=== PATIENT | female | born 1955 | race Caucasian/White ===

== ENCOUNTER 2017-02-08 10:34 | Inpatient (IN) | payer OTHER ==
--- NOTE | 2017-02-08 10:46 | PDOC ---
History of Present Illness - General Stated Complaint: PRESSURE ULCER (WC SENT) Time Seen by Provider: 02/08/17 10:44 - History of Present Illness Initial Comments: 02/08/17 10:46 CHIEF COMPLAINT: HISTORY OF PRESENT ILLNESS: This is a 61 year old female SN[facility] resident with a history of MS and DVT on Eliquis sent from wound care by Dr. Samaniego for admission for IV antibiotics and treatment of an infected right buttock ulcer. The patient denies fevers/chills or any other systemic complaints. V/s on arrival are notable for pulse of 94. Patient resides in the [facility]. REVIEW OF SYSTEMS: GENERAL/CONSTITUTIONAL: No fever or chills. No weakness above baseline. No weight change. HEAD, EYES, EARS, NOSE AND THROAT: No change in vision. No ear pain or discharge. No sore throat. CARDIOVASCULAR: No chest pain or palpitations. RESPIRATORY: No cough, wheezing, or shortness of breath. GASTROINTESTINAL: No nausea, vomiting, diarrhea or constipation. GENITOURINARY: No dysuria, frequency, or change in urination. Chronic indwelling borjas catheter. MUSCULOSKELETAL: No joint or muscle swelling or pain. No neck or back pain. SKIN: No rash or easy bruising. NEUROLOGIC: No headache, vertigo, loss of consciousness, or loss of sensation. PSYCHIATRIC: No depression or anxiety. ENDOCRINE: No increased thirst. No abnormal weight change. HEMATOLOGIC/LYMPHATIC: No anemia, easy bleeding, or history of blood clots. ALLERGIC/IMMUNOLOGIC: No hives or skin allergy. No latex allergy. PHYSICAL EXAM: GENERAL: The patient is awake, alert, oriented x 2, in no acute distress. HEAD: Normal with no signs of trauma. ENT: Pupils equal, round and reactive to light, extraocular movements intact, sclera anicteric, conjunctiva clear. Neck supple. LUNGS: Clear to auscultation bilaterally. Normal excursion. No respiratory distress or use of accessory muscles. CV: RRR, S1/S2, no MRG. Cap refill < 2 sec. ABDOMEN: Soft, non-distended, non-tender. EXTREMITIES: Normal range of motion, no edema. NEUROLOGICAL: Normal speech. CN II-XII grossly intact. RUE 3/5 LUE 4/5 RLE 3/5 LLE 3/5. PSYCH: Normal mood, normal affect. SKIN: Warm, dry, normal turgor. Right buttock ulcer 8 cm x 6cm, tunneling, necrotic tissue, purulent drainage. Past History - Past Medical History Allergies/Adverse Reactions: Allergies Allergy/AdvReac Type Severity Reaction Status Date / Time aripiprazole [From Abilify] AdvReac Severe Verified 02/08/17 11:00 Home Medications: Ambulatory Orders Acetaminophen [Tylenol] 650 mg PO Q6H 02/08/17 Apixaban [Eliquis -] 5 mg PO Q12H 02/08/17 Arginine/Glutamine/Calcium Hmb [Gordon Packet] 1 each PO BID 02/08/17 Atorvastatin Ca [Lipitor] 20 mg PO HS 02/08/17 Baclofen 20 mg PO QID 02/08/17 Bismuth Tribromoph/Petrolatum [Xeroform Petrolatum Dress] 1 each TP Q72H Calcium Carbonate/Vitamin D3 [Calcium 600-Vit D3 400 Tablet] 1 each PO DAILY Gabapentin [Neurontin -] 300 mg PO BID 02/08/17 Letrozole 2.5 mg PO DAILY 02/08/17 Levofloxacin [Levaquin -] 250 mg PO 1700 02/08/17 Melatonin 3 mg PO HS 02/08/17 Mirtazapine [Remeron [DO NOT STOCK]] 45 mg PO HS 02/08/17 Polyethylene Glycol 3350 [Miralax (For Bowel Prep) -] 17 gm PO Q12H 02/08/17 Risperidone [Risperdal] 1 mg PO TID 02/08/17 Silv/Bandg/Lidoca/Chlorhex/Alc [Vacustim Silver Kit] 1 each TP Q72H 02/08/17 Silver Sulfadiazine 1% Top Cr [Silvadene -] 1 applic TP ASDIR 02/08/17 Cancer: Yes (Breast) Hypercholesterolemia: Yes - Psycho/Social/Smoking Cessation Hx Smoking History: Never smoked ED Treatment Course - LABORATORY CBC & Chemistry Diagram: 02/08/17 11:50 02/08/17 11:50 Medical Decision Making - Medical Decision Making 02/08/17 12:57 A/P: 61 year old female with infected buttock ulcer. 1. EKG and CXR 2. Labs including CBC, comp, ESR/CRP, blood cultures, wound culture 3. Ceftriaxone/Vancomycin 4. Admit 02/08/17 13:01 UA with 3+ leukesterase and pos nitrites noted. Will change borjas cath. *DC/Admit/Observation/Transfer Diagnosis at time of Disposition: Infected decubitus ulcer Qualifiers: Pressure ulcer stage: unstageable Qualified Code(s): L89.95 - Pressure ulcer of unspecified site, unstageable Urinary tract infection Qualifiers: Indwelling urinary catheter type: indwelling urethral catheter Encounter type: initial encounter - Discharge Dispostion Condition at time of disposition: Guarded Admit: Yes
[2017-02-08 11:00] VITALS: BMI 25.7
[2017-02-08] MEDS ORDERED: CEFTRIAXONE 1 GM in DEXTROSE 5%-WATER - 50 ML IVPB ONE (12:01)
[2017-02-08] MEDS ORDERED: VANCOMYCIN 1,000 MG in DEXTROSE 5%-WATER - 250 ML IVPB ONE (12:01)
[2017-02-08] MEDS ORDERED: VANCOMYCIN 1 GRAM (PRE-DOCKED) 250 ML IVPB ONE (12:09)
[2017-02-08] MEDS ORDERED: CEFTRIAXONE 50 ML ONE (12:09)
[2017-02-08 12:27] LABS: BASOPHIL 0.2 % (0-2.0); EOSINOPHIL 0.6 % (0-4.5); MCH 25.5 pg (25.7-33.7); MCHC 32.1 g/dl (32.0-36.0); MEAN CELL VOLUME 79.6 fl (80-96); MEAN PLT VOLUME 8.2 fl (7.5-11.1); NEUTROPHILS 72.9 % (42.8-82.8); PLATELET COUNT 265 K/MM3 (134-434); RDW 15.9 % (11.6-15.6); WHITE BLOOD COUNT 10.2 K/mm3 (4.0-10.0)
[2017-02-08 12:50] LABS: URINE APPEARANCE CLOUDY; URINE BILIRUBIN NEGATIVE (NEGATIVE); URINE BLOOD NEGATIVE (NEGATIVE); URINE COLOR AMBER; URINE GLUCOSE (UA) NEGATIVE (NEGATIVE); URINE KETONE NEGATIVE (NEGATIVE); URINE NITRITE POSITIVE (NEGATIVE); URINE UROBILINOGEN NEGATIVE E.U./dl (0.2-1.0)
[2017-02-08 12:53] LABS: URINE LEUK ESTERASE 3+ (NEGATIVE); URINE PROTEIN 1+ (NEGATIVE)
[2017-02-08 13:02] LABS: INR 1.38 (0.82-1.09); PROTHROMBIN TIME (PATIENT) 15.3 SEC (9.98-11.88)
[2017-02-08 13:08] LABS: ALBUMIN 1.7 g/dl (3.4-5.0); ALK PHOS 128 U/L (45-117); ANION GAP 9 (8-16); BILIRUBIN,TOTAL 0.2 mg/dL (0.2-1.0); C-REACTIVE PROTEIN 14.9 MG/DL (0.00-0.3); CALCIUM 8.5 mg/dL (8.5-10.1); CO2 34 mmol/L (21-32); CREATININE 0.4 mg/dL (0.55-1.02); GLUCOSE,RANDOM 132 mg/dL (74-106); SGOT/AST 55 U/L (15-37); SGPT/ALT 69 U/L (12-78); TOT PROT 5.9 g/dl (6.4-8.2); URINE MUCUS FEW; URINE RBC 7 /hpf (0-3); URINE WBC 246 /hpf (3-5); YEAST RARE
--- NOTE | 2017-02-08 14:58 | HP ---
CHIEF COMPLAINT: sacral ulcer HISTORY OF PRESENT ILLNESS: This is a 61 yo F [facility] resident with PMH of MS, HLD, Schizophrenia, major depresssive d/o, DVT on eliquis and chronic buttock ulcer who presents at the urging of wound care/plastics Dr Samaniego for IV abx due to infected R buttock ulcer. On admission she is afebrile and hemodynamically stable. Her HR is 94. She states she doesnt feel well but cant specify how. She denies f/c, sob, chest pain, cough, abd pain, n/v, diarrhea, myalgia. Patient can only give limited history due to mental state. ER course was notable for: (1)labs (2)alyssa scherer (3)ID consult Recent Travel: denies PAST MEDICAL HISTORY: PAST SURGICAL HISTORY: Social History: [facility] resident Smoking:denies Alcohol:denies Drugs: denies Family History: unable to obtain Allergies aripiprazole [From [facility]] Adverse Reaction (Severe, Verified 02/08/17 11:00) In ICU after administration of this medication HOME MEDICATIONS: Home Medications Medication Instructions Recorded Acetaminophen [Tylenol] 650 mg PO Q6H 02/08/17 Apixaban [Eliquis -] 5 mg PO Q12H 02/08/17 Arginine/Glutamine/Calcium Hmb 1 each PO BID 02/08/17 [Gordon Packet] Atorvastatin Ca [Lipitor] 20 mg PO HS 02/08/17 Baclofen 20 mg PO QID 02/08/17 Bismuth Tribromoph/Petrolatum 1 each TP Q72H 02/08/17 [Xeroform Petrolatum Dress] Calcium Carbonate/Vitamin D3 1 each PO DAILY 02/08/17 [Calcium 600-Vit D3 400 Tablet] Gabapentin [Neurontin -] 300 mg PO BID 02/08/17 Letrozole 2.5 mg PO DAILY 02/08/17 Levofloxacin [Levaquin -] 250 mg PO 1700 02/08/17 Melatonin 3 mg PO HS 02/08/17 Mirtazapine [Remeron [DO NOT 45 mg PO HS 02/08/17 STOCK]] Polyethylene Glycol 3350 [Miralax 17 gm PO Q12H 02/08/17 (For Bowel Prep) -] Risperidone [Risperdal] 1 mg PO TID 02/08/17 Silv/Bandg/Lidoca/Chlorhex/Alc 1 each TP Q72H 02/08/17 [Vacustim Silver Kit] Silver Sulfadiazine 1% Top Cr 1 applic TP ASDIR 02/08/17 [Silvadene -] REVIEW OF SYSTEMS CONSTITUTIONAL: Absent: fever, chills, diaphoresis HEENT: Absent: rhinorrhea, nasal congestion, throat pain CARDIOVASCULAR: Absent: chest pain, syncope, palpitations RESPIRATORY: Absent: cough, shortness of breath, wheezing, stridor, hemoptysis GASTROINTESTINAL: Absent: abdominal pain, abdominal distension, nausea, vomiting, diarrhea GENITOURINARY: Absent: flank pain MUSCULOSKELETAL: Absent: myalgia SKIN: Absent: rash, itching, pallor HEMATOLOGIC/IMMUNOLOGIC: Absent: lymphadenopathy ENDOCRINE: Absent: heat intolerance, cold intolerance NEUROLOGIC: Absent: headache, dizziness, seizure PSYCHIATRIC: Absent: anxiety Laboratory Tests 02/08/17 02/08/17 02/08/17 11:45 11:50 11:50 WBC 10.2 H RBC 3.78 Hgb 9.6 L Hct 30.1 L MCV 79.6 L MCHC 32.1 RDW 15.9 H Plt Count 265 Neutrophils % 72.9 INR 1.38 H Sodium 143 Potassium 3.7 Chloride 100 Carbon Dioxide 34 H Anion Gap 9 BUN 17 Creatinine 0.4 L Creat Clearance w eGFR > 60 Random Glucose 132 H Lactic Acid Calcium 8.5 Total Bilirubin 0.2 AST 55 H ALT 69 Alkaline Phosphatase 128 H C-Reactive Protein 14.9 H Total Protein 5.9 L Albumin 1.7 L Urine Color Urine Appearance Urine pH Ur Specific Pollock Urine Protein Urine Glucose (UA) Urine Ketones Urine Blood Urine Nitrite Urine Bilirubin Urine Urobilinogen Ur Leukocyte Esterase Urine RBC Urine WBC Urine Mucus Urine Yeast 02/08/17 02/08/17 11:50 11:50 WBC RBC Hgb Hct MCV MCHC RDW Plt Count Neutrophils % INR Sodium Potassium Chloride Carbon Dioxide Anion Gap BUN Creatinine Creat Clearance w eGFR Random Glucose Lactic Acid 1.967 Calcium Total Bilirubin AST ALT Alkaline Phosphatase C-Reactive Protein Total Protein Albumin Urine Color Celeste Urine Appearance Cloudy Urine pH 6.0 Ur Specific Pollock 1.028 Urine Protein 1+ H Urine Glucose (UA) Negative Urine Ketones Negative Urine Blood Negative Urine Nitrite Positive Urine Bilirubin Negative Urine Urobilinogen Negative Ur Leukocyte Esterase 3+ H Urine RBC 7 Urine WBC 246 Urine Mucus Few Urine Yeast Rare PHYSICAL EXAMINATION GENERAL: Awake, alert, and oriented, in no acute distress. HEAD: Normal with no signs of trauma. EYES: Pupils equal, round and reactive to light, extraocular movements intac EARS, NOSE, THROAT: oropharynx clear without exudates. Moist mucous membranes. NECK: supple without JVD LUNGS: Breath sounds equal, clear to auscultation bilaterally HEART: Regular rate and rhythm, normal S1 and S2 ABDOMEN: Soft, nontender, not distended, normoactive bowel sounds MUSCULOSKELETAL: No CVA tenderness. Stage IV sacral decubitus ulcer on R side with dark slough and dark drainage, malodorous, exposed bone. UPPER EXTREMITIES: 2+ pulses, warm, well-perfused. No peripheral edema. LOWER EXTREMITIES: 2+ pulses, warm, well-perfused. trace peripheral edema. NEUROLOGICAL: Cranial nerves II-XII grossly intact. slurred speech. PSYCHIATRIC: Cooperative. Good eye contact. SKIN: Warm, dry ASSESSMENT/PLAN: This is a 61 yo F [facility] resident with PMH of MS, HLD, Schizophrenia, major depresssive d/o, DVT on eliquis and chronic buttock ulcer who presents at the urging of wound care/plastics Dr Samaniego for IV abx due to infected R buttock ulcer. Infection of chronic Right Decubitus ulcer -blood, urine and wound cultures p/d -Rocephin, Vanco in ER -add Zosyn for pseudomonas coverage -NS@50 -Morphine 1 mg q 6h -ID consult -treat for presumed osteo, will need picc line -Dr Samaniego consult for debridement followed by wound vac. MS -neurontin HLD -lipitor History of DVT -eliquis Schizophrenia -Risperedal major depressive d/o -remeron FEN -NS@50 -lytes stable -Regular diet -eliquis, diet Dispo: admit to med [facility] Visit type - Emergency Visit Emergency Visit: Yes ED Registration Date: 02/08/17 Care time: The patient presented to the Emergency Department on the above date and was hospitalized for further evaluation of their emergent condition. - New Patient This patient is new to me today: Yes Date on this admission: 02/08/17 - Critical Care Critical Care patient: No
[2017-02-08] MEDS ORDERED: SILVER SULFADIAZINE 1% TOP CREAM 400 GM JAR TP SCH (15:45)
[2017-02-08] MEDS ORDERED: PIPERACILLIN/TAZOB 3.375 GM 3.375 GM in DEXTROSE 5%-WATER - 50 ML IVPB ONE ×2 (16:07→23:55)
[2017-02-08] MEDS ORDERED: morphine CARPU-JECT 2 MG/1 ML DISP.SYRIN IVPUSH PRN (16:09)
[2017-02-08] MEDS ORDERED: SODIUM CHLORIDE 1,000 ML IV SCH (16:15)
[2017-02-08 17:47] LABS: ERYTHROCYTE SEDIMENTATION RATE 129 mm/hr (0-30)
[2017-02-08] MEDS ORDERED: PIPERACILLIN/TAZOB 3.375 GM 50 ML IVPB ONE (18:00)
[2017-02-08] MEDS ORDERED: PATIENT'S OWN MEDICATION (NON-FORMULARY) (Baclofen [Baclofen] 20 MG) PO SCH (18:00)
--- NOTE | 2017-02-08 18:14 | PN ---
Teaching Attending Note Name of Resident: Sherri Avelar ATTENDING PHYSICIAN STATEMENT I saw and evaluated the patient. I reviewed the resident's note and discussed the case with the resident. I agree with the resident's findings and plan as documented. SUBJECTIVE: This is a 61-year-old woman, resident of [facility], with a history of MS, schizophrenia, hyperlipidemia, depression and DVT who was sent to the ER by Dr. Samaniego for admission for treatment of a sacral pressure ulcer. The patient says she hasn't been feeling well for a few days but has no specific complaints. She does not know why she is here. OBJECTIVE: Vital Signs Period Temp Pulse Resp BP Sys/Claudio Pulse Ox Last 24 Hr 98.6 F 94 18 102/54 98 HEART: S1 S2, RRR LUNGS: Clear ABDOMEN: Soft, non-tender, non-distended, normal BS EXTREMITIES: No edema SKIN: 5 cm x 6 cm stage IV sacral pressure ulcer with tunneling, slough, necrosis of the edges, and purulent drainage ASSESSMENT AND PLAN: This is a 61-year-old woman with a history of MS, schizophrenia, hyperlipidemia , depression and DVT who is being admitted for treatment of an infected stage IV sacral pressure ulcer. 1. Infected stage IV sacral pressure ulcer, with likely osteomyelitis - Local wound care - Zosyn, Vancomycin - ESR, C-RP pending - ID consult - Plastic surgery consult 2. Multiple sclerosis - On Neurontin, Baclofen 3. Schizophrenia - On Risperdal 4. Depression - On Remeron 5. Hyperlipidemia - On Lipitor 6. History of DVT - On Eliquis
[2017-02-08] MEDS: BACLOFEN 10 MG TABLET (FP) PO SCH ×2 (19:28→23:10)
[2017-02-08] MEDS: ACETAMINOPHEN 325 MG TABLET (FP) PO SCH (19:28)
[2017-02-08] MEDS ORDERED: MELATONIN 1 MG TABLET PO SCH (22:00)
[2017-02-08] MEDS ORDERED: GABAPENTIN 300 MG CAPSULE (FP) PO SCH (22:00)
[2017-02-08] MEDS ORDERED: POLYETHYLENE GLYCOL 3350 119 GM BTL PO SCH (22:00)
[2017-02-08] MEDS ORDERED: MIRTAZAPINE 15 MG TABLET (FP) PO SCH (22:00)
[2017-02-08] MEDS ORDERED: APIXABAN 5 MG TABLET PO SCH (22:00)
[2017-02-08] MEDS ORDERED: PATIENT'S OWN MEDICATION (NON-FORMULARY) (Melatonin [Melatonin] 3 MG) PO SCH (22:00)
[2017-02-08] MEDS ORDERED: MIRTAZAPINE PO SCH (22:00)
[2017-02-08] MEDS ORDERED: ATORVASTATIN CA 20 MG TABLET (FP) PO SCH (22:00)
[2017-02-08] MEDS ORDERED: PT OWN MED DRAWER 7, Y5N ONE (22:48)
[2017-02-08] MEDS: risperiDONE 1 MG TABLET (FP) PO SCH (23:12)
[2017-02-09] MEDS: ACETAMINOPHEN 325 MG TABLET (FP) PO SCH ×3 (00:17→18:33)
[2017-02-09] MEDS ORDERED: PIPERACILLIN/TAZOB 3.375 GM/50 ML PRE-DOCKED IVPB SCH ×2 (02:00→18:00)
[2017-02-09] MEDS: risperiDONE 1 MG TABLET (FP) PO SCH ×2 (07:55→22:30)
[2017-02-09] MEDS ORDERED: VANCOMYCIN 1 GRAM (PRE-DOCKED) 250 ML IVPB ONE (08:00)
[2017-02-09] MEDS ORDERED: PIPERACILLIN/TAZOB 3.375 GM 3.375 GM in DEXTROSE 5%-WATER - 50 ML IVPB ONE (08:00)
[2017-02-09 08:01] LABS: MCH 25.6 pg (25.7-33.7); MCHC 32.4 g/dl (32.0-36.0); MEAN CELL VOLUME 78.9 fl (80-96); PLATELET COUNT 266 K/MM3 (134-434); RDW 15.7 % (11.6-15.6); WHITE BLOOD COUNT 8.1 K/mm3 (4.0-10.0)
[2017-02-09 08:46] LABS: CALCIUM 8.5 mg/dL (8.5-10.1); CREATININE 0.4 mg/dL (0.55-1.02); MAGNESIUM 2.2 mg/dL (1.8-2.4); PHOSPHOROUS 4.5 mg/dL (2.5-4.9)
--- NOTE | 2017-02-09 09:22 | PN ---
Progress Note (short form) - Note Progress Note: ID Full note dictated Patient complains of pain in the sacral area Selected Entries 02/09/17 06:00 Temperature 97.9 F Pulse Rate 83 Respiratory 20 Rate Blood Pressure 125/68 Stage 4 sacral decub to bone areas of skin necrosis bloody drainage Microbiology Laboratory Tests 02/08/17 02/08/17 02/09/17 11:50 11:50 06:00 WBC 8.1 Hgb 9.2 L Hct 28.4 L Plt Count 266 ESR 129 H BUN C-Reactive Protein 14.9 H 02/09/17 06:00 WBC Hgb Hct Plt Count ESR BUN 14 C-Reactive Protein Assessment Sacral osteomyelitis ESR 129 necrotic tissue noted Plan Debridement Delfina and Ann for now PICC line Sandy STEELE
[2017-02-09] MEDS ORDERED: LETROZOLE 2.5 MG TABLET (FP) PO SCH (10:00)
[2017-02-09] MEDS ORDERED: CHOLECALCIFEROL (VITAMIN D3) 400 UNIT TABLET (FP) PO SCH (10:00)
[2017-02-09] MEDS ORDERED: CALCIUM CARBONATE 650 MG TABLET PO SCH (10:00)
[2017-02-09] MEDS ORDERED: PATIENT'S OWN MEDICATION (NON-FORMULARY) (Calcium Carbonate/Vitamin D3 [Calcium 600-Vit D3 PO SCH (10:00)
--- NOTE | 2017-02-09 10:28 | CONS ---
INFECTIOUS DISEASE CONSULT DATE OF CONSULTATION: DATE OF DICTATION: 02/09/2017 DICTATED BY: Brandon Hays MD HISTORY OF PRESENT ILLNESS: This is a 61-year-old female with multiple sclerosis from [facility], admitted with chronic sacral decubitus ulcer. She has a history of MS, schizophrenia, major depressive disorder and DVT for which she is on Eliquis. She was apparently admitted by Dr. Samaniego for further wound management and long-term antibiotics for osteomyelitis. She has no fever or chills. She is alert and oriented and in no acute distress. PAST MEDICAL HISTORY: As noted above. MEDICATIONS: Eliquis, atorvastatin, baclofen, gabapentin, letrozole, Remeron, Risperdal. ALLERGIES: ABILIFY. SOCIAL HISTORY: Non-smoker. No history of alcohol use. FAMILY HISTORY: Reviewed and noncontributory. REVIEW OF SYSTEMS: Respiratory. No shortness of breath, cough, hemoptysis. Cardiac: No chest pain, palpitations, syncope, murmur. GI: No abdominal pain, nausea, vomiting, diarrhea. : No dysuria, hematuria, urinary frequency. Chronic indwelling [place] catheter at the shelter, changed here. Skin: The skin revealed a stage IV decubitus ulcer of the sacral area with areas of necrotic tissue and purulent drainage noted in the nodes, currently mostly bloody-appearing drainage. LABS: The white count was 10.2, hemoglobin 9.6, platelets of 265, ESR 129, INR 1.38. BUN 14, creatinine 0.4. Urinalysis: 3+ leukocyte esterase. 7 RBCs, 246 WBCs. Blood, wound and urine cultures pending. ASSESSMENT: 61-year-old female with multiple sclerosis, shelter resident, brought for management of a stage IV necrotic sacral decubitus ulcer with necrotic tissue margins and purulent bloody drainage noted. Elevated ESR of 130, consistent with diagnosis of underlying sacral osteomyelitis. PLAN: Will plan on long-term antibiotics. A wound culture has been sent for whatever value this may be, given this large open wound. She is scheduled to be taken to the operating room today for debridement of the wound and, for the time being, will be placed on vancomycin 1 gm IV q 12 h and Zosyn 4.5 gm IV q 8 h with plan to insert a PICC line pre-discharge. BRANDON HAYS M.D. DAIN/[id number]
[2017-02-09] MEDS ORDERED: PT OWN MED DRAWER 7, Y5N ONE (11:16)
[2017-02-09] MEDS: BACLOFEN 10 MG TABLET (FP) PO SCH ×3 (11:22→22:27)
[2017-02-09] MEDS ORDERED: PICC LINE 8 ML FLUSH PROTOCOL IVPUSH PRN ×2 (12:25→14:41)
--- NOTE | 2017-02-09 12:28 | EKG ---
Test Reason : Blood Pressure : / mmHG Vent. Rate : 095 BPM Atrial Rate : 095 BPM P-R Int : 136 ms QRS Dur : 116 ms QT Int : 370 ms P-R-T Axes : 003 -49 048 degrees QTc Int : 464 ms NORMAL SINUS RHYTHM LEFT ANTERIOR FASCICULAR BLOCK ABNORMAL ECG NO PREVIOUS ECGS AVAILABLE Confirmed by CAMMIE MADRIGAL MD ([id number]) on 02/09/2017 12:28:20 PM Referred By: Confirmed By:CAMMIE MADRIGAL MD
[2017-02-09] MEDS ORDERED: PROPOFOL 20 ML ONE (12:37)
[2017-02-09] MEDS ORDERED: MIDAZOLAM HCL 2 MG/2 ML SINGLE DOSE VIAL ONE (12:37)
[2017-02-09] MEDS ORDERED: PIPERACILLIN/TAZOB 4.5 GM 100 ML IVPB SCH (12:45)
[2017-02-09] MEDS ORDERED: LIDOCAINE 1%/EPI 1:100000 (50 ML MULTI DOSE VIAL) ONE (13:18)
[2017-02-09] MEDS ORDERED: LIDOCAINE 1%/EPI 1:100000 (50 ML MULTI DOSE VIAL) INF ONE (13:21)
[2017-02-09] MEDS ORDERED: ONDANSETRON 4 MG/2 ML VIAL IVPUSH PRN ×2 (14:09→14:41)
[2017-02-09] MEDS ORDERED: LACTATED RINGERS SOLUTION 1,000 ML IV SCH ×2 (14:15→14:41)
[2017-02-09] MEDS ORDERED: SODIUM CHLORIDE 1,000 ML IV SCH (14:41)
[2017-02-09] MEDS ORDERED: morphine CARPU-JECT 2 MG/1 ML DISP.SYRIN IVPUSH PRN (14:41)
[2017-02-09] MEDS ORDERED: SILVER SULFADIAZINE 1% TOP CREAM 400 GM JAR TP SCH (14:41)
--- NOTE | 2017-02-09 15:29 | PN ---
Addendum entered and electronically signed by Sherri Avelar RES 02/09/17 15: 51: A/P: hold rosa an start on Hep drip but DO NOT BOLUS Original Note: Physical Exam: SUBJECTIVE: Patient seen and examined Patient resting in bed NAD. No acute events overnight. afebrile and hemodynamically stable. States she feels well. Brother at bedside, plan explained. denies pain, f/c, chest pain, n/v, abd pain, h/a, diarrhea, constipation. OBJECTIVE: Vital Signs Period Temp Pulse Resp BP Sys/Claudio Pulse Ox Last 24 Hr 97.9 F-99.6 F 52-102 14-20 102-135/44-74 95-100 GENERAL: Awake, alert, and oriented, in no acute distress. HEAD: Normal with no signs of trauma. EYES: Pupils equal, round and reactive to light, extraocular movements intac EARS, NOSE, THROAT: oropharynx clear without exudates. Moist mucous membranes. NECK: supple without JVD LUNGS: Breath sounds equal, clear to auscultation bilaterally HEART: Regular rate and rhythm, normal S1 and S2 ABDOMEN: Soft, nontender, not distended, normoactive bowel sounds MUSCULOSKELETAL: No CVA tenderness. Stage IV sacral decubitus ulcer on R side with dark slough and dark drainage, malodorous, exposed bone. UPPER EXTREMITIES: 2+ pulses, warm, well-perfused. No peripheral edema. LOWER EXTREMITIES: 2+ pulses, warm, well-perfused. trace peripheral edema. NEUROLOGICAL: Cranial nerves II-XII grossly intact. slurred speech. PSYCHIATRIC: Cooperative. Good eye contact. SKIN: Warm, dry Laboratory Results - last 24 hr 02/09/17 02/09/17 06:00 06:00 WBC 8.1 RBC 3.60 Hgb 9.2 L Hct 28.4 L MCV 78.9 L MCHC 32.4 RDW 15.7 H Plt Count 266 MPV 8.0 Sodium 143 Potassium 4.0 Chloride 103 Carbon Dioxide 29 Anion Gap 11 BUN 14 Creatinine 0.4 L Random Glucose 98 D Calcium 8.5 Phosphorus 4.5 Magnesium 2.2 Active Medications Generic Name Dose Route Start Last Admin Trade Name Freq PRN Reason Stop Dose Admin Acetaminophen 650 mg 02/09/17 18:00 Tylenol - PO Q6HPO NAYAN Apixaban 5 mg 02/09/17 22:00 Eliquis - PO BID [facility] Atorvastatin Calcium 20 mg 02/09/17 22:00 Lipitor - PO HS [facility] Baclofen 20 mg 02/09/17 18:00 Lioresal - PO QID [facility] Calcium Carbonate 650 mg 02/10/17 10:00 Calcium Carbonate - PO DAILY [facility] Cholecalciferol 400 unit 02/10/17 10:00 Vitamin D3 - PO DAILY [facility] Fentanyl 50 mcg 02/09/17 14:41 Sublimaze Injection - IVPUSH 02/12/17 14:10 [id number] PRN PAIN Gabapentin 300 mg 02/09/17 22:00 Neurontin - PO BID [facility] IV Flush 8 ml 02/09/17 14:41 Picc Line Flush IVPUSH PRN PRN Protocol Lactated Ringer's 1,000 mls @ 75 mls/hr 02/09/17 14:41 Lactated Ringers Solution IV ASDIR [facility] Sodium Chloride 1,000 mls @ 50 mls/hr 02/09/17 14:41 Normal Saline - IV 02/09/17 16:09 ASDIR [facility] Vancomycin HCl 250 mls @ 166.667 mls/hr 02/09/17 20:00 Vancomycin (Pre-Docked) IVPB BID@0800,2000 [facility] Protocol Piperacillin Sod/Tazobactam Sod 100 mls @ 200 mls/hr 02/09/17 18:00 Zosyn 4.5gm Ivpb (Pre-Docked) IVPB Q8H-IV [facility] Protocol Letrozole 2.5 mg 02/10/17 10:00 Femara - PO DAILY [facility] Melatonin 3 mg 02/09/17 22:00 Melatonin PO HS [facility] Mirtazapine 45 mg 02/09/17 22:00 Remeron - PO HS [facility] Morphine Sulfate 1 mg 02/09/17 14:41 Morphine Injection - IVPUSH Q6H PRN PAIN Ondansetron HCl 4 mg 02/09/17 14:41 Zofran Injection IVPUSH 02/09/17 20:10 Q6H PRN NAUSEA AND/OR VOMITING Piperacillin Sod/Tazobactam Sod 3.375 gm 02/09/17 18:00 Zosyn 3.375gm Ivpb (Pre-Docked) IVPB Q8H-IV [facility] Polyethylene Glycol 17 gm 02/09/17 22:00 Miralax (For Daily Use) - PO BID NAYAN Risperidone 1 mg 02/09/17 22:00 Risperdal - PO TID [facility] Silver Sulfadiazine 1 applic 02/09/17 14:41 Silvadene - TP ASDIR [facility] ASSESSMENT/PLAN: This is a 61 yo F [facility] resident with PMH of MS, HLD, Schizophrenia, major depresssive d/o, DVT on eliquis and chronic buttock ulcer who presents at the urging of wound care/plastics Dr Samaniego for IV abx due to infected R buttock ulcer. Infection of chronic Right Decubitus ulcer -blood, urine and wound cultures p/d -ID consult appreciated -Stan and Ann for pseudomonas coverage -NS@50 -Morphine 1 mg q 6h -treat for presumed osteo, picc line scheduled for tomorrow -Dr Samaniego debridement today with would vac to follow MS -neurontin HLD -lipitor History of DVT -eliquis Schizophrenia -Risperedal major depressive d/o -remeron FEN -NS@50 -lytes stable -Regular diet -eliquis held for OR Dispo: admit to med [facility] Visit type - Emergency Visit Emergency Visit: Yes ED Registration Date: 02/08/17 Care time: The patient presented to the Emergency Department on the above date and was hospitalized for further evaluation of their emergent condition. - New Patient This patient is new to me today: No - Critical Care Critical Care patient: No - Discharge Referral Referred to [facility] Med [facility] No
[2017-02-09] MEDS ORDERED: HEPARIN NA (PORCINE) 5,000 UNITS/ML 1ML VIAL IVPUSH PRN ×2 (15:48)
[2017-02-09] MEDS: PIPERACILLIN/TAZOB 4.5 GM 100 ML IVPB SCH (18:16)
--- NOTE | 2017-02-09 18:23 | PN ---
Teaching Attending Note Name of Resident: Sherri Avelar (2) ATTENDING PHYSICIAN STATEMENT I saw and evaluated the patient. I reviewed the resident's note and discussed the case with the resident. I agree with the resident's findings and plan as documented. Patient is going to OR for debridment of Decubitus. Brother at bedside, No acute distress, no fever or chill. Vital Signs Temperature 98.8 F 02/09/17 15:00 Pulse Rate 88 02/09/17 15:00 Respiratory Rate 15 02/09/17 15:00 Blood Pressure 96/43 02/09/17 15:00 O2 Sat by Pulse Oximetry (%) 99 02/09/17 15:00 CBCD WBC 8.1 K/mm3 (4.0-10.0) 02/09/17 06:00 RBC 3.60 M/mm3 (3.60-5.2) 02/09/17 06:00 Hgb 9.2 GM/dL (10.7-15.3) L 02/09/17 06:00 Hct 28.4 % (32.4-45.2) L 02/09/17 06:00 MCV 78.9 fl (80-96) L 02/09/17 06:00 MCHC 32.4 g/dl (32.0-36.0) 02/09/17 06:00 RDW 15.7 % (11.6-15.6) H 02/09/17 06:00 Plt Count 266 K/MM3 (134-434) 02/09/17 06:00 MPV 8.0 fl (7.5-11.1) 02/09/17 06:00 CMP Sodium 143 mmol/L (136-145) 02/09/17 06:00 Potassium 4.0 mmol/L (3.5-5.1) 02/09/17 06:00 Chloride 103 mmol/L (98-107) 02/09/17 06:00 Carbon Dioxide 29 mmol/L (21-32) 02/09/17 06:00 Anion Gap 11 (8-16) 02/09/17 06:00 BUN 14 mg/dL (7-18) 02/09/17 06:00 Creatinine 0.4 mg/dL (0.55-1.02) L 02/09/17 06:00 Creat Clearance w eGFR > 60 (>60) 02/08/17 11:50 Random Glucose 98 mg/dL (74-106) D 02/09/17 06:00 Calcium 8.5 mg/dL (8.5-10.1) 02/09/17 06:00 Total Bilirubin 0.2 mg/dL (0.2-1.0) 02/08/17 11:50 AST 55 U/L (15-37) H 02/08/17 11:50 ALT 69 U/L (12-78) 02/08/17 11:50 Alkaline Phosphatase 128 U/L (45-117) H 02/08/17 11:50 Total Protein 5.9 g/dl (6.4-8.2) L 02/08/17 11:50 Albumin 1.7 g/dl (3.4-5.0) L 02/08/17 11:50 Current Medications Generic Name Dose Route Start Last Admin Trade Name Freq PRN Reason Stop Dose Admin Acetaminophen 650 mg 02/09/17 18:00 Tylenol - PO Q6HPO [facility] Apixaban 5 mg 02/09/17 22:00 Eliquis - PO BID [facility] Atorvastatin Calcium 20 mg 02/09/17 22:00 Lipitor - PO HS [facility] Baclofen 20 mg 02/09/17 18:00 02/09/17 18:17 Lioresal - PO 20 mg QID [facility] Administration Calcium Carbonate 650 mg 02/10/17 10:00 Calcium Carbonate - PO DAILY [facility] Cholecalciferol 400 unit 02/10/17 10:00 Vitamin D3 - PO DAILY [facility] Fentanyl 50 mcg 02/09/17 14:41 Sublimaze Injection - IVPUSH 02/12/17 14:10 [id number] PRN PAIN Gabapentin 300 mg 02/09/17 22:00 Neurontin - PO BID [facility] Heparin Sodium (Porcine) 1,000 unit 02/09/17 15:48 Heparin - IVPUSH PRN PRN Heparin Heparin Sodium (Porcine) 5,000 unit 02/09/17 15:48 Heparin - IVPUSH PRN PRN Heparin IV Flush 8 ml 02/09/17 14:41 Picc Line Flush IVPUSH PRN PRN Protocol Lactated Ringer's 1,000 mls @ 75 mls/hr 02/09/17 14:41 02/09/17 15:00 Lactated Ringers Solution IV 0 mls ASDIR [facility] Administration Vancomycin HCl 250 mls @ 166.667 mls/hr 02/09/17 20:00 Vancomycin (Pre-Docked) IVPB BID@0800,2000 [facility] Protocol Piperacillin Sod/Tazobactam Sod 100 mls @ 200 mls/hr 02/09/17 18:00 02/09/17 18 :16 Zosyn 4.5gm Ivpb (Pre-Docked) IVPB 200 mls/hr Q8H-IV [facility] Administration Protocol Heparin Sodium (Porcine) 25, 500 mls @ 20 mls/hr 02/09/17 22:00 000 unit/ Sodium Chloride IV TITR [facility] Protocol 1,000 UNIT/HR Letrozole 2.5 mg 02/10/17 10:00 Femara - PO DAILY [facility] Melatonin 3 mg 02/09/17 22:00 Melatonin PO HS [facility] Mirtazapine 45 mg 02/09/17 22:00 Remeron - PO HS [facility] Morphine Sulfate 1 mg 02/09/17 14:41 Morphine Injection - IVPUSH Q6H PRN PAIN Ondansetron HCl 4 mg 02/09/17 14:41 Zofran Injection IVPUSH 02/09/17 20:10 Q6H PRN NAUSEA AND/OR VOMITING Polyethylene Glycol 17 gm 02/09/17 22:00 Miralax (For Daily Use) - PO BID [facility] Risperidone 1 mg 02/09/17 22:00 Risperdal - PO TID [facility] Silver Sulfadiazine 1 applic 02/09/17 14:41 Silvadene - TP ASDIR [facility] Home Medications Medication Instructions Recorded Acetaminophen [Tylenol] 650 mg PO Q6H 02/08/17 Apixaban [Eliquis -] 5 mg PO Q12H 02/08/17 Arginine/Glutamine/Calcium Hmb 1 each PO BID 02/08/17 [Gordon Packet] Atorvastatin Ca [Lipitor] 20 mg PO HS 02/08/17 Baclofen 20 mg PO QID 02/08/17 Bismuth Tribromoph/Petrolatum 1 each TP Q72H 02/08/17 [Xeroform Petrolatum Dress] Calcium Carbonate/Vitamin D3 1 each PO DAILY 02/08/17 [Calcium 600-Vit D3 400 Tablet] Gabapentin [Neurontin -] 300 mg PO BID 02/08/17 Letrozole 2.5 mg PO DAILY 02/08/17 Levofloxacin [Levaquin -] 250 mg PO 1700 02/08/17 Melatonin 3 mg PO HS 02/08/17 Mirtazapine [Remeron [DO NOT 45 mg PO HS 02/08/17 STOCK]] Polyethylene Glycol 3350 [Miralax 17 gm PO Q12H 02/08/17 (For Bowel Prep) -] Risperidone [Risperdal] 1 mg PO TID 02/08/17 Silv/Bandg/Lidoca/Chlorhex/Alc 1 each TP Q72H 02/08/17 [Vacustim Silver Kit] Silver Sulfadiazine 1% Top Cr 1 applic TP ASDIR 02/08/17 [Silvadene -] ASSESSMENT AND PLAN: This is a 61 yo F [facility] resident with PMH of MS, HLD, Schizophrenia, major depresssive d/o, DVT on eliquis and chronic buttock ulcer who presents at the urging of wound care/plastics Dr Samaniego for IV abx due to infected R buttock ulcer. 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
[2017-02-09] MEDS ORDERED: VANCOMYCIN 1 GRAM (PRE-DOCKED) 250 ML IVPB SCH (20:00)
[2017-02-09] MEDS ORDERED: HEPARIN - 25,000 UNIT in SODIUM CHLORIDE 495 ML IV SCH (22:00)
[2017-02-09] MEDS: GABAPENTIN 300 MG CAPSULE (FP) PO SCH (22:27)
[2017-02-09] MEDS: VANCOMYCIN 1 GRAM (PRE-DOCKED) 250 ML IVPB SCH (22:27)
[2017-02-09] MEDS: MELATONIN 1 MG TABLET PO SCH (22:28)
[2017-02-09] MEDS: ATORVASTATIN CA 20 MG TABLET (FP) PO SCH (22:28)
[2017-02-09] MEDS: MIRTAZAPINE 15 MG TABLET (FP) PO SCH (22:29)
[2017-02-09] MEDS: POLYETHYLENE GLYCOL 3350 119 GM BTL PO SCH (22:29)
[2017-02-10] MEDS: ACETAMINOPHEN 325 MG TABLET (FP) PO SCH ×4 (00:45→17:38)
[2017-02-10] MEDS: PIPERACILLIN/TAZOB 4.5 GM 100 ML IVPB SCH ×3 (01:01→17:34)
[2017-02-10] MEDS: risperiDONE 1 MG TABLET (FP) PO SCH ×3 (06:11→23:55)
[2017-02-10 08:04] LABS: MCH 25.4 pg (25.7-33.7); MCHC 32.2 g/dl (32.0-36.0); MEAN CELL VOLUME 78.9 fl (80-96); MEAN PLT VOLUME 7.9 fl (7.5-11.1); PLATELET COUNT 288 K/MM3 (134-434); RDW 15.7 % (11.6-15.6); WHITE BLOOD COUNT 8.7 K/mm3 (4.0-10.0)
--- NOTE | 2017-02-10 08:13 | PN ---
Progress Note, Physician Chief Complaint: Pt. resting comfortably. Pain controlled. no anesthesia complaints. - Current Medication List Current Medications: Active Medications Acetaminophen (Tylenol -) 650 mg PO Q6HPO [facility] Last Admin: 02/10/17 06:15 Dose: 650 mg Apixaban (Eliquis -) 5 mg PO BID [facility] Atorvastatin Calcium (Lipitor -) 20 mg PO HS [facility] Last Admin: 02/09/17 22:28 Dose: 20 mg Baclofen (Lioresal -) 20 mg PO QID [facility] Last Admin: 02/09/17 22:27 Dose: 20 mg Calcium Carbonate (Calcium Carbonate -) 650 mg PO DAILY [facility] Cholecalciferol (Vitamin D3 -) 400 unit PO DAILY [facility] Fentanyl (Sublimaze Injection -) 50 mcg IVPUSH [id number] PRN PRN Reason: PAIN Stop: 02/12/17 14:10 Gabapentin (Neurontin -) 300 mg PO BID [facility] Last Admin: 02/09/17 22:27 Dose: 300 mg Heparin Sodium (Porcine) (Heparin -) 1,000 unit IVPUSH PRN PRN PRN Reason: Heparin Heparin Sodium (Porcine) (Heparin -) 5,000 unit IVPUSH PRN PRN PRN Reason: Heparin IV Flush (Picc Line Flush) 8 ml IVPUSH PRN PRN PRN Reason: Protocol Lactated Ringer's (Lactated Ringers Solution) 1,000 mls @ 75 mls/hr IV ASDIR [facility] Last Admin: 02/09/17 15:00 Dose: 0 mls Vancomycin HCl (Vancomycin (Pre-Docked)) 250 mls @ 166.667 mls/hr IVPB BID@0800 ,2000 [facility] PRN Reason: Protocol Last Admin: 02/09/17 22:27 Dose: 166.667 mls/hr Piperacillin Sod/Tazobactam Sod (Zosyn 4.5gm Ivpb (Pre-Docked)) 100 mls @ 200 mls/hr IVPB Q8H-IV [facility] PRN Reason: Protocol Last Admin: 02/10/17 01:01 Dose: 200 mls/hr Heparin Sodium (Porcine) 25, (000 unit/ Sodium Chloride) 500 mls @ 20 mls/hr IV TITR [facility]; 1,000 UNIT/HR PRN Reason: Protocol Last Admin: 02/10/17 02:00 Dose: 20 mls/hr Letrozole (Femara -) 2.5 mg PO DAILY [facility] Melatonin (Melatonin) 3 mg PO HS [facility] Last Admin: 02/09/17 22:28 Dose: 3 mg Mirtazapine (Remeron -) 45 mg PO HS [facility] Last Admin: 02/09/17 22:29 Dose: 45 mg Morphine Sulfate (Morphine Injection -) 1 mg IVPUSH Q6H PRN PRN Reason: PAIN Polyethylene Glycol (Miralax (For Daily Use) -) 17 gm PO BID [facility] Last Admin: 02/09/17 22:29 Dose: 17 gm Risperidone (Risperdal -) 1 mg PO TID [facility] Last Admin: 02/10/17 06:11 Dose: 1 mg Silver Sulfadiazine (Silvadene -) 1 applic TP ASDIR [facility] - Objective Vital Signs: Vital Signs Temperature 99.9 F H 02/10/17 05:37 Pulse Rate 81 02/10/17 05:37 Respiratory Rate 20 02/10/17 05:37 Blood Pressure 113/62 02/10/17 05:37 O2 Sat by Pulse Oximetry (%) 96 02/09/17 20:51 Constitutional: Yes: Well Nourished, No Distress, Calm Musculoskeletal: Yes: WNL Neurological: Yes: WNL, Alert, Oriented Labs: CBC, BMP 02/10/17 06:00 INR, PTT INR 1.38 (0.82-1.09) H 02/08/17 11:45 Assessment/Plan POD#1 s/p sacral incision and debridement under MAC. Doing well. D/C from anesthesia care.
--- NOTE | 2017-02-10 08:17 | OP ---
DATE OF OPERATION: DATE OF DICTATION: 02/09/2017 INDICATIONS: The patient is a 61-year-old with history of mental problems including schizophrenia, depression, multiple sclerosis, who has a large grade 4 sacral decubitus extending to the spine involving lumbar spine, fascia, and the vertebral bodies, necrosis of the skin and subcutaneous tissue as well as muscle, with a tunnel at 5 o'clock position. PROCEDURE DONE: 1. Excisional debridement using 10 scalpel blade necrotic skin, muscle, fascia, fat. 2. Pulse evacuate 3 L with antibiotic bacitracin. 3. Curetted tissue, packing with Surgicel. SURGEON: Ailyn Laureano MD PROCEDURE: Patient is a 61-year-old brought to the operating room for a very large sacral decubitus that extends down to and involves the vertebrae and the fascia of the sacral and coccyx area. She has large amount of necrotic tissue, also is on blood thinners . TREATMENT: Patient was brought to the operating room, transferred over to the operating table onto the beanbag and rotated onto the right lateral position. Skin was prepped with Betadine and draped in a standard aseptic manner. Time-out was called, patient, procedure, for identification, location, was carried. Once agreed, the area was injected with 1% lidocaine with epinephrine and 0.25% Marcaine. A total of 20 mL was injected around the periphery and the muscle and the fascia. Betadine prep was done followed by standard aseptic draping. The first part of the procedure was excisional debridement of the necrotic fibrotic tissue covering the sacral and the coccyx spine. Necrosis was noted to be also involving the vertebral body. Area was surgically excised. Hemostasis was secured with electrocautery. Defect goes deep over 3 cm. Muscle and skin and subcutaneous tissue were surgically excised using a 10 scalpel blade. Hemostasis was secured with electrocautery. Rest of the tissues were curetted with a sharp sterile curette. Due to blood thinners, Eliquis, bleeding had to be controlled with Surgicel, which was packed near the spinal area as well as the right buttock. Wound was loosely packed with a Kerlix soaked in saline and betadine. VAC was not started because of the bleeding. Estimated blood loss was 20 mL. Procedure was completed. Patient is stable. Procedure was done under IV sedation and local anesthetic. Prior to surgery, Hu was present, and her condition was discussed with him. He is her brother. All questions were answered including future plans, possible myocutaneous flap for coverage, or to continue VAC. At the moment, Hu would prefer to continue VAC and not put his sister through surgical myocutaneous flap. Instrument and suture counts correct at the end. AILYN LAUREANO M.D. [id number]
[2017-02-10 08:56] LABS: CALCIUM 8.1 mg/dL (8.5-10.1); CREATININE 0.4 mg/dL (0.55-1.02)
[2017-02-10] MEDS ORDERED: PT OWN MED DRAWER 7, Y5N ONE ×2 (09:44→23:48)
[2017-02-10] MEDS: BACLOFEN 10 MG TABLET (FP) PO SCH ×4 (09:46→23:54)
[2017-02-10] MEDS: GABAPENTIN 300 MG CAPSULE (FP) PO SCH ×2 (09:47→23:55)
[2017-02-10] MEDS: CHOLECALCIFEROL (VITAMIN D3) 400 UNIT TABLET (FP) PO SCH (09:48)
[2017-02-10] MEDS: CALCIUM CARBONATE 650 MG TABLET PO SCH (09:48)
[2017-02-10] MEDS: LETROZOLE 2.5 MG TABLET (FP) PO SCH (09:49)
[2017-02-10] MEDS: POLYETHYLENE GLYCOL 3350 119 GM BTL PO SCH ×2 (09:50→23:55)
--- NOTE | 2017-02-10 10:12 | PN ---
Teaching Attending Note Name of Resident: Sherri Avelar ATTENDING PHYSICIAN STATEMENT I saw and evaluated the patient. I reviewed the resident's note and discussed the case with the resident. I agree with the resident's findings and plan as documented. Patient is doing better, going for PICC line today for laborer marine terminal antibiotic for Osteomyelitis. Vital Signs Temperature 99.9 F H 02/10/17 05:37 Pulse Rate 81 02/10/17 05:37 Respiratory Rate 20 02/10/17 05:37 Blood Pressure 113/62 02/10/17 05:37 O2 Sat by Pulse Oximetry (%) 96 02/09/17 20:51 CBCD WBC 8.7 K/mm3 (4.0-10.0) 02/10/17 06:00 RBC 3.28 M/mm3 (3.60-5.2) L 02/10/17 06:00 Hgb 8.3 GM/dL (10.7-15.3) L 02/10/17 06:00 Hct 25.9 % (32.4-45.2) L 02/10/17 06:00 MCV 78.9 fl (80-96) L 02/10/17 06:00 MCHC 32.2 g/dl (32.0-36.0) 02/10/17 06:00 RDW 15.7 % (11.6-15.6) H 02/10/17 06:00 Plt Count 288 K/MM3 (134-434) 02/10/17 06:00 MPV 7.9 fl (7.5-11.1) 02/10/17 06:00 CMP Sodium 144 mmol/L (136-145) 02/10/17 06:00 Potassium 3.8 mmol/L (3.5-5.1) 02/10/17 06:00 Chloride 106 mmol/L (98-107) 02/10/17 06:00 Carbon Dioxide 26 mmol/L (21-32) 02/10/17 06:00 Anion Gap 12 (8-16) 02/10/17 06:00 BUN 10 mg/dL (7-18) D 02/10/17 06:00 Creatinine 0.4 mg/dL (0.55-1.02) L 02/10/17 06:00 Creat Clearance w eGFR > 60 (>60) 02/08/17 11:50 Random Glucose 111 mg/dL (74-106) H 02/10/17 06:00 Calcium 8.1 mg/dL (8.5-10.1) L 02/10/17 06:00 Total Bilirubin 0.2 mg/dL (0.2-1.0) 02/08/17 11:50 AST 55 U/L (15-37) H 02/08/17 11:50 ALT 69 U/L (12-78) 02/08/17 11:50 Alkaline Phosphatase 128 U/L (45-117) H 02/08/17 11:50 Total Protein 5.9 g/dl (6.4-8.2) L 02/08/17 11:50 Albumin 1.7 g/dl (3.4-5.0) L 02/08/17 11:50 Current Medications Generic Name Dose Route Start Last Admin Trade Name Freq PRN Reason Stop Dose Admin Acetaminophen 650 mg 02/09/17 18:00 02/10/17 06:15 Tylenol - PO 650 mg Q6HPO [facility] Administration Apixaban 5 mg 02/09/17 22:00 Eliquis - PO BID [facility] Atorvastatin Calcium 20 mg 02/09/17 22:00 02/09/17 22:28 Lipitor - PO 20 mg HS [facility] Administration Baclofen 20 mg 02/09/17 18:00 02/10/17 09:46 Lioresal - PO 20 mg QID [facility] Administration Calcium Carbonate 650 mg 02/10/17 10:00 02/10/17 09:48 Calcium Carbonate - PO 650 mg DAILY [facility] Administration Cholecalciferol 400 unit 02/10/17 10:00 02/10/17 09:48 Vitamin D3 - PO 400 unit DAILY [facility] Administration Fentanyl 50 mcg 02/09/17 14:41 Sublimaze Injection - IVPUSH 02/12/17 14:10 [id number] PRN PAIN Gabapentin 300 mg 02/09/17 22:00 02/10/17 09:47 Neurontin - PO 300 mg BID [facility] Administration Heparin Sodium (Porcine) 1,000 unit 02/09/17 15:48 Heparin - IVPUSH PRN PRN Heparin Heparin Sodium (Porcine) 5,000 unit 02/09/17 15:48 Heparin - IVPUSH PRN PRN Heparin IV Flush 8 ml 02/09/17 14:41 Picc Line Flush IVPUSH PRN PRN Protocol Lactated Ringer's 1,000 mls @ 75 mls/hr 02/09/17 14:41 02/09/17 15:00 Lactated Ringers Solution IV 0 mls ASDIR [facility] Administration Piperacillin Sod/Tazobactam Sod 100 mls @ 200 mls/hr 02/09/17 18:00 02/10/17 01 :01 Zosyn 4.5gm Ivpb (Pre-Docked) IVPB 200 mls/hr Q8H-IV [facility] Administration Protocol Heparin Sodium (Porcine) 25, 500 mls @ 20 mls/hr 02/09/17 22:00 02/10/17 02:00 000 unit/ Sodium Chloride IV 20 mls/hr TITR [facility] Administration Protocol 1,000 UNIT/HR Letrozole 2.5 mg 02/10/17 10:00 02/10/17 09:49 Femara - PO 2.5 mg DAILY [facility] Administration Melatonin 3 mg 02/09/17 22:00 02/09/17 22:28 Melatonin PO 3 mg HS [facility] Administration Mirtazapine 45 mg 02/09/17 22:00 02/09/17 22:29 Remeron - PO 45 mg HS [facility] Administration Morphine Sulfate 1 mg 02/09/17 14:41 Morphine Injection - IVPUSH Q6H PRN PAIN Polyethylene Glycol 17 gm 02/09/17 22:00 02/10/17 09:50 Miralax (For Daily Use) - PO 17 gm BID [facility] Administration Risperidone 1 mg 02/09/17 22:00 02/10/17 06:11 Risperdal - PO 1 mg TID [facility] Administration Silver Sulfadiazine 1 applic 02/09/17 14:41 Silvadene - TP ASDIR [facility] Home Medications Medication Instructions Recorded Acetaminophen [Tylenol] 650 mg PO Q6H 02/08/17 Apixaban [Eliquis -] 5 mg PO Q12H 02/08/17 Arginine/Glutamine/Calcium Hmb 1 each PO BID 02/08/17 [Gordon Packet] Atorvastatin Ca [Lipitor] 20 mg PO HS 02/08/17 Baclofen 20 mg PO QID 02/08/17 Bismuth Tribromoph/Petrolatum 1 each TP Q72H 02/08/17 [Xeroform Petrolatum Dress] Calcium Carbonate/Vitamin D3 1 each PO DAILY 02/08/17 [Calcium 600-Vit D3 400 Tablet] Gabapentin [Neurontin -] 300 mg PO BID 02/08/17 Letrozole 2.5 mg PO DAILY 02/08/17 Levofloxacin [Levaquin -] 250 mg PO 1700 02/08/17 Melatonin 3 mg PO HS 02/08/17 Mirtazapine [Remeron -] 45 mg PO HS 02/08/17 Polyethylene Glycol 3350 [Miralax 17 gm PO Q12H 02/08/17 255 gm Btl -] Risperidone [Risperdal] 1 mg PO TID 02/08/17 Silv/Bandg/Lidoca/Chlorhex/Alc 1 each TP Q72H 02/08/17 [Vacustim Silver Kit] Silver Sulfadiazine 1% Top Cr 1 applic TP ASDIR 02/08/17 [Silvadene -] Picc Line Flush [Picc Line Flush -] 8 ml IVPUSH PRN PRN #100 ml 02/10/17 Microbiology 02/08/17 11:40 Buttock - Right Gram Stain - Final 02/08/17 11:40 Buttock - Right Wound Culture - Preliminary Presumptive Mssa (Pbp2a Neg) Group D Strep Or Entero Coccus Staphylococcus Coagulase Neg 02/08/17 11:50 Blood - Peripheral Venous Blood Culture - Preliminary NO GROWTH OBTAINED AFTER 24 HOURS, INCUBATION TO CONTINUE FOR 4 DAYS. 02/08/17 11:50 Urine - Urine - Catheterized Urine Culture - Preliminary Presumptive Mrsa (Pbp2a Pos) Group D Strep Or Entero Coccus 02/08/17 11:50 Blood - Peripheral Venous Blood Culture - Preliminary NO GROWTH OBTAINED AFTER 24 HOURS, INCUBATION TO CONTINUE FOR 4 DAYS. ASSESSMENT AND PLAN: This is a 61 yo F [facility] resident with PMH of MS, HLD, Schizophrenia, major depresssive d/o, DVT on eliquis and chronic buttock ulcer who presents at the urging of wound care/plastics Dr Samaniego for IV abx due to infected R buttock ulcer. # Stage IV Infected decubitus Ulcer with possible Osteomyelitis blood, urine and wound cultures pending ; Appreciate ID consult , s/p one dose of Vanco and now on Zosyn since culture is MSSA s/p Debridment by Dr Samaniego . Culture is pending , Morphine IV for pain, IVF continue antibiotic. waiting for final sensitivity so that can adjust ABx accordingly. # Hx of MS on neurontin continue # HLD on lipitor continue #Schizophrenia on Risperedal continue # major depressive on remeron continue History of DVT on eliquis will discontinue heparin drip and restart Eliquis ,s/ p post Picc line placement for further antibiotic
[2017-02-10] MEDS: VANCOMYCIN 1 GRAM (PRE-DOCKED) 250 ML IVPB SCH (14:43)
--- NOTE | 2017-02-10 14:54 | PN ---
Progress Note (short form) - Note Progress Note: s/p surgical debridement of the sacral ulcer NAD Vital Signs Period Temp Pulse Resp BP Sys/Claudio Pulse Ox Last 24 Hr 98.4 F-99.9 F 81-89 15-20 96-113/43-64 96-99 cor-rrr lungs clear abd soft,nt ext no edema CBC, BMP 02/10/17 06:00 02/10/17 06:00 Microbiology 02/08/17 11:50 Urine - Urine - Catheterized Urine Culture - Preliminary Presumptive Mrsa (Pbp2a Pos) Group D Strep Or Entero Coccus 02/08/17 11:50 Blood - Peripheral Venous Blood Culture - Preliminary NO GROWTH OBTAINED AFTER 48 HOURS, INCUBATION TO CONTINUE FOR 3 DAYS. 02/08/17 11:50 Blood - Peripheral Venous Blood Culture - Preliminary NO GROWTH OBTAINED AFTER 48 HOURS, INCUBATION TO CONTINUE FOR 3 DAYS. 02/08/17 11:40 Buttock - Right Gram Stain - Final 02/08/17 11:40 Buttock - Right Wound Culture - Preliminary Staphylococcus Aureus Group D Strep Or Entero Coccus Staphylococcus Coagulase Neg a/p s/p debridement of the sacral ulcer- ?operative cultures vanco/zosyn for now plan picc and nursing home iv antibiotics chronic borjas- would not treat urinary pathogens
--- NOTE | 2017-02-10 15:24 | PN ---
Physical Exam: SUBJECTIVE: Patient seen and examined Patient resting in bed NAD. No acute events overnight. Day 1 s/p sacral wound debridement. afebrile and hemodynamically stable. States she feels well. Brother at bedside, plan explained. denies pain, f/c, chest pain, n/v, abd pain , h/a, diarrhea, constipation. Dr Samaniego states wound became extremely necrotic over 1 week, possibly due to wound vac not being turned on at the ID facility. Intraop cultures were collected. OBJECTIVE: Vital Signs Period Temp Pulse Resp BP Sys/Claudio Pulse Ox Last 24 Hr 98.0 F-99.9 F 78-89 20-20 98-113/56-64 96-99 GENERAL: Awake, alert, and oriented, in no acute distress. HEAD: Normal with no signs of trauma. EYES: Pupils equal, round and reactive to light, extraocular movements intac EARS, NOSE, THROAT: oropharynx clear without exudates. Moist mucous membranes. NECK: supple without JVD LUNGS: Breath sounds equal, clear to auscultation bilaterally HEART: Regular rate and rhythm, normal S1 and S2 ABDOMEN: Soft, nontender, not distended, normoactive bowel sounds MUSCULOSKELETAL: No CVA tenderness. Sacral wound clean, packed. UPPER EXTREMITIES: 2+ pulses, warm, well-perfused. No peripheral edema. LOWER EXTREMITIES: 2+ pulses, warm, well-perfused. trace peripheral edema. NEUROLOGICAL: Cranial nerves II-XII grossly intact. slurred speech. PSYCHIATRIC: Cooperative. Good eye contact. SKIN: Warm, dry Laboratory Results - last 24 hr 02/09/17 02/10/17 02/10/17 20:40 06:00 06:00 WBC 8.7 RBC 3.28 L Hgb 8.3 L Hct 25.9 L MCV 78.9 L MCHC 32.2 RDW 15.7 H Plt Count 288 MPV 7.9 PTT (Actin FS) 37.3 H Sodium 144 Potassium 3.8 Chloride 106 Carbon Dioxide 26 Anion Gap 12 BUN 10 D Creatinine 0.4 L Random Glucose 111 H Calcium 8.1 L Phosphorus 4.0 Magnesium 2.0 02/10/17 06:00 WBC RBC Hgb Hct MCV MCHC RDW Plt Count MPV PTT (Actin FS) 72.6 H D Sodium Potassium Chloride Carbon Dioxide Anion Gap BUN Creatinine Random Glucose Calcium Phosphorus Magnesium Active Medications Generic Name Dose Route Start Last Admin Trade Name Freq PRN Reason Stop Dose Admin Acetaminophen 650 mg 02/09/17 18:00 02/10/17 14:33 Tylenol - PO Not Given Q6HPO NAYAN Apixaban 5 mg 02/09/17 22:00 Eliquis - PO BID NAYAN Atorvastatin Calcium 20 mg 02/09/17 22:00 02/09/17 22:28 Lipitor - PO 20 mg HS NAYAN Administration Baclofen 20 mg 02/09/17 18:00 02/10/17 14:31 Lioresal - PO 20 mg QID NAYAN Administration Calcium Carbonate 650 mg 02/10/17 10:00 02/10/17 09:48 Calcium Carbonate - PO 650 mg DAILY NAYAN Administration Cholecalciferol 400 unit 02/10/17 10:00 02/10/17 09:48 Vitamin D3 - PO 400 unit DAILY NAYAN Administration Fentanyl 50 mcg 02/09/17 14:41 Sublimaze Injection - IVPUSH 02/12/17 14:10 [id number] PRN PAIN Gabapentin 300 mg 02/09/17 22:00 02/10/17 09:47 Neurontin - PO 300 mg BID NAYAN Administration IV Flush 8 ml 02/09/17 14:41 Picc Line Flush IVPUSH PRN PRN Protocol Lactated Ringer's 1,000 mls @ 75 mls/hr 02/09/17 14:41 02/09/17 15:00 Lactated Ringers Solution IV 0 mls ASDIR NAYAN Administration Piperacillin Sod/Tazobactam Sod 100 mls @ 200 mls/hr 02/09/17 18:00 02/10/17 14 :36 Zosyn 4.5gm Ivpb (Pre-Docked) IVPB 200 mls/hr Q8H-IV NAYAN Administration Protocol Letrozole 2.5 mg 02/10/17 10:00 02/10/17 09:49 Femara - PO 2.5 mg DAILY NAYAN Administration Melatonin 3 mg 02/09/17 22:00 02/09/17 22:28 Melatonin PO 3 mg HS NAYAN Administration Mirtazapine 45 mg 02/09/17 22:00 02/09/17 22:29 Remeron - PO 45 mg HS NAYAN Administration Morphine Sulfate 1 mg 02/09/17 14:41 Morphine Injection - IVPUSH Q6H PRN PAIN Polyethylene Glycol 17 gm 02/09/17 22:00 02/10/17 09:50 Miralax (For Daily Use) - PO 17 gm BID [facility] Administration Risperidone 1 mg 02/09/17 22:00 02/10/17 14:31 Risperdal - PO Not Given TID [facility] Silver Sulfadiazine 1 applic 02/09/17 14:41 Silvadene - TP ASDIR [facility] Vancomycin HCl 1,000 mg 02/10/17 16:00 Vancomycin (Pre-Docked) IVPB BID@0400,1600 [facility] Protocol ASSESSMENT/PLAN: This is a [address] [facility] resident with PMH of MS, HLD, Schizophrenia, major depresssive d/o, DVT on eliquis and chronic buttock ulcer who presents at the urging of wound care/plastics Dr Samaniego for IV abx due to infected R buttock ulcer. Infection of chronic Right Decubitus ulcer Day 1 s/p debridement -Cultures: blood negative, urine MRSA, wound MSSA, GDS. Gram stain: gram negative organism -Intraop cultures collected and pending -ID consult appreciated -Vanco and Zosyn for pseudomonas coverage -NS@50 -Morphine 1 mg q 6h -treat for presumed osteo, picc line stoday -Will keep patient over the weekend to observe healing and await cultures. MS -neurontin HLD -lipitor History of DVT -eliquis Schizophrenia -Risperedal major depressive d/o -remeron FEN -NS@50 -lytes stable -Regular diet -eliquis Dispo: admit to [facility] Visit type - Emergency Visit Emergency Visit: Yes ED Registration Date: 02/08/17 Care time: The patient presented to the Emergency Department on the above date and was hospitalized for further evaluation of their emergent condition. - New Patient This patient is new to me today: No - Critical Care Critical Care patient: No - Discharge Referral Referred to [facility] Med P.C.: No
[2017-02-10] MEDS: VANCOMYCIN 1 GRAM (PRE-DOCKED) 1,000 MG/250 ML BAG IVPB SCH (17:01)
[2017-02-10] MEDS: SODIUM CHLORIDE 1,000 ML IV SCH (17:01)
[2017-02-10] MEDS: MELATONIN 1 MG TABLET PO SCH (23:54)
[2017-02-10] MEDS: APIXABAN 5 MG TABLET PO SCH (23:54)
[2017-02-10] MEDS: ATORVASTATIN CA 20 MG TABLET (FP) PO SCH (23:54)
[2017-02-10] MEDS: MIRTAZAPINE 15 MG TABLET (FP) PO SCH (23:55)
[2017-02-11] MEDS: ACETAMINOPHEN 325 MG TABLET (FP) PO SCH ×4 (00:04→17:44)
[2017-02-11] MEDS: PIPERACILLIN/TAZOB 4.5 GM 100 ML IVPB SCH ×3 (01:04→17:46)
[2017-02-11] MEDS: VANCOMYCIN 1 GRAM (PRE-DOCKED) 1,000 MG/250 ML BAG IVPB SCH ×2 (03:49→16:42)
[2017-02-11] MEDS: risperiDONE 1 MG TABLET (FP) PO SCH ×3 (06:42→22:02)
[2017-02-11 08:16] LABS: MCH 24.9 pg (25.7-33.7); MCHC 31.3 g/dl (32.0-36.0); MEAN CELL VOLUME 79.5 fl (80-96); MEAN PLT VOLUME 7.5 fl (7.5-11.1); PLATELET COUNT 291 K/MM3 (134-434); RDW 15.7 % (11.6-15.6)
[2017-02-11] MEDS: BACLOFEN 10 MG TABLET (FP) PO SCH ×4 (10:25→22:00)
[2017-02-11] MEDS: LETROZOLE 2.5 MG TABLET (FP) PO SCH (10:26)
[2017-02-11] MEDS: APIXABAN 5 MG TABLET PO SCH ×2 (10:26→22:00)
[2017-02-11] MEDS: POLYETHYLENE GLYCOL 3350 119 GM BTL PO SCH ×2 (10:27→22:03)
[2017-02-11] MEDS: CALCIUM CARBONATE 650 MG TABLET PO SCH (10:27)
[2017-02-11] MEDS: GABAPENTIN 300 MG CAPSULE (FP) PO SCH ×2 (10:28→22:01)
[2017-02-11] MEDS: CHOLECALCIFEROL (VITAMIN D3) 400 UNIT TABLET (FP) PO SCH (10:29)
--- NOTE | 2017-02-11 11:10 | PN ---
Progress Note (short form) - Note Progress Note: Patient is comfortable with no acute distress. Vital Signs Temperature 97.9 F 02/11/17 09:00 Pulse Rate 75 02/11/17 09:00 Respiratory Rate 18 02/11/17 09:00 Blood Pressure 138/78 02/11/17 09:00 O2 Sat by Pulse Oximetry (%) 95 02/10/17 21:00 GENERAL: Awake, alert, and oriented, in no acute distress. HEAD: Normal with no signs of trauma. EYES: Pupils equal, round and reactive to light, extraocular movements intac EARS, NOSE, THROAT: oropharynx clear without exudates. Moist mucous membranes. NECK: supple without JVD LUNGS: Breath sounds equal, clear to auscultation bilaterally HEART: Regular rate and rhythm, normal S1 and S2 ABDOMEN: Soft, nontender, not distended, normoactive bowel sounds MUSCULOSKELETAL: No CVA tenderness. EXTREMITIES: 2+ pulses, warm, well-perfused. trace peripheral edema. NEUROLOGICAL: Cranial nerves II-XII grossly intact. slurred speech. PSYCHIATRIC: Cooperative. Good eye contact. SKIN: Warm, dry Sacral wound : positive for wound vac CBCD WBC 7.0 K/mm3 (4.0-10.0) 02/11/17 06:30 RBC 3.63 M/mm3 (3.60-5.2) 02/11/17 06:30 Hgb 9.0 GM/dL (10.7-15.3) L 02/11/17 06:30 Hct 28.8 % (32.4-45.2) L 02/11/17 06:30 MCV 79.5 fl (80-96) L 02/11/17 06:30 MCHC 31.3 g/dl (32.0-36.0) L 02/11/17 06:30 RDW 15.7 % (11.6-15.6) H 02/11/17 06:30 Plt Count 291 K/MM3 (134-434) 02/11/17 06:30 MPV 7.5 fl (7.5-11.1) 02/11/17 06:30 CMP Sodium 144 mmol/L (136-145) 02/10/17 06:00 Potassium 3.8 mmol/L (3.5-5.1) 02/10/17 06:00 Chloride 106 mmol/L (98-107) 02/10/17 06:00 Carbon Dioxide 26 mmol/L (21-32) 02/10/17 06:00 Anion Gap 12 (8-16) 02/10/17 06:00 BUN 10 mg/dL (7-18) D 02/10/17 06:00 Creatinine 0.4 mg/dL (0.55-1.02) L 02/10/17 06:00 Creat Clearance w eGFR > 60 (>60) 02/08/17 11:50 Random Glucose 111 mg/dL (74-106) H 02/10/17 06:00 Calcium 8.1 mg/dL (8.5-10.1) L 02/10/17 06:00 Total Bilirubin 0.2 mg/dL (0.2-1.0) 02/08/17 11:50 AST 55 U/L (15-37) H 02/08/17 11:50 ALT 69 U/L (12-78) 02/08/17 11:50 Alkaline Phosphatase 128 U/L (45-117) H 02/08/17 11:50 Total Protein 5.9 g/dl (6.4-8.2) L 02/08/17 11:50 Albumin 1.7 g/dl (3.4-5.0) L 02/08/17 11:50 Current Medications Generic Name Dose Route Start Last Admin Trade Name Freq PRN Reason Stop Dose Admin Acetaminophen 650 mg 02/09/17 18:00 02/11/17 06:42 Tylenol - PO 650 mg Q6HPO NAYAN Administration Apixaban 5 mg 02/09/17 22:00 02/11/17 10:26 Eliquis - PO 5 mg BID NAYAN Administration Atorvastatin Calcium 20 mg 02/09/17 22:00 02/10/17 23:54 Lipitor - PO 20 mg HS NAYAN Administration Baclofen 20 mg 02/09/17 18:00 02/11/17 10:25 Lioresal - PO 20 mg QID NAYAN Administration Calcium Carbonate 650 mg 02/10/17 10:00 02/11/17 10:27 Calcium Carbonate - PO 650 mg DAILY NAYAN Administration Cholecalciferol 400 unit 02/10/17 10:00 02/11/17 10:29 Vitamin D3 - PO 400 unit DAILY NAYAN Administration Fentanyl 50 mcg 02/09/17 14:41 Sublimaze Injection - IVPUSH 02/12/17 14:10 [id number] PRN PAIN Gabapentin 300 mg 02/09/17 22:00 02/11/17 10:28 Neurontin - PO 300 mg BID NAYAN Administration IV Flush 8 ml 02/09/17 14:41 Picc Line Flush IVPUSH PRN PRN Protocol Piperacillin Sod/Tazobactam Sod 100 mls @ 200 mls/hr 02/09/17 18:00 02/11/17 10 :10 Zosyn 4.5gm Ivpb (Pre-Docked) IVPB 200 mls/hr Q8H-IV NAYAN Administration Protocol Sodium Chloride 1,000 mls @ 75 mls/hr 02/10/17 15:45 02/10/17 17:01 Normal Saline - IV 75 mls/hr ASDIR NAYAN Administration Letrozole 2.5 mg 02/10/17 10:00 02/11/17 10:26 Femara - PO 2.5 mg DAILY NAYAN Administration Melatonin 3 mg 02/09/17 22:00 02/10/17 23:54 Melatonin PO 3 mg HS NAYAN Administration Mirtazapine 45 mg 02/09/17 22:00 02/10/17 23:55 Remeron - PO 45 mg HS NAYAN Administration Morphine Sulfate 1 mg 02/09/17 14:41 Morphine Injection - IVPUSH Q6H PRN PAIN Polyethylene Glycol 17 gm 02/09/17 22:00 02/11/17 10:27 Miralax (For Daily Use) - PO 17 gm BID NAYAN Administration Risperidone 1 mg 02/09/17 22:00 02/11/17 06:42 Risperdal - PO 1 mg TID NAYAN Administration Silver Sulfadiazine 1 applic 02/09/17 14:41 Silvadene - TP ASDIR NAYAN Vancomycin HCl 1,000 mg 02/10/17 16:00 02/11/17 03:49 Vancomycin (Pre-Docked) IVPB 1,000 mg BID@0400,1600 NAYAN Administration Protocol Home Medications Medication Instructions Recorded Acetaminophen [Tylenol] 650 mg PO Q6H 02/08/17 Apixaban [Eliquis -] 5 mg PO Q12H 02/08/17 Arginine/Glutamine/Calcium Hmb 1 each PO BID 02/08/17 [Gordon Packet] Atorvastatin Ca [Lipitor] 20 mg PO HS 02/08/17 Baclofen 20 mg PO QID 02/08/17 Bismuth Tribromoph/Petrolatum 1 each TP Q72H 02/08/17 [Xeroform Petrolatum Dress] Calcium Carbonate/Vitamin D3 1 each PO DAILY 02/08/17 [Calcium 600-Vit D3 400 Tablet] Gabapentin [Neurontin -] 300 mg PO BID 02/08/17 Letrozole 2.5 mg PO DAILY 02/08/17 Levofloxacin [Levaquin -] 250 mg PO 1700 02/08/17 Melatonin 3 mg PO HS 02/08/17 Mirtazapine [Remeron -] 45 mg PO HS 02/08/17 Polyethylene Glycol 3350 [Miralax 17 gm PO Q12H 02/08/17 255 gm Btl -] Risperidone [Risperdal] 1 mg PO TID 02/08/17 Silv/Bandg/Lidoca/Chlorhex/Alc 1 each TP Q72H 02/08/17 [Vacustim Silver Kit] Silver Sulfadiazine 1% Top Cr 1 applic TP ASDIR 02/08/17 [Silvadene -] Picc Line Flush [Picc Line Flush -] 8 ml IVPUSH PRN PRN #100 ml 02/10/17 INR, PTT INR 1.38 (0.82-1.09) H 02/08/17 11:45 A/P: This is a 61 yo F [facility] resident with PMH of MS, HLD, Schizophrenia, major depresssive d/o, DVT on eliquis and chronic buttock ulcer who presents at the urging of wound care/plastics Dr Samaniego for IV abx due to infected R buttock ulcer. # POD#1 for Stage IV Infected decubitus Ulcer s/p I&D with possible Osteomyelitis blood, urine and wound cultures pending ; Appreciate ID consult , on Vanco and zosyn as per ID since culture is MSSA s/p Debridment by Dr Samaniego . Culture is pending , Morphine IV for pain, IVF continue antibiotic. waiting for final sensitivity so that can adjust ABx accordingly. # Hx of MS on neurontin continue # HLD on lipitor continue #Schizophrenia on Risperedal continue # major depressive on remeron continue History of DVT on eliquis will discontinue heparin drip and restart Eliquis ,s/ p post Picc line placement for further antibiotic Visit type - Emergency Visit Emergency Visit: Yes ED Registration Date: 02/08/17 Care time: The patient presented to the Emergency Department on the above date and was hospitalized for further evaluation of their emergent condition. - New Patient This patient is new to me today: No - Critical Care Critical Care patient: No
--- NOTE | 2017-02-11 15:42 | PN ---
Progress Note (short form) - Note Progress Note: Follow UP for sacral decubitus on VAC started yesterday Awake alert responding to simple questions brother at bedside Microbiology 02/08/17 11:40 Buttock - Right Gram Stain - Final 02/08/17 11:40 Buttock - Right Gram Stain - Final 02/08/17 11:50 Urine - Urine - Catheterized Urine Culture - Preliminary Presumptive Mrsa (Pbp2a Pos) Group D Strep Or Entero Coccus 02/08/17 11:50 Urine - Urine - Catheterized Urine Culture - Preliminary Mr S Aureus Enterococcus Faecalis 02/08/17 11:40 Buttock - Right Wound Culture - Preliminary Staphylococcus Aureus Group D Strep Or Entero Coccus Staphylococcus Coagulase Neg 02/08/17 11:40 Buttock - Right Wound Culture - Preliminary Presumptive Mssa (Pbp2a Neg) Group D Strep Or Entero Coccus Staphylococcus Coagulase Neg Selected Entries 02/08/17 02/09/17 02/11/17 23:00 10:00 13:00 Temperature 99.6 F 98.4 F 97.3 F L Pulse Rate 96 H 81 Respiratory 18 18 Rate Blood Pressure 107/58 107/63 136/72 Laboratory Tests 02/10/17 02/11/17 06:00 06:30 WBC 7.0 Hgb 9.0 L Hct 28.8 L MCV 79.5 L MCHC 31.3 L RDW 15.7 H Creatinine 0.4 L Random Glucose 111 H Calcium 8.1 L Clinically patient looks improved VAC minimal drainage Plan : Change dressing Monday needs to continue VAC Will also discuss with cleaner touch up worker about placement
[2017-02-11] MEDS: SODIUM CHLORIDE 1,000 ML IV SCH (16:41)
[2017-02-11] MEDS: ATORVASTATIN CA 20 MG TABLET (FP) PO SCH (21:59)
[2017-02-11] MEDS: MIRTAZAPINE 15 MG TABLET (FP) PO SCH (22:01)
[2017-02-11] MEDS: MELATONIN 1 MG TABLET PO SCH (22:01)
[2017-02-12] MEDS: ACETAMINOPHEN 325 MG TABLET (FP) PO SCH ×3 (00:12→17:03)
[2017-02-12] MEDS: PIPERACILLIN/TAZOB 4.5 GM 100 ML IVPB SCH ×3 (01:34→18:02)
[2017-02-12] MEDS: VANCOMYCIN 1 GRAM (PRE-DOCKED) 1,000 MG/250 ML BAG IVPB SCH ×2 (04:17→16:45)
[2017-02-12] MEDS: SODIUM CHLORIDE 1,000 ML IV SCH ×2 (04:35→18:03)
[2017-02-12] MEDS: risperiDONE 1 MG TABLET (FP) PO SCH ×3 (06:03→22:03)
[2017-02-12 08:52] LABS: MCH 24.8 pg (25.7-33.7); MCHC 31.4 g/dl (32.0-36.0); MEAN PLT VOLUME 7.4 fl (7.5-11.1); PLATELET COUNT 312 K/MM3 (134-434); RDW 15.9 % (11.6-15.6); WHITE BLOOD COUNT 7.1 K/mm3 (4.0-10.0)
[2017-02-12] MEDS: GABAPENTIN 300 MG CAPSULE (FP) PO SCH ×2 (10:38→22:04)
[2017-02-12] MEDS: POLYETHYLENE GLYCOL 3350 119 GM BTL PO SCH ×2 (10:38→22:05)
[2017-02-12] MEDS: BACLOFEN 10 MG TABLET (FP) PO SCH ×4 (10:38→23:08)
[2017-02-12] MEDS: CHOLECALCIFEROL (VITAMIN D3) 400 UNIT TABLET (FP) PO SCH (10:39)
[2017-02-12] MEDS: CALCIUM CARBONATE 650 MG TABLET PO SCH (10:39)
[2017-02-12] MEDS: APIXABAN 5 MG TABLET PO SCH ×2 (10:40→22:03)
--- NOTE | 2017-02-12 12:01 | PN ---
Physical Exam: SUBJECTIVE: Patient seen and examined Patient resting in bed NAD. No acute events overnight. Day 3 s/p sacral wound debridement. Wound vac in place. afebrile and hemodynamically stable. States she feels well. denies pain, f/c, chest pain, n/v, abd pain, h/a, diarrhea, constipation. Intraop cultures were collected. OBJECTIVE: Vital Signs Period Temp Pulse Resp BP Sys/Claudio Pulse Ox Last 24 Hr 97.3 F-99 F 72-98 18-18 116-136/55-81 96 GENERAL: Awake, alert, and oriented, in no acute distress. HEAD: Normal with no signs of trauma. EYES: Pupils equal, round and reactive to light, extraocular movements intac EARS, NOSE, THROAT: oropharynx clear without exudates. Moist mucous membranes. NECK: supple without JVD LUNGS: Breath sounds equal, clear to auscultation bilaterally HEART: Regular rate and rhythm, normal S1 and S2 ABDOMEN: Soft, nontender, not distended, normoactive bowel sounds MUSCULOSKELETAL: No CVA tenderness. Sacral wound clean, packed, wound vac UPPER EXTREMITIES: 2+ pulses, warm, well-perfused. No peripheral edema. LOWER EXTREMITIES: 2+ pulses, warm, well-perfused. trace peripheral edema. NEUROLOGICAL: Cranial nerves II-XII grossly intact. slurred speech. PSYCHIATRIC: Cooperative. Good eye contact. SKIN: Warm, dry Laboratory Results - last 24 hr 02/12/17 02/12/17 06:00 06:00 WBC 7.1 RBC 3.36 L Hgb 8.3 L Hct 26.6 L MCV 79.0 L MCHC 31.4 L RDW 15.9 H Plt Count 312 MPV 7.4 L PTT (Actin FS) 37.3 H Active Medications Generic Name Dose Route Start Last Admin Trade Name Freq PRN Reason Stop Dose Admin Acetaminophen 650 mg 02/09/17 18:00 02/12/17 06:03 Tylenol - PO 650 mg Q6HPO NAYAN Administration Apixaban 5 mg 02/09/17 22:00 02/12/17 10:40 Eliquis - PO 5 mg BID NAYAN Administration Atorvastatin Calcium 20 mg 02/09/17 22:00 02/11/17 21:59 Lipitor - PO 20 mg HS NAYAN Administration Baclofen 20 mg 02/09/17 18:00 02/12/17 10:38 Lioresal - PO 20 mg QID NAYAN Administration Calcium Carbonate 650 mg 02/10/17 10:00 02/12/17 10:39 Calcium Carbonate - PO 650 mg DAILY NAYAN Administration Cholecalciferol 400 unit 02/10/17 10:00 02/12/17 10:39 Vitamin D3 - PO 400 unit DAILY NAYAN Administration Fentanyl 50 mcg 02/09/17 14:41 Sublimaze Injection - IVPUSH 02/12/17 14:10 [id number] PRN PAIN Gabapentin 300 mg 02/09/17 22:00 02/12/17 10:38 Neurontin - PO 300 mg BID NAYAN Administration IV Flush 8 ml 02/09/17 14:41 Picc Line Flush IVPUSH PRN PRN Protocol Piperacillin Sod/Tazobactam Sod 100 mls @ 200 mls/hr 02/09/17 18:00 02/12/17 10 :32 Zosyn 4.5gm Ivpb (Pre-Docked) IVPB 200 mls/hr Q8H-IV NAYAN Administration Protocol Sodium Chloride 1,000 mls @ 75 mls/hr 02/10/17 15:45 02/12/17 04:35 Normal Saline - IV 75 mls/hr ASDIR NAYAN Administration Letrozole 2.5 mg 02/10/17 10:00 02/11/17 10:26 Femara - PO 2.5 mg DAILY NAYAN Administration Melatonin 3 mg 02/09/17 22:00 02/11/17 22:01 Melatonin PO 3 mg HS NAYAN Administration Mirtazapine 45 mg 02/09/17 22:00 02/11/17 22:01 Remeron - PO 45 mg HS NAYAN Administration Morphine Sulfate 1 mg 02/09/17 14:41 Morphine Injection - IVPUSH Q6H PRN PAIN Polyethylene Glycol 17 gm 02/09/17 22:00 02/12/17 10:38 Miralax (For Daily Use) - PO 17 gm BID NAYAN Administration Risperidone 1 mg 02/09/17 22:00 02/12/17 06:03 Risperdal - PO 1 mg TID NAYAN Administration Silver Sulfadiazine 1 applic 02/09/17 14:41 Silvadene - TP ASDIR NAYAN Vancomycin HCl 1,000 mg 02/10/17 16:00 02/12/17 04:17 Vancomycin (Pre-Docked) IVPB 1,000 mg BID@0400,1600 [facility] Administration Protocol ASSESSMENT/PLAN: This is a 61 yo F [facility] resident with PMH of MS, HLD, Schizophrenia, major depresssive d/o, DVT on eliquis and chronic buttock ulcer who presents at the urging of wound care/plastics Dr Samaniego for IV abx due to infected R buttock ulcer. Infection of chronic Right Decubitus ulcer Day 3 s/p debridement -Cultures: blood negative, urine MRSA, wound MSSA, GDS. Gram stain: gram negative organism -Intraop cultures collected and pending -ID consult appreciated -Vanco and Zosyn for pseudomonas coverage -NS@50 -Morphine 1 mg q 6h -treat for presumed osteo, picc line stoday -Will keep patient over the weekend to observe healing and await cultures. MS -neurontin HLD -lipitor History of DVT -eliquis Schizophrenia -Risperedal major depressive d/o -remeron FEN -NS@50 -lytes stable -Regular diet -eliquis Dispo: med [facility] Visit type - Emergency Visit Emergency Visit: Yes ED Registration Date: 02/08/17 Care time: The patient presented to the Emergency Department on the above date and was hospitalized for further evaluation of their emergent condition. - New Patient This patient is new to me today: No - Critical Care Critical Care patient: No - Discharge Referral Referred to [facility] Med P.C.: No
[2017-02-12] MEDS ORDERED: ACETAMINOPHEN 325 MG TABLET (FP) PO PRN (12:03)
--- NOTE | 2017-02-12 15:18 | PN ---
Teaching Attending Note Name of Resident: Sherri Avelar ATTENDING PHYSICIAN STATEMENT I saw and evaluated the patient. I reviewed the resident's note and discussed the case with the resident. I agree with the resident's findings and plan as documented. Patient has no new complain, no nausea or vomiting. Vital Signs Temperature 98.9 F 02/12/17 15:17 Pulse Rate 81 02/12/17 15:17 Respiratory Rate 18 02/12/17 15:17 Blood Pressure 133/60 02/12/17 15:17 O2 Sat by Pulse Oximetry (%) 96 02/12/17 09:00 CBCD WBC 7.1 K/mm3 (4.0-10.0) 02/12/17 06:00 RBC 3.36 M/mm3 (3.60-5.2) L 02/12/17 06:00 Hgb 8.3 GM/dL (10.7-15.3) L 02/12/17 06:00 Hct 26.6 % (32.4-45.2) L 02/12/17 06:00 MCV 79.0 fl (80-96) L 02/12/17 06:00 MCHC 31.4 g/dl (32.0-36.0) L 02/12/17 06:00 RDW 15.9 % (11.6-15.6) H 02/12/17 06:00 Plt Count 312 K/MM3 (134-434) 02/12/17 06:00 MPV 7.4 fl (7.5-11.1) L 02/12/17 06:00 CMP Sodium 144 mmol/L (136-145) 02/10/17 06:00 Potassium 3.8 mmol/L (3.5-5.1) 02/10/17 06:00 Chloride 106 mmol/L (98-107) 02/10/17 06:00 Carbon Dioxide 26 mmol/L (21-32) 02/10/17 06:00 Anion Gap 12 (8-16) 02/10/17 06:00 BUN 10 mg/dL (7-18) D 02/10/17 06:00 Creatinine 0.4 mg/dL (0.55-1.02) L 02/10/17 06:00 Creat Clearance w eGFR > 60 (>60) 02/08/17 11:50 Random Glucose 111 mg/dL (74-106) H 02/10/17 06:00 Calcium 8.1 mg/dL (8.5-10.1) L 02/10/17 06:00 Total Bilirubin 0.2 mg/dL (0.2-1.0) 02/08/17 11:50 AST 55 U/L (15-37) H 02/08/17 11:50 ALT 69 U/L (12-78) 02/08/17 11:50 Alkaline Phosphatase 128 U/L (45-117) H 02/08/17 11:50 Total Protein 5.9 g/dl (6.4-8.2) L 02/08/17 11:50 Albumin 1.7 g/dl (3.4-5.0) L 02/08/17 11:50 Current Medications Generic Name Dose Route Start Last Admin Trade Name Freq PRN Reason Stop Dose Admin Acetaminophen 650 mg 02/12/17 12:03 Tylenol - PO Q6HPO PRN BACK PAIN Apixaban 5 mg 02/09/17 22:00 02/12/17 10:40 Eliquis - PO 5 mg BID NAYAN Administration Atorvastatin Calcium 20 mg 02/09/17 22:00 02/11/17 21:59 Lipitor - PO 20 mg HS NAYAN Administration Baclofen 20 mg 02/09/17 18:00 02/12/17 14:50 Lioresal - PO 20 mg QID NAYAN Administration Calcium Carbonate 650 mg 02/10/17 10:00 02/12/17 10:39 Calcium Carbonate - PO 650 mg DAILY NAYAN Administration Cholecalciferol 400 unit 02/10/17 10:00 02/12/17 10:39 Vitamin D3 - PO 400 unit DAILY NAYAN Administration Gabapentin 300 mg 02/09/17 22:00 02/12/17 10:38 Neurontin - PO 300 mg BID NAYAN Administration IV Flush 8 ml 02/09/17 14:41 Picc Line Flush IVPUSH PRN PRN Protocol Piperacillin Sod/Tazobactam Sod 100 mls @ 200 mls/hr 02/09/17 18:00 02/12/17 10 :32 Zosyn 4.5gm Ivpb (Pre-Docked) IVPB 200 mls/hr Q8H-IV NAYAN Administration Protocol Sodium Chloride 1,000 mls @ 75 mls/hr 02/10/17 15:45 02/12/17 04:35 Normal Saline - IV 75 mls/hr ASDIR NAYAN Administration Letrozole 2.5 mg 02/10/17 10:00 02/11/17 10:26 Femara - PO 2.5 mg DAILY NAYAN Administration Melatonin 3 mg 02/09/17 22:00 02/11/17 22:01 Melatonin PO 3 mg HS NAYAN Administration Mirtazapine 45 mg 02/09/17 22:00 02/11/17 22:01 Remeron - PO 45 mg HS NAYAN Administration Morphine Sulfate 1 mg 02/09/17 14:41 Morphine Injection - IVPUSH Q6H PRN PAIN Polyethylene Glycol 17 gm 02/09/17 22:00 02/12/17 10:38 Miralax (For Daily Use) - PO 17 gm BID NAYAN Administration Risperidone 1 mg 02/09/17 22:00 02/12/17 14:51 Risperdal - PO 1 mg TID NAYAN Administration Silver Sulfadiazine 1 applic 02/09/17 14:41 Silvadene - TP ASDIR NAYAN Vancomycin HCl 1,000 mg 02/10/17 16:00 02/12/17 04:17 Vancomycin (Pre-Docked) IVPB 1,000 mg BID@0400,1600 NAYAN Administration Protocol Home Medications Medication Instructions Recorded Acetaminophen [Tylenol] 650 mg PO Q6H 02/08/17 Apixaban [Eliquis -] 5 mg PO Q12H 02/08/17 Arginine/Glutamine/Calcium Hmb 1 each PO BID 02/08/17 [Gordon Packet] Atorvastatin Ca [Lipitor] 20 mg PO HS 02/08/17 Baclofen 20 mg PO QID 02/08/17 Bismuth Tribromoph/Petrolatum 1 each TP Q72H 02/08/17 [Xeroform Petrolatum Dress] Calcium Carbonate/Vitamin D3 1 each PO DAILY 02/08/17 [Calcium 600-Vit D3 400 Tablet] Gabapentin [Neurontin -] 300 mg PO BID 02/08/17 Letrozole 2.5 mg PO DAILY 02/08/17 Levofloxacin [Levaquin -] 250 mg PO 1700 02/08/17 Melatonin 3 mg PO HS 02/08/17 Mirtazapine [Remeron -] 45 mg PO HS 02/08/17 Polyethylene Glycol 3350 [Miralax 17 gm PO Q12H 02/08/17 255 gm Btl -] Risperidone [Risperdal] 1 mg PO TID 02/08/17 Silv/Bandg/Lidoca/Chlorhex/Alc 1 each TP Q72H 02/08/17 [Vacustim Silver Kit] Silver Sulfadiazine 1% Top Cr 1 applic TP ASDIR 02/08/17 [Silvadene -] Picc Line Flush [Picc Line Flush -] 8 ml IVPUSH PRN PRN #100 ml 02/10/17 ROS/PES as per resident note. ASSESSMENT AND PLAN: This is a 61 yo F [facility] resident with PMH of MS, HLD, Schizophrenia, major depresssive d/o, DVT on eliquis and chronic buttock ulcer who presents at the urging of wound care/plastics Dr Samaniego for IV abx due to infected R buttock ulcer. # POD#2 for Stage IV Infected decubitus Ulcer s/p I&D with possible Osteomyelitis blood, urine and wound cultures pending ; Appreciate ID consult , on Vanco and zosyn as per ID since culture is MSSA s/p Debridment by Dr Samaniego . Culture is pending , Morphine IV for pain, IVF continue antibiotic. waiting for final sensitivity so that can adjust ABx accordingly. # Hx of MS on neurontin continue # HLD on lipitor continue #Schizophrenia on Risperedal continue # major depressive on remeron continue History of DVT on eliquis will discontinue heparin drip and restart Eliquis ,s/ p post Picc line placement for further antibiotic
[2017-02-12] MEDS: LETROZOLE 2.5 MG TABLET (FP) PO SCH (16:44)
[2017-02-12] MEDS ORDERED: PT OWN MED DRAWER 7, Y5N ONE (21:37)
[2017-02-12] MEDS: MIRTAZAPINE 15 MG TABLET (FP) PO SCH (22:03)
[2017-02-12] MEDS: MELATONIN 1 MG TABLET PO SCH (22:04)
[2017-02-12] MEDS: ATORVASTATIN CA 20 MG TABLET (FP) PO SCH (22:04)
[2017-02-13] MEDS: PIPERACILLIN/TAZOB 4.5 GM 100 ML IVPB SCH ×2 (01:31→11:04)
[2017-02-13] MEDS: VANCOMYCIN 1 GRAM (PRE-DOCKED) 1,000 MG/250 ML BAG IVPB SCH (04:56)
[2017-02-13] MEDS: risperiDONE 1 MG TABLET (FP) PO SCH ×2 (06:22→15:23)
[2017-02-13 07:34] LABS: MCH 25.1 pg (25.7-33.7); MEAN CELL VOLUME 78.6 fl (80-96); MEAN PLT VOLUME 7.2 fl (7.5-11.1); PLATELET COUNT 329 K/MM3 (134-434); RDW 15.6 % (11.6-15.6); WHITE BLOOD COUNT 8.3 K/mm3 (4.0-10.0)
--- NOTE | 2017-02-13 10:47 | PATH ---
Surgical Pathology Report Patient Name: DAVID ABREU Med. Rec. #: [id number] /Age/Gender: 1955 (Age: 61) / F Account: [id number] Location: [facility] MED/SURG Taken: 02/10/2017 Received: 02/10/2017 Reported: 02/13/2017 Physicians: Malu Mercedes M.D. Specimen(s) Received DEBRIDED TISSUE SACRAL ULCER Clinical History Infected decubitus ulcer Final Diagnosis SOFT TISSUE, SACRUM, DEBRIDEMENT: GANGRENOUS NECROSIS. Electronically Signed Omer Sandoval M.D. Gross Description Received in formalin labeled "debrided tissue," is a 4.2 x 3.5 x 0.5 cm aggregate of multiple grider martinez, necrotic portions of soft tissue and possible skin. Die Press Operator sections are submitted in one cassette. /02/10/201702/10/2017
[2017-02-13] MEDS: GABAPENTIN 300 MG CAPSULE (FP) PO SCH (11:09)
[2017-02-13] MEDS: APIXABAN 5 MG TABLET PO SCH (11:09)
[2017-02-13] MEDS: CHOLECALCIFEROL (VITAMIN D3) 400 UNIT TABLET (FP) PO SCH (11:10)
[2017-02-13] MEDS: CALCIUM CARBONATE 650 MG TABLET PO SCH (11:10)
[2017-02-13] MEDS: POLYETHYLENE GLYCOL 3350 119 GM BTL PO SCH (11:10)
[2017-02-13] MEDS: BACLOFEN 10 MG TABLET (FP) PO SCH ×2 (11:10→15:26)
--- NOTE | 2017-02-13 13:58 | PN ---
Progress Note (short form) - Note Progress Note: ID Vancomcyin Zosyn Selected Entries 02/13/17 05:24 Temperature 98.5 F Pulse Rate 81 Respiratory 20 Rate Blood Pressure 133/79 VAC dressing Microbiology 02/08/17 11:50 Urine - Urine - Catheterized Urine Culture - Final S Aureus Enterococcus Faecalis 02/08/17 11:40 Buttock - Right Gram Stain - Final 02/08/17 11:40 Buttock - Right Wound Culture - Final Staphylococcus Aureus Enterococcus Faecalis Staphylococcus Coagulase Neg Laboratory Tests 02/08/17 02/10/17 02/13/17 11:50 06:00 06:00 WBC 8.3 Hgb 10.1 L D Hct 31.6 L D Plt Count 329 BUN 10 D Creatinine 0.4 L Ur Leukocyte Esterase 3+ H Urine RBC 7 Urine WBC 246 Assessment Sacral osteomyelitis Gram positive in original wound cultures Plan Stop Zosyn Continue Vancomycin Check Vanco level keep between 10-15 Sandy STEELE
--- NOTE | 2017-02-13 14:38 | DS ---
Physical Exam: SUBJECTIVE: Patient seen and examined Patient resting in bed NAD. No acute events overnight. Day 4 s/p sacral wound debridement. Wound vac in place. afebrile and hemodynamically stable. States she feels well. denies pain, f/c, chest pain, n/v, abd pain, h/a, diarrhea, constipation. OBJECTIVE: Vital Signs Period Temp Pulse Resp BP Sys/Claudio Pulse Ox Last 24 Hr 98.1 F-98.9 F 76-82 18-20 130-138/60-79 98 PHYSICAL EXAM GENERAL: Awake, alert, and oriented, in no acute distress. HEAD: Normal with no signs of trauma. EYES: Pupils equal, round and reactive to light, extraocular movements intac EARS, NOSE, THROAT: oropharynx clear without exudates. Moist mucous membranes. NECK: supple without JVD LUNGS: Breath sounds equal, clear to auscultation bilaterally HEART: Regular rate and rhythm, normal S1 and S2 ABDOMEN: Soft, nontender, not distended, normoactive bowel sounds MUSCULOSKELETAL: No CVA tenderness. Sacral wound clean, packed, wound vac on UPPER EXTREMITIES: 2+ pulses, warm, well-perfused. No peripheral edema. LOWER EXTREMITIES: 2+ pulses, warm, well-perfused. trace peripheral edema. NEUROLOGICAL: Cranial nerves II-XII grossly intact. slurred speech. PSYCHIATRIC: Cooperative. Good eye contact. SKIN: Warm, dry LABS Laboratory Results - last 24 hr 02/13/17 02/13/17 06:00 06:00 WBC 8.3 RBC 4.03 Hgb 10.1 L D Hct 31.6 L D MCV 78.6 L MCHC 32.0 RDW 15.6 Plt Count 329 MPV 7.2 L PTT (Actin FS) 36.3 H HOSPITAL COURSE: Date of Admission:02/08/17 This is a 61 yo F [facility] resident with PMH of MS, HLD, Schizophrenia, major depresssive d/o, DVT on eliquis and chronic buttock ulcer who presents at the urging of wound care/plastics Dr Samaniego for IV abx and surgical debridement due to infected R buttock ulcer. On admission she is afebrile and hemodynamically stable, only complaint is she "doesnt feel good". She was admitted due to Infection of chronic Right Decubitus ulcer. She was treated with IV abx and received surgical debridement and wound vac. Culture was + MSSA. 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 She was discharged home on Day 4 s/p debridement , to f/u with wound care. Please keep wound vac turned on. plase administer vancomycin 1 g every day. check vanco trough, est, crp weekly. Date of Discharge: 02/13/17 Minutes to complete discharge: 49 (na) Discharge Summary Reason For Visit: INFECTED DECUBITUS ULCER Current Active Problems Infected decubitus ulcer (Acute) Urinary tract infection (Acute) - Instructions Diet, Activity, Other Instructions: you were in the hospital because of a wound infection on your buttock. The wound was surgically cleaned and a wound vac was placed. You were treated with IV antibiotics and a Picc line was placed for further IV antibiotics. Please follow up with wound care in 2 weeks. You are to receive daily Vancomycin 1 gm x 4 weeks and check the following weekly lab work: vancomycin trough, ESR, CRP. Return to hospital if symptoms worsen Referrals: Efren Samaniego MD [Primary Care Provider] - 2 Weeks [facility]position: [facility] - Home Medications Comprehensive Discharge Medication List: Ambulatory Orders Acetaminophen [Tylenol] 650 mg PO Q6H 02/08/17 Apixaban [Eliquis -] 5 mg PO Q12H 02/08/17 Arginine/Glutamine/Calcium Hmb [Gordon Packet] 1 each PO BID 02/08/17 Atorvastatin Ca [Lipitor] 20 mg PO HS 02/08/17 Baclofen 20 mg PO QID 02/08/17 Bismuth Tribromoph/Petrolatum [Xeroform Petrolatum Dress] 1 each TP Q72H Calcium Carbonate/Vitamin D3 [Calcium 600-Vit D3 400 Tablet] 1 each PO DAILY Gabapentin [Neurontin -] 300 mg PO BID 02/08/17 Letrozole 2.5 mg PO DAILY 02/08/17 Levofloxacin [Levaquin -] 250 mg PO 1700 02/08/17 Melatonin 3 mg PO HS 02/08/17 Mirtazapine [Remeron -] 45 mg PO HS 02/08/17 Polyethylene Glycol 3350 [Miralax 255 gm Btl -] 17 gm PO Q12H 02/08/17 Risperidone [Risperdal] 1 mg PO TID 02/08/17 Silv/Bandg/Lidoca/Chlorhex/Alc [Vacustim Silver Kit] 1 each TP Q72H 02/08/17 Silver Sulfadiazine 1% Top Cr [Silvadene -] 1 applic TP ASDIR 02/08/17 Picc Line Flush [Picc Line Flush -] 8 ml IVPUSH PRN PRN #100 ml 02/13/17 Vancomycin 1 Gram (Pre-Docked) [Vancomycin (Pre-Docked)] 1,000 mg IVPB BID@0400, 1600 #25 bag 02/13/17 This patient is new to me today: No Emergency Visit: Yes ED Registration Date: 02/08/17 Care time: The patient presented to the Emergency Department on the above date and was hospitalized for further evaluation of their emergent condition. Critical Care patient: No - Discharge Referral Referred to [facility] Med P.C.: No
[2017-02-13] MEDS: LETROZOLE 2.5 MG TABLET (FP) PO SCH (15:25)
[2017-02-13 17:31] VITALS: BP 146/74; PULSE 85; TEMP 98
--- NOTE | 2017-02-13 21:12 | PN ---
Teaching Attending Note Name of Resident: Sherri Avelar ATTENDING PHYSICIAN STATEMENT I saw and evaluated the patient. I reviewed the resident's note and discussed the case with the resident. I agree with the resident's findings and plan as documented. Patient is better, no acute distress. Vital Signs Temperature 98 F 02/13/17 17:30 Pulse Rate 85 02/13/17 17:30 Respiratory Rate 20 02/13/17 17:30 Blood Pressure 146/74 02/13/17 17:30 O2 Sat by Pulse Oximetry (%) 98 02/13/17 09:00 CBCD WBC 8.3 K/mm3 (4.0-10.0) 02/13/17 06:00 RBC 4.03 M/mm3 (3.60-5.2) 02/13/17 06:00 Hgb 10.1 GM/dL (10.7-15.3) L D 02/13/17 06:00 Hct 31.6 % (32.4-45.2) L D 02/13/17 06:00 MCV 78.6 fl (80-96) L 02/13/17 06:00 MCHC 32.0 g/dl (32.0-36.0) 02/13/17 06:00 RDW 15.6 % (11.6-15.6) 02/13/17 06:00 Plt Count 329 K/MM3 (134-434) 02/13/17 06:00 MPV 7.2 fl (7.5-11.1) L 02/13/17 06:00 CMP Sodium 144 mmol/L (136-145) 02/10/17 06:00 Potassium 3.8 mmol/L (3.5-5.1) 02/10/17 06:00 Chloride 106 mmol/L (98-107) 02/10/17 06:00 Carbon Dioxide 26 mmol/L (21-32) 02/10/17 06:00 Anion Gap 12 (8-16) 02/10/17 06:00 BUN 10 mg/dL (7-18) D 02/10/17 06:00 Creatinine 0.4 mg/dL (0.55-1.02) L 02/10/17 06:00 Creat Clearance w eGFR > 60 (>60) 02/08/17 11:50 Random Glucose 111 mg/dL (74-106) H 02/10/17 06:00 Calcium 8.1 mg/dL (8.5-10.1) L 02/10/17 06:00 Total Bilirubin 0.2 mg/dL (0.2-1.0) 02/08/17 11:50 AST 55 U/L (15-37) H 02/08/17 11:50 ALT 69 U/L (12-78) 02/08/17 11:50 Alkaline Phosphatase 128 U/L (45-117) H 02/08/17 11:50 Total Protein 5.9 g/dl (6.4-8.2) L 02/08/17 11:50 Albumin 1.7 g/dl (3.4-5.0) L 02/08/17 11:50 CMP Sodium 144 mmol/L (136-145) 02/10/17 06:00 Potassium 3.8 mmol/L (3.5-5.1) 02/10/17 06:00 Chloride 106 mmol/L (98-107) 02/10/17 06:00 Carbon Dioxide 26 mmol/L (21-32) 02/10/17 06:00 Anion Gap 12 (8-16) 02/10/17 06:00 BUN 10 mg/dL (7-18) D 02/10/17 06:00 Creatinine 0.4 mg/dL (0.55-1.02) L 02/10/17 06:00 Creat Clearance w eGFR > 60 (>60) 02/08/17 11:50 Random Glucose 111 mg/dL (74-106) H 02/10/17 06:00 Lactic Acid 1.967 mmol/L (0.4-2.0) 02/08/17 11:50 Calcium 8.1 mg/dL (8.5-10.1) L 02/10/17 06:00 Phosphorus 4.0 mg/dL (2.5-4.9) 02/10/17 06:00 Magnesium 2.0 mg/dL (1.8-2.4) 02/10/17 06:00 Total Bilirubin 0.2 mg/dL (0.2-1.0) 02/08/17 11:50 AST 55 U/L (15-37) H 02/08/17 11:50 ALT 69 U/L (12-78) 02/08/17 11:50 Alkaline Phosphatase 128 U/L (45-117) H 02/08/17 11:50 C-Reactive Protein 14.9 MG/DL (0.00-0.3) H 02/08/17 11:50 Total Protein 5.9 g/dl (6.4-8.2) L 02/08/17 11:50 Albumin 1.7 g/dl (3.4-5.0) L 02/08/17 11:50 Home Medications Medication Instructions Recorded Acetaminophen [Tylenol] 650 mg PO Q6H 02/08/17 Apixaban [Eliquis -] 5 mg PO Q12H 02/08/17 Arginine/Glutamine/Calcium Hmb 1 each PO BID 02/08/17 [Gordon Packet] Atorvastatin Ca [Lipitor] 20 mg PO HS 02/08/17 Baclofen 20 mg PO QID 02/08/17 Bismuth Tribromoph/Petrolatum 1 each TP Q72H 02/08/17 [Xeroform Petrolatum Dress] Calcium Carbonate/Vitamin D3 1 each PO DAILY 02/08/17 [Calcium 600-Vit D3 400 Tablet] Gabapentin [Neurontin -] 300 mg PO BID 02/08/17 Letrozole 2.5 mg PO DAILY 02/08/17 Levofloxacin [Levaquin -] 250 mg PO 1700 02/08/17 Melatonin 3 mg PO HS 02/08/17 Mirtazapine [Remeron -] 45 mg PO HS 02/08/17 Polyethylene Glycol 3350 [Miralax 17 gm PO Q12H 02/08/17 255 gm Btl -] Risperidone [Risperdal] 1 mg PO TID 02/08/17 Silv/Bandg/Lidoca/Chlorhex/Alc 1 each TP Q72H 02/08/17 [Vacustim Silver Kit] Silver Sulfadiazine 1% Top Cr 1 applic TP ASDIR 02/08/17 [Silvadene -] Picc Line Flush [Picc Line Flush -] 8 ml IVPUSH PRN PRN #100 ml 02/13/17 Vancomycin 1 Gram (Pre-Docked) 1,000 mg IVPB BID@0400,1600 #25 bag 02/13/17 [Vancomycin (Pre-Docked)] ROS/PE as per my resident notes Microbiology 02/08/17 11:40 Buttock - Right Gram Stain - Final 02/08/17 11:40 Buttock - Right Wound Culture - Final Staphylococcus Aureus Enterococcus Faecalis Staphylococcus Coagulase Neg 02/08/17 11:50 Blood - Peripheral Venous Blood Culture - Final NO GROWTH AFTER 5 DAYS INCUBATION 02/08/17 11:50 Blood - Peripheral Venous Blood Culture - Final NO GROWTH AFTER 5 DAYS INCUBATION 02/08/17 11:50 Urine - Urine - Catheterized Urine Culture - Final S Aureus Enterococcus Faecalis ASSESSMENT AND PLAN: This is a 61 yo F [facility] resident with PMH of MS, HLD, Schizophrenia, major depresssive d/o, DVT on eliquis and chronic buttock ulcer who presents at the urging of wound care/plastics Dr Samaniego for IV abx due to infected R buttock ulcer. # POD#4 for Stage IV Infected decubitus Ulcer s/p I&D with Sacral Osteomyelitis . As per ID to continue Vanco and zosyn as per ID and keep Vanco level bt 10-15 since culture is MSSA s/p Debridment by Dr Samaniego . Morphine IV for pain, IVF continue antibiotic. # Hx of MS on neurontin continue # HLD on lipitor continue #Schizophrenia on Risperedal continue # major depressive on remeron continue History of DVT on eliquis will discontinue heparin drip and restart Eliquis ,s/ p post Picc line placement for further antibiotic Discharge patient back to rehab.
== END 2017-02-13 18:57 | DRG 570 ==
LOC: JER 10:34 → JERBED 13:59 → J7W 17:00
PROVIDERS: ADMIT Internal Medicine; ATTEND Internal Medicine
PROC: 2W15X6Z Compression of Back using Pressure Dressing (ICD-10-PCS; 2017-02-09)
PROC: 0JB70ZZ Excision of Back Subcutaneous Tissue and Fascia, Open Approach (ICD-10-PCS; principal; 2017-02-09 12:30)
PROC: 02HV33Z Insertion of Infusion Device into Superior Vena Cava, Percutaneous Approach (ICD-10-PCS; 2017-02-10)
DX: L89.154 Pressure ulcer of sacral region, stage 4 (principal); M46.28 Osteomyelitis of vertebra, sacral and sacrococcygeal region; F32.3 Major depressive disorder, single episode, severe with psychotic features; N39.0 Urinary tract infection, site not specified; G35 Multiple sclerosis; E78.5 Hyperlipidemia, unspecified; Z86.718 Personal history of other venous thrombosis and embolism
CPT/HCPCS: 36415; 36569; 71010-TC; 77001-TC; 80048; 80053; 81003; 81015; 83605; 83735; 84100; 85025; 85027; 85610; 85651; 85730; 86140; 86850; 86900; 86901; 87040; 87070; 87086; 87186; 87205; 88304-TC; 93005; 93010; 94760; 99285-25; C1751; G0463-25; G0480; J0475; J1644; J2794

== ENCOUNTER 2017-07-12 10:36 | Inpatient (IN) | payer OTHER ==
[2017-07-12 11:01] VITALS: BMI 28.3
[2017-07-12 12:04] LABS: BASOPHIL 0.5 % (0-2.0); EOSINOPHIL 0.2 % (0-4.5); MCH 23.6 pg (25.7-33.7); MCHC 31.2 g/dl (32.0-36.0); MEAN CELL VOLUME 75.6 fl (80-96); MEAN PLT VOLUME 7.6 fl (7.5-11.1); NEUTROPHILS 77.4 % (42.8-82.8); PLATELET COUNT 469 K/MM3 (134-434); RDW 16.7 % (11.6-15.6); WHITE BLOOD COUNT 13.3 K/mm3 (4.0-10.0)
[2017-07-12 12:16] LABS: INR 1.69 (0.82-1.09); PROTHROMBIN TIME (PATIENT) 18.8 SEC (9.98-11.88)
[2017-07-12 12:19] LABS: ACTIVATED PTT 32.2 SECONDS (26.9-34.4)
[2017-07-12] MEDS ORDERED: VANCOMYCIN 1,000 MG in DEXTROSE 5%-WATER - 250 ML IVPB ONE (12:25)
[2017-07-12] MEDS ORDERED: VANCOMYCIN 1 GRAM (PRE-DOCKED) 250 ML IVPB ONE (12:31)
[2017-07-12 12:36] LABS: URINE APPEARANCE CLOUDY; URINE BILIRUBIN NEGATIVE (NEGATIVE); URINE BLOOD 2+ (NEGATIVE); URINE COLOR DKYELLOW; URINE GLUCOSE (UA) NEGATIVE (NEGATIVE); URINE KETONE NEGATIVE (NEGATIVE); URINE LEUK ESTERASE 3+ (NEGATIVE); URINE NITRITE NEGATIVE (NEGATIVE); URINE PROTEIN 2+ (NEGATIVE)
[2017-07-12 12:40] LABS: CALCIUM OXALATE CRYSTALS RARE /hpf (NONE SEEN); URINE MUCUS FEW; URINE RBC 50 /hpf (0-3); URINE WBC 425 /hpf (3-5)
[2017-07-12 14:01] LABS: ALBUMIN 1.3 g/dl (3.4-5.0); ANION GAP 9 (8-16); BILIRUBIN,TOTAL 0.2 mg/dL (0.2-1.0); CALCIUM 8.5 mg/dL (8.5-10.1); CO2 28 mmol/L (21-32); CREATININE 0.4 mg/dL (0.55-1.02); GLUCOSE,RANDOM 112 mg/dL (74-106); SGPT/ALT 42 U/L (12-78); TOT PROT 5.8 g/dl (6.4-8.2)
[2017-07-12 14:02] LABS: ALK PHOS 117 U/L (45-117)
[2017-07-12 14:03] LABS: SGOT/AST 45 U/L (15-37)
--- NOTE | 2017-07-12 14:42 | PDOC ---
History of Present Illness <Wendy Mendes - Last Filed: 07/12/17 15:44> - History of Present Illness Initial Comments: 07/12/17 14:38 "The patient is a 62 year old female, resident of [facility] with a significant past medical history of chronic buttock ulcer, schizophrenia, depression, hyperlipidemia, and multiple sclerosis, who was sent to the ED from wound care for evaluation of right buttock and sacral ulcer and admission for IV antibiotics and treatment. Per home health aide, patient was found to have a TMax of 103F in the [place] earlier this morning. Health aide states , patient was brought to wound care earlier today, during which the physician sent the patient to the ED, because they believed the wounds were infected. Patient reports clear drainage from the ulcers, but denies any pus. She currently denies any pain at the site of the wound. She denies any chills, cough , headache, or body aches. She denies any dysuria, hematuria, frequency, or urgency. She denies any abdominal pain, nausea, vomiting, diarrhea, or constipation. She denies any recent travel or sick contacts. Allergies: Aripiprazole Past Surgical History: Right buttock debridement followed by wound vac(02/08/17) Social History: Nonsmoker or ETOH use. Surgeon: Dr. Samaniego " <Arturo Yeboah - Last Filed: 07/13/17 09:50> - General Chief Complaint: Wound Infection Stated Complaint: WOUND WITH FEVER Time Seen by Provider: 07/12/17 11:31 Past History <Wendy Mendes - Last Filed: 07/12/17 15:44> - Past Medical History Cancer: Yes (Breast) Hypercholesterolemia: Yes Psychiatric Problems: Yes (schizophernia,depression,anxeity) Other medical history: osteomylitis of vertebra and coccyx area,dvt ble,M.S, LT HIP,SACRUM STAGE 4 - Psycho/Social/Smoking Cessation Hx Anxiety: No Suicidal Ideation: No Smoking History: Former smoker Have you smoked in the past 12 months: No Information on smoking cessation initiated: No Hx Alcohol Use: No Drug/Substance Use Hx: No Substance Use Type: None <Arturo Yeobah - Last Filed: 07/13/17 09:50> - Past Medical History Allergies/Adverse Reactions: Allergies Allergy/AdvReac Type Severity Reaction Status Date / Time aripiprazole [From Abilify] AdvReac Severe Verified 07/12/17 10:51 Home Medications: Ambulatory Orders Acetaminophen [Tylenol] 650 mg PO Q6H 02/08/17 Apixaban [Eliquis -] 5 mg PO Q12H 02/08/17 Arginine/Glutamine/Calcium Hmb [Gordon Packet] 1 each PO BID 02/08/17 Atorvastatin Ca [Lipitor] 20 mg PO HS 02/08/17 Baclofen 20 mg PO QID 02/08/17 Bismuth Tribromoph/Petrolatum [Xeroform Petrolatum Dress] 1 each TP Q72H Calcium Carbonate/Vitamin D3 [Calcium 600-Vit D3 400 Tablet] 1 each PO DAILY Gabapentin [Neurontin -] 300 mg PO BID 02/08/17 Letrozole 2.5 mg PO DAILY 02/08/17 Melatonin 3 mg PO HS 02/08/17 Mirtazapine [Remeron -] 30 mg PO HS 02/08/17 Polyethylene Glycol 3350 [Miralax 255 gm Btl -] 17 gm PO Q12H 02/08/17 Risperidone [Risperdal] 1 mg PO BID 02/08/17 Silv/Bandg/Lidoca/Chlorhex/Alc [Vacustim Silver Kit] 1 each TP Q72H 02/08/17 Silver Sulfadiazine 1% Top Cr [Silvadene -] 1 applic TP ASDIR 02/08/17 Benztropine Mesylate 1 mg PO AM 07/12/17 Oxycodone HCl 5 mg PO MOWEFR 07/12/17 Review of Systems - Review of Systems Comments:: 07/12/17 14:39 "GENERAL/CONSTITUTIONAL: Yes: +fever. No chills. No weakness above baseline. No weight change HEAD, EYES, EARS, NOSE AND THROAT: No change in vision. No ear pain or discharge. No sore throat. CARDIOVASCULAR: No chest pain or shortness of breath. RESPIRATORY: No cough, wheezing, or hemoptysis. GASTROINTESTINAL: No nausea, vomiting, diarrhea or constipation. GENITOURINARY: Yes: +chronic indwelling borjas catheter. No dysuria, frequency, or change in urination. MUSCULOSKELETAL: No joint or muscle swelling or pain. No neck or back pain. SKIN: Yes: +right buttock and sacral ulcer. No rash NEUROLOGIC: No headache, vertigo, loss of consciousness, or change in strength/ sensation. ENDOCRINE: No increased thirst. No abnormal weight change. HEMATOLOGIC/LYMPHATIC: No anemia, easy bleeding, or history of blood clots. ALLERGIC/IMMUNOLOGIC: No hives or skin allergy. " <Ou,Arturo - Last Filed: 07/13/17 09:50> *Physical Exam - Vital Signs Last Vital Signs Temp Pulse Resp BP Pulse Ox 100.0 F H 102 H 16 105/62 99 07/12/17 15:17 07/12/17 15:17 07/12/17 15:17 07/12/17 10:51 07/12/17 15:17 <VaughnGicamiilsy - Last Filed: 07/12/17 15:44> - Vital Signs Last Vital Signs Temp Pulse Resp BP Pulse Ox 99.6 F 112 H 18 105/62 95 07/12/17 10:51 07/12/17 10:51 07/12/17 12:04 07/12/17 10:51 07/12/17 12:04 - Physical Exam Comments: 07/12/17 14:39 "GENERAL: Awake, alert, and fully oriented, in no acute distress HEAD: No signs of trauma EYES: PERRLA, EOMI, sclera anicteric, conjunctiva clear ENT: Auricles normal inspection, hearing grossly normal, nares patent, oropharynx clear without exudates. Moist mucosa NECK: Normal ROM, supple, no lymphadenopathy, JVD, or masses LUNGS: Breath sounds equal, clear to auscultation bilaterally. No wheezes, and no crackles HEART: Regular rate and rhythm, normal S1 and S2, no murmurs, rubs or gallops ABDOMEN: Soft, nontender, normoactive bowel sounds. No guarding, no rebound. No masses EXTREMITIES: Normal range of motion, no edema. No clubbing or cyanosis. No cords, erythema, or tenderness NEUROLOGICAL: Cranial nerves II through XII grossly intact. Normal speech, normal gait SKIN: large tunneling sacral decubitous ulcer, draining serosanguinous fluid, no purulent drainage, no surrounding erythema. Also a large tunneling ulcer on L hip with mild surrounding erythema and serosanguinous drainage " <Ou,Arturo - Last Filed: 07/13/17 09:50> Procedures - Consent Consent obtained: Verbal, From Patient - Central Line Central Line Lumen: triple Central Line Position: internal jugular (L) Anesthesia: 1% Lidocaine Amount of anesthesia (ccs): 5 Complications: none Post Central Line Insertion: sutured, good blood return, position confirmed w/ CXR <Ou,Arturo - Last Filed: 07/13/17 09:50> ED Treatment Course - LABORATORY CBC & Chemistry Diagram: 07/12/17 11:35 07/12/17 12:30 - ADDITIONAL ORDERS Additional order review: Laboratory Results 07/12/17 07/12/17 07/12/17 12:30 12:29 11:35 INR PTT (Actin FS) Sodium 138 Potassium 4.4 Chloride 101 Carbon Dioxide 28 Anion Gap 9 BUN 19 H D Creatinine 0.4 L D Creat Clearance w eGFR > 60 Random Glucose 112 H Lactic Acid 1.8 Calcium 8.5 Total Bilirubin 0.2 D AST 45 H D ALT 42 D Alkaline Phosphatase 117 D Total Protein 5.8 L Albumin 1.3 L D Urine Color Dkyellow Urine Appearance Cloudy Urine pH 6.0 Urine Protein 2+ H Urine Glucose (UA) Negative Urine Ketones Negative Urine Blood 2+ H Urine Nitrite Negative Urine Bilirubin Negative Urine Urobilinogen 2.0 H Ur Leukocyte Esterase 3+ H Urine RBC 50 Urine WBC 425 Calcium Oxalate Crystal Rare Urine Mucus Few Blood Type Antibody Screen 07/12/17 07/12/17 07/12/17 11:35 11:35 11:35 INR 1.69 H PTT (Actin FS) 32.2 Sodium Cancelled Potassium Cancelled Chloride Cancelled Carbon Dioxide Cancelled Anion Gap Cancelled BUN Cancelled Creatinine Cancelled Creat Clearance w eGFR Cancelled Random Glucose Cancelled Lactic Acid Calcium Cancelled Total Bilirubin Cancelled AST Cancelled ALT Cancelled Alkaline Phosphatase Cancelled Total Protein Cancelled Albumin Cancelled Urine Color Urine Appearance Urine pH Urine Protein Urine Glucose (UA) Urine Ketones Urine Blood Urine Nitrite Urine Bilirubin Urine Urobilinogen Ur Leukocyte Esterase Urine RBC Urine WBC Calcium Oxalate Crystal Urine Mucus Blood Type B POSITIVE Antibody Screen Negative 07/12/17 11:35 RBC 3.90 MCV 75.6 L MCHC 31.2 L RDW 16.7 H MPV 7.6 D Neutrophils % 77.4 D Lymphocytes % 15.4 D Monocytes % 6.5 Eosinophils % 0.2 D Basophils % 0.5 - RADIOLOGY Radiograph Interpretation: 07/12/17 15:44 EXAM: CXR INTERPRETED BY: Dr. Saab REVIEWED BY: Dr. Yeboah IMPRESSION: Suboptimal inspiratory effort. - Medications Given in the ED: ED Medications Discontinued Medications Generic Name Dose Route Start Last Admin Trade Name Hussain PRN Reason Stop Dose Admin Acetaminophen 1,000 mg 07/12/17 14:55 07/12/17 15:01 Ofirmev Injection - IVPB 07/12/17 14:56 1,000 mg ONCE ONE Administration Vancomycin HCl 1,000 mg/ 250 mls @ 250 mls/hr 07/12/17 12:25 07/12/17 12:35 Dextrose IVPB 07/12/17 13:24 250 mls/hr ONCE ONE Administration Protocol Piperacillin Sod/Tazobactam 100 mls @ 200 mls/hr 07/12/17 14:47 07/12/17 15:04 Sod 4.5 gm/ Dextrose IVPB 07/12/17 15:16 200 mls/hr ONCE ONE Administration Protocol <Wendy Mendes - Last Filed: 07/12/17 15:44> - LABORATORY CBC & Chemistry Diagram: 07/13/17 05:20 07/13/17 05:20 - ADDITIONAL ORDERS Additional order review: Laboratory Results 07/12/17 07/12/17 07/12/17 12:30 12:29 11:35 INR PTT (Actin FS) Sodium 138 Potassium 4.4 Chloride 101 Carbon Dioxide 28 Anion Gap 9 BUN 19 H D Creatinine 0.4 L D Creat Clearance w eGFR > 60 Random Glucose 112 H Lactic Acid 1.8 Calcium 8.5 Total Bilirubin 0.2 D AST 45 H D ALT 42 D Alkaline Phosphatase 117 D Total Protein 5.8 L Albumin 1.3 L D Urine Color Dkyellow Urine Appearance Cloudy Urine pH 6.0 Urine Protein 2+ H Urine Glucose (UA) Negative Urine Ketones Negative Urine Blood 2+ H Urine Nitrite Negative Urine Bilirubin Negative Urine Urobilinogen 2.0 H Ur Leukocyte Esterase 3+ H Urine RBC 50 Urine WBC 425 Calcium Oxalate Crystal Rare Urine Mucus Few Blood Type Antibody Screen 07/12/17 07/12/17 07/12/17 11:35 11:35 11:35 INR 1.69 H PTT (Actin FS) 32.2 Sodium Cancelled Potassium Cancelled Chloride Cancelled Carbon Dioxide Cancelled Anion Gap Cancelled BUN Cancelled Creatinine Cancelled Creat Clearance w eGFR Cancelled Random Glucose Cancelled Lactic Acid Calcium Cancelled Total Bilirubin Cancelled AST Cancelled ALT Cancelled Alkaline Phosphatase Cancelled Total Protein Cancelled Albumin Cancelled Urine Color Urine Appearance Urine pH Urine Protein Urine Glucose (UA) Urine Ketones Urine Blood Urine Nitrite Urine Bilirubin Urine Urobilinogen Ur Leukocyte Esterase Urine RBC Urine WBC Calcium Oxalate Crystal Urine Mucus Blood Type B POSITIVE Antibody Screen Negative 07/12/17 11:35 RBC 3.90 MCV 75.6 L MCHC 31.2 L RDW 16.7 H MPV 7.6 D Neutrophils % 77.4 D Lymphocytes % 15.4 D Monocytes % 6.5 Eosinophils % 0.2 D Basophils % 0.5 - RADIOLOGY Radiology Studies Ordered: Category Date Time Status CHEST X-RAY PORTABLE* [RAD] Stat Radiology 07/12/17 11:14 Completed - Medications Given in the ED: ED Medications Discontinued Medications Generic Name Dose Route Start Last Admin Trade Name Freq PRN Reason Stop Dose Admin Vancomycin HCl 1,000 mg/ 250 mls @ 250 mls/hr 07/12/17 12:25 07/12/17 12:35 Dextrose IVPB 07/12/17 13:24 250 mls/hr ONCE ONE Administration Protocol <Arturo Yeboah - Last Filed: 07/13/17 09:50> Medical Decision Making - Critical Care Time Total Critical Care Time (minutes): 120 Critical Care Statement: The care of this patient involved high complexity decision making to prevent further life threatening deterioration of the patient 's condition and/or to evaluate & treat vital organ system(s) failure or risk of failure. - Medical Decision Making 07/12/17 14:41 62 F with MS, bedbound with indwelling borjas, presenting with fever. Source likely from large decubitous ulcers, though pt has h/o UTI as well. - Labs, cultures - CXR, UA - IV abx - Admit 07/12/17 14:48 Dr. Samaniego to take pt to OR for debridement of wounds. UA consistent with UTI. Pt started on vancomycin and zosyn 07/12/17 18:00 During course of ER stay, pt became progressively more hypotensive, systolic BP 70s-80s. 3L crystalloid and abx administered. Triple lumen CVC placed in L IJ under sterile technique. Pt started on levophed. <Arturo Yeboah - Last Filed: 07/13/17 09:50> *DC/Admit/Observation/Transfer - Attestations Scribe Attestion: 07/12/17 15:45 Documentation prepared by Wendy Mendes, acting as medical art therapist for Arturo Yeboah MD. <Wendy Mendes - Last Filed: 07/12/17 15:44> - Discharge Dispostion Admit: Yes - Attestations Physician Attestion: 07/13/17 09:49 I, Dr. Arturo Yeboah MD, attest that this document has been prepared under my direction and personally reviewed by me in its entirety. I further attest, that it accurately reflects all work, treatment, procedures and medical decision -making performed by me. <Arturo Yeboah - Last Filed: 07/13/17 09:50> Diagnosis at time of Disposition: Sepsis - Septicemia - Discharge Dispostion Condition at time of disposition: Critical
[2017-07-12] MEDS ORDERED: PIPERACILLIN/TAZOB 4.5 GM 4.5 GM in DEXTROSE 5%-WATER - 100 ML IVPB ONE (14:47)
[2017-07-12] MEDS ORDERED: ACETAMINOPHEN 1000 MG/100 ML VIAL (NON FORMULARY) IVPB ONE (14:55)
[2017-07-12] MEDS ORDERED: SODIUM CHLORIDE 1,000 ML IV STA ×3 (14:55→22:30)
[2017-07-12] MEDS ORDERED: PIPERACILLIN/TAZOB 4.5 GM 100 ML IVPB ONE (14:57)
[2017-07-12] MEDS ORDERED: ACETAMINOPHEN INJECTION 100 ML IVPB ONE (14:57)
--- NOTE | 2017-07-12 15:19 | HP ---
CHIEF COMPLAINT: chronic R buttock ulcer x 6 months Fever X1 day PCP: HISTORY OF PRESENT ILLNESS: Patient is a a 62 year old female resident of [facility] with over 30 years history of MS and a history of chronic L buttock and sacral ulcer, schizophrenia, depression, hyperlipidemia, s/p R breast cancer and mastectomy. She has been managed regularly by Dr. Samaniego at the wound center. There is a history of clear fluid drainage from the wound, but no pus. This morning, the group home noted a Tmax 103 and when the patient's aide brought her to wound care today for evaluation of the chronic ulcers, she was referred to ED by the wound care physician for likely wound infection, and for debridement/iv antibiotics. Wound culture from left hip done on 07/05 grew- Provencia stuartii, strep agalactia, and enterococcus fecaelis was treated with zosyn, and she was being worked up for debridement. There is no pain at the site of the wound, no chills, cough, body pains or headache. Patient is on chronic borjas catheter and reports no dysuria, hematuria , frequency or urgency. She denies any abdominal pain, nausea, vomiting, diarrhea, melena or hematochezia but endorses occasional constipation. She denies any recent travel or sick contacts. ER course was notable for: Hypotension- and was given 3 L of fluid, vancomycin and zosyn and had a sepsis work up done. Patient was seen by Dr. Samaniego for debridement tomorrow following medical clearance. Selected Entries 07/05/17 07/12/17 07/12/17 16:08 10:51 18:07 Blood Pressure 102/70 105/62 84/39 (1) 3 L of Iv fluid (2) Zosyn and vancomycin- given in ED (3) EKG- showed no evidence of ischemia 4) Sepsis screen 5) CXR- no evidence of pleural effusion, no opacities 6) CBC- lymphocytosis, microcytic anemia, thrombocytosis 7) INR- elevated-1.69 8) BUN- 19, Cr-0.4 9) Bilirubin-45 10 U/A- 425 WBC 11) Blood type and AB scan done 12) Patient was admitted to ICU 13) 2 L of nasal catheter oxygen Recent Travel: PAST MEDICAL HISTORY: MS, chronic L buttock and sacral ulcer, schizophrenia, depression, hyperlipidemia, s/p R breast cancer PAST SURGICAL HISTORY: R Mastectomy over 30 years ago Social History: Smoking: Alcohol: Drugs: Family History: Allergies aripiprazole [From [facility]] Adverse Reaction (Severe, Verified 07/12/17 10:51) In ICU after administration of this medication HOME MEDICATIONS: Home Medications Medication Instructions Recorded Acetaminophen [Tylenol] 650 mg PO Q6H 02/08/17 Apixaban [Eliquis -] 5 mg PO Q12H 02/08/17 Arginine/Glutamine/Calcium Hmb 1 each PO BID 02/08/17 [Gordon Packet] Atorvastatin Ca [Lipitor] 20 mg PO HS 02/08/17 Baclofen 20 mg PO QID 02/08/17 Bismuth Tribromoph/Petrolatum 1 each TP Q72H 02/08/17 [Xeroform Petrolatum Dress] Calcium Carbonate/Vitamin D3 1 each PO DAILY 02/08/17 [Calcium 600-Vit D3 400 Tablet] Gabapentin [Neurontin -] 300 mg PO BID 02/08/17 Letrozole 2.5 mg PO DAILY 02/08/17 Melatonin 3 mg PO HS 02/08/17 Mirtazapine [Remeron -] 30 mg PO HS 02/08/17 Polyethylene Glycol 3350 [Miralax 17 gm PO Q12H 02/08/17 255 gm Btl -] Risperidone [Risperdal] 1 mg PO BID 02/08/17 Silv/Bandg/Lidoca/Chlorhex/Alc 1 each TP Q72H 02/08/17 [Vacustim Silver Kit] Silver Sulfadiazine 1% Top Cr 1 applic TP ASDIR 02/08/17 [Silvadene -] Benztropine Mesylate 1 mg PO AM 07/12/17 Oxycodone HCl 5 mg PO MOWEFR 07/12/17 REVIEW OF SYSTEMS CONSTITUTIONAL: Absent: fever, chills, diaphoresis, generalized weakness, malaise, loss of appetite, weight change HEENT: Absent: rhinorrhea, nasal congestion, throat pain, throat swelling, difficulty swallowing, mouth swelling, ear pain, eye pain, visual changes CARDIOVASCULAR: Absent: chest pain, syncope, palpitations, irregular heart rate, lightheadedness , peripheral edema RESPIRATORY: Absent: cough, shortness of breath, dyspnea with exertion, orthopnea, wheezing, stridor, hemoptysis GASTROINTESTINAL: Absent: abdominal pain, abdominal distension, nausea, vomiting, diarrhea, constipation, melena, hematochezia GENITOURINARY: Absent: on continous borjas catheter as noted above, no dysuria, frequency, urgency, hesitancy, hematuria, flank pain, genital pain MUSCULOSKELETAL: Absent: myalgia, arthralgia, joint swelling, back pain, neck pain SKIN: L hip ulcer and sacral ulcer as noted above. HEMATOLOGIC/IMMUNOLOGIC: Absent: easy bleeding, easy bruising, lymphadenopathy ENDOCRINE: Absent: unexplained weight gain, unexplained weight loss, heat intolerance, cold intolerance NEUROLOGIC: Absent: Patient has MS with quadriplegia and bladder or bowel incontinence, no hx dizziness, headache, seizure, mental status changes, PSYCHIATRIC: Absent: patient has a history of depression PHYSICAL EXAMINATION Vital Signs - 24 hr 07/12/17 07/12/17 10:51 12:04 Temperature 99.6 F Pulse Rate 112 H Respiratory 18 18 Rate Blood Pressure 105/62 O2 Sat by Pulse 95 95 Oximetry (%) GENERAL: Awake, alert, and fully oriented, in no acute distress. HEAD: Normal with no signs of trauma. EYES: Pupils equal, round and reactive to light, extraocular movements intact, sclera anicteric, conjunctiva clear. No lid lag. EARS, NOSE, THROAT: Ears normal, nares patent, oropharynx clear without exudates. Dry mucous membranes. LUNGS: Breath sounds equal, clear to auscultation bilaterally. No wheezes, and no crackles. No accessory muscle use. HEART: Regular rate and rhythm, normal S1 and S2 without murmur, rub or gallop. ABDOMEN: Soft, nontender, not distended, normoactive bowel sounds, no guarding, no rebound, no masses. No hepatomegaly or splenomegaly. MUSCULOSKELETAL: Absent motion at all joints. Large sacral ulcer measuring about [id number] packed and oozing serosanguinous fluid with bad odor, and L buttock ulcer measuring about 4x2cm packed also oozing serosanguinous fluid with bad odor. UPPER EXTREMITIES: No cyanosis. No clubbing. No peripheral edema. LOWER EXTREMITIES: No calf tenderness. No peripheral edema. NEUROLOGICAL: Oriented to time palce and person, Normal speech, quadriparesis with toe movement on the L. PSYCHIATRIC: Cooperative. Good eye contact. Appropriate mood and affect. Laboratory Tests 07/12/17 11:35 Lactic Acid 1.8 Laboratory Results - last 24 hr 07/12/17 07/12/17 07/12/17 11:35 11:35 11:35 WBC 13.3 H D RBC 3.90 Hgb 9.2 L D Hct 29.5 L D MCV 75.6 L MCH 23.6 L MCHC 31.2 L RDW 16.7 H Plt Count 469 H D MPV 7.6 D Neutrophils % 77.4 D Lymphocytes % 15.4 D Monocytes % 6.5 Eosinophils % 0.2 D Basophils % 0.5 INR 1.69 H PTT (Actin FS) 32.2 Sodium Cancelled Potassium Cancelled Chloride Cancelled Carbon Dioxide Cancelled Anion Gap Cancelled BUN Cancelled Creatinine Cancelled Creat Clearance w eGFR Cancelled Random Glucose Cancelled Lactic Acid Calcium Cancelled Total Bilirubin Cancelled AST Cancelled ALT Cancelled Alkaline Phosphatase Cancelled Total Protein Cancelled Albumin Cancelled Urine Color Urine Appearance Urine pH Urine Protein Urine Glucose (UA) Urine Ketones Urine Blood Urine Nitrite Urine Bilirubin Urine Urobilinogen Ur Leukocyte Esterase Urine RBC Urine WBC Calcium Oxalate Crystal Urine Mucus Blood Type Antibody Screen 07/12/17 07/12/17 07/12/17 11:35 11:35 12:29 WBC RBC Hgb Hct MCV MCH MCHC RDW Plt Count MPV Neutrophils % Lymphocytes % Monocytes % Eosinophils % Basophils % INR PTT (Actin FS) Sodium Potassium Chloride Carbon Dioxide Anion Gap BUN Creatinine Creat Clearance w eGFR Random Glucose Lactic Acid 1.8 Calcium Total Bilirubin AST ALT Alkaline Phosphatase Total Protein Albumin Urine Color Dkyellow Urine Appearance Cloudy Urine pH 6.0 Urine Protein 2+ H Urine Glucose (UA) Negative Urine Ketones Negative Urine Blood 2+ H Urine Nitrite Negative Urine Bilirubin Negative Urine Urobilinogen 2.0 H Ur Leukocyte Esterase 3+ H Urine RBC 50 Urine WBC 425 Calcium Oxalate Crystal Rare Urine Mucus Few Blood Type B POSITIVE Antibody Screen Negative 07/12/17 12:30 WBC RBC Hgb Hct MCV MCH MCHC RDW Plt Count MPV Neutrophils % Lymphocytes % Monocytes % Eosinophils % Basophils % INR PTT (Actin FS) Sodium 138 Potassium 4.4 Chloride 101 Carbon Dioxide 28 Anion Gap 9 BUN 19 H D Creatinine 0.4 L D Creat Clearance w eGFR > 60 Random Glucose 112 H Lactic Acid Calcium 8.5 Total Bilirubin 0.2 D AST 45 H D ALT 42 D Alkaline Phosphatase 117 D Total Protein 5.8 L Albumin 1.3 L D Urine Color Urine Appearance Urine pH Urine Protein Urine Glucose (UA) Urine Ketones Urine Blood Urine Nitrite Urine Bilirubin Urine Urobilinogen Ur Leukocyte Esterase Urine RBC Urine WBC Calcium Oxalate Crystal Urine Mucus Blood Type Antibody Screen ASSESSMENT/PLAN: #Septic Shock: Hx of fever- Tmax 103 Hypotension- 84/39mmHg foul smelling and discharging chronic decubitus ulcers chronic borjas catheter use with high urinary WBCs- 425, 3+ leukocyte esterase, Urine RBCs- 50, urine blood 2+ Anemia thrombophilia Plan: -Consult ID _Consult adult literacy teacher -admitted to ICU - Iv zosyn -Iv N/saline- 3L given in ED - strict Input and output - sepsis screen- CMP, CBC, CXR, blood culture, urine culture, U/A, lactic acid -EKG -foleys catheter replacement as needed -Debridement of decubitus ulcers - pressors- norepinephrine #Infected Chronic Decubitus ulcers: Hx of fever- Tmax 103 oozing serosanguinous fluid, foul smelling anemia Plan: - Consult surgeon - For medical clearance prior to procedure -CBC, PT/PTT/INR, Blood group and Antibody, CMP, CXR, blood culture, urine culture, U/A, lactic acid -For debridement -scheduled for tomorrow - Iv zosyn -Iv N/saline - Turn as needed - Chorhexidine #UTI -Hx of fever- Tmax 103 -chronic borjas catheter use * U/A, -with high urinary WBCs- 425, -3+ leukocyte esterase, -Urine RBCs- 50, -urine blood 2+ *urine culture -samples taken anemia Plan: Iv zosyn -Iv N/saline #MS -With quadriparesis, bladder and bowel incontinence, - occasional constipation -on chronic catheter use and diaper -Lives in a group home with aides Plan: - Change catheter as needed -turn frequently -miralax -baclofen -gabapentin - #S/P R breast cancer -letrozole - Ca carbonate/Vit D3 #Obesity #Hyperlipidemia -atorvostatin #Schizophrenia _risperidone -benztropine #Depression Mirtazepine #Chronic pain -hydromorphone #constipation - MS -chronic opiate use Plan: -Miralax as needed -frequent turning #Sleep disorder: Melatonin #FEN Fluids: N/saline Infusion Monitor I&Os Electrolytes:CMP, Mg, Phosphate, Ca Nutrition: NPO from midnight #Prophylaxis Sc. Heparin #Dispo For ICU monitoring for septic shock Visit type - Emergency Visit Emergency Visit: Yes ED Registration Date: 07/12/17 Care time: The patient presented to the Emergency Department on the above date and was hospitalized for further evaluation of their emergent condition. - New Patient This patient is new to me today: Yes Date on this admission: 07/12/17 - Critical Care Critical Care patient: Yes Total Critical Care Time (in minutes): 45 Critical Care Statement: The care of this patient involved high complexity decision making to prevent further life threatening deterioration of the patient 's condition and/or to evaluate & treat vital organ system(s) failure or risk of failure.
[2017-07-12] MEDS ORDERED: SODIUM CHLORIDE 1,000 ML IV ONE ×2 (16:02→16:33)
--- NOTE | 2017-07-12 17:22 | CONSULT ---
Consult Consult Specialty:: Plastic Surgery - History of Present Illness Chief Complaint: Patient with MS, multiple grade IV infected decubitii History of Present Illness: Patient with MS for over 20 years recent deterioration of her condition, development of Pressure injuries over bony prominence Today seen in wound clinic , positive culture report, tachycardia, warm around the Left Hip,foul odor sent to ER for admission. WBC elevation note 13.2 Plan : 1 Surgical debridement of two decubitii 2. Pulsa VAC massive irrigation to reduce bioburden 3 . Medical clearance for Surgical procedure: Debridement,Ostectomy, flap closure Patient scheduled for OR debridement Tomorrow afternoon - Alcohol/Substance Use Hx Alcohol Use: No - Smoking History Smoking history: Former smoker Have you smoked in the past 12 months: No Home Medications - Allergies Allergies/Adverse Reactions: Allergies Allergy/AdvReac Type Severity Reaction Status Date / Time aripiprazole [From Abilify] AdvReac Severe Verified 07/12/17 10:51 - Home Medications Home Medications: Ambulatory Orders Acetaminophen [Tylenol] 650 mg PO Q6H 02/08/17 Apixaban [Eliquis -] 5 mg PO Q12H 02/08/17 Arginine/Glutamine/Calcium Hmb [Gordon Packet] 1 each PO BID 02/08/17 Atorvastatin Ca [Lipitor] 20 mg PO HS 02/08/17 Baclofen 20 mg PO QID 02/08/17 Bismuth Tribromoph/Petrolatum [Xeroform Petrolatum Dress] 1 each TP Q72H Calcium Carbonate/Vitamin D3 [Calcium 600-Vit D3 400 Tablet] 1 each PO DAILY Gabapentin [Neurontin -] 300 mg PO BID 02/08/17 Letrozole 2.5 mg PO DAILY 02/08/17 Melatonin 3 mg PO HS 02/08/17 Mirtazapine [Remeron -] 30 mg PO HS 02/08/17 Polyethylene Glycol 3350 [Miralax 255 gm Btl -] 17 gm PO Q12H 02/08/17 Risperidone [Risperdal] 1 mg PO BID 02/08/17 Silv/Bandg/Lidoca/Chlorhex/Alc [Vacustim Silver Kit] 1 each TP Q72H 02/08/17 Silver Sulfadiazine 1% Top Cr [Silvadene -] 1 applic TP ASDIR 02/08/17 Benztropine Mesylate 1 mg PO AM 07/12/17 Oxycodone HCl 5 mg PO MOWEFR 07/12/17 Physical Exam Vital Signs: Vital Signs Temperature 100.0 F H 07/12/17 15:17 Pulse Rate 88 07/12/17 16:54 Respiratory Rate 18 07/12/17 16:54 Blood Pressure 86/38 07/12/17 16:54 O2 Sat by Pulse Oximetry (%) 98 07/12/17 16:54 Assessment/Plan Plan : Surgical debriement in OR, Pulsavac VAC application (?) Flap will need to be delayed as her protein status is very poor Selected Entries 07/12/17 16:54 Pulse Rate [ 88 Radial] Respiratory 18 Rate Blood Pressure 86/38 [Right Arm] O2 Sat by Pulse 98 Oximetry (%) Laboratory Tests 07/12/17 07/12/17 11:35 12:30 WBC 13.3 H D Hgb 9.2 L D Hct 29.5 L D MCV 75.6 L MCH 23.6 L MCHC 31.2 L RDW 16.7 H Plt Count 469 H D Neutrophils % 77.4 D BUN 19 H D Creatinine 0.4 L D Random Glucose 112 H AST 45 H D ALT 42 D Alkaline Phosphatase 117 D Total Protein 5.8 L Albumin 1.3 L D Serum Albumin 1.[address] Samaniego
[2017-07-12] MEDS ORDERED: NOREPINEPHRINE BITARTRATE 4 MG/4 ML ML IV ONE (17:40)
--- NOTE | 2017-07-12 18:02 | PN ---
Teaching Attending Note Name of Resident: Ana Maria Machado ATTENDING PHYSICIAN STATEMENT I saw and evaluated the patient. I reviewed the resident's note and discussed the case with the resident. I agree with the resident's findings and plan as documented. SUBJECTIVE: Patient witha hx of MS presented to ED. with Tmax of 103, was send to Ed.from the [facility] for further care and management. OBJECTIVE: Vital Signs Temperature 100.0 F H 07/12/17 15:17 Pulse Rate 88 07/12/17 16:54 Respiratory Rate 18 07/12/17 16:54 Blood Pressure 86/38 07/12/17 16:54 O2 Sat by Pulse Oximetry (%) 98 07/12/17 16:54 CBCD WBC 13.3 K/mm3 (4.0-10.0) H D 07/12/17 11:35 RBC 3.90 M/mm3 (3.60-5.2) 07/12/17 11:35 Hgb 9.2 GM/dL (10.7-15.3) L D 07/12/17 11:35 Hct 29.5 % (32.4-45.2) L D 07/12/17 11:35 MCV 75.6 fl (80-96) L 07/12/17 11:35 MCHC 31.2 g/dl (32.0-36.0) L 07/12/17 11:35 RDW 16.7 % (11.6-15.6) H 07/12/17 11:35 Plt Count 469 K/MM3 (134-434) H D 07/12/17 11:35 MPV 7.6 fl (7.5-11.1) D 07/12/17 11:35 CMP Sodium 138 mmol/L (136-145) 07/12/17 12:30 Potassium 4.4 mmol/L (3.5-5.1) 07/12/17 12:30 Chloride 101 mmol/L (98-107) 07/12/17 12:30 Carbon Dioxide 28 mmol/L (21-32) 07/12/17 12:30 Anion Gap 9 (8-16) 07/12/17 12:30 BUN 19 mg/dL (7-18) H D 07/12/17 12:30 Creatinine 0.4 mg/dL (0.55-1.02) L D 07/12/17 12:30 Creat Clearance w eGFR > 60 (>60) 07/12/17 12:30 Random Glucose 112 mg/dL (74-106) H 07/12/17 12:30 Calcium 8.5 mg/dL (8.5-10.1) 07/12/17 12:30 Total Bilirubin 0.2 mg/dL (0.2-1.0) D 07/12/17 12:30 AST 45 U/L (15-37) H D 07/12/17 12:30 ALT 42 U/L (12-78) D 07/12/17 12:30 Alkaline Phosphatase 117 U/L (45-117) D 07/12/17 12:30 Total Protein 5.8 g/dl (6.4-8.2) L 07/12/17 12:30 Albumin 1.3 g/dl (3.4-5.0) L D 07/12/17 12:30 Current Medications Generic Name Dose Route Start Last Admin Trade Name Freq PRN Reason Stop Dose Admin Chlorhexidine Gluconate 1 applic 07/12/17 22:00 Hibiclens For Decolonization - TP HS [facility] Heparin Sodium (Porcine) 5,000 unit 07/12/17 22:00 Heparin - SQ BID NAYAN Hydromorphone HCl 0.5 mg 07/12/17 16:46 Dilaudid Injection - IVPUSH Q4H PRN PAIN Norepinephrine Bitartrate 4, 500 mls @ 37.5 mls/hr 07/12/17 17:00 000 mcg/ Dextrose IV TITR NAYAN Protocol 5 MCG/MIN Mupirocin 1 applic 07/12/17 22:00 Bactroban Ointment (For Decolonization) - NS 07/17/17 21:59 BID [facility] Home Medications Medication Instructions Recorded Acetaminophen [Tylenol] 650 mg PO Q6H 02/08/17 Apixaban [Eliquis -] 5 mg PO Q12H 02/08/17 Arginine/Glutamine/Calcium Hmb 1 each PO BID 02/08/17 [Gordon Packet] Atorvastatin Ca [Lipitor] 20 mg PO HS 02/08/17 Baclofen 20 mg PO QID 02/08/17 Bismuth Tribromoph/Petrolatum 1 each TP Q72H 02/08/17 [Xeroform Petrolatum Dress] Calcium Carbonate/Vitamin D3 1 each PO DAILY 02/08/17 [Calcium 600-Vit D3 400 Tablet] Gabapentin [Neurontin -] 300 mg PO BID 02/08/17 Letrozole 2.5 mg PO DAILY 02/08/17 Melatonin 3 mg PO HS 02/08/17 Mirtazapine [Remeron -] 30 mg PO HS 02/08/17 Polyethylene Glycol 3350 [Miralax 17 gm PO Q12H 02/08/17 255 gm Btl -] Risperidone [Risperdal] 1 mg PO BID 02/08/17 Silv/Bandg/Lidoca/Chlorhex/Alc 1 each TP Q72H 02/08/17 [Vacustim Silver Kit] Silver Sulfadiazine 1% Top Cr 1 applic TP ASDIR 02/08/17 [Silvadene -] Benztropine Mesylate 1 mg PO AM 07/12/17 Oxycodone HCl 5 mg PO MOWEFR 07/12/17 PE: as per resident's notes SKIN: large tunneling sacral decubitous ulcer, draining serosanguinous fluid, no purulent drainage, no surrounding erythema. Also a large tunneling ulcer on L hip with mild surrounding erythema and serosanguinous drainage ASSESSMENT AND PLAN: Patient is a a 62 year old female resident of [facility] with a over 30 years history of MS and PMHx of chronic R buttock and sacral ulcer, schizophrenia, depression, hyperlipidemia. Patient's aide brought her to wound care today for evaluation of the chronic ulcers, but was referred to ED by wound care physician for further evaluation and treatment. And was noted to have Tmax 103 this am. # Septic shock , patient was given 2 liters of IV bolus of NS continued to have low blood pressure, started the patient on IV pressors and admitted to ICU. discussed with , ICu attending. IV antibiotics were ordered, Zosyn , Vancomycin , ID consulted for further manangement. Plastic surgeon was consulted for further management. was pancultured in Er. follow the culture result. # Decubitus ulcer with Large tunneling ulcer on the left hip On IV antibiotic Zosyn and Vancomycin , ID consult, panculture was ordered. # Hx of MS on neurontin continue # HLD on lipitor continue #Schizophrenia on Risperedal continue # major depressive on remeron continue History of DVT on eliquis will hold Eliquis for now, will get duplex of LE to r/ o DVT DVT px; heparin ESR ordered critical care time of 40 minutes
[2017-07-12] MEDS: NOREPINEPHRINE BITARTRATE 4,000 MCG in DEXTROSE 5%-WATER - 496 ML IV SCH ×2 (18:07→20:00)
[2017-07-12] MEDS ORDERED: PIPERACILLIN/TAZOB 3.375 GM 3.375 GM in DEXTROSE 5%-WATER - 50 ML IVPB ONE (20:00)
[2017-07-12] MEDS ORDERED: PIPERACILLIN/TAZOB 3.375 GM 50 ML IVPB ONE (20:15)
[2017-07-12] MEDS: HYDROmorphone HCL CARPU-JECT 1 MG/1 ML DISP.SYRIN IVPUSH PRN (21:20)
--- NOTE | 2017-07-12 21:31 | CONSULT ---
Consult Consult Specialty:: Pulmonary Critical Care Referred by:: Dr. Pastrana Reason for Consultation:: Sepsis - History of Present Illness Chief Complaint: Fever History of Present Illness: Patient is a 62 yo female, [facility] resident, with h/o chronic sacral ulcer , schizophrenia, depression, HL, MS who was sent to ED for evaluation of fevers , admitted to ICU with sepsis likely in the setting of wound infection +/- UTI. Patient was brought to wound care center today by her health aide when she was found to be febrile. She was subsequently sent to ED for IV antibiotics and possible wound debridement. Pt has been managed regularly by Dr. Samaniego at the wound center. In the past wound cultures have grown Provencia stuartii, strep agalactia and Enterococcus Fecailis. In ER was mildly hypotensive, given 3liters of fluids and started on Vanco/ Zosyn. Admission labs notable for WBC 13.3, Cr 0.4, UA with 3+ LE and WBC 425. Was then admitted to ICU for further management. As per nurse in ICU borjas was exchanged on admission and urine studies resent. Active Medications Baclofen (Lioresal -) 20 mg PO QID NAYAN Benztropine Mesylate (Cogentin -) 1 mg PO AM NAYAN Chlorhexidine Gluconate (Hibiclens For Decolonization -) 1 applic TP HS NAYAN Gabapentin (Neurontin -) 300 mg PO BID NAYAN Heparin Sodium (Porcine) (Heparin -) 5,000 unit SQ BID NAYAN Hydromorphone HCl (Dilaudid Injection -) 0.5 mg IVPUSH Q4H PRN PRN Reason: PAIN Last Admin: 07/12/17 21:20 Dose: 0.5 mg Norepinephrine Bitartrate 4, (000 mcg/ Dextrose) 500 mls @ 37.5 mls/hr IV TITR NAYAN; 5 MCG/MIN PRN Reason: Protocol Last Admin: 07/12/17 18:07 Dose: 37.5 mls/hr Letrozole (Femara -) 2.5 mg PO DAILY NAYAN Mirtazapine (Remeron -) 30 mg PO HS NAYAN Mupirocin (Bactroban Ointment (For Decolonization) -) 1 applic NS BID NAYAN Stop: 07/17/17 21:59 Risperidone (Risperdal -) 1 mg PO BID NAYAN - History Source History Provided By: Medical Record - Past Medical History Psych: Yes: Schizophrenia - Alcohol/Substance Use Hx Alcohol Use: No - Smoking History Smoking history: Former smoker Have you smoked in the past 12 months: No Home Medications - Allergies Allergies/Adverse Reactions: Allergies Allergy/AdvReac Type Severity Reaction Status Date / Time aripiprazole [From Abilify] AdvReac Severe Verified 07/12/17 10:51 - Home Medications Home Medications: Ambulatory Orders Acetaminophen [Tylenol] 650 mg PO Q6H 02/08/17 Apixaban [Eliquis -] 5 mg PO Q12H 02/08/17 Arginine/Glutamine/Calcium Hmb [Gordon Packet] 1 each PO BID 02/08/17 Atorvastatin Ca [Lipitor] 20 mg PO HS 02/08/17 Baclofen 20 mg PO QID 02/08/17 Bismuth Tribromoph/Petrolatum [Xeroform Petrolatum Dress] 1 each TP Q72H Calcium Carbonate/Vitamin D3 [Calcium 600-Vit D3 400 Tablet] 1 each PO DAILY Gabapentin [Neurontin -] 300 mg PO BID 02/08/17 Letrozole 2.5 mg PO DAILY 02/08/17 Melatonin 3 mg PO HS 02/08/17 Mirtazapine [Remeron -] 30 mg PO HS 02/08/17 Polyethylene Glycol 3350 [Miralax 255 gm Btl -] 17 gm PO Q12H 02/08/17 Risperidone [Risperdal] 1 mg PO BID 02/08/17 Silv/Bandg/Lidoca/Chlorhex/Alc [Vacustim Silver Kit] 1 each TP Q72H 02/08/17 Silver Sulfadiazine 1% Top Cr [Silvadene -] 1 applic TP ASDIR 02/08/17 Benztropine Mesylate 1 mg PO AM 07/12/17 Oxycodone HCl 5 mg PO MOWEFR 07/12/17 Physical Exam Vital Signs: Vital Signs Temperature 100.0 F H 07/12/17 15:17 Pulse Rate 85 07/12/17 18:50 Respiratory Rate 18 07/12/17 18:50 Blood Pressure 92/53 07/12/17 18:50 O2 Sat by Pulse Oximetry (%) 98 07/12/17 18:50 Constitutional: Yes: No Distress Eyes: Yes: WNL HENT: Yes: Other (L IJ TLC c/d/i) Neck: Yes: WNL Cardiovascular: Yes: Regular Rate and Rhythm, S1, S2 Respiratory: Yes: Regular, CTA Bilaterally Gastrointestinal: Yes: Normal Bowel Sounds, Soft. No: Tenderness Extremities: Yes: WNL Edema: No Peripheral Pulses WNL: Yes Integumentary: Yes: Pressure Ulcer (Stage IV sacral and hip ulcers) Neurological: Yes: WNL, Alert Labs: Laboratory Tests 07/12/17 07/12/17 07/12/17 11:35 11:35 11:35 WBC 13.3 H D RBC 3.90 Hgb 9.2 L D Hct 29.5 L D MCV 75.6 L MCH 23.6 L MCHC 31.2 L RDW 16.7 H Plt Count 469 H D MPV 7.6 D Neutrophils % 77.4 D Lymphocytes % 15.4 D Monocytes % 6.5 Eosinophils % 0.2 D Basophils % 0.5 ESR INR 1.69 H PTT (Actin FS) 32.2 Sodium Cancelled Potassium Cancelled Chloride Cancelled Carbon Dioxide Cancelled Anion Gap Cancelled BUN Cancelled Creatinine Cancelled Creat Clearance w eGFR Cancelled Random Glucose Cancelled Lactic Acid Calcium Cancelled Total Bilirubin Cancelled AST Cancelled ALT Cancelled Alkaline Phosphatase Cancelled Total Protein Cancelled Albumin Cancelled Urine Color Urine Appearance Urine pH Ur Specific [place] Urine Protein Urine Glucose (UA) Urine Ketones Urine Blood Urine Nitrite Urine Bilirubin Urine Urobilinogen Ur Leukocyte Esterase Urine RBC Urine WBC Calcium Oxalate Crystal Urine Mucus Blood Type Antibody Screen 07/12/17 07/12/17 07/12/17 11:35 11:35 12:29 WBC RBC Hgb Hct MCV MCH MCHC RDW Plt Count MPV Neutrophils % Lymphocytes % Monocytes % Eosinophils % Basophils % ESR INR PTT (Actin FS) Sodium Potassium Chloride Carbon Dioxide Anion Gap BUN Creatinine Creat Clearance w eGFR Random Glucose Lactic Acid 1.8 Calcium Total Bilirubin AST ALT Alkaline Phosphatase Total Protein Albumin Urine Color Dkyellow Urine Appearance Cloudy Urine pH 6.0 Ur Specific [place] 1.020 Urine Protein 2+ H Urine Glucose (UA) Negative Urine Ketones Negative Urine Blood 2+ H Urine Nitrite Negative Urine Bilirubin Negative Urine Urobilinogen 2.0 H Ur Leukocyte Esterase 3+ H Urine RBC 50 Urine WBC 425 Calcium Oxalate Crystal Rare Urine Mucus Few Blood Type B POSITIVE Antibody Screen Negative 07/12/17 07/12/17 12:30 20:00 WBC RBC Hgb Hct MCV MCH MCHC RDW Plt Count MPV Neutrophils % Lymphocytes % Monocytes % Eosinophils % Basophils % ESR 111 H INR PTT (Actin FS) Sodium 138 Potassium 4.4 Chloride 101 Carbon Dioxide 28 Anion Gap 9 BUN 19 H D Creatinine 0.4 L D Creat Clearance w eGFR > 60 Random Glucose 112 H Lactic Acid Calcium 8.5 Total Bilirubin 0.2 D AST 45 H D ALT 42 D Alkaline Phosphatase 117 D Total Protein 5.8 L Albumin 1.3 L D Urine Color Urine Appearance Urine pH Ur Specific [place] Urine Protein Urine Glucose (UA) Urine Ketones Urine Blood Urine Nitrite Urine Bilirubin Urine Urobilinogen Ur Leukocyte Esterase Urine RBC Urine WBC Calcium Oxalate Crystal Urine Mucus Blood Type Antibody Screen Problem List - Problems (1) Sepsis - Septicemia Code(s): A41.9 - SEPSIS, UNSPECIFIED ORGANISM (2) Infected decubitus ulcer Code(s): L89.90 - PRESSURE ULCER OF UNSPECIFIED SITE, UNSPECIFIED STAGE Qualifiers: Pressure ulcer stage: unstageable Qualified Code(s): L89.95 - Pressure ulcer of unspecified site, unstageable; L08.9 - Local infection of the skin and subcutaneous tissue, unspecified (3) Urinary tract infection Code(s): N39.0 - URINARY TRACT INFECTION, SITE NOT SPECIFIED Qualifiers: Indwelling urinary catheter type: indwelling urethral catheter Encounter type: initial encounter Assessment/Plan Assessment/PLAN: Patient is a 62 yo female, [facility] resident, with h/o chronic sacral ulcer , schizophrenia, depression, HL, MS who was sent to ED for evaluation of fevers , admitted to ICU with sepsis likely in the setting of wound infection +/- UTI. ID: H/o S. Aureus and Enterococcus Faecalis in urine; Providencia Stuartii/ Strep Agalactiae/Enterococcus Faecalis/PSA [place]/Staph coag neg in wounds. Now with sepsis likely 2/2 recurrent UTI +/- infected wounds -cont Zosyn/Vanco (all above mentioned bugs sensitive to Zosyn/Vanco) -if worsening shock would consider Linezolid for VRE +/- Tobra to double cover PSA -plastic surgery following for possible debridement of the wounds -borjas changed as per report -f/u cultures CV: Shock, likely septic in the setting of above -cont levo -additional fluids -TTE Heme: h/o DVT on Eliquis which is now on hold -dopplers -heparin SubQ PPX: -heparin SubQ -pepcid (indication: sepsis) Liberty Galeana ACNP Critical care time : 35 minutes
[2017-07-12] MEDS ORDERED: CHLORHEXIDINE GLUCONATE 4% CLEANSER FOR DECOLONIZATION TP SCH (22:00)
[2017-07-12] MEDS ORDERED: MIRTAZAPINE 15 MG TABLET (FP) PO SCH (22:00)
[2017-07-12] MEDS ORDERED: MIRTAZAPINE PO SCH (22:00)
[2017-07-12] MEDS ORDERED: HEPARIN NA (PORCINE) 5,000 UNITS/ML 1ML VIAL SQ SCH (22:00)
[2017-07-12] MEDS: MUPIROCIN 2% TOPICAL OINTMENT FOR DECOLONIZATION NS SCH (22:08)
[2017-07-12] MEDS: BACLOFEN 10 MG TABLET (FP) PO SCH (22:09)
[2017-07-12] MEDS: GABAPENTIN 300 MG CAPSULE (FP) PO SCH (22:09)
[2017-07-12] MEDS: MIRTAZAPINE 15 MG TABLET (FP) PO SCH (22:10)
[2017-07-12] MEDS: risperiDONE 1 MG TABLET (FP) PO SCH (22:10)
[2017-07-12] MEDS ORDERED: PT OWN MED DRAWER 7, Y5N ONE (22:13)
[2017-07-13] MEDS: FAMOTIDINE 20 MG/50 ML IVPB 50 ML IVPB SCH ×3 (00:03→21:15)
[2017-07-13] MEDS ORDERED: NOREPINEPHRINE BITARTRATE 4 MG/4 ML ML IV ONE ×2 (01:25→18:47)
[2017-07-13] MEDS ORDERED: VANCOMYCIN 1 GRAM (PRE-DOCKED) 250 ML IVPB ONE (02:00)
[2017-07-13] MEDS: NOREPINEPHRINE BITARTRATE 4,000 MCG in DEXTROSE 5%-WATER - 496 ML IV SCH ×3 (04:00→21:13)
[2017-07-13] MEDS ORDERED: PIPERACILLIN/TAZOB 3.375 GM 50 ML IVPB ONE (04:00)
--- NOTE | 2017-07-13 06:02 | PN ---
Physical Exam: SUBJECTIVE: Patient seen and examined OBJECTIVE: Selected Entries 07/12/17 07/12/17 07/12/17 10:51 15:17 19:00 Temperature 99.6 F 100.0 F H 98.4 F 07/13/17 02:00 Temperature 100.2 F H Selected Entries 07/13/17 07/13/17 07/13/17 00:00 01:00 02:00 Pulse Rate 87 83 78 Blood Pressure 95/46 108/53 104/46 07/13/17 07/13/17 03:00 04:00 Pulse Rate 84 85 Blood Pressure 104/53 104/51 Vital Signs Period Temp Pulse Resp BP Sys/Claudio Pulse Ox Last 24 Hr 98.4 F-100.2 F 78-102 13-19 80-108/33-79 90-100 GENERAL: The patient is awake, alert, and fully oriented, in no acute distress. HEAD: Normal with no signs of trauma. EYES: PERRL, extraocular movements intact, sclera anicteric, conjunctiva clear. No ptosis. ENT: Ears normal, nares patent, oropharynx clear without exudates, moist mucous membranes. NECK: Trachea midline, full range of motion, supple. LUNGS: Breath sounds equal, clear to auscultation bilaterally, no wheezes, no crackles, no accessory muscle use. HEART: Regular rate and rhythm, S1, S2 without murmur, rub or gallop. ABDOMEN: Soft, nontender, nondistended, normoactive bowel sounds, no guarding, no rebound, no hepatosplenomegaly, no masses. EXTREMITIES: 2+ pulses, warm, well-perfused, no edema. NEUROLOGICAL: Cranial nerves II through XII grossly intact. Normal speech, gait not observed. PSYCH: Normal mood, normal affect. SKIN: Warm, dry, normal turgor, no rashes or lesions noted Laboratory Results - last 24 hr 07/12/17 20:00 ESR 111 H Doppler US- of lower limbs- No evidence of DVT Active Medications Generic Name Dose Route Start Last Admin Trade Name Freq PRN Reason Stop Dose Admin Baclofen 20 mg 07/12/17 22:00 07/12/17 22:09 Lioresal - PO 20 mg QID NAYAN Administration Benztropine Mesylate 1 mg 07/13/17 07:00 Cogentin - PO AM NAYAN Chlorhexidine Gluconate 1 applic 07/12/17 22:00 07/12/17 22:09 Hibiclens For Decolonization - TP 1 applic HS NAYAN Administration Gabapentin 300 mg 07/12/17 22:00 07/12/17 22:09 Neurontin - PO 300 mg BID NAYAN Administration Heparin Sodium (Porcine) 5,000 unit 07/12/17 22:00 07/12/17 22:09 Heparin - SQ 5,000 unit BID NAYAN Administration Hydromorphone HCl 0.5 mg 07/12/17 16:46 07/12/17 21:20 Dilaudid Injection - IVPUSH 0.5 mg Q4H PRN Administration PAIN Norepinephrine Bitartrate 4, 500 mls @ 37.5 mls/hr 07/12/17 17:00 07/12/17 18: 07 000 mcg/ Dextrose IV 37.5 mls/hr TITR NAYAN Administration Protocol 5 MCG/MIN Piperacillin Sod/Tazobactam 50 mls @ 100 mls/hr 07/13/17 04:00 Sod 3.375 gm/ Dextrose IVPB Q8H-IV NAYAN Protocol Famotidine/Sodium Chloride 50 mls @ 100 mls/hr 07/12/17 22:30 07/13/17 00:03 Pepcid 20 Mg Premixed Ivpb - IVPB 100 mls/hr BID NAYAN Administration Vancomycin HCl 1,000 mg/ 250 mls @ 250 mls/hr 07/13/17 02:00 Dextrose IVPB BID NAYAN Protocol Letrozole 2.5 mg 07/13/17 10:00 Femara - PO DAILY NAYAN Mirtazapine 30 mg 07/12/17 22:00 07/12/17 22:10 Remeron - PO 30 mg HS NAYAN Administration Mupirocin 1 applic 07/12/17 22:00 07/12/17 22:08 Bactroban Ointment (For Decolonization) - NS 07/17/17 21:59 1 applic BID NAYAN Administration Risperidone 1 mg 07/12/17 22:00 07/12/17 22:10 Risperdal - PO 1 mg BID NAYAN Administration ASSESSMENT/PLAN:
[2017-07-13] MEDS: BENZTROPINE MESYLATE 1 MG TABLET (FP) PO SCH (06:03)
[2017-07-13 07:09] LABS: MCHC 31.6 g/dl (32.0-36.0); MEAN PLT VOLUME 7.3 fl (7.5-11.1); PLATELET COUNT 433 K/MM3 (134-434); WHITE BLOOD COUNT 10.4 K/mm3 (4.0-10.0)
[2017-07-13 07:29] LABS: ALBUMIN 1.1 g/dl (3.4-5.0); ANION GAP 9 (8-16); CO2 25 mmol/L (21-32); GLUCOSE,RANDOM 150 mg/dL (74-106)
[2017-07-13 07:37] LABS: ALK PHOS 91 U/L (45-117); BILIRUBIN,TOTAL 0.4 mg/dL (0.2-1.0); CALCIUM 7.7 mg/dL (8.5-10.1); CPK 202 IU/L (26-192); CREATININE 0.4 mg/dL (0.55-1.02); MAGNESIUM 1.9 mg/dL (1.8-2.4); SGOT/AST 19 U/L (15-37); SGPT/ALT 31 U/L (12-78); TOT PROT 4.7 g/dl (6.4-8.2); TROPONIN I < 0.02 ng/ml (0.00-0.05)
[2017-07-13 07:43] LABS: INR 1.39 (0.82-1.09); PROTHROMBIN TIME (PATIENT) 15.4 SEC (9.98-11.88)
[2017-07-13 07:45] LABS: ACTIVATED PTT 31.3 SECONDS (26.9-34.4)
[2017-07-13 07:45] LABS: ARTERIAL BLD GAS O2 SATURATION 97.1 % (90-98.9); ARTERIAL BLOOD GAS BASE EXCESS -0.4 meq/l (-2-2); ARTERIAL BLOOD GAS HCO3 23.8 meq/L (22-26); ARTERIAL BLOOD GAS PO2 91.6 mmHg (80-100)
[2017-07-13 07:46] LABS: ALLENS TEST POSITIVE; ART PUNCT SITE RIGHT RADIAL; LPM/O2% 4L; PT. ON O2? YES; TYPE OF O2 NASAL
[2017-07-13 08:39] LABS: METAMYELOCYTE 2 % (0-2); MICROCYTOSIS 1+; POLYCHROMASIA 1+; TEAR DROP CELLS 1+; TOTAL CELLS COUNTED 100
[2017-07-13 08:40] LABS: PLATELET ESTIMATE ADEQUATE (NORMAL)
[2017-07-13] MEDS: SODIUM CHLORIDE 1,000 ML IV SCH (09:46)
[2017-07-13] MEDS: POTASSIUM CHLORIDE 20 MEQ PREMIX IVPB 100 ML IVPB SCH ×3 (09:47→11:18)
[2017-07-13] MEDS: LETROZOLE 2.5 MG TABLET (FP) PO SCH (10:01)
[2017-07-13] MEDS: BACLOFEN 10 MG TABLET (FP) PO SCH ×5 (10:01→21:37)
[2017-07-13] MEDS: GABAPENTIN 300 MG CAPSULE (FP) PO SCH ×2 (10:01→21:16)
[2017-07-13] MEDS: risperiDONE 1 MG TABLET (FP) PO SCH ×2 (10:01→21:20)
--- NOTE | 2017-07-13 11:10 | EKG ---
Test Reason : Blood Pressure : / mmHG Vent. Rate : 078 BPM Atrial Rate : 078 BPM P-R Int : 142 ms QRS Dur : 120 ms QT Int : 400 ms P-R-T Axes : 029 -44 031 degrees QTc Int : 456 ms NORMAL SINUS RHYTHM LEFT AXIS DEVIATION NON-SPECIFIC INTRA-VENTRICULAR CONDUCTION DELAY ABNORMAL ECG WHEN COMPARED WITH ECG OF 12-JUL-2017 10:56, VENT. RATE HAS DECREASED BY 38 BPM NON-SPECIFIC INTRA-VENTRICULAR CONDUCTION DELAY HAS REPLACED RIGHT BUNDLE BRANCH BLOCK Confirmed by CAMMIE MADRIGAL MD ([id number]) on 07/13/2017 11:09:49 AM Referred By: GLENDA JAFFE Confirmed By:CAMMIE MADRIGAL MD
[2017-07-13] MEDS: MUPIROCIN 2% TOPICAL OINTMENT FOR DECOLONIZATION NS SCH ×2 (11:18→21:16)
--- NOTE | 2017-07-13 11:29 | EKG ---
Test Reason : Blood Pressure : / mmHG Vent. Rate : 116 BPM Atrial Rate : 116 BPM P-R Int : 130 ms QRS Dur : 122 ms QT Int : 354 ms P-R-T Axes : 072 -73 071 degrees QTc Int : 492 ms SINUS TACHYCARDIA RIGHT BUNDLE BRANCH BLOCK LEFT ANTERIOR FASCICULAR BLOCK BIFASCICULAR BLOCK ABNORMAL ECG WHEN COMPARED WITH ECG OF 08-FEB-2017 12:22, RIGHT BUNDLE BRANCH BLOCK IS NOW PRESENT Confirmed by CAMMIE MADRIGAL MD ([id number]) on 07/13/2017 11:29:45 AM Referred By: Confirmed By:CAMMIE MADRIGAL MD
--- NOTE | 2017-07-13 12:01 | PN ---
Teaching Attending Note Name of Resident: Marciano Bonilla ATTENDING PHYSICIAN STATEMENT I saw and evaluated the patient. I reviewed the resident's note and discussed the case with the resident. I agree with the resident's findings and plan as documented. SUBJECTIVE: Pt seen and examined in the ICU. Remains on levophed gtt. Low grade temps overnight. OBJECTIVE: Last Vital Signs Temp Pulse Resp BP Pulse Ox 97.9 F 85 18 104/53 95 07/13/17 10:00 07/13/17 10:58 07/13/17 10:00 07/13/17 10:00 07/13/17 10:58 Intake & Output 07/10/17 07/11/17 07/12/17 07/13/17 23:59 23:59 23:59 23:59 Intake Total 1400 2004 Output Total 710 1800 Balance 690 204 Weight 170 lb 0.01 oz Gen: NAD at rest Heart: RRR Lung: decreased breath sounds at the bases Abd: soft, nontender Ext: no edema Back: malodorous, purulent drainage from sacral ulcers CBC, BMP 07/13/17 05:20 07/13/17 05:20 Active Medications Baclofen (Lioresal -) 20 mg PO QID NAYAN Last Admin: 07/13/17 10:01 Dose: Not Given Benztropine Mesylate (Cogentin -) 1 mg PO AM NAYAN Last Admin: 07/13/17 06:03 Dose: 1 mg Gabapentin (Neurontin -) 300 mg PO BID NAYAN Last Admin: 07/13/17 10:01 Dose: Not Given Heparin Sodium (Porcine) (Heparin -) 5,000 unit SQ TID NAYAN Hydromorphone HCl (Dilaudid Injection -) 0.5 mg IVPUSH Q4H PRN PRN Reason: PAIN Last Admin: 07/12/17 21:20 Dose: 0.5 mg Norepinephrine Bitartrate 4, (000 mcg/ Dextrose) 500 mls @ 37.5 mls/hr IV TITR NAYAN; 5 MCG/MIN PRN Reason: Protocol Last Admin: 07/13/17 04:00 Dose: 45 mls/hr Piperacillin Sod/Tazobactam (Sod 3.375 gm/ Dextrose) 50 mls @ 100 mls/hr IVPB Q8H-IV NAYAN PRN Reason: Protocol Famotidine/Sodium Chloride (Pepcid 20 Mg Premixed Ivpb -) 50 mls @ 100 mls/hr IVPB BID [facility] Last Admin: 07/13/17 10:24 Dose: 100 mls/hr Vancomycin HCl 1,000 mg/ (Dextrose) 250 mls @ 250 mls/hr IVPB BID [facility] PRN Reason: Protocol Sodium Chloride (Normal Saline -) 1,000 mls @ 150 mls/hr IV ASDIR [facility] Last Admin: 07/13/17 09:46 Dose: 150 mls/hr Letrozole (Femara -) 2.5 mg PO DAILY [facility] Last Admin: 07/13/17 10:01 Dose: Not Given Mirtazapine (Remeron -) 30 mg PO HS [facility] Last Admin: 07/12/17 22:10 Dose: 30 mg Mupirocin (Bactroban Ointment (For Decolonization) -) 1 applic NS BID [facility] Stop: 07/17/17 21:59 Last Admin: 07/13/17 11:18 Dose: 1 applic Risperidone (Risperdal -) 1 mg PO BID [facility] Last Admin: 07/13/17 10:01 Dose: Not Given Sodium Hypochlorite (Dakin's Solution 0.25% (Half-Strength) -) 1 applic TP BID [facility] ASSESSMENT AND PLAN: Sacral Decubitus Ulcer Infection UTI Septic Shock Multiple Sclerosis Hyperlipidemia Schizophrenia Depression - continue antibiotics - f/u cultures - ulcer debridement - IVF resuscitation, bolus NS - transfuse 1 unit PRBC - monitor H/H - titrate levophed gtt to maintain MAP >65 - DVT/GI prophylaxis - continue ICU monitoring critical care time spent in reviewing chart, evaluating patient and formulating plan 35 min
[2017-07-13] MEDS: HYDROmorphone HCL CARPU-JECT 1 MG/1 ML DISP.SYRIN IVPUSH PRN ×2 (12:37→20:14)
[2017-07-13] MEDS: SODIUM HYPOCHLORITE 0.25%- 473 ML BULK BOTTLE TP SCH ×2 (12:41→21:16)
--- NOTE | 2017-07-13 14:31 | PN ---
Progress Note, Physician Chief Complaint: ID Full note dictated - Current Medication List Current Medications: Active Medications Baclofen (Lioresal -) 20 mg PO QID [facility] Last Admin: 07/13/17 10:01 Dose: Not Given Benztropine Mesylate (Cogentin -) 1 mg PO AM [facility] Last Admin: 07/13/17 06:03 Dose: 1 mg Gabapentin (Neurontin -) 300 mg PO BID [facility] Last Admin: 07/13/17 10:01 Dose: Not Given Heparin Sodium (Porcine) (Heparin -) 5,000 unit SQ TID NAYAN Hydromorphone HCl (Dilaudid Injection -) 0.5 mg IVPUSH Q4H PRN PRN Reason: PAIN Last Admin: 07/13/17 12:37 Dose: 0.5 mg Norepinephrine Bitartrate 4, (000 mcg/ Dextrose) 500 mls @ 37.5 mls/hr IV TITR NAYAN; 5 MCG/MIN PRN Reason: Protocol Last Admin: 07/13/17 04:00 Dose: 45 mls/hr Piperacillin Sod/Tazobactam (Sod 3.375 gm/ Dextrose) 50 mls @ 100 mls/hr IVPB Q8H-IV NAYAN PRN Reason: Protocol Famotidine/Sodium Chloride (Pepcid 20 Mg Premixed Ivpb -) 50 mls @ 100 mls/hr IVPB BID [facility] Last Admin: 07/13/17 10:24 Dose: 100 mls/hr Vancomycin HCl 1,000 mg/ (Dextrose) 250 mls @ 250 mls/hr IVPB BID NAYAN PRN Reason: Protocol Sodium Chloride (Normal Saline -) 1,000 mls @ 150 mls/hr IV ASDIR [facility] Last Admin: 07/13/17 09:46 Dose: 150 mls/hr Letrozole (Femara -) 2.5 mg PO DAILY [facility] Last Admin: 07/13/17 10:01 Dose: Not Given Mirtazapine (Remeron -) 30 mg PO HS [facility] Last Admin: 07/12/17 22:10 Dose: 30 mg Mupirocin (Bactroban Ointment (For Decolonization) -) 1 applic NS BID [facility] Stop: 07/17/17 21:59 Last Admin: 07/13/17 11:18 Dose: 1 applic Risperidone (Risperdal -) 1 mg PO BID [facility] Last Admin: 07/13/17 10:01 Dose: Not Given Sodium Hypochlorite (Dakin's Solution 0.25% (Half-Strength) -) 1 applic TP BID [facility] Last Admin: 07/13/17 12:41 Dose: 1 applic - Objective Vital Signs: Vital Signs Temperature 98.3 F 07/13/17 12:00 Pulse Rate 79 07/13/17 12:00 Respiratory Rate 16 07/13/17 12:00 Blood Pressure 106/58 07/13/17 12:00 O2 Sat by Pulse Oximetry (%) 95 07/13/17 10:58 Integumentary: Yes: Other (Unstagable decubiti with purulence and foul smelling) Labs: CBC, BMP 07/13/17 05:20 07/13/17 05:20 INR, PTT INR 1.39 (0.82-1.09) H 07/13/17 05:20 Problem List - Problems (1) Sepsis - Septicemia Code(s): A41.9 - SEPSIS, UNSPECIFIED ORGANISM (2) Infected decubitus ulcer Code(s): L89.90 - PRESSURE ULCER OF UNSPECIFIED SITE, UNSPECIFIED STAGE Qualifiers: Pressure ulcer stage: unstageable Qualified Code(s): L89.95 - Pressure ulcer of unspecified site, unstageable; L08.9 - Local infection of the skin and subcutaneous tissue, unspecified (3) Urinary tract infection Code(s): N39.0 - URINARY TRACT INFECTION, SITE NOT SPECIFIED Qualifiers: Indwelling urinary catheter type: indwelling urethral catheter Encounter type: initial encounter Assessment/Plan Microbiology 07/05/17 12:00 Hip - Left Gram Stain - Final 07/05/17 12:00 Hip - Left Wound Culture - Final Providencia Stuartii Strep Agalactiae Group B Enterococcus Faecalis 06/14/17 13:00 Coccyx Gram Stain - Final 06/14/17 13:00 Coccyx Wound Culture - Final Pseudomonas Aeruginosa Staphylococcus Coagulase Neg 06/07/17 11:46 Wound Gram Stain - Final 06/07/17 11:46 Wound Wound Culture - Final S Aureus 07/12/17 12:29 Urine - Urine - Catheterized Urine Culture - Preliminary Presumptive Ps Aeruginosa Lactose Fermenting Neg Bacilli 07/12/17 11:35 Hip - Left Wound Culture - Preliminary Proteus Species Group D Strep Or Entero Coccus Staphylococcus Latex Coag Pos 07/12/17 11:35 Coccyx Wound Culture - Preliminary Presumptive Ps Aeruginosa Proteus Species Staphylococcus Latex Coag Pos Group D Strep Or Entero Coccus 07/12/17 11:35 Blood - Peripheral Venous Blood Culture - Preliminary NO GROWTH OBTAINED AFTER 24 HOURS, INCUBATION TO CONTINUE FOR 4 DAYS. Laboratory Tests 07/12/17 07/12/17 07/12/17 11:35 12:29 20:00 WBC 13.3 H D Hgb 9.2 L D Hct 29.5 L D ESR 111 H INR ABG pH ABG pCO2 at Pt Temp ABG pO2 at Pt Temp Oxygen Flow Rate Creat Clearance w eGFR AST ALT Alkaline Phosphatase Creatine Kinase Ur Leukocyte Esterase 3+ H Urine RBC 50 Urine WBC 425 Vancomycin Pre-Dose 07/13/17 07/13/17 07/13/17 05:20 05:20 07:30 WBC Hgb Hct ESR INR 1.39 H ABG pH 7.40 ABG pCO2 at Pt Temp 39.8 ABG pO2 at Pt Temp 91.6 Oxygen Flow Rate 4l Creat Clearance w eGFR > 60 AST 19 D ALT 31 D Alkaline Phosphatase 91 D Creatine Kinase 202 H Ur Leukocyte Esterase Urine RBC Urine WBC Vancomycin Pre-Dose 07/13/17 13:29 WBC Hgb Hct ESR INR ABG pH ABG pCO2 at Pt Temp ABG pO2 at Pt Temp Oxygen Flow Rate Creat Clearance w eGFR AST ALT Alkaline Phosphatase Creatine Kinase Ur Leukocyte Esterase Urine RBC Urine WBC Vancomycin Pre-Dose Pending Assessment Sepsis sydrome Infected decubiti UTI MS History of resistant organism MRSA Plan cultures/ vancomycin and Zosyn Debridement when stable Sandy STEELE
--- NOTE | 2017-07-13 15:04 | CONS ---
DATE OF CONSULTATION: DATE OF DICTATION: 07/13/2017 This is a 62-year-old female resident of the [facility] for many years as a result of longstanding multiple sclerosis, who I am asked to see for evaluation of sepsis in the ICU. The patient has a chronic left buttock and sacral ulcer for which she has been seen in the wound care clinic and managed periodically by Dr. Samaniego. On the morning of admission the patient had fever to 103, prompting her to be brought to the wound care center, from which she was then referred to the emergency room and ultimately ICU. Currently, the patient is thought to be septic with hypotension and high fever. She is on Levophed at the current time, but was alert, oriented, and in no distress. She is currently getting a blood transfusion. She has had wound cultures done previously which have grown polymicrobial corie including MRSA and pseudomonas. She denies any shortness of breath, cough, abdominal pain, or urinary complaints. She has an indwelling [place] catheter. PAST MEDICAL HISTORY: Includes decubitus ulcers, schizophrenia, depression, hyperlipidemia, right breast cancer and mastectomy. MEDICATIONS AT HOME: Include Eliquis, atorvastatin, baclofen. ALLERGIES: ABILIFY. SOCIAL HISTORY: Nonsmoker. No history of alcohol or drugs. FAMILY HISTORY: Reviewed, noncontributory. REVIEW OF SYSTEMS: Respiratory: No cough, shortness of breath. Cardiac: No chest pain, palpitations, syncope, murmur. Gastrointestinal: No abdominal pain, distention, nausea, vomiting, diarrhea. Genitourinary: Continuous [place] catheter. No gross hematuria noted. PHYSICAL EXAMINATION: General: The patient was a pleasant, alert woman in no acute distress. Alert and oriented. Vital Signs: T-max 103, currently 98.3. Pulse 79. Blood pressure 106/58. Respirations 18. Neck: Supple, with a venous catheter. Lungs: Clear. Decreased breath sounds. Heart: S1, S2, regular rhythm. Abdomen: Soft, nontender, no organomegaly. Extremities: No edema. Skin: Revealed 2 large decubitus ulcers, one on the trochanter measuring 4.5 cm, the other sacral, 11.7 cm. Both unstageable, with foul-smelling purulent drainage noted and areas of skin necrosis. LABORATORY: The white count is 13.3, hemoglobin 9.2, platelets 469. ESR 111. Hemoglobin today is 7.5. AB.4, 40, 91 on 4 L nasal cannula. BUN 8, creatinine 0.4. Liver enzymes within normal limits. TNI less than 0.02. Albumin of 1.1. Urine with 3+ leukocyte esterase, 50 RBCs, 425 WBCs. RADIOLOGY: Chest x-ray report was reviewed, showing triple-lumen insertion on the left side. ASSESSMENT: Sepsis syndrome, likely source a combination of urinary tract and grossly infected decubitus ulcers of the trochanter and sacrum. The possibility of underlying osteomyelitis has not been ruled out. Polymicrobial wound corie with foul-smelling drainage again suggesting mixed corie infection. Will empirically treat her with vancomycin combination with piperacillin. Final wound cultures pending, and urine and blood cultures thus far no growth, with wound culture also growing presumptive Pseudomonas aeruginosa. Lastly, and most important, she will need surgical management with extensive debridement of the ulcers, and Dr. Samaniego of plastic surgery has been called for followup. RAZA HAYS M.D. DAIN/[id number]
--- NOTE | 2017-07-13 15:55 | PN ---
Physical Exam: SUBJECTIVE: Patient seen and examined Remains on levophed gtt. Low grade temps overnight. Physical Exam OBJECTIVE: Vital Signs Period Temp Pulse Resp BP Sys/Claudio Pulse Ox Last 24 Hr 97.9 F-100.2 F 72-90 13-23 80-110/33-79 90-100 Gen: NAD at rest, very pale but communicative Heart: RRR, S1 and S2 appreciated, no murmurs Lung: Decreased breath sounds at the bases Abd: soft, nontender Ext: no edema Back: malodorous, purulent drainage from sacral ulcers Laboratory Results - last 24 hr 07/12/17 07/13/17 07/13/17 20:00 05:20 05:20 WBC 10.4 H RBC 3.13 L Hgb 7.5 L D Hct 23.8 L D MCV 76.0 L MCH 24.0 L MCHC 31.6 L RDW 17.0 H Plt Count 433 MPV 7.3 L Total Counted 100 Neutrophils % Y Neutrophils % (Manual) 64 Band Neuts % (Manual) 1 Lymphocytes % Y Lymphocytes % (Manual) 22 Monocytes % (Manual) 8 Eosinophils % (Manual) 3 Platelet Estimate Adequate Polychromasia 1+ Microcytosis 1+ Tear Drop Cells 1+ ESR 111 H INR 1.39 H PTT (Actin FS) 31.3 Puncture Site ABG pH ABG pCO2 at Pt Temp ABG pO2 at Pt Temp ABG HCO3 ABG O2 Sat (Measured) ABG O2 Content ABG Base Excess Uriel Test O2 Delivery Device Oxygen Flow Rate PEEP Sodium Potassium Chloride Carbon Dioxide Anion Gap BUN Creatinine Creat Clearance w eGFR POC Glucometer Random Glucose Lactic Acid Calcium Phosphorus Magnesium Total Bilirubin AST ALT Alkaline Phosphatase Creatine Kinase Creatine Kinase Index CK-MB (CK-2) Troponin I Total Protein Albumin Vancomycin Pre-Dose 07/13/17 07/13/17 07/13/17 05:20 05:20 05:52 WBC RBC Hgb Hct MCV MCH MCHC RDW Plt Count MPV Total Counted Neutrophils % Neutrophils % (Manual) Band Neuts % (Manual) Lymphocytes % Lymphocytes % (Manual) Monocytes % (Manual) Eosinophils % (Manual) Platelet Estimate Polychromasia Microcytosis Tear Drop Cells ESR INR PTT (Actin FS) Puncture Site ABG pH ABG pCO2 at Pt Temp ABG pO2 at Pt Temp ABG HCO3 ABG O2 Sat (Measured) ABG O2 Content ABG Base Excess Uriel Test O2 Delivery Device Oxygen Flow Rate PEEP Sodium 141 Potassium 3.4 L D Chloride 107 Carbon Dioxide 25 Anion Gap 9 BUN 8 D Creatinine 0.4 L Creat Clearance w eGFR > 60 POC Glucometer [phone] Random Glucose 150 H D Lactic Acid 1.6 Calcium 7.7 L Phosphorus 3.0 D Magnesium 1.9 Total Bilirubin 0.4 D AST 19 D ALT 31 D Alkaline Phosphatase 91 D Creatine Kinase 202 H Creatine Kinase Index 0.9 CK-MB (CK-2) 1.971 Troponin I < 0.02 Total Protein 4.7 L Albumin 1.1 L Vancomycin Pre-Dose 07/13/17 07/13/17 07:30 13:29 WBC RBC Hgb Hct MCV MCH MCHC RDW Plt Count MPV Total Counted Neutrophils % Neutrophils % (Manual) Band Neuts % (Manual) Lymphocytes % Lymphocytes % (Manual) Monocytes % (Manual) Eosinophils % (Manual) Platelet Estimate Polychromasia Microcytosis Tear Drop Cells ESR INR PTT (Actin FS) Puncture Site Right radial ABG pH 7.40 ABG pCO2 at Pt Temp 39.8 ABG pO2 at Pt Temp 91.6 ABG HCO3 23.8 ABG O2 Sat (Measured) 97.1 ABG O2 Content 10.1 L ABG Base Excess -0.4 Uriel Test Positive O2 Delivery Device Nasal Oxygen Flow Rate 4l PEEP 0.0 Sodium Potassium Chloride Carbon Dioxide Anion Gap BUN Creatinine Creat Clearance w eGFR POC Glucometer Random Glucose Lactic Acid Calcium Phosphorus Magnesium Total Bilirubin AST ALT Alkaline Phosphatase Creatine Kinase Creatine Kinase Index CK-MB (CK-2) Troponin I Total Protein Albumin Vancomycin Pre-Dose 7.154 Active Medications Generic Name Dose Route Start Last Admin Trade Name Freq PRN Reason Stop Dose Admin Baclofen 20 mg 07/12/17 22:00 07/13/17 10:01 Lioresal - PO Not Given QID NAYAN Benztropine Mesylate 1 mg 07/13/17 07:00 07/13/17 06:03 Cogentin - PO 1 mg AM NAYAN Administration Gabapentin 300 mg 07/12/17 22:00 07/13/17 10:01 Neurontin - PO Not Given BID NAYAN Heparin Sodium (Porcine) 5,000 unit 07/13/17 14:00 Heparin - SQ TID NAYAN Hydromorphone HCl 0.5 mg 07/12/17 16:46 07/13/17 12:37 Dilaudid Injection - IVPUSH 0.5 mg Q4H PRN Administration PAIN Norepinephrine Bitartrate 4, 500 mls @ 37.5 mls/hr 07/12/17 17:00 07/13/17 04: 00 000 mcg/ Dextrose IV 45 mls/hr TITR NAYAN Administration Protocol 5 MCG/MIN Famotidine/Sodium Chloride 50 mls @ 100 mls/hr 07/12/17 22:30 07/13/17 10:24 Pepcid 20 Mg Premixed Ivpb - IVPB 100 mls/hr BID NAYAN Administration Sodium Chloride 1,000 mls @ 150 mls/hr 07/13/17 09:30 07/13/17 09:46 Normal Saline - IV 150 mls/hr ASDIR NAYAN Administration Vancomycin HCl 1,250 mg/ 250 mls @ 166.667 mls/hr 07/13/17 22:00 Dextrose IVPB BID NAYAN Protocol Piperacillin Sod/Tazobactam Sod 50 mls @ 100 mls/hr 07/13/17 18:00 Zosyn 3.375gm Ivpb (Pre-Docked) IVPB Q8H-IV NAYAN Protocol Letrozole 2.5 mg 07/13/17 10:00 07/13/17 10:01 Femara - PO Not Given DAILY NAYAN Mirtazapine 30 mg 07/12/17 22:00 07/12/17 22:10 Remeron - PO 30 mg HS NAYAN Administration Mupirocin 1 applic 07/12/17 22:00 07/13/17 11:18 Bactroban Ointment (For Decolonization) - NS 07/17/17 21:59 1 applic BID NAYAN Administration Risperidone 1 mg 07/12/17 22:00 07/13/17 10:01 Risperdal - PO Not Given BID NAYAN Sodium Hypochlorite 1 applic 07/13/17 10:00 07/13/17 12:41 Dakin's Solution 0.25% (Half-Strength) - TP 1 applic BID NAYAN Administration ASSESSMENT/PLAN: 62F, group home resident with pmh of MS, chronic sacral ulcer, schizophrenia, depression, HL sent to the ED for fevers, admitted to ICu for sepsis 2ndary to wound infection and UTI Cardiovascular - IV fluids 1L NS - titrate levophed gtt for MAP goal >65 - monitor h/h Hematology - 7.5 hemoglobin corrected with 1 unit packed rbc's. - f/u with cbc ID - f/u cultures - Continue Abx, make sure they are given/approved by ID Spoke to Dr. aCrbajal who recommended hemodynamically stabilizingthe patient, dressing wound with Dakin's solution, then call her ([phone])to set up wound debridement. DVT/GI prophylaxis Visit type - Emergency Visit Emergency Visit: No - New Patient This patient is new to me today: Yes Date on this admission: 07/13/17 - Critical Care Critical Care patient: Yes Total Critical Care Time (in minutes): 31 Critical Care Statement: The care of this patient involved high complexity decision making to prevent further life threatening deterioration of the patient 's condition and/or to evaluate & treat vital organ system(s) failure or risk of failure.
--- NOTE | 2017-07-13 16:18 | PN ---
Teaching Attending Note Name of Resident: Ana Maria Machado ATTENDING PHYSICIAN STATEMENT I saw and evaluated the patient. I reviewed the resident's note and discussed the case with the resident. I agree with the resident's findings and plan as documented. SUBJECTIVE: Patient is in ICU, comfortable except c/o having pain on her wound site. OBJECTIVE: Vital Signs Temperature 98.8 F 07/13/17 14:00 Pulse Rate 77 07/13/17 14:00 Respiratory Rate 18 07/13/17 14:00 Blood Pressure 109/48 07/13/17 14:00 O2 Sat by Pulse Oximetry (%) 95 07/13/17 10:58 CBCD WBC 10.4 K/mm3 (4.0-10.0) H 07/13/17 05:20 RBC 3.13 M/mm3 (3.60-5.2) L 07/13/17 05:20 Hgb 7.5 GM/dL (10.7-15.3) L D 07/13/17 05:20 Hct 23.8 % (32.4-45.2) L D 07/13/17 05:20 MCV 76.0 fl (80-96) L 07/13/17 05:20 MCHC 31.6 g/dl (32.0-36.0) L 07/13/17 05:20 RDW 17.0 % (11.6-15.6) H 07/13/17 05:20 Plt Count 433 K/MM3 (134-434) 07/13/17 05:20 MPV 7.3 fl (7.5-11.1) L 07/13/17 05:20 CMP Sodium 141 mmol/L (136-145) 07/13/17 05:20 Potassium 3.4 mmol/L (3.5-5.1) L D 07/13/17 05:20 Chloride 107 mmol/L (98-107) 07/13/17 05:20 Carbon Dioxide 25 mmol/L (21-32) 07/13/17 05:20 Anion Gap 9 (8-16) 07/13/17 05:20 BUN 8 mg/dL (7-18) D 07/13/17 05:20 Creatinine 0.4 mg/dL (0.55-1.02) L 07/13/17 05:20 Creat Clearance w eGFR > 60 (>60) 07/13/17 05:20 Random Glucose 150 mg/dL (74-106) H D 07/13/17 05:20 Calcium 7.7 mg/dL (8.5-10.1) L 07/13/17 05:20 Total Bilirubin 0.4 mg/dL (0.2-1.0) D 07/13/17 05:20 AST 19 U/L (15-37) D 07/13/17 05:20 ALT 31 U/L (12-78) D 07/13/17 05:20 Alkaline Phosphatase 91 U/L (45-117) D 07/13/17 05:20 Total Protein 4.7 g/dl (6.4-8.2) L 07/13/17 05:20 Albumin 1.1 g/dl (3.4-5.0) L 07/13/17 05:20 CARDIAC ENZYMES Creatine Kinase 202 IU/L (26-192) H 07/13/17 05:20 Troponin I < 0.02 ng/ml (0.00-0.05) 07/13/17 05:20 Current Medications Generic Name Dose Route Start Last Admin Trade Name Freq PRN Reason Stop Dose Admin Baclofen 20 mg 07/12/17 22:00 07/13/17 10:01 Lioresal - PO Not Given QID [facility] Benztropine Mesylate 1 mg 07/13/17 07:00 07/13/17 06:03 Cogentin - PO 1 mg AM NAYAN Administration Gabapentin 300 mg 07/12/17 22:00 07/13/17 10:01 Neurontin - PO Not Given BID [facility] Heparin Sodium (Porcine) 5,000 unit 07/13/17 14:00 Heparin - SQ TID [facility] Hydromorphone HCl 0.5 mg 07/12/17 16:46 07/13/17 12:37 Dilaudid Injection - IVPUSH 0.5 mg Q4H PRN Administration PAIN Norepinephrine Bitartrate 4, 500 mls @ 37.5 mls/hr 07/12/17 17:00 07/13/17 04: 00 000 mcg/ Dextrose IV 45 mls/hr TITR NAYAN Administration Protocol 5 MCG/MIN Famotidine/Sodium Chloride 50 mls @ 100 mls/hr 07/12/17 22:30 07/13/17 10:24 Pepcid 20 Mg Premixed Ivpb - IVPB 100 mls/hr BID NAYAN Administration Sodium Chloride 1,000 mls @ 150 mls/hr 07/13/17 09:30 07/13/17 09:46 Normal Saline - IV 150 mls/hr ASDIR NAYAN Administration Vancomycin HCl 1,250 mg/ 250 mls @ 166.667 mls/hr 07/13/17 22:00 Dextrose IVPB BID NAYAN Protocol Piperacillin Sod/Tazobactam Sod 50 mls @ 100 mls/hr 07/13/17 18:00 Zosyn 3.375gm Ivpb (Pre-Docked) IVPB Q8H-IV NAYAN Protocol Letrozole 2.5 mg 07/13/17 10:00 07/13/17 10:01 Femara - PO Not Given DAILY NAYAN Mirtazapine 30 mg 07/12/17 22:00 07/12/17 22:10 Remeron - PO 30 mg HS NAYAN Administration Mupirocin 1 applic 07/12/17 22:00 07/13/17 11:18 Bactroban Ointment (For Decolonization) - NS 07/17/17 21:59 1 applic BID NAYAN Administration Risperidone 1 mg 07/12/17 22:00 07/13/17 10:01 Risperdal - PO Not Given BID NAYAN Sodium Hypochlorite 1 applic 07/13/17 10:00 07/13/17 12:41 Dakin's Solution 0.25% (Half-Strength) - TP 1 applic BID NAYAN Administration Home Medications Medication Instructions Recorded Acetaminophen [Tylenol] 650 mg PO Q6H 02/08/17 Apixaban [Eliquis -] 5 mg PO Q12H 02/08/17 Arginine/Glutamine/Calcium Hmb 1 each PO BID 02/08/17 [Gordon Packet] Atorvastatin Ca [Lipitor] 20 mg PO HS 02/08/17 Baclofen 20 mg PO QID 02/08/17 Bismuth Tribromoph/Petrolatum 1 each TP Q72H 02/08/17 [Xeroform Petrolatum Dress] Calcium Carbonate/Vitamin D3 1 each PO DAILY 02/08/17 [Calcium 600-Vit D3 400 Tablet] Gabapentin [Neurontin -] 300 mg PO BID 02/08/17 Letrozole 2.5 mg PO DAILY 02/08/17 Melatonin 3 mg PO HS 02/08/17 Mirtazapine [Remeron -] 30 mg PO HS 02/08/17 Polyethylene Glycol 3350 [Miralax 17 gm PO Q12H 02/08/17 255 gm Btl -] Risperidone [Risperdal] 1 mg PO BID 02/08/17 Silv/Bandg/Lidoca/Chlorhex/Alc 1 each TP Q72H 02/08/17 [Vacustim Silver Kit] Silver Sulfadiazine 1% Top Cr 1 applic TP ASDIR 02/08/17 [Silvadene -] Benztropine Mesylate 1 mg PO AM 07/12/17 Oxycodone HCl 5 mg PO MOWEFR 07/12/17 Microbiology 07/12/17 11:58 Blood - Peripheral Venous Blood Culture - Preliminary NO GROWTH OBTAINED AFTER 24 HOURS, INCUBATION TO CONTINUE FOR 4 DAYS. 07/12/17 11:35 Blood - Peripheral Venous Blood Culture - Preliminary NO GROWTH OBTAINED AFTER 24 HOURS, INCUBATION TO CONTINUE FOR 4 DAYS. 07/12/17 11:35 Coccyx Wound Culture - Preliminary Presumptive Ps Aeruginosa Proteus Species Staphylococcus Latex Coag Pos Group D Strep Or Entero Coccus 07/12/17 11:35 Hip - Left Wound Culture - Preliminary Proteus Species Group D Strep Or Entero Coccus Staphylococcus Latex Coag Pos 07/12/17 12:29 Urine - Urine - Catheterized Urine Culture - Preliminary Presumptive Ps Aeruginosa Lactose Fermenting Neg Bacilli Laboratory Tests 07/12/17 20:00 ESR 111 H PE: as per resident's notes SKIN: large tunneling sacral decubitous ulcer, draining serosanguinous fluid, no purulent drainage, no surrounding erythema. Also a large tunneling ulcer on L hip with mild surrounding erythema and serosanguinous drainage CVS: S1S2 positive Neuro: awake, alert, follows commands and answers to questions appropiately ASSESSMENT AND PLAN: Patient is a a 62 year old female resident of [facility] ([facility]) with a over 30 years history of MS and PMHx of chronic R buttock and sacral ulcer, schizophrenia, depression, hyperlipidemia. Patient's aide brought her to wound care today for evaluation of the chronic ulcers, but was referred to ED by wound care physician for further evaluation and treatment. And was noted to have Tmax 103 this am. # Septic shock , continue pressors, but titrating Levophed. s/p 5 liters of IV bolus of NS. On IV antibiotic, ID on the case for further management. OBO=[id number] # Decubitus ulcer with Large tunneling ulcer on the left hip On IV antibiotic Zosyn and Vancomycin , ID consult, panculture results are noted. can't r/o Osteo. is on the case the plastic surgeon. # Hx of MS on neurontin continue # HLD on lipitor continue #Schizophrenia on Risperedal continue # major depressive on remeron continue History of DVT on eliquis will hold Eliquis for now, No DVT as per Duplex result , will continue to hold eliquis since patient will be going to OR for debridment. DVT px; heparin
--- NOTE | 2017-07-13 16:18 | PN ---
Progress Note (short form) - Note Progress Note: Patient more awake, speaking clearly, mentions she is hungry Vital Signs are improving Brother at bedside Surgical procedure is on hold till patient is medically stable Patient is getting Blood transfusions Will resume diet, high protein diet Wound care with 1/4 Dakin's or similar substitute for infected wounds Pressure prevention
[2017-07-13] MEDS: HEPARIN NA (PORCINE) 5,000 UNITS/ML 1ML VIAL SQ SCH ×2 (17:38→21:15)
[2017-07-13] MEDS: PIPERACILLIN/TAZOB 3.375 GM 50 ML IVPB SCH (17:38)
[2017-07-13] MEDS: PIPERACILLIN/TAZOB 3.375 GM 3.375 GM in DEXTROSE 5%-WATER - 50 ML IVPB SCH (19:24)
[2017-07-13] MEDS: VANCOMYCIN 1,000 MG in DEXTROSE 5%-WATER - 250 ML IVPB SCH (19:24)
--- NOTE | 2017-07-13 20:32 | PN ---
Physical Exam: SUBJECTIVE: Patient seen and examined Patient seen this am. C/o of pain at the site of the ulcers. OBJECTIVE: Selected Entries 07/13/17 07/13/17 07/13/17 14:00 16:00 17:00 Blood Pressure 109/48 112/42 110/45 07/13/17 07/13/17 18:00 19:23 Blood Pressure 117/95 116/59 Vital Signs Period Temp Pulse Resp BP Sys/Claudio Pulse Ox Last 24 Hr 97.9 F-100.2 F 72-95 13-23 93-117/42-95 95-100 GENERAL: The patient is awake, alert, and oriented. LUNGS: Breath sounds equal, clear to auscultation bilaterally, no wheezes, no crackles, no accessory muscle use. HEART: Regular rate and rhythm, S1, S2 without murmur, rub or gallop. ABDOMEN: Soft, nontender, full, normoactive bowel sounds, no guarding, no rebound, no hepatosplenomegaly, no masses. EXTREMITIES: no edema. NEUROLOGICAL: Oriented x3, Normal speech, Laboratory Results - last 24 hr Laboratory Tests 07/12/17 07/13/17 11:35 05:20 WBC 13.3 H D 10.4 H RBC 3.90 3.13 L Hgb 9.2 L D 7.5 L D Hct 29.5 L D 23.8 L D MCV 75.6 L 76.0 L MCH 23.6 L 24.0 L MCHC 31.2 L 31.6 L RDW 16.7 H 17.0 H Plt Count 469 H D 07/12/17 07/13/17 07/13/17 20:00 05:20 05:20 WBC 10.4 H RBC 3.13 L Hgb 7.5 L D Hct 23.8 L D MCV 76.0 L MCH 24.0 L MCHC 31.6 L RDW 17.0 H Plt Count 433 MPV 7.3 L Total Counted 100 Neutrophils % Y Neutrophils % (Manual) 64 Band Neuts % (Manual) 1 Lymphocytes % Y Lymphocytes % (Manual) 22 Monocytes % (Manual) 8 Eosinophils % (Manual) 3 Platelet Estimate Adequate Polychromasia 1+ Microcytosis 1+ Tear Drop Cells 1+ ESR 111 H INR 1.39 H PTT (Actin FS) 31.3 Puncture Site ABG pH ABG pCO2 at Pt Temp ABG pO2 at Pt Temp ABG HCO3 ABG O2 Sat (Measured) ABG O2 Content ABG Base Excess Uriel Test O2 Delivery Device Oxygen Flow Rate PEEP Sodium Potassium Chloride Carbon Dioxide Anion Gap BUN Creatinine Creat Clearance w eGFR POC Glucometer Random Glucose Lactic Acid Calcium Phosphorus Magnesium Total Bilirubin AST ALT Alkaline Phosphatase Creatine Kinase Creatine Kinase Index CK-MB (CK-2) Troponin I Total Protein Albumin Vancomycin Pre-Dose 07/13/17 07/13/17 07/13/17 05:20 05:20 05:52 WBC RBC Hgb Hct MCV MCH MCHC RDW Plt Count MPV Total Counted Neutrophils % Neutrophils % (Manual) Band Neuts % (Manual) Lymphocytes % Lymphocytes % (Manual) Monocytes % (Manual) Eosinophils % (Manual) Platelet Estimate Polychromasia Microcytosis Tear Drop Cells ESR INR PTT (Actin FS) Puncture Site ABG pH ABG pCO2 at Pt Temp ABG pO2 at Pt Temp ABG HCO3 ABG O2 Sat (Measured) ABG O2 Content ABG Base Excess Uriel Test O2 Delivery Device Oxygen Flow Rate PEEP Sodium 141 Potassium 3.4 L D Chloride 107 Carbon Dioxide 25 Anion Gap 9 BUN 8 D Creatinine 0.4 L Creat Clearance w eGFR > 60 POC Glucometer 186.62604 Random Glucose 150 H D Lactic Acid 1.6 Calcium 7.7 L Phosphorus 3.0 D Magnesium 1.9 Total Bilirubin 0.4 D AST 19 D ALT 31 D Alkaline Phosphatase 91 D Creatine Kinase 202 H Creatine Kinase Index 0.9 CK-MB (CK-2) 1.971 Troponin I < 0.02 Total Protein 4.7 L Albumin 1.1 L Vancomycin Pre-Dose 07/13/17 07/13/17 07:30 13:29 WBC RBC Hgb Hct MCV MCH MCHC RDW Plt Count MPV Total Counted Neutrophils % Neutrophils % (Manual) Band Neuts % (Manual) Lymphocytes % Lymphocytes % (Manual) Monocytes % (Manual) Eosinophils % (Manual) Platelet Estimate Polychromasia Microcytosis Tear Drop Cells ESR INR PTT (Actin FS) Puncture Site Right radial ABG pH 7.40 ABG pCO2 at Pt Temp 39.8 ABG pO2 at Pt Temp 91.6 ABG HCO3 23.8 ABG O2 Sat (Measured) 97.1 ABG O2 Content 10.1 L ABG Base Excess -0.4 Uriel Test Positive O2 Delivery Device Nasal Oxygen Flow Rate 4l PEEP 0.0 Sodium Potassium Chloride Carbon Dioxide Anion Gap BUN Creatinine Creat Clearance w eGFR POC Glucometer Random Glucose Lactic Acid Calcium Phosphorus Magnesium Total Bilirubin AST ALT Alkaline Phosphatase Creatine Kinase Creatine Kinase Index CK-MB (CK-2) Troponin I Total Protein Albumin Vancomycin Pre-Dose 7.154 Microbiology 07/12/17 12:29 Urine - Urine - Catheterized Urine Culture - Preliminary Presumptive Ps Aeruginosa Lactose Fermenting Neg Bacilli 07/12/17 11:58 Blood - Peripheral Venous Blood Culture - Preliminary NO GROWTH OBTAINED AFTER 24 HOURS, INCUBATION TO CONTINUE FOR 4 DAYS. 07/12/17 11:35 Hip - Left Wound Culture - Preliminary Proteus Species Group D Strep Or Entero Coccus Staphylococcus Latex Coag Pos 07/12/17 11:35 Coccyx Wound Culture - Preliminary Presumptive Ps Aeruginosa Proteus Species Staphylococcus Latex Coag Pos Group D Strep Or Entero Coccus 07/12/17 11:35 Blood - Peripheral Venous Blood Culture - Preliminary NO GROWTH OBTAINED AFTER 24 HOURS, INCUBATION TO CONTINUE FOR 4 DAYS. Doppler US- of lower limbs- No evidence of DVT Active Medications Generic Name Dose Route Start Last Admin Trade Name Freq PRN Reason Stop Dose Admin Baclofen 20 mg 07/12/17 22:00 07/13/17 16:33 Lioresal - PO Not Given QID [facility] Benztropine Mesylate 1 mg 07/13/17 07:00 07/13/17 06:03 Cogentin - PO 1 mg AM NAYAN Administration Gabapentin 300 mg 07/12/17 22:00 07/13/17 10:01 Neurontin - PO Not Given BID [facility] Heparin Sodium (Porcine) 5,000 unit 07/13/17 14:00 07/13/17 17:38 Heparin - SQ 5,000 unit TID [facility] Administration Hydromorphone HCl 0.5 mg 07/12/17 16:46 07/13/17 20:14 Dilaudid Injection - IVPUSH 0.5 mg Q4H PRN Administration PAIN Norepinephrine Bitartrate 4, 500 mls @ 37.5 mls/hr 07/12/17 17:00 07/13/17 19: 23 000 mcg/ Dextrose IV 2 mcg/min TITR NAYAN Titration Protocol 5 MCG/MIN Famotidine/Sodium Chloride 50 mls @ 100 mls/hr 07/12/17 22:30 07/13/17 10:24 Pepcid 20 Mg Premixed Ivpb - IVPB 100 mls/hr BID NAYAN Administration Sodium Chloride 1,000 mls @ 150 mls/hr 07/13/17 09:30 07/13/17 09:46 Normal Saline - IV 150 mls/hr ASDIR NAYAN Administration Vancomycin HCl 1,250 mg/ 250 mls @ 166.667 mls/hr 07/13/17 22:00 Dextrose IVPB BID NAYAN Protocol Piperacillin Sod/Tazobactam Sod 50 mls @ 100 mls/hr 07/13/17 18:00 07/13/17 17: 38 Zosyn 3.375gm Ivpb (Pre-Docked) IVPB 100 mls/hr Q8H-IV NAYAN Administration Protocol Letrozole 2.5 mg 07/13/17 10:00 07/13/17 10:01 Femara - PO Not Given DAILY NAYAN Mirtazapine 30 mg 07/12/17 22:00 07/12/17 22:10 Remeron - PO 30 mg HS NAYAN Administration Mupirocin 1 applic 07/12/17 22:00 07/13/17 11:18 Bactroban Ointment (For Decolonization) - NS 07/17/17 21:59 1 applic BID NAYAN Administration Risperidone 1 mg 07/12/17 22:00 07/13/17 10:01 Risperdal - PO Not Given BID NAYAN Sodium Hypochlorite 1 applic 07/13/17 10:00 07/13/17 12:41 Dakin's Solution 0.25% (Half-Strength) - TP 1 applic BID NAYAN Administration ASSESSMENT/PLAN: 62F, [facility] resident with PMHx of MS, chronic sacral ulcer, schizophrenia , depression, HL sent to the ED for fevers, admitted to ICu for sepsis secondary to wound infection and UTI #Septic Shock: 07/12/17 12:29 Urine - Urine - Catheterized Urine Culture - Preliminary Presumptive Ps Aeruginosa Lactose Fermenting Neg Bacilli 07/12/17 11:58 Blood - Peripheral Venous Blood Culture - Preliminary NO GROWTH OBTAINED AFTER 24 HOURS, INCUBATION TO CONTINUE FOR 4 DAYS. 07/12/17 11:35 Hip - Left Wound Culture - Preliminary Proteus Species Group D Strep Or Entero Coccus Staphylococcus Latex Coag Pos 07/12/17 11:35 Coccyx Wound Culture - Preliminary Presumptive Ps Aeruginosa Proteus Species Staphylococcus Latex Coag Pos Group D Strep Or Entero Coccus 07/12/17 11:35 Blood - Peripheral Venous Blood Culture - Preliminary NO GROWTH OBTAINED AFTER 24 HOURS, INCUBATION TO CONTINUE FOR 4 DAYS. -ID consulted- history of resistant organism, -recommended continue Iv zosyn, add vancomycin _ residential real estate agent - seeing - Continue Iv N/saline - Continue Input and output - anemia noted and patient transfused -CXR -foleys catheter replacement as needed -For debridement of decubitus ulcers when stable- per surgeon - pressors- titrate levophed for MAP goal >65 - CMP, CBC, Mg, P, Ptt, Pt/INR # Microcytic Anemia: -Hgb fell from 9.2 to 7.5 -Patient was transfused- 1 unit packed RBCs - Repeat CBC #Infected Chronic Decubitus ulcers: 07/12/17 11:35 Hip - Left Wound Culture - Preliminary Proteus Species Group D Strep Or Entero Coccus Staphylococcus Latex Coag Pos 07/12/17 11:35 Coccyx Wound Culture - Preliminary Presumptive Ps Aeruginosa Proteus Species Staphylococcus Latex Coag Pos Group D Strep Or Entero Coccus - surgeon seeing -For debridement when stable -CBC, PT/PTT/INR, CMP, CXR, -- Iv zosyn -Iv N/saline - Turn as needed - Wound care with 1/4 Dakin's or similar substitute for infected wounds #UTI -07/12/17 12:29 Urine - Urine - Catheterized Urine Culture - Preliminary Presumptive Ps Aeruginosa Lactose Fermenting Neg Bacilli Plan: Iv zosyn -Iv N/saline #MS -With quadriparesis, bladder and bowel incontinence, - occasional constipation -on chronic catheter use and diaper -Lives in a [facility] with aides Plan: - Change catheter as needed -turn frequently -miralax -baclofen -gabapentin - #S/P R breast cancer -letrozole - Ca carbonate/Vit D3 #Obesity #Hyperlipidemia -atorvostatin #Schizophrenia _risperidone -benztropine #Depression Mirtazepine #Chronic pain -hydromorphone #constipation - MS -chronic opiate use Plan: -Miralax as needed -frequent turning #Sleep disorder: Melatonin #FEN Fluids: N/saline Infusion Monitor I&Os Electrolytes:CMP, Mg, Phosphate, Ca Nutrition: NPO from midnight #Prophylaxis Sc. Heparin #Dispo For ICU monitoring for septic shock Problem List - Problems (1) Sepsis - Septicemia Code(s): A41.9 - SEPSIS, UNSPECIFIED ORGANISM (2) Infected decubitus ulcer Code(s): L89.90 - PRESSURE ULCER OF UNSPECIFIED SITE, UNSPECIFIED STAGE Qualifiers: Pressure ulcer stage: unstageable Qualified Code(s): L89.95 - Pressure ulcer of unspecified site, unstageable; L08.9 - Local infection of the skin and subcutaneous tissue, unspecified (3) Urinary tract infection Code(s): N39.0 - URINARY TRACT INFECTION, SITE NOT SPECIFIED Qualifiers: Indwelling urinary catheter type: indwelling urethral catheter Encounter type: initial encounter Visit type - Emergency Visit Emergency Visit: Yes ED Registration Date: 07/12/17 Care time: The patient presented to the Emergency Department on the above date and was hospitalized for further evaluation of their emergent condition. - New Patient This patient is new to me today: No - Critical Care Critical Care patient: Yes Total Critical Care Time (in minutes): 45 Critical Care Statement: The care of this patient involved high complexity decision making to prevent further life threatening deterioration of the patient 's condition and/or to evaluate & treat vital organ system(s) failure or risk of failure. - Discharge Referral Referred to [facility] No
[2017-07-13] MEDS: MIRTAZAPINE 15 MG TABLET (FP) PO SCH (21:15)
[2017-07-13] MEDS: VANCOMYCIN 1,250 MG in DEXTROSE 5%-WATER - 250 ML IVPB SCH (21:15)
[2017-07-13] MEDS ORDERED: PT OWN MED DRAWER 7, Y5N ONE (21:20)
[2017-07-14] MEDS: PIPERACILLIN/TAZOB 3.375 GM 50 ML IVPB SCH ×2 (01:17→09:32)
[2017-07-14] MEDS: HYDROmorphone HCL CARPU-JECT 1 MG/1 ML DISP.SYRIN IVPUSH PRN ×2 (01:29→10:08)
[2017-07-14] MEDS ORDERED: PT OWN MED DRAWER 7, Y5N ONE ×6 (05:52→20:49)
[2017-07-14] MEDS: BENZTROPINE MESYLATE 1 MG TABLET (FP) PO SCH (06:13)
[2017-07-14] MEDS: HEPARIN NA (PORCINE) 5,000 UNITS/ML 1ML VIAL SQ SCH ×3 (06:14→21:13)
[2017-07-14 06:39] LABS: BASOPHIL 0.4 % (0-2.0); EOSINOPHIL 2.6 % (0-4.5); MCH 25.1 pg (25.7-33.7); MCHC 32.9 g/dl (32.0-36.0); MEAN CELL VOLUME 76.1 fl (80-96); MEAN PLT VOLUME 7.3 fl (7.5-11.1); NEUTROPHILS 59.2 % (42.8-82.8); PLATELET COUNT 381 K/MM3 (134-434); RDW 16.4 % (11.6-15.6); WHITE BLOOD COUNT 7.3 K/mm3 (4.0-10.0)
[2017-07-14 06:47] LABS: ANION GAP 7 (8-16); BILIRUBIN,TOTAL 0.3 mg/dL (0.2-1.0); CO2 27 mmol/L (21-32); CREATININE 0.3 mg/dL (0.55-1.02); GLUCOSE,RANDOM 90 mg/dL (74-106); MAGNESIUM 1.8 mg/dL (1.8-2.4); PHOSPHOROUS 2.8 mg/dL (2.5-4.9); SGOT/AST 27 U/L (15-37); SGPT/ALT 33 U/L (12-78); TOT PROT 4.6 g/dl (6.4-8.2)
[2017-07-14 06:48] LABS: ALK PHOS 95 U/L (45-117)
--- NOTE | 2017-07-14 07:12 | PN ---
Progress Note, Physician Chief Complaint: ID Vancomycin & Pip tazo day 1 therapy Overall condition same Still requires levophed for BP - Current Medication List Current Medications: Active Medications Baclofen (Lioresal -) 20 mg PO QID [facility] Last Admin: 07/13/17 21:37 Dose: 20 mg Benztropine Mesylate (Cogentin -) 1 mg PO AM [facility] Last Admin: 07/14/17 06:13 Dose: 1 mg Gabapentin (Neurontin -) 300 mg PO BID [facility] Last Admin: 07/13/17 21:16 Dose: 300 mg Heparin Sodium (Porcine) (Heparin -) 5,000 unit SQ TID [facility] Last Admin: 07/14/17 06:14 Dose: 5,000 unit Hydromorphone HCl (Dilaudid Injection -) 0.5 mg IVPUSH Q4H PRN PRN Reason: PAIN Last Admin: 07/14/17 01:29 Dose: 0.5 mg Norepinephrine Bitartrate 4, (000 mcg/ Dextrose) 500 mls @ 37.5 mls/hr IV TITR NAYAN; 5 MCG/MIN PRN Reason: Protocol Last Titration: 07/14/17 04:35 Dose: 2 mcg/min Famotidine/Sodium Chloride (Pepcid 20 Mg Premixed Ivpb -) 50 mls @ 100 mls/hr IVPB BID [facility] Last Admin: 07/13/17 21:15 Dose: 100 mls/hr Sodium Chloride (Normal Saline -) 1,000 mls @ 150 mls/hr IV ASDIR [facility] Last Admin: 07/13/17 09:46 Dose: 150 mls/hr Vancomycin HCl 1,250 mg/ (Dextrose) 250 mls @ 166.667 mls/hr IVPB BID N[facility]AN PRN Reason: Protocol Last Admin: 07/13/17 21:15 Dose: 166.667 mls/hr Piperacillin Sod/Tazobactam Sod (Zosyn 3.375gm Ivpb (Pre-Docked)) 50 mls @ 100 mls/hr IVPB Q8H-IV NAYAN PRN Reason: Protocol Last Admin: 07/14/17 01:17 Dose: 100 mls/hr Letrozole (Femara -) 2.5 mg PO DAILY [facility] Last Admin: 07/13/17 10:01 Dose: Not Given Mirtazapine (Remeron -) 30 mg PO HS [facility] Last Admin: 07/13/17 21:15 Dose: 30 mg Mupirocin (Bactroban Ointment (For Decolonization) -) 1 applic NS BID [facility] Stop: 07/17/17 21:59 Last Admin: 07/13/17 21:16 Dose: 1 applic Risperidone (Risperdal -) 1 mg PO BID [facility] Last Admin: 07/13/17 21:20 Dose: 1 mg Sodium Hypochlorite (Dakin's Solution 0.25% (Half-Strength) -) 1 applic TP BID [facility] Last Admin: 07/13/17 21:16 Dose: 1 applic - Objective Vital Signs: Vital Signs Temperature 99.3 F 07/14/17 06:00 Pulse Rate 74 07/14/17 06:00 Respiratory Rate 14 07/14/17 06:00 Blood Pressure 99/52 07/14/17 06:00 O2 Sat by Pulse Oximetry (%) 95 07/13/17 21:00 Wound/Incision: Yes: Other (Decubitui as described with purulence necrosis) Labs: CBC, BMP 07/14/17 05:20 07/14/17 05:20 INR, PTT INR 1.39 (0.82-1.09) H 07/13/17 05:20 Problem List - Problems (1) Sepsis - Septicemia Code(s): A41.9 - SEPSIS, UNSPECIFIED ORGANISM (2) Infected decubitus ulcer Code(s): L89.90 - PRESSURE ULCER OF UNSPECIFIED SITE, UNSPECIFIED STAGE Qualifiers: Pressure ulcer stage: unstageable Qualified Code(s): L89.95 - Pressure ulcer of unspecified site, unstageable; L08.9 - Local infection of the skin and subcutaneous tissue, unspecified (3) Urinary tract infection Code(s): N39.0 - URINARY TRACT INFECTION, SITE NOT SPECIFIED Qualifiers: Indwelling urinary catheter type: indwelling urethral catheter Encounter type: initial encounter Assessment/Plan Microbiology 07/12/17 12:29 Urine - Urine - Catheterized Urine Culture - Preliminary Presumptive Ps Aeruginosa Lactose Fermenting Neg Bacilli 07/12/17 11:58 Blood - Peripheral Venous Blood Culture - Preliminary NO GROWTH OBTAINED AFTER 24 HOURS, INCUBATION TO CONTINUE FOR 4 DAYS. 07/12/17 11:35 Hip - Left Wound Culture - Preliminary Proteus Species Group D Strep Or Entero Coccus Staphylococcus Latex Coag Pos 07/12/17 11:35 Coccyx Wound Culture - Preliminary Presumptive Ps Aeruginosa Proteus Species Staphylococcus Latex Coag Pos Group D Strep Or Entero Coccus 07/12/17 11:35 Blood - Peripheral Venous Blood Culture - Preliminary NO GROWTH OBTAINED AFTER 24 HOURS, INCUBATION TO CONTINUE FOR 4 DAYS. Laboratory Tests 07/12/17 07/13/17 07/14/17 20:00 13:29 05:20 WBC 7.3 Hgb 8.2 L Hct 25.0 L Plt Count 381 ESR 111 H BUN Creatinine Vancomycin Pre-Dose 7.154 07/14/17 05:20 WBC Hgb Hct Plt Count ESR BUN 4 L D Creatinine 0.3 L D Vancomycin Pre-Dose Assessment Infected decubitus wounds mixed corie UTI Sepsis secondary to infected wounds Multiple sclerosis Plan Antibiotics as ordered Seen by plastic surgery Needs debridement when stable Got blood transfusion for anemia Vanco sejal Delgado MD
[2017-07-14 07:21] LABS: INR 1.27 (0.82-1.09)
[2017-07-14 07:24] LABS: ACTIVATED PTT 22.5 SECONDS (26.9-34.4)
[2017-07-14] MEDS ORDERED: DOCUSATE SODIUM 100 MG CAPSULE (FP) PO PRN ×2 (09:16→16:07)
[2017-07-14] MEDS: SODIUM HYPOCHLORITE 0.25%- 473 ML BULK BOTTLE TP SCH ×2 (09:28→21:15)
[2017-07-14] MEDS: FAMOTIDINE 20 MG/50 ML IVPB 50 ML IVPB SCH ×2 (09:31→21:13)
[2017-07-14] MEDS: risperiDONE 1 MG TABLET (FP) PO SCH ×2 (09:31→21:13)
[2017-07-14] MEDS: GABAPENTIN 300 MG CAPSULE (FP) PO SCH ×2 (09:33→21:13)
[2017-07-14] MEDS: BACLOFEN 10 MG TABLET (FP) PO SCH ×3 (09:34→21:13)
[2017-07-14] MEDS: SODIUM CHLORIDE 1,000 ML IV SCH ×2 (09:42→21:15)
[2017-07-14] MEDS: MUPIROCIN 2% TOPICAL OINTMENT FOR DECOLONIZATION NS SCH (09:43)
[2017-07-14] MEDS ORDERED: MAGNESIUM OXIDE 400 MG TABLET (FP) PO ONE (09:50)
[2017-07-14] MEDS ORDERED: FERROUS SO4 325 MG TABLET (FP) PO SCH ×2 (10:00→22:00)
[2017-07-14] MEDS ORDERED: POTASSIUM CHLORIDE 20 MEQ PREMIX IVPB 100 ML IVPB SCH (10:00)
[2017-07-14 10:26] LABS: URINE APPEARANCE CLEAR; URINE BILIRUBIN NEGATIVE (NEGATIVE); URINE BLOOD 2+ (NEGATIVE); URINE COLOR LT. YELLOW; URINE GLUCOSE (UA) NEGATIVE (NEGATIVE); URINE KETONE NEGATIVE (NEGATIVE); URINE NITRITE NEGATIVE (NEGATIVE); URINE PROTEIN NEGATIVE (NEGATIVE); URINE UROBILINOGEN 0.2 mg/dL (0.2-1.0)
[2017-07-14 10:32] LABS: URINE LEUK ESTERASE 2+ (NEGATIVE)
[2017-07-14 10:52] LABS: URINE BACTERIA RARE /hpf (NONE SEEN); URINE MUCUS RARE; URINE RBC 1 /hpf (0-3); URINE WBC 28 /hpf (3-5); YEAST RARE
--- NOTE | 2017-07-14 11:03 | PN ---
Teaching Attending Note Name of Resident: Marciano Bonilla ATTENDING PHYSICIAN STATEMENT I saw and evaluated the patient. I reviewed the resident's note and discussed the case with the resident. I agree with the resident's findings and plan as documented. SUBJECTIVE: Pt seen and examined in the ICU. Remains on levophed gtt but lower dose. No fevers recorded. Denies shortness of breath or chest pain. OBJECTIVE: Last Vital Signs Temp Pulse Resp BP Pulse Ox 98.9 F 73 14 107/60 99 07/14/17 10:00 07/14/17 10:00 07/14/17 10:00 07/14/17 10:00 07/14/17 09:00 Intake & Output 07/11/17 07/12/17 07/13/17 07/14/17 23:59 23:59 23:59 23:59 Intake Total 1400 5294 2080 Output Total 710 4600 1000 Balance 318 106 3538 Weight 170 lb 0.01 oz Gen: NAD at rest Heart: RRR Lung: decreased breath sounds at the bases Abd: soft, nontender Ext: no edema CBC, BMP 07/14/17 05:20 07/14/17 05:20 Active Medications Baclofen (Lioresal -) 20 mg PO QID [facility] Last Admin: 07/14/17 09:34 Dose: 20 mg Benztropine Mesylate (Cogentin -) 1 mg PO AM [facility] Last Admin: 07/14/17 06:13 Dose: 1 mg Docusate Sodium (Colace -) 200 mg PO BID PRN PRN Reason: CONSTIPATION Ferrous Sulfate (Feosol -) 325 mg PO BID [facility] Gabapentin (Neurontin -) 300 mg PO BID [facility] Last Admin: 07/14/17 09:33 Dose: 300 mg Heparin Sodium (Porcine) (Heparin -) 5,000 unit SQ TID [facility] Last Admin: 07/14/17 06:14 Dose: 5,000 unit Hydromorphone HCl (Dilaudid Injection -) 0.5 mg IVPUSH Q4H PRN PRN Reason: PAIN Last Admin: 07/14/17 10:08 Dose: 0.5 mg Norepinephrine Bitartrate 4, (000 mcg/ Dextrose) 500 mls @ 37.5 mls/hr IV TITR NAYAN; 5 MCG/MIN PRN Reason: Protocol Last Titration: 07/14/17 04:35 Dose: 2 mcg/min Famotidine/Sodium Chloride (Pepcid 20 Mg Premixed Ivpb -) 50 mls @ 100 mls/hr IVPB BID [facility] Last Admin: 07/14/17 09:31 Dose: 100 mls/hr Sodium Chloride (Normal Saline -) 1,000 mls @ 150 mls/hr IV ASDIR [facility] Last Admin: 07/14/17 09:42 Dose: 150 mls/hr Vancomycin HCl 1,250 mg/ (Dextrose) 250 mls @ 166.667 mls/hr IVPB BID [facility] PRN Reason: Protocol Last Admin: 07/13/17 21:15 Dose: 166.667 mls/hr Piperacillin Sod/Tazobactam Sod (Zosyn 3.375gm Ivpb (Pre-Docked)) 50 mls @ 100 mls/hr IVPB Q8H-IV [facility] PRN Reason: Protocol Last Admin: 07/14/17 09:32 Dose: 100 mls/hr Letrozole (Femara -) 2.5 mg PO DAILY [facility] Last Admin: 07/13/17 10:01 Dose: Not Given Mirtazapine (Remeron -) 30 mg PO HS [facility] Last Admin: 07/13/17 21:15 Dose: 30 mg Mupirocin (Bactroban Ointment (For Decolonization) -) 1 applic NS BID [facility] Stop: 07/17/17 21:59 Last Admin: 07/14/17 09:43 Dose: 1 applic Potassium Chloride (Potassium Chloride 20 Meq Premix Ivpb -) 20 meq IVPB Q60M [facility] Stop: 07/14/17 12:01 Risperidone (Risperdal -) 1 mg PO BID [facility] Last Admin: 07/14/17 09:31 Dose: 1 mg Sodium Hypochlorite (Dakin's Solution 0.25% (Half-Strength) -) 1 applic TP BID [facility] Last Admin: 07/14/17 09:28 Dose: 1 applic ASSESSMENT AND PLAN: Sacral Decubitus Ulcer Infection UTI Septic Shock Multiple Sclerosis Hyperlipidemia Schizophrenia Depression - continue antibiotics - f/u cultures - ulcer debridement - continue IVF, can decrease rate - monitor H/H - taper off levophed gtt to maintain MAP >65 - DVT/GI prophylaxis - continue ICU monitoring critical care time spent in reviewing chart, evaluating patient and formulating plan 35 min
[2017-07-14] MEDS: LETROZOLE 2.5 MG TABLET (FP) PO SCH (11:40)
[2017-07-14] MEDS: VANCOMYCIN 1,250 MG in DEXTROSE 5%-WATER - 250 ML IVPB SCH ×2 (11:49→21:11)
[2017-07-14] MEDS ORDERED: POTASSIUM CHLORIDE ORAL LIQUID 20 MEQ/15 ML PO ONE (12:00)
[2017-07-14 12:27] LABS: FERRITIN 262.799 ng/ml (6.9-282.5)
--- NOTE | 2017-07-14 13:44 | CONSULT ---
- Consultation REQUESTING PROVIDER: Kranthi Bertrand (Vascular Surgery / Wound Care) CONSULT REQUEST: We have been asked to surgically evaluate this patient for possible sacral debridement. PCP: Dionisio Pastrana MD HPI: 62 yo female admitted to ICU with sepsis. Patient is followed by Dr. Samaniego (Plastics / Wound Care) as an out-patient. Dr. Samaniego isn't able to take pt to OR until 07/18/17. Until then, she has ordered santyl dressing changes. Dr. Samaniego asked if they could find another surgeon for 2nd opinion for possible OR debridement. Her wound culture from left hip done on 07/05 --> Provencia stuartii , strep agalactia, and enterococcus fecaelis was treated with Zosyn. ID continues to follow patient. She denies n/v/f/c. Denies CP, SOB, dizzy, palpitations. PMHx: MS, chronic L buttock and sacral ulcer, schizophrenia, depression, hyperlipidemia, indwelling borjas cath PSHx: R breast cancer with mastectomy Home Meds: Acetaminophen [Tylenol] 650 mg PO Q6H 02/08/17 Apixaban [Eliquis -] 5 mg PO Q12H 02/08/17 Arginine/Glutamine/Calcium Hmb [Gordon Packet] 1 each PO BID 02/08/17 Atorvastatin Ca [Lipitor] 20 mg PO HS 02/08/17 Baclofen 20 mg PO QID 02/08/17 Bismuth Tribromoph/Petrolatum [Xeroform Petrolatum Dress] 1 each TP Q72H Calcium Carbonate/Vitamin D3 [Calcium 600-Vit D3 400 Tablet] 1 each PO DAILY Gabapentin [Neurontin -] 300 mg PO BID 02/08/17 Letrozole 2.5 mg PO DAILY 02/08/17 Melatonin 3 mg PO HS 02/08/17 Mirtazapine [Remeron -] 30 mg PO HS 02/08/17 Polyethylene Glycol 3350 [Miralax 255 gm Btl -] 17 gm PO Q12H 02/08/17 Risperidone [Risperdal] 1 mg PO BID 02/08/17 Silv/Bandg/Lidoca/Chlorhex/Alc [Vacustim Silver Kit] 1 each TP Q72H 02/08/17 Silver Sulfadiazine 1% Top Cr [Silvadene -] 1 applic TP ASDIR 02/08/17 Benztropine Mesylate 1 mg PO AM 07/12/17 Oxycodone HCl 5 mg PO MOWEFR 07/12/17 Allergies: aripiprazole --> severe REVIEW OF SYSTEMS: All systems reviewed and considered negative except for what's contained in HPI. PE: GENERAL: Awake, alert, nad LUNGS: CTA bilat anteriroly HEART: RRR SKIN: Sacrum --> ~ 7 x 7 x 10 cm. No undermining. Sacrum exposed with minimal granulation tissue. Minimal fibrinous exudate. No foul odor emenating from wound. No purulent drainage. Last Vital Signs Temp Pulse Resp BP Pulse Ox 98.9 F 81 17 103/59 99 07/14/17 10:00 07/14/17 12:00 07/14/17 12:00 07/14/17 12:00 07/14/17 09:00 CBC, BMP 07/14/17 05:20 07/14/17 05:20 Blood Type Blood Type B POSITIVE 07/12/17 11:35 INR, PTT INR 1.27 (0.82-1.09) H 07/14/17 05:20 Urine Test Results Urine Color Lt. yellow 07/14/17 08:45 Urine Appearance Clear 07/14/17 08:45 Urine pH 6.0 (5.0-8.0) 07/14/17 08:45 Ur Specific [employer] 1.020 (1.005-1.025) 07/12/17 12:29 Urine Protein Negative (NEGATIVE) 07/14/17 08:45 Urine Glucose (UA) Negative (NEGATIVE) 07/14/17 08:45 Urine Ketones Negative (NEGATIVE) 07/14/17 08:45 Urine Blood 2+ (NEGATIVE) H 07/14/17 08:45 Urine Nitrite Negative (NEGATIVE) 07/14/17 08:45 Urine Bilirubin Negative (NEGATIVE) 07/14/17 08:45 Ur Leukocyte Esterase 2+ (NEGATIVE) H 07/14/17 08:45 Urine RBC 1 /hpf (0-3) 07/14/17 08:45 Urine WBC 28 /hpf (3-5) 07/14/17 08:45 Ur Epithelial Cells Rare /hpf (FEW) 07/14/17 08:45 Urine Bacteria Rare /hpf (NONE SEEN) 07/14/17 08:45 Urine Mucus Rare 07/14/17 08:45 Microbiology 07/12/17 11:35 Coccyx Wound Culture - Preliminary Pseudomonas Aeruginosa Proteus Mirabilis Mr S Aureus Group D Strep Or Entero Coccus 07/12/17 11:58 Blood - Peripheral Venous Blood Culture - Preliminary NO GROWTH OBTAINED AFTER 48 HOURS, INCUBATION TO CONTINUE FOR 3 DAYS. 07/12/17 11:35 Blood - Peripheral Venous Blood Culture - Preliminary NO GROWTH OBTAINED AFTER 48 HOURS, INCUBATION TO CONTINUE FOR 3 DAYS. 07/12/17 12:29 Urine - Urine - Catheterized Urine Culture - Preliminary Pseudomonas Aeruginosa Lactose Fermenting Neg Bacilli 07/12/17 11:35 Hip - Left Wound Culture - Preliminary Proteus Mirabilis Enterococcus Faecalis Mr S Aureus Problem List - Problems (1) Infected decubitus ulcer Assessment/Plan: Recommend continuing dakins dressing changes daily as ordered. Cover with Optifoam dressing. Not emergent to take her to OR today. Cont ICU management. Medically optimize patient for OR on 07/18/17 --> w/ Dr. Samaniego Dressing changed after examination by me. Offload all pressure sensitive areas. Frequent repositioning Above discussed with Dr. Bertrand and agrees. Code(s): L89.90 - PRESSURE ULCER OF UNSPECIFIED SITE, UNSPECIFIED STAGE Qualifiers: Pressure ulcer stage: unstageable Qualified Code(s): L89.95 - Pressure ulcer of unspecified site, unstageable; L08.9 - Local infection of the skin and subcutaneous tissue, unspecified (2) Sepsis - Septicemia Code(s): A41.9 - SEPSIS, UNSPECIFIED ORGANISM Visit type - Case Type Case Type: ED Admission - Emergency Emergency Visit: Yes ED Registration Date: 07/12/17 Care time: The patient presented to the Emergency Department on the above date and was hospitalized for further evaluation of their emergent condition. - New patient This patient is new to me today: Yes Date on this admission: 07/14/17
[2017-07-14] MEDS ORDERED: ACETAMINOPHEN 325 MG TABLET (FP) PO PRN ×2 (14:29→16:07)
--- NOTE | 2017-07-14 16:03 | PN ---
Physical Exam: SUBJECTIVE: Patient seen and examined. Patient comfortable , no acute events overnight. Spoke to Dr. Samaniego who said it would to late today for a debridement but that she could see the patient on Monday. She woould otherwise be ok with having another surgeon do the debridement. Consulted with Surgeon Kranthi Bertrand and PA Saul Benton who saw the patient and evaluated that the wound didn't need debridement at this time. Wound was repacked with gauze and Dakin's solution. Patient to be admitted to Telemetry until she can be seen by Dr. Samaniego on Monday. OBJECTIVE: Vital Signs Period Temp Pulse Resp BP Sys/Claudio Pulse Ox Last 24 Hr 98.1 F-99.3 F 71-96 14-22 91-132/35-95 95-99 GENERAL: Awake, alert, nad LUNGS: CTA bilat anteriroly HEART: RRR SKIN: Sacrum --> ~ 7 x 7 x 10 cm. No undermining. Sacrum exposed with minimal granulation tissue. Minimal fibrinous exudate. No foul odor emenating from wound. No purulent drainage. Laboratory Results - last 24 hr 07/14/17 07/14/17 07/14/17 05:20 05:20 05:20 WBC 7.3 RBC 3.28 L Hgb 8.2 L Hct 25.0 L MCV 76.1 L MCH 25.1 L MCHC 32.9 RDW 16.4 H Plt Count 381 MPV 7.3 L Neutrophils % 59.2 D Lymphocytes % 30.1 D Monocytes % 7.7 Eosinophils % 2.6 D Basophils % 0.4 INR 1.27 H PTT (Actin FS) 22.5 L Sodium 142 Potassium 3.4 L Chloride 108 H Carbon Dioxide 27 Anion Gap 7 L BUN 4 L D Creatinine 0.3 L D Creat Clearance w eGFR > 60 Random Glucose 90 D Hemoglobin A1c % Calcium 8.0 L Phosphorus 2.8 Magnesium 1.8 Ferritin 262.799 Total Bilirubin 0.3 D AST 27 D ALT 33 Alkaline Phosphatase 95 Total Protein 4.6 L Albumin 1.0 L Urine Color Urine Appearance Urine pH Ur Specific [place] Urine Protein Urine Glucose (UA) Urine Ketones Urine Blood Urine Nitrite Urine Bilirubin Urine Urobilinogen Ur Leukocyte Esterase Urine RBC Urine WBC Ur Epithelial Cells Urine Bacteria Urine Mucus Urine Yeast 07/14/17 07/14/17 07/14/17 05:20 05:20 08:45 WBC RBC Hgb Hct MCV MCH MCHC RDW Plt Count MPV Neutrophils % Lymphocytes % Monocytes % Eosinophils % Basophils % INR PTT (Actin FS) Sodium Potassium Chloride Carbon Dioxide Anion Gap BUN Creatinine Creat Clearance w eGFR Random Glucose Hemoglobin A1c % 6.1 H Calcium Phosphorus Magnesium Ferritin Cancelled Total Bilirubin AST ALT Alkaline Phosphatase Total Protein Albumin Urine Color Lt. yellow Urine Appearance Clear Urine pH 6.0 Ur Specific [place] <= 1.005 Urine Protein Negative Urine Glucose (UA) Negative Urine Ketones Negative Urine Blood 2+ H Urine Nitrite Negative Urine Bilirubin Negative Urine Urobilinogen 0.2 Ur Leukocyte Esterase 2+ H Urine RBC 1 Urine WBC 28 Ur Epithelial Cells Rare Urine Bacteria Rare Urine Mucus Rare Urine Yeast Rare Active Medications Generic Name Dose Route Start Last Admin Trade Name Freq PRN Reason Stop Dose Admin Acetaminophen 650 mg 07/14/17 14:29 07/14/17 14:39 Tylenol - PO 650 mg Q4H PRN Administration FEVER OR PAIN Baclofen 20 mg 07/12/17 22:00 07/14/17 14:13 Lioresal - PO 20 mg QID NAYAN Administration Benztropine Mesylate 1 mg 07/13/17 07:00 07/14/17 06:13 Cogentin - PO 1 mg AM [facility] Administration Docusate Sodium 200 mg 07/14/17 09:16 Colace - PO BID PRN CONSTIPATION Ferrous Sulfate 325 mg 07/14/17 10:00 07/14/17 11:40 Feosol - PO 325 mg BID [facility] Administration Gabapentin 300 mg 07/12/17 22:00 07/14/17 09:33 Neurontin - PO 300 mg BID [facility] Administration Heparin Sodium (Porcine) 5,000 unit 07/13/17 14:00 07/14/17 14:12 Heparin - SQ 5,000 unit TID [facility] Administration Hydromorphone HCl 0.5 mg 07/12/17 16:46 07/14/17 10:08 Dilaudid Injection - IVPUSH 0.5 mg Q4H PRN Administration PAIN Famotidine/Sodium Chloride 50 mls @ 100 mls/hr 07/12/17 22:30 07/14/17 09:31 Pepcid 20 Mg Premixed Ivpb - IVPB 100 mls/hr BID [facility] Administration Sodium Chloride 1,000 mls @ 150 mls/hr 07/13/17 09:30 07/14/17 09:42 Normal Saline - IV 150 mls/hr ASDIR [facility] Administration Vancomycin HCl 1,250 mg/ 250 mls @ 166.667 mls/hr 07/13/17 22:00 07/14/17 11:49 Dextrose IVPB 166.667 mls/hr BID [facility] Administration Protocol Piperacillin Sod/Tazobactam Sod 50 mls @ 100 mls/hr 07/13/17 18:00 07/14/17 09: 32 Zosyn 3.375gm Ivpb (Pre-Docked) IVPB 100 mls/hr Q8H-IV [facility] Administration Protocol Letrozole 2.5 mg 07/13/17 10:00 07/14/17 11:40 Femara - PO 2.5 mg DAILY [facility] Administration Mirtazapine 30 mg 07/12/17 22:00 07/13/17 21:15 Remeron - PO 30 mg HS [facility] Administration Mupirocin 1 applic 07/12/17 22:00 07/14/17 09:43 Bactroban Ointment (For Decolonization) - NS 07/17/17 21:59 1 applic BID [facility] Administration Risperidone 1 mg 07/12/17 22:00 07/14/17 09:31 Risperdal - PO 1 mg BID [facility] Administration Sodium Hypochlorite 1 applic 07/13/17 10:00 07/14/17 09:28 Dakin's Solution 0.25% (Half-Strength) - TP 1 applic BID [facility] Administration ASSESSMENT/PLAN: 62F, [place] [facility] resident with pmh of MS, chronic sacral ulcer, schizophrenia, depression, HL sent to the ED for fevers, admitted to ICu for sepsis 2ndary to wound infection and UTI ID - continue antibiotics - f/u cultures HEMO - monitor H/H, iron studies CARDIOVASCULAR - taper off levophed gtt to maintain MAP >65 - DVT/GI prophylaxis - continue ICU monitoring Visit type - Emergency Visit Emergency Visit: No - New Patient This patient is new to me today: No - Critical Care Critical Care patient: Yes Total Critical Care Time (in minutes): 40 Critical Care Statement: The care of this patient involved high complexity decision making to prevent further life threatening deterioration of the patient 's condition and/or to evaluate & treat vital organ system(s) failure or risk of failure.
[2017-07-14] MEDS ORDERED: HYDROmorphone HCL CARPU-JECT 1 MG/1 ML DISP.SYRIN IVPUSH PRN ×2 (16:07→19:21)
[2017-07-14] MEDS ORDERED: SODIUM CHLORIDE 1,000 ML IV SCH (16:07)
--- NOTE | 2017-07-14 16:14 | PN ---
Physical Exam: SUBJECTIVE: Patient seen and examined. Feels much better today. Pain is improved. Having intermittent tachycardia-max at 96. OBJECTIVE: Selected Entries 07/14/17 07/14/17 07/14/17 08:00 10:00 12:00 Pulse Rate 73 73 81 07/14/17 14:00 Pulse Rate 96 H Selected Entries 07/14/17 07/14/17 07/14/17 03:00 10:00 12:00 Blood Pressure 91/47 107/60 103/59 07/14/17 14:00 Blood Pressure 120/70 Vital Signs Period Temp Pulse Resp BP Sys/Claudio Pulse Ox Last 24 Hr 98.1 F-99.3 F 71-96 14-22 91-132/35-95 95-99 GENERAL: The patient is awake, alert, and fully oriented, in no acute distress. ENT: moist mucous membranes. LUNGS: Breath sounds equal, clear to auscultation bilaterally, no wheezes, no crackles, no accessory muscle use. HEART: Regular rate and rhythm, S1, S2 without murmur, rub or gallop. ABDOMEN: Full, Soft, nontender, normoactive bowel sounds EXTREMITIES: no edema, quadriparesis. NEUROLOGICAL: Alert and oriented X3. Normal speech SKIN: Ulcer on sacrum/coccyx and L hip not as malodorous, packed guazes were removed for dressing by nurses this morning and showed film cleaner ulcers. L hip- about 2x1cm, sacrum/coccyx-4x 4cm- stage 4/4. Microbiology 07/12/17 11:35 Hip - Left Gram Stain - Final 07/12/17 11:35 Hip - Left Wound Culture - Final Proteus Mirabilis Enterococcus Faecalis Mr S Aureus 07/12/17 11:35 Coccyx Gram Stain - Final 07/12/17 12:29 Urine - Urine - Catheterized Urine Culture - Preliminary Pseudomonas Aeruginosa Lactose Fermenting Neg Bacilli 07/12/17 11:35 Coccyx Wound Culture - Preliminary Pseudomonas Aeruginosa Proteus Mirabilis Mr S Aureus Group D Strep Or Entero Coccus All - sensitive to zosyn Laboratory Results - last 24 hr 07/14/17 07/14/17 07/14/17 05:20 05:20 05:20 WBC 7.3 RBC 3.28 L Hgb 8.2 L Hct 25.0 L MCV 76.1 L MCH 25.1 L MCHC 32.9 RDW 16.4 H Plt Count 381 MPV 7.3 L Neutrophils % 59.2 D Lymphocytes % 30.1 D Monocytes % 7.7 Eosinophils % 2.6 D Basophils % 0.4 INR 1.27 H PTT (Actin FS) 22.5 L Sodium 142 Potassium 3.4 L Chloride 108 H Carbon Dioxide 27 Anion Gap 7 L BUN 4 L D Creatinine 0.3 L D Creat Clearance w eGFR > 60 Random Glucose 90 D Hemoglobin A1c % Calcium 8.0 L Phosphorus 2.8 Magnesium 1.8 Ferritin 262.799 Total Bilirubin 0.3 D AST 27 D ALT 33 Alkaline Phosphatase 95 Total Protein 4.6 L Albumin 1.0 L Urine Color Urine Appearance Urine pH Ur Specific [place] Urine Protein Urine Glucose (UA) Urine Ketones Urine Blood Urine Nitrite Urine Bilirubin Urine Urobilinogen Ur Leukocyte Esterase Urine RBC Urine WBC Ur Epithelial Cells Urine Bacteria Urine Mucus Urine Yeast 07/14/17 07/14/17 07/14/17 05:20 05:20 08:45 WBC RBC Hgb Hct MCV MCH MCHC RDW Plt Count MPV Neutrophils % Lymphocytes % Monocytes % Eosinophils % Basophils % INR PTT (Actin FS) Sodium Potassium Chloride Carbon Dioxide Anion Gap BUN Creatinine Creat Clearance w eGFR Random Glucose Hemoglobin A1c % 6.1 H Calcium Phosphorus Magnesium Ferritin Cancelled Total Bilirubin AST ALT Alkaline Phosphatase Total Protein Albumin Urine Color Lt. yellow Urine Appearance Clear Urine pH 6.0 Ur Specific [place] <= 1.005 Urine Protein Negative Urine Glucose (UA) Negative Urine Ketones Negative Urine Blood 2+ H Urine Nitrite Negative Urine Bilirubin Negative Urine Urobilinogen 0.2 Ur Leukocyte Esterase 2+ H Urine RBC 1 Urine WBC 28 Ur Epithelial Cells Rare Urine Bacteria Rare Urine Mucus Rare Urine Yeast Rare Active Medications Generic Name Dose Route Start Last Admin Trade Name Freq PRN Reason Stop Dose Admin Acetaminophen 650 mg 07/14/17 16:07 Tylenol - PO Q4H PRN FEVER OR PAIN Baclofen 20 mg 07/14/17 18:00 Lioresal - PO QID NAYAN Benztropine Mesylate 1 mg 07/15/17 07:00 Cogentin - PO AM NAYAN Docusate Sodium 200 mg 07/14/17 16:07 Colace - PO BID PRN CONSTIPATION Ferrous Sulfate 325 mg 07/14/17 22:00 Feosol - PO BID NAYAN Gabapentin 300 mg 07/14/17 22:00 Neurontin - PO BID NAYAN Heparin Sodium (Porcine) 5,000 unit 07/14/17 22:00 Heparin - SQ TID NAYAN Hydromorphone HCl 0.5 mg 07/14/17 16:07 Dilaudid Injection - IVPUSH Q4H PRN PAIN Famotidine/Sodium Chloride 50 mls @ 100 mls/hr 07/14/17 22:00 Pepcid 20 Mg Premixed Ivpb - IVPB BID NAYAN Sodium Chloride 1,000 mls @ 150 mls/hr 07/14/17 16:07 Normal Saline - IV ASDIR NAYAN Vancomycin HCl 1,250 mg/ 250 mls @ 166.667 mls/hr 07/14/17 22:00 Dextrose IVPB BID [facility] Protocol Piperacillin Sod/Tazobactam Sod 50 mls @ 100 mls/hr 07/14/17 18:00 Zosyn 3.375gm Ivpb (Pre-Docked) IVPB Q8H-IV NAYAN Protocol Letrozole 2.5 mg 07/15/17 10:00 Femara - PO DAILY NAYAN Mirtazapine 30 mg 07/14/17 22:00 Remeron - PO HS NAYAN Mupirocin 1 applic 07/14/17 22:00 Bactroban Ointment (For Decolonization) - NS 07/17/17 21:59 BID NAYAN Risperidone 1 mg 07/14/17 22:00 Risperdal - PO BID NAYAN Sodium Hypochlorite 1 applic 07/14/17 22:00 Dakin's Solution 0.25% (Half-Strength) - TP BID [facility] ASSESSMENT/PLAN: 62F, assisted resident with PMHx of MS, chronic sacral ulcer, schizophrenia , depression, HL sent to the ED for fevers, admitted to ICu for sepsis secondary to wound infection and UTI #Septic shock: Secondary to wound infection and UTI - all cultured organisms sensitive to Zosyn Vitals improved continue per ID Iv zosyn -day 2, and vancomycin- day 1 - Continue Iv N/saline - Continue Input and output - Post transfusion of 1 unit PRBC- Hgb-8.2 -CXR -foleys catheter replacement as needed -For debridement of decubitus ulcers when stable- per surgeon - pressors- titrate levophed for MAP goal >65 - Continue-CMP, CBC, Mg, P, Ptt, Pt/INR For vanco trough- orders in #Tachycardia: *Intermittent tachycardia- max 96, *Patient has been on pressors for septic shock, BP more stable levophed stopped Transfer to telemetry #Hypokalemia Corrected with i.v. KCl 10meq/hr #Hypomagnesemia Corrected with 800mg PO Magnesium Oxide x 3 doses # Microcytic Anemia: s/p transfusion 1 unit PRBC -Hgb up from 7.5- 8.2 continue CBC monitoring #Infected Chronic Decubitus ulcers: 07/12/17 11:35 Hip - Left Wound Culture - Preliminary Proteus Species Group D Strep Or Entero Coccus Staphylococcus Latex Coag Pos 07/12/17 11:35 Coccyx Wound Culture - Preliminary Presumptive Ps Aeruginosa Proteus Species Staphylococcus Latex Coag Pos Group D Strep Or Entero Coccus Cultures all sensitive to Zosyn (day 2 on it) - surgeon seeing -For debridement when stable -CBC, PT/PTT/INR, CMP, CXR, -- Iv zosyn -Iv N/saline - Turn as needed - Wound care with 1/4 Dakin's or similar substitute for infected wounds #UTI -07/12/17 12:29 Urine - Urine - Catheterized Urine Culture - Preliminary Presumptive Ps Aeruginosa Lactose Fermenting Neg Bacilli- sensitive to zosyn Plan:Continue iv zosyn and vanco For vanco trough #MS -With quadriparesis, bladder and bowel incontinence, - occasional constipation -on chronic catheter use and diaper -Lives in a assisted with aides Plan: - Change catheter as needed -turn frequently -miralax -baclofen -gabapentin - #S/P R breast cancer -letrozole - Ca carbonate/Vit D3 #Obesity #Hyperlipidemia -atorvostatin #Schizophrenia _risperidone -benztropine #Depression Mirtazepine #Chronic pain -hydromorphone #constipation - MS -chronic opiate use Plan: -Miralax as needed -frequent turning #Sleep disorder: Melatonin #FEN Fluids: N/saline Infusion Monitor I&Os Electrolytes:CMP, Mg, Phosphate, Ca Nutrition: NPO from midnight #Prophylaxis Sc. Heparin #Dispo Transfer to telemetry- orders in Problem List - Problems (1) Sepsis - Septicemia Code(s): A41.9 - SEPSIS, UNSPECIFIED ORGANISM (2) Infected decubitus ulcer Code(s): L89.90 - PRESSURE ULCER OF UNSPECIFIED SITE, UNSPECIFIED STAGE Qualifiers: Pressure ulcer stage: unstageable Qualified Code(s): L89.95 - Pressure ulcer of unspecified site, unstageable; L08.9 - Local infection of the skin and subcutaneous tissue, unspecified (3) Urinary tract infection Code(s): N39.0 - URINARY TRACT INFECTION, SITE NOT SPECIFIED Qualifiers: Indwelling urinary catheter type: indwelling urethral catheter Encounter type: initial encounter Visit type - Emergency Visit Emergency Visit: Yes ED Registration Date: 07/12/17 Care time: The patient presented to the Emergency Department on the above date and was hospitalized for further evaluation of their emergent condition. - New Patient This patient is new to me today: No - Critical Care Critical Care patient: Yes Total Critical Care Time (in minutes): 45 Critical Care Statement: The care of this patient involved high complexity decision making to prevent further life threatening deterioration of the patient 's condition and/or to evaluate & treat vital organ system(s) failure or risk of failure.
--- NOTE | 2017-07-14 16:24 | PN ---
Teaching Attending Note Name of Resident: Ana Maria Machado ATTENDING PHYSICIAN STATEMENT I saw and evaluated the patient. I reviewed the resident's note and discussed the case with the resident. I agree with the resident's findings and plan as documented. SUBJECTIVE: Patient is in Icu, off the levophed now, No acute distress, no shortness of breath. OBJECTIVE: Vital Signs Temperature 98.6 F 07/14/17 14:00 Pulse Rate 96 H 07/14/17 14:00 Respiratory Rate 22 07/14/17 14:00 Blood Pressure 120/70 07/14/17 14:00 O2 Sat by Pulse Oximetry (%) 99 07/14/17 09:00 CMP Sodium 142 mmol/L (136-145) 07/14/17 05:20 Potassium 3.4 mmol/L (3.5-5.1) L 07/14/17 05:20 Chloride 108 mmol/L (98-107) H 07/14/17 05:20 Carbon Dioxide 27 mmol/L (21-32) 07/14/17 05:20 Anion Gap 7 (8-16) L 07/14/17 05:20 BUN 4 mg/dL (7-18) L D 07/14/17 05:20 Creatinine 0.3 mg/dL (0.55-1.02) L D 07/14/17 05:20 Creat Clearance w eGFR > 60 (>60) 07/14/17 05:20 POC Glucometer 186.18237 UNITS (()) 07/13/17 05:52 Random Glucose 90 mg/dL (74-106) D 07/14/17 05:20 Hemoglobin A1c % 6.1 % (4.8-6.0) H 07/14/17 05:20 Lactic Acid 1.6 mmol/L (0.4-2.0) 07/13/17 05:20 Calcium 8.0 mg/dL (8.5-10.1) L 07/14/17 05:20 Phosphorus 2.8 mg/dL (2.5-4.9) 07/14/17 05:20 Magnesium 1.8 mg/dL (1.8-2.4) 07/14/17 05:20 Ferritin 262.799 ng/ml (6.9-282.5) 07/14/17 05:20 Total Bilirubin 0.3 mg/dL (0.2-1.0) D 07/14/17 05:20 AST 27 U/L (15-37) D 07/14/17 05:20 ALT 33 U/L (12-78) 07/14/17 05:20 Alkaline Phosphatase 95 U/L (45-117) 07/14/17 05:20 Creatine Kinase 202 IU/L (26-192) H 07/13/17 05:20 Creatine Kinase Index 0.9 % (0.0-5.0) 07/13/17 05:20 CK-MB (CK-2) 1.971 ng/mL (0.5-3.6) 07/13/17 05:20 Troponin I < 0.02 ng/ml (0.00-0.05) 07/13/17 05:20 Total Protein 4.6 g/dl (6.4-8.2) L 07/14/17 05:20 Albumin 1.0 g/dl (3.4-5.0) L 07/14/17 05:20 Current Medications Generic Name Dose Route Start Last Admin Trade Name Freq PRN Reason Stop Dose Admin Acetaminophen 650 mg 07/14/17 16:07 Tylenol - PO Q4H PRN FEVER OR PAIN Baclofen 20 mg 07/14/17 18:00 Lioresal - PO QID [facility] Benztropine Mesylate 1 mg 07/15/17 07:00 Cogentin - PO AM NAYAN Docusate Sodium 200 mg 07/14/17 16:07 Colace - PO BID PRN CONSTIPATION Ferrous Sulfate 325 mg 07/14/17 22:00 Feosol - PO BID [facility] Gabapentin 300 mg 07/14/17 22:00 Neurontin - PO BID NAYAN Heparin Sodium (Porcine) 5,000 unit 07/14/17 22:00 Heparin - SQ TID NAYAN Hydromorphone HCl 0.5 mg 07/14/17 16:07 Dilaudid Injection - IVPUSH Q4H PRN PAIN Famotidine/Sodium Chloride 50 mls @ 100 mls/hr 07/14/17 22:00 Pepcid 20 Mg Premixed Ivpb - IVPB BID [facility] Sodium Chloride 1,000 mls @ 150 mls/hr 07/14/17 16:07 Normal Saline - IV ASDIR NAYAN Vancomycin HCl 1,250 mg/ 250 mls @ 166.667 mls/hr 07/14/17 22:00 Dextrose IVPB BID [facility] Protocol Piperacillin Sod/Tazobactam Sod 50 mls @ 100 mls/hr 07/14/17 18:00 Zosyn 3.375gm Ivpb (Pre-Docked) IVPB Q8H-IV [facility] Protocol Letrozole 2.5 mg 07/15/17 10:00 Femara - PO DAILY [facility] Mirtazapine 30 mg 07/14/17 22:00 Remeron - PO HS [facility] Mupirocin 1 applic 07/14/17 22:00 Bactroban Ointment (For Decolonization) - NS 07/17/17 21:59 BID [facility] Risperidone 1 mg 07/14/17 22:00 Risperdal - PO BID [facility] Sodium Hypochlorite 1 applic 07/14/17 22:00 Dakin's Solution 0.25% (Half-Strength) - TP BID [facility] Home Medications Medication Instructions Recorded Acetaminophen [Tylenol] 650 mg PO Q6H 02/08/17 Apixaban [Eliquis -] 5 mg PO Q12H 02/08/17 Arginine/Glutamine/Calcium Hmb 1 each PO BID 02/08/17 [Gordon Packet] Atorvastatin Ca [Lipitor] 20 mg PO HS 02/08/17 Baclofen 20 mg PO QID 02/08/17 Bismuth Tribromoph/Petrolatum 1 each TP Q72H 02/08/17 [Xeroform Petrolatum Dress] Calcium Carbonate/Vitamin D3 1 each PO DAILY 02/08/17 [Calcium 600-Vit D3 400 Tablet] Gabapentin [Neurontin -] 300 mg PO BID 02/08/17 Letrozole 2.5 mg PO DAILY 02/08/17 Melatonin 3 mg PO HS 02/08/17 Mirtazapine [Remeron -] 30 mg PO HS 02/08/17 Polyethylene Glycol 3350 [Miralax 17 gm PO Q12H 02/08/17 255 gm Btl -] Risperidone [Risperdal] 1 mg PO BID 02/08/17 Silv/Bandg/Lidoca/Chlorhex/Alc 1 each TP Q72H 02/08/17 [Vacustim Silver Kit] Silver Sulfadiazine 1% Top Cr 1 applic TP ASDIR 02/08/17 [Silvadene -] Benztropine Mesylate 1 mg PO AM 07/12/17 Oxycodone HCl 5 mg PO MOWEFR 07/12/17 Microbiology 07/12/17 11:35 Hip - Left Gram Stain - Final 07/12/17 11:35 Hip - Left Wound Culture - Final Proteus Mirabilis Enterococcus Faecalis S Aureus 07/12/17 11:35 Coccyx Gram Stain - Final 07/12/17 11:35 Coccyx Wound Culture - Preliminary Pseudomonas Aeruginosa Proteus Mirabilis Mr S Aureus Group D Strep Or Entero Coccus 07/12/17 11:58 Blood - Peripheral Venous Blood Culture - Preliminary NO GROWTH OBTAINED AFTER 48 HOURS, INCUBATION TO CONTINUE FOR 3 DAYS. 07/12/17 11:35 Blood - Peripheral Venous Blood Culture - Preliminary NO GROWTH OBTAINED AFTER 48 HOURS, INCUBATION TO CONTINUE FOR 3 DAYS. 07/12/17 12:29 Urine - Urine - Catheterized Urine Culture - Preliminary Pseudomonas Aeruginosa Lactose Fermenting Neg Bacilli PE: as per resident's notes SKIN: large tunneling sacral decubitous ulcer, draining serosanguinous fluid, no purulent drainage, no surrounding erythema. Also a large tunneling ulcer on L hip with mild surrounding erythema and serosanguinous drainage CVS: S1S2 positive Neuro: awake, alert, follows commands and answers to questions. ASSESSMENT AND PLAN: Patient is a a 62 year old female resident of [facility] with a over 30 years history of MS and PMHx of chronic R buttock and sacral ulcer, schizophrenia, depression, hyperlipidemia. Patient's aide brought her to wound care today for evaluation of the chronic ulcers, but was referred to ED by wound care physician for further evaluation and treatment. And was noted to have Tmax 103 this am. #s/p Septic shock off pressors now, off Levophed. s/p 5 liters of IV bolus of NS. On IV antibiotic, ID on the case for further management. REF=[id number] # Decubitus ulcer with Large tunneling ulcer on the left hip On IV antibiotic Zosyn and Vancomycin , ID consult appreciated, panculture results as above. Can 't r/o Osteo. is on the case the plastic surgeon. # Hx of MS on neurontin continue # HLD on lipitor continue #Schizophrenia on Risperedal continue # major depressive on remeron continue History of DVT on eliquis discontinued for now , No DVT as per Duplex result . DVT px; heparin sq
[2017-07-14] MEDS ORDERED: BACLOFEN 10 MG TABLET (FP) PO SCH (18:00)
[2017-07-14] MEDS ORDERED: PIPERACILLIN/TAZOB 3.375 GM 50 ML IVPB SCH (18:00)
[2017-07-14] MEDS: MIRTAZAPINE 15 MG TABLET (FP) PO SCH (21:13)
[2017-07-14] MEDS: FERROUS SO4 325 MG TABLET (FP) PO SCH (21:13)
[2017-07-14] MEDS: ACETAMINOPHEN 325 MG TABLET (FP) PO PRN (21:14)
[2017-07-14] MEDS: DOCUSATE SODIUM 100 MG CAPSULE (FP) PO PRN (21:14)
[2017-07-14] MEDS ORDERED: MELATONIN 1 MG TABLET PO ONE (21:56)
[2017-07-14] MEDS ORDERED: HEPARIN NA (PORCINE) 5,000 UNITS/ML 1ML VIAL SQ SCH (22:00)
[2017-07-14] MEDS ORDERED: MUPIROCIN 2% TOPICAL OINTMENT FOR DECOLONIZATION NS SCH (22:00)
[2017-07-14] MEDS ORDERED: MIRTAZAPINE 15 MG TABLET (FP) PO SCH (22:00)
[2017-07-14] MEDS ORDERED: FAMOTIDINE 20 MG/50 ML IVPB 50 ML IVPB SCH (22:00)
[2017-07-14] MEDS ORDERED: VANCOMYCIN 1,250 MG in DEXTROSE 5%-WATER - 250 ML IVPB SCH (22:00)
[2017-07-14] MEDS ORDERED: SODIUM HYPOCHLORITE 0.25%- 473 ML BULK BOTTLE TP SCH (22:00)
[2017-07-14] MEDS ORDERED: GABAPENTIN 300 MG CAPSULE (FP) PO SCH (22:00)
[2017-07-14] MEDS ORDERED: risperiDONE 1 MG TABLET (FP) PO SCH (22:00)
[2017-07-15] MEDS ORDERED: PIPERACILLIN/TAZOBACTAM 3.375 GM VIAL IVPB ONE ×3 (00:41→17:26)
[2017-07-15] MEDS ORDERED: DEXTROSE 5%-WATER - 50 ML IVPB ONE ×3 (00:41→17:26)
[2017-07-15] MEDS: PIPERACILLIN/TAZOB 3.375 GM 3.375 GM in DEXTROSE 5%-WATER - 50 ML IVPB SCH ×3 (01:14→17:41)
[2017-07-15] MEDS ORDERED: PT OWN MED DRAWER 7, Y5N ONE ×3 (05:29→21:58)
[2017-07-15 06:06] LABS: SERUM IRON 21 ug/dL (27-139); TOTAL IRON BINDING CAPACITY 102 ug/dL (250-450); UIBC 81 ug/dL (118-369)
[2017-07-15] MEDS: BENZTROPINE MESYLATE 1 MG TABLET (FP) PO SCH (06:13)
[2017-07-15] MEDS: HEPARIN NA (PORCINE) 5,000 UNITS/ML 1ML VIAL SQ SCH ×3 (06:13→22:41)
[2017-07-15] MEDS ORDERED: BENZTROPINE MESYLATE 1 MG TABLET (FP) PO SCH (07:00)
[2017-07-15] MEDS: FERROUS SO4 325 MG TABLET (FP) PO SCH ×2 (09:25→22:42)
[2017-07-15] MEDS: BACLOFEN 10 MG TABLET (FP) PO SCH ×4 (09:25→22:43)
[2017-07-15] MEDS: GABAPENTIN 300 MG CAPSULE (FP) PO SCH ×2 (09:26→22:42)
[2017-07-15] MEDS: risperiDONE 1 MG TABLET (FP) PO SCH ×2 (09:26→22:43)
[2017-07-15] MEDS: LETROZOLE 2.5 MG TABLET (FP) PO SCH (09:26)
[2017-07-15] MEDS: FAMOTIDINE 20 MG/50 ML IVPB 50 ML IVPB SCH ×2 (09:27→22:43)
[2017-07-15] MEDS ORDERED: LETROZOLE 2.5 MG TABLET (FP) PO SCH (10:00)
--- NOTE | 2017-07-15 10:12 | PN ---
Progress Note (short form) - Note Progress Note: FU regarding multiple Medical problems including chronic decubitii Left hip and sacral wound Patient known to me from wound clinic. Plans for surgical closure with Flap have been on hold due to low protein status. Recently she opted not to eat ( as per her brother Hu) Admitted from ER for sepsis and treated in ICU Examination : More ALERT answering questions coherently Wound evaluated: Left hip wound responding to Dakins solution dressing care, less odor, extends to Trochanteric bursa with exposed TFL Sacral wound extends to Sacral bone Both wounds are infected with Pseudmonas/MRSA Microbiology 07/12/17 11:35 Hip - Left Gram Stain - Final 07/12/17 11:35 Hip - Left Wound Culture - Final Proteus Mirabilis Enterococcus Faecalis Mr S Aureus Selected Entries 07/14/17 07/15/17 21:00 06:00 Temperature 99.2 F Temperature Oral Source Pulse Rate 95 H Respiratory 24 Rate Respiratory Normal Depth Respiratory Non-Labored Effort Respiratory Tachypnea Pattern Blood Pressure 119/77 Blood Pressure 91 Mean Laboratory Tests 07/12/17 07/12/17 07/13/17 11:35 20:00 05:20 WBC 13.3 H D Hgb Hct MCV 75.6 L MCH 23.6 L MCHC 31.2 L RDW 16.7 H MPV 7.6 D Neutrophils % 77.4 D Lymphocytes % 15.4 D Lymphocytes % (Manual) 22 Eosinophils % ESR 111 H Sodium Potassium Chloride Carbon Dioxide Anion Gap BUN Creatinine Hemoglobin A1c % Calcium Iron TIBC Iron Saturation Ferritin Total Protein Albumin 07/14/17 07/14/17 07/14/17 05:20 05:20 05:20 WBC 7.3 Hgb 8.2 L Hct 25.0 L MCV 76.1 L MCH 25.1 L MCHC RDW 16.4 H MPV 7.3 L Neutrophils % 59.2 D Lymphocytes % 30.1 D Lymphocytes % (Manual) Eosinophils % 2.6 D ESR Sodium 142 Potassium 3.4 L Chloride 108 H Carbon Dioxide 27 Anion Gap 7 L BUN 4 L D Creatinine 0.3 L D Hemoglobin A1c % 6.1 H Calcium 8.0 L Iron TIBC Iron Saturation Ferritin 262.799 Total Protein 4.6 L Albumin 1.0 L 07/14/17 05:20 WBC Hgb Hct MCV MCH MCHC RDW MPV Neutrophils % Lymphocytes % Lymphocytes % (Manual) Eosinophils % ESR Sodium Potassium Chloride Carbon Dioxide Anion Gap BUN Creatinine Hemoglobin A1c % Calcium Iron 21 L TIBC 102 L Iron Saturation 21 Ferritin Total Protein Albumin Plan : 1. Continue Antibiotics 2. Continue wound care 3 No flap closure till nutritional build up 4. Possible VAC on Monday Surgical debridement on hold as necrotic tissue has decreased, will consider VAC application with Silver foam on Monday
[2017-07-15] MEDS: ACETAMINOPHEN 325 MG TABLET (FP) PO PRN (10:27)
[2017-07-15] MEDS: SODIUM HYPOCHLORITE 0.25%- 473 ML BULK BOTTLE TP SCH ×2 (10:27→22:43)
[2017-07-15] MEDS: VANCOMYCIN 1,250 MG in DEXTROSE 5%-WATER - 250 ML IVPB SCH (10:27)
--- NOTE | 2017-07-15 11:42 | PN ---
Progress Note (short form) - Note Progress Note: ID Seen by plastic surgery with plan for VAC dressing Selected Entries 07/15/17 09:28 Temperature 99.1 F Pulse Rate 94 H Respiratory 18 Rate Blood Pressure 118/54 Microbiology 07/12/17 11:35 Hip - Left Gram Stain - Final 07/12/17 11:35 Hip - Left Wound Culture - Final Proteus Mirabilis Enterococcus Faecalis Mr S Aureus 07/12/17 11:35 Coccyx Gram Stain - Final 07/12/17 12:29 Urine - Urine - Catheterized Urine Culture - Preliminary Pseudomonas Aeruginosa Citrobacter Freundii Complex 07/12/17 11:35 Coccyx Wound Culture - Preliminary Pseudomonas Aeruginosa Proteus Mirabilis Mr S Aureus Group D Strep Or Entero Coccus Laboratory Tests 07/13/17 07/14/17 07/14/17 13:29 05:20 05:20 WBC 7.3 Hgb 8.2 L Hct 25.0 L Plt Count 381 BUN 4 L D Creatinine 0.3 L D Vancomycin Pre-Dose 7.154 Assessment Decubitus ulcers infected to bone with UTI with GNB Plan Continue antibiotics as ordered [facility] tom[facility] Sandy STEELE Problem List - Problems (1) Sepsis - Septicemia Code(s): A41.9 - SEPSIS, UNSPECIFIED ORGANISM (2) Infected decubitus ulcer Code(s): L89.90 - PRESSURE ULCER OF UNSPECIFIED SITE, UNSPECIFIED STAGE Qualifiers: Pressure ulcer stage: unstageable Qualified Code(s): L89.95 - Pressure ulcer of unspecified site, unstageable; L08.9 - Local infection of the skin and subcutaneous tissue, unspecified (3) Urinary tract infection Code(s): N39.0 - URINARY TRACT INFECTION, SITE NOT SPECIFIED Qualifiers: Indwelling urinary catheter type: indwelling urethral catheter Encounter type: initial encounter
--- NOTE | 2017-07-15 17:44 | PN ---
Progress Note (short form) - Note Progress Note: Patient is doing better, with no acute distress. Vital Signs Temperature 99.2 F 07/15/17 14:47 Pulse Rate 84 07/15/17 14:47 Respiratory Rate 18 07/15/17 14:47 Blood Pressure 105/60 07/15/17 14:47 O2 Sat by Pulse Oximetry (%) 99 07/14/17 21:00 GENERAL: The patient is awake, alert, and fully oriented, in no acute distress. ENT: moist mucous membranes. LUNGS: Breath sounds equal, clear to auscultation bilaterally, no wheezes, no crackles, no accessory muscle use. HEART: Regular rate and rhythm, S1, S2 without murmur, rub or gallop. ABDOMEN: Full, Soft, nontender, normoactive bowel sounds EXTREMITIES: no edema, quadriparesis. NEUROLOGICAL: Alert and oriented X3. Normal speech SKIN: Ulcer on sacrum/coccyx and L hip improving . L hip- about 2x1cm, sacrum/coccyx-4x 4cm- stage 4/4. CBCD WBC 7.3 K/mm3 (4.0-10.0) 07/14/17 05:20 RBC 3.28 M/mm3 (3.60-5.2) L 07/14/17 05:20 Hgb 8.2 GM/dL (10.7-15.3) L 07/14/17 05:20 Hct 25.0 % (32.4-45.2) L 07/14/17 05:20 MCV 76.1 fl (80-96) L 07/14/17 05:20 MCHC 32.9 g/dl (32.0-36.0) 07/14/17 05:20 RDW 16.4 % (11.6-15.6) H 07/14/17 05:20 Plt Count 381 K/MM3 (134-434) 07/14/17 05:20 MPV 7.3 fl (7.5-11.1) L 07/14/17 05:20 CMP Sodium 142 mmol/L (136-145) 07/14/17 05:20 Potassium 3.4 mmol/L (3.5-5.1) L 07/14/17 05:20 Chloride 108 mmol/L (98-107) H 07/14/17 05:20 Carbon Dioxide 27 mmol/L (21-32) 07/14/17 05:20 Anion Gap 7 (8-16) L 07/14/17 05:20 BUN 4 mg/dL (7-18) L D 07/14/17 05:20 Creatinine 0.3 mg/dL (0.55-1.02) L D 07/14/17 05:20 Creat Clearance w eGFR > 60 (>60) 07/14/17 05:20 Random Glucose 90 mg/dL (74-106) D 07/14/17 05:20 Calcium 8.0 mg/dL (8.5-10.1) L 07/14/17 05:20 Total Bilirubin 0.3 mg/dL (0.2-1.0) D 07/14/17 05:20 AST 27 U/L (15-37) D 07/14/17 05:20 ALT 33 U/L (12-78) 07/14/17 05:20 Alkaline Phosphatase 95 U/L (45-117) 07/14/17 05:20 Total Protein 4.6 g/dl (6.4-8.2) L 07/14/17 05:20 Albumin 1.0 g/dl (3.4-5.0) L 07/14/17 05:20 CARDIAC ENZYMES Creatine Kinase 202 IU/L (26-192) H 07/13/17 05:20 Troponin I < 0.02 ng/ml (0.00-0.05) 07/13/17 05:20 Current Medications Generic Name Dose Route Start Last Admin Trade Name Freq PRN Reason Stop Dose Admin Acetaminophen 650 mg 07/14/17 19:21 07/15/17 10:27 Tylenol - PO 650 mg Q4H PRN Administration FEVER OR PAIN Baclofen 20 mg 07/14/17 22:00 07/15/17 15:06 Lioresal - PO Not Given QID NAYAN Benztropine Mesylate 1 mg 07/15/17 07:00 07/15/17 06:13 Cogentin - PO 1 mg AM NAYAN Administration Docusate Sodium 200 mg 07/14/17 19:21 07/14/17 21:14 Colace - PO 200 mg BID PRN Administration CONSTIPATION Ferrous Sulfate 325 mg 07/14/17 22:00 07/15/17 09:25 Feosol - PO 325 mg BID NAYAN Administration Gabapentin 300 mg 07/14/17 22:00 07/15/17 09:26 Neurontin - PO 300 mg BID NAYAN Administration Heparin Sodium (Porcine) 5,000 unit 07/14/17 22:00 07/15/17 15:06 Heparin - SQ 5,000 unit TID NAYAN Administration Hydromorphone HCl 0.5 mg 07/14/17 19:21 Dilaudid Injection - IVPUSH Q4H PRN PAIN Famotidine/Sodium Chloride 50 mls @ 100 mls/hr 07/14/17 22:00 07/15/17 09:27 Pepcid 20 Mg Premixed Ivpb - IVPB 100 mls/hr BID NAYAN Administration Sodium Chloride 1,000 mls @ 150 mls/hr 07/14/17 19:21 07/14/17 21:15 Normal Saline - IV 150 mls/hr ASDIR NAYAN Administration Vancomycin HCl 1,250 mg/ 250 mls @ 150 mls/hr 07/14/17 22:00 07/15/17 10:27 Dextrose IVPB 150 mls/hr BID NAYAN Administration Protocol Piperacillin Sod/Tazobactam 50 mls @ 100 mls/hr 07/15/17 02:00 07/15/17 09:26 Sod 3.375 gm/ Dextrose IVPB 100 mls/hr Q8H-IV NAYAN Administration Protocol Letrozole 2.5 mg 07/15/17 10:00 07/15/17 09:26 Femara - PO 2.5 mg DAILY NAYAN Administration Mirtazapine 30 mg 07/14/17 22:00 07/14/17 21:13 Remeron - PO 30 mg HS NAYAN Administration Risperidone 1 mg 07/14/17 22:00 07/15/17 09:26 Risperdal - PO 1 mg BID NAYAN Administration Sodium Hypochlorite 1 applic 07/14/17 22:00 07/15/17 10:27 Dakin's Solution 0.25% (Half-Strength) - TP 1 applic BID NAYAN Administration Home Medications Medication Instructions Recorded Acetaminophen [Tylenol] 650 mg PO Q6H 02/08/17 Apixaban [Eliquis -] 5 mg PO Q12H 02/08/17 Arginine/Glutamine/Calcium Hmb 1 each PO BID 02/08/17 [Gordon Packet] Atorvastatin Ca [Lipitor] 20 mg PO HS 02/08/17 Baclofen 20 mg PO QID 02/08/17 Bismuth Tribromoph/Petrolatum 1 each TP Q72H 02/08/17 [Xeroform Petrolatum Dress] Calcium Carbonate/Vitamin D3 1 each PO DAILY 02/08/17 [Calcium 600-Vit D3 400 Tablet] Gabapentin [Neurontin -] 300 mg PO BID 02/08/17 Letrozole 2.5 mg PO DAILY 02/08/17 Melatonin 3 mg PO HS 02/08/17 Mirtazapine [Remeron -] 30 mg PO HS 02/08/17 Polyethylene Glycol 3350 [Miralax 17 gm PO Q12H 02/08/17 255 gm Btl -] Risperidone [Risperdal] 1 mg PO BID 02/08/17 Silv/Bandg/Lidoca/Chlorhex/Alc 1 each TP Q72H 02/08/17 [Vacustim Silver Kit] Silver Sulfadiazine 1% Top Cr 1 applic TP ASDIR 02/08/17 [Silvadene -] Benztropine Mesylate 1 mg PO AM 07/12/17 Oxycodone HCl 5 mg PO MOWEFR 07/12/17 ASSESSMENT AND PLAN: Patient is a a 62 year old female resident of [facility] with a over 30 years history of MS and PMHx of chronic R buttock and sacral ulcer, schizophrenia, depression, hyperlipidemia. Patient's aide brought her to wound care today for evaluation of the chronic ulcers, but was referred to ED by wound care physician for further evaluation and treatment. And was noted to have Tmax 103 this am. #s/p Septic shock off pressors now, off Levophed. s/p 5 liters of IV bolus of NS. On IV antibiotic zosyn/vanco , ID on the case for further management. ESR= 111 # Decubitus ulcer with Large tunneling ulcer on the left hip On IV antibiotic Zosyn and Vancomycin , ID consult appreciated, panculture results as above. is on the case the plastic surgeon. as per Dr. major No flap closure till nutritional build up; Possible VAC on Monday and Surgical debridement on as necrotic tissue has decreased, with considerations VAC application with Silver foam on Monday # Hx of MS on neurontin continue # HLD on lipitor continue #Schizophrenia on Risperedal continue # major depressive on remeron continue History of DVT on eliquis discontinued for now , No DVT as per Duplex result . DVT px; heparin sq Visit type - Emergency Visit Emergency Visit: Yes ED Registration Date: 07/12/17 Care time: The patient presented to the Emergency Department on the above date and was hospitalized for further evaluation of their emergent condition. - New Patient This patient is new to me today: No - Critical Care Critical Care patient: No
[2017-07-15] MEDS: SODIUM CHLORIDE 1,000 ML IV SCH (17:47)
[2017-07-15] MEDS: MIRTAZAPINE 15 MG TABLET (FP) PO SCH (22:42)
[2017-07-15] MEDS: DOCUSATE SODIUM 100 MG CAPSULE (FP) PO PRN (22:42)
[2017-07-16] MEDS: VANCOMYCIN 1,250 MG in DEXTROSE 5%-WATER - 250 ML IVPB SCH ×3 (00:14→21:05)
[2017-07-16] MEDS ORDERED: PIPERACILLIN/TAZOBACTAM 3.375 GM VIAL IVPB ONE ×4 (01:06→17:34)
[2017-07-16] MEDS ORDERED: DEXTROSE 5%-WATER - 50 ML IVPB ONE ×4 (01:06→17:35)
[2017-07-16] MEDS: PIPERACILLIN/TAZOB 3.375 GM 3.375 GM in DEXTROSE 5%-WATER - 50 ML IVPB SCH ×3 (01:16→17:42)
[2017-07-16] MEDS: HEPARIN NA (PORCINE) 5,000 UNITS/ML 1ML VIAL SQ SCH ×3 (06:43→21:04)
[2017-07-16] MEDS: BENZTROPINE MESYLATE 1 MG TABLET (FP) PO SCH (06:43)
[2017-07-16 07:19] LABS: MCH 24.1 pg (25.7-33.7); MCHC 31.9 g/dl (32.0-36.0); MEAN CELL VOLUME 75.5 fl (80-96); MEAN PLT VOLUME 6.7 fl (7.5-11.1); PLATELET COUNT 380 K/MM3 (134-434); RDW 16.6 % (11.6-15.6); WHITE BLOOD COUNT 7.4 K/mm3 (4.0-10.0)
[2017-07-16 07:50] LABS: ALBUMIN 1.1 g/dl (3.4-5.0); ALK PHOS 98 U/L (45-117); ANION GAP 7 (8-16); BILIRUBIN,TOTAL 0.2 mg/dL (0.2-1.0); CALCIUM 7.4 mg/dL (8.5-10.1); CO2 30 mmol/L (21-32); CREATININE 0.3 mg/dL (0.55-1.02); GLUCOSE,RANDOM 80 mg/dL (74-106); MAGNESIUM 1.8 mg/dL (1.8-2.4); SGOT/AST 13 U/L (15-37); SGPT/ALT 25 U/L (12-78); TOT PROT 4.7 g/dl (6.4-8.2)
[2017-07-16] MEDS ORDERED: PT OWN MED DRAWER 7, Y5N ONE ×2 (10:13→20:50)
[2017-07-16] MEDS: FERROUS SO4 325 MG TABLET (FP) PO SCH ×2 (10:32→21:02)
[2017-07-16] MEDS: GABAPENTIN 300 MG CAPSULE (FP) PO SCH ×2 (10:32→21:02)
[2017-07-16] MEDS: BACLOFEN 10 MG TABLET (FP) PO SCH ×4 (10:32→21:03)
[2017-07-16] MEDS: LETROZOLE 2.5 MG TABLET (FP) PO SCH (10:33)
[2017-07-16] MEDS: risperiDONE 1 MG TABLET (FP) PO SCH ×2 (10:33→21:03)
[2017-07-16] MEDS: FAMOTIDINE 20 MG/50 ML IVPB 50 ML IVPB SCH ×2 (10:51→21:05)
[2017-07-16] MEDS: ACETAMINOPHEN 325 MG TABLET (FP) PO PRN ×2 (12:42→21:04)
[2017-07-16] MEDS: SODIUM HYPOCHLORITE 0.25%- 473 ML BULK BOTTLE TP SCH ×2 (12:44→21:05)
[2017-07-16] MEDS: POLYETHYLENE GLYCOL 3350 255 GM BTL PO SCH ×2 (13:58→21:05)
--- NOTE | 2017-07-16 19:02 | PN ---
Progress Note (short form) - Note Progress Note: Comfortable with no acute distress. feels well Temperature 99.1 F 07/16/17 14:00 Pulse Rate 101 H 07/16/17 14:00 Respiratory Rate 18 07/16/17 14:00 Blood Pressure 131/65 07/16/17 14:00 O2 Sat by Pulse Oximetry (%) 93 L 07/16/17 10:30 GENERAL: The patient is awake, alert, and fully oriented, in no acute distress. ENT: moist mucous membranes. LUNGS: Breath sounds equal, clear to auscultation bilaterally, no wheezes, no crackles, no accessory muscle use. HEART: Regular rate and rhythm, S1, S2 without murmur, rub or gallop. ABDOMEN: Full, Soft, nontender, normoactive bowel sounds EXTREMITIES: no edema, quadriparesis. NEUROLOGICAL: Alert and oriented X3. Normal speech, positive for MS, paraplegic of LEs SKIN: Ulcer on sacrum/coccyx and L hip improving . L hip- about 2x1cm, sacrum/coccyx-4x 4cm- stage 4/4. CBCD WBC 7.4 K/mm3 (4.0-10.0) 07/16/17 06:40 RBC 3.77 M/mm3 (3.60-5.2) 07/16/17 06:40 Hgb 9.1 GM/dL (10.7-15.3) L D 07/16/17 06:40 Hct 28.5 % (32.4-45.2) L 07/16/17 06:40 MCV 75.5 fl (80-96) L 07/16/17 06:40 MCHC 31.9 g/dl (32.0-36.0) L 07/16/17 06:40 RDW 16.6 % (11.6-15.6) H 07/16/17 06:40 Plt Count 380 K/MM3 (134-434) 07/16/17 06:40 MPV 6.7 fl (7.5-11.1) L 07/16/17 06:40 CMP Sodium 146 mmol/L (136-145) H 07/16/17 06:40 Potassium 3.1 mmol/L (3.5-5.1) L 07/16/17 06:40 Chloride 109 mmol/L (98-107) H 07/16/17 06:40 Carbon Dioxide 30 mmol/L (21-32) 07/16/17 06:40 Anion Gap 7 (8-16) L 07/16/17 06:40 BUN 3 mg/dL (7-18) L D 07/16/17 06:40 Creatinine 0.3 mg/dL (0.55-1.02) L 07/16/17 06:40 Creat Clearance w eGFR > 60 (>60) 07/16/17 06:40 Random Glucose 80 mg/dL (74-106) 07/16/17 06:40 Calcium 7.4 mg/dL (8.5-10.1) L 07/16/17 06:40 Total Bilirubin 0.2 mg/dL (0.2-1.0) D 07/16/17 06:40 AST 13 U/L (15-37) L D 07/16/17 06:40 ALT 25 U/L (12-78) D 07/16/17 06:40 Alkaline Phosphatase 98 U/L (45-117) 07/16/17 06:40 Total Protein 4.7 g/dl (6.4-8.2) L 07/16/17 06:40 Albumin 1.1 g/dl (3.4-5.0) L 07/16/17 06:40 CARDIAC ENZYMES Creatine Kinase 202 IU/L (26-192) H 07/13/17 05:20 Troponin I < 0.02 ng/ml (0.00-0.05) 07/13/17 05:20 Current Medications Generic Name Dose Route Start Last Admin Trade Name Hussain PRN Reason Stop Dose Admin Acetaminophen 650 mg 07/14/17 19:21 07/16/17 12:42 Tylenol - PO 650 mg Q4H PRN Administration FEVER OR PAIN Baclofen 20 mg 07/14/17 22:00 07/16/17 17:42 Lioresal - PO 20 mg QID NAYAN Administration Benztropine Mesylate 1 mg 07/15/17 07:00 07/16/17 06:43 Cogentin - PO 1 mg AM NAYAN Administration Docusate Sodium 100 mg 07/16/17 22:00 Colace - PO BID [facility] Ferrous Sulfate 325 mg 07/14/17 22:00 07/16/17 10:32 Feosol - PO 325 mg BID NAYAN Administration Gabapentin 300 mg 07/14/17 22:00 07/16/17 10:32 Neurontin - PO 300 mg BID NAYAN Administration Heparin Sodium (Porcine) 5,000 unit 07/14/17 22:00 07/16/17 13:59 Heparin - SQ 5,000 unit TID NAYAN Administration Hydromorphone HCl 0.5 mg 07/14/17 19:21 Dilaudid Injection - IVPUSH Q4H PRN PAIN Famotidine/Sodium Chloride 50 mls @ 100 mls/hr 07/14/17 22:00 07/16/17 10:51 Pepcid 20 Mg Premixed Ivpb - IVPB 100 mls/hr BID NAYAN Administration Vancomycin HCl 1,250 mg/ 250 mls @ 150 mls/hr 07/14/17 22:00 07/16/17 10:31 Dextrose IVPB 150 mls/hr BID NAYAN Administration Protocol Piperacillin Sod/Tazobactam 50 mls @ 100 mls/hr 07/15/17 02:00 07/16/17 17:42 Sod 3.375 gm/ Dextrose IVPB 100 mls/hr Q8H-IV NAYAN Administration Protocol Letrozole 2.5 mg 07/15/17 10:00 07/16/17 10:33 Femara - PO 2.5 mg DAILY NAYAN Administration Mirtazapine 30 mg 07/14/17 22:00 07/15/17 22:42 Remeron - PO 30 mg HS NAYAN Administration Polyethylene Glycol 17 gm 07/16/17 13:30 07/16/17 13:58 Miralax (For Bowel Prep) - PO 17 grams BID NAYAN Administration Risperidone 1 mg 07/14/17 22:00 07/16/17 10:33 Risperdal - PO 1 mg BID NAYAN Administration Sodium Hypochlorite 1 applic 07/14/17 22:00 07/16/17 12:44 Dakin's Solution 0.25% (Half-Strength) - TP 1 applic BID NAYAN Administration Home Medications Medication Instructions Recorded Acetaminophen [Tylenol] 650 mg PO Q6H 02/08/17 Apixaban [Eliquis -] 5 mg PO Q12H 02/08/17 Arginine/Glutamine/Calcium Hmb 1 each PO BID 02/08/17 [Gordon Packet] Atorvastatin Ca [Lipitor] 20 mg PO HS 02/08/17 Baclofen 20 mg PO QID 02/08/17 Bismuth Tribromoph/Petrolatum 1 each TP Q72H 02/08/17 [Xeroform Petrolatum Dress] Calcium Carbonate/Vitamin D3 1 each PO DAILY 02/08/17 [Calcium 600-Vit D3 400 Tablet] Gabapentin [Neurontin -] 300 mg PO BID 02/08/17 Letrozole 2.5 mg PO DAILY 02/08/17 Melatonin 3 mg PO HS 02/08/17 Mirtazapine [Remeron -] 30 mg PO HS 02/08/17 Polyethylene Glycol 3350 [Miralax 17 gm PO Q12H 02/08/17 255 gm Btl -] Risperidone [Risperdal] 1 mg PO BID 02/08/17 Silv/Bandg/Lidoca/Chlorhex/Alc 1 each TP Q72H 02/08/17 [Vacustim Silver Kit] Silver Sulfadiazine 1% Top Cr 1 applic TP ASDIR 02/08/17 [Silvadene -] Benztropine Mesylate 1 mg PO AM 07/12/17 Oxycodone HCl 5 mg PO MOWEFR 07/12/17 ASSESSMENT AND PLAN: Patient is a a 62 year old female resident of [facility] with a over 30 years history of MS and PMHx of chronic R buttock and sacral ulcer, schizophrenia, depression, hyperlipidemia. Patient's aide brought her to wound care today for evaluation of the chronic ulcers, but was referred to ED by wound care physician for further evaluation and treatment. And was noted to have Tmax 103 this am. #s/p Septic shock off pressors now, off Levophed. s/p 5 liters of IV bolus of NS. On IV antibiotic zosyn/vanco , ID on the case for further management. # Decubitus ulcer with Large tunneling ulcer on the left hip On IV antibiotic Zosyn and Vancomycin , ID consult appreciated, panculture results as above. is on the case, the plastic surgeon. as per Dr. Samaniego No flap closure till nutritional build up; Possible VAC on Monday and Surgical debridement on as necrotic tissue has decreased, with considerations VAC application with Silver foam on Monday # Hx of MS on neurontin continue # HLD on lipitor continue #Schizophrenia on Risperedal continue # major depressive on remeron continue History of DVT on eliquis discontinued for now , No DVT as per Duplex result . DVT px; heparin sq Visit type - Emergency Visit Emergency Visit: Yes ED Registration Date: 07/12/17 Care time: The patient presented to the Emergency Department on the above date and was hospitalized for further evaluation of their emergent condition. - New Patient This patient is new to me today: No - Critical Care Critical Care patient: No
[2017-07-16] MEDS: MIRTAZAPINE 15 MG TABLET (FP) PO SCH (21:02)
[2017-07-16] MEDS: DOCUSATE SODIUM 100 MG CAPSULE (FP) PO SCH (21:02)
[2017-07-17] MEDS ORDERED: PIPERACILLIN/TAZOBACTAM 3.375 GM VIAL IVPB ONE ×3 (00:32→16:47)
[2017-07-17] MEDS ORDERED: DEXTROSE 5%-WATER - 50 ML IVPB ONE ×3 (00:33→16:48)
[2017-07-17] MEDS: PIPERACILLIN/TAZOB 3.375 GM 3.375 GM in DEXTROSE 5%-WATER - 50 ML IVPB SCH ×3 (01:09→17:24)
[2017-07-17] MEDS ORDERED: POTASSIUM CHLORIDE TABS 20 MEQ TABLET.ER (FP) PO ONE (06:16)
[2017-07-17] MEDS: HEPARIN NA (PORCINE) 5,000 UNITS/ML 1ML VIAL SQ SCH ×3 (06:39→22:05)
[2017-07-17] MEDS: BENZTROPINE MESYLATE 1 MG TABLET (FP) PO SCH (06:39)
[2017-07-17 08:22] LABS: ANION GAP 11 (8-16); CALCIUM 8.5 mg/dL (8.5-10.1); CO2 30 mmol/L (21-32); CREATININE 0.6 mg/dL (0.55-1.02); GLUCOSE,RANDOM 94 mg/dL (74-106)
[2017-07-17] MEDS ORDERED: PT OWN MED DRAWER 7, Y5N ONE ×4 (09:58→21:48)
[2017-07-17] MEDS: risperiDONE 1 MG TABLET (FP) PO SCH ×2 (10:05→22:04)
[2017-07-17] MEDS: BACLOFEN 10 MG TABLET (FP) PO SCH ×4 (10:05→22:04)
[2017-07-17] MEDS: GABAPENTIN 300 MG CAPSULE (FP) PO SCH ×2 (10:05→22:04)
[2017-07-17] MEDS: FERROUS SO4 325 MG TABLET (FP) PO SCH ×2 (10:06→22:04)
[2017-07-17] MEDS: DOCUSATE SODIUM 100 MG CAPSULE (FP) PO SCH ×2 (10:06→22:04)
[2017-07-17] MEDS: VANCOMYCIN 1,250 MG in DEXTROSE 5%-WATER - 250 ML IVPB SCH ×2 (10:06→22:05)
[2017-07-17] MEDS: LETROZOLE 2.5 MG TABLET (FP) PO SCH (10:06)
[2017-07-17] MEDS: FAMOTIDINE 20 MG/50 ML IVPB 50 ML IVPB SCH ×2 (10:07→22:05)
[2017-07-17] MEDS: SODIUM HYPOCHLORITE 0.25%- 473 ML BULK BOTTLE TP SCH ×2 (10:17→22:05)
[2017-07-17] MEDS: POLYETHYLENE GLYCOL 3350 255 GM BTL PO SCH ×2 (10:18→22:20)
[2017-07-17] MEDS: ACETAMINOPHEN 325 MG TABLET (FP) PO PRN (16:50)
--- NOTE | 2017-07-17 17:20 | PN ---
Progress Note (short form) - Note Progress Note: No new findings. No shortness of breath. Vital Signs Temperature 99.1 F 07/17/17 14:00 Pulse Rate 94 H 07/17/17 14:00 Respiratory Rate 20 07/17/17 14:00 Blood Pressure 120/70 07/17/17 14:00 O2 Sat by Pulse Oximetry (%) 97 07/17/17 10:00 GENERAL: The patient is awake, alert, and fully oriented, in no acute distress. ENT: moist mucous membranes. LUNGS: Breath sounds equal, clear to auscultation bilaterally, no wheezes, no crackles, no accessory muscle use. HEART: Regular rate and rhythm, S1, S2 without murmur, rub or gallop. ABDOMEN: Full, Soft, nontender, normoactive bowel sounds EXTREMITIES: no edema, quadriparesis. NEUROLOGICAL: Alert and oriented X3. Normal speech SKIN: Ulcer on sacrum/coccyx and L hip improving . L hip- about 2x1cm, sacrum/coccyx-4x 4cm- stage 4/4. CBCD WBC 7.4 K/mm3 (4.0-10.0) 07/16/17 06:40 RBC 3.77 M/mm3 (3.60-5.2) 07/16/17 06:40 Hgb 9.1 GM/dL (10.7-15.3) L D 07/16/17 06:40 Hct 28.5 % (32.4-45.2) L 07/16/17 06:40 MCV 75.5 fl (80-96) L 07/16/17 06:40 MCHC 31.9 g/dl (32.0-36.0) L 07/16/17 06:40 RDW 16.6 % (11.6-15.6) H 07/16/17 06:40 Plt Count 380 K/MM3 (134-434) 07/16/17 06:40 MPV 6.7 fl (7.5-11.1) L 07/16/17 06:40 CMP Sodium 144 mmol/L (136-145) 07/17/17 06:00 Potassium 3.4 mmol/L (3.5-5.1) L 07/17/17 06:00 Chloride 103 mmol/L (98-107) 07/17/17 06:00 Carbon Dioxide 30 mmol/L (21-32) 07/17/17 06:00 Anion Gap 11 (8-16) 07/17/17 06:00 BUN 7 mg/dL (7-18) D 07/17/17 06:00 Creatinine 0.6 mg/dL (0.55-1.02) D 07/17/17 06:00 Creat Clearance w eGFR > 60 (>60) 07/16/17 06:40 Random Glucose 94 mg/dL (74-106) 07/17/17 06:00 Calcium 8.5 mg/dL (8.5-10.1) 07/17/17 06:00 Total Bilirubin 0.2 mg/dL (0.2-1.0) D 07/16/17 06:40 AST 13 U/L (15-37) L D 07/16/17 06:40 ALT 25 U/L (12-78) D 07/16/17 06:40 Alkaline Phosphatase 98 U/L (45-117) 07/16/17 06:40 Total Protein 4.7 g/dl (6.4-8.2) L 07/16/17 06:40 Albumin 1.1 g/dl (3.4-5.0) L 07/16/17 06:40 CARDIAC ENZYMES Creatine Kinase 202 IU/L (26-192) H 07/13/17 05:20 Troponin I < 0.02 ng/ml (0.00-0.05) 07/13/17 05:20 Current Medications Generic Name Dose Route Start Last Admin Trade Name Freq PRN Reason Stop Dose Admin Acetaminophen 650 mg 07/14/17 19:21 07/17/17 16:50 Tylenol - PO 650 mg Q4H PRN Administration FEVER OR PAIN Baclofen 20 mg 07/14/17 22:00 07/17/17 13:30 Lioresal - PO 20 mg QID NAYAN Administration Benztropine Mesylate 1 mg 07/15/17 07:00 07/17/17 06:39 Cogentin - PO 1 mg AM ANYAN Administration Docusate Sodium 100 mg 07/16/17 22:00 07/17/17 10:06 Colace - PO 100 mg BID NAYAN Administration Ferrous Sulfate 325 mg 07/14/17 22:00 07/17/17 10:06 Feosol - PO 325 mg BID NAYAN Administration Gabapentin 300 mg 07/14/17 22:00 07/17/17 10:05 Neurontin - PO 300 mg BID NAYAN Administration Heparin Sodium (Porcine) 5,000 unit 07/14/17 22:00 07/17/17 13:30 Heparin - SQ 5,000 unit TID NAYAN Administration Hydromorphone HCl 0.5 mg 07/14/17 19:21 Dilaudid Injection - IVPUSH Q4H PRN PAIN Famotidine/Sodium Chloride 50 mls @ 100 mls/hr 07/14/17 22:00 07/17/17 10:07 Pepcid 20 Mg Premixed Ivpb - IVPB 100 mls/hr BID NAYAN Administration Vancomycin HCl 1,250 mg/ 250 mls @ 150 mls/hr 07/14/17 22:00 07/17/17 10:06 Dextrose IVPB 150 mls/hr BID NAYAN Administration Protocol Piperacillin Sod/Tazobactam 50 mls @ 100 mls/hr 07/15/17 02:00 07/17/17 10:08 Sod 3.375 gm/ Dextrose IVPB 100 mls/hr Q8H-IV NAYAN Administration Protocol Letrozole 2.5 mg 07/15/17 10:00 07/17/17 10:06 Femara - PO 2.5 mg DAILY NAYAN Administration Mirtazapine 30 mg 07/14/17 22:00 07/16/17 21:02 Remeron - PO 30 mg HS NAYAN Administration Polyethylene Glycol 17 gm 07/16/17 13:30 07/17/17 10:18 Miralax (For Bowel Prep) - PO 17 grams BID NAYAN Administration Risperidone 1 mg 07/14/17 22:00 07/17/17 10:05 Risperdal - PO 1 mg BID NAYAN Administration Sodium Hypochlorite 1 applic 07/14/17 22:00 07/17/17 10:17 Dakin's Solution 0.25% (Half-Strength) - TP 1 applic BID NAYAN Administration Home Medications Medication Instructions Recorded Acetaminophen [Tylenol] 650 mg PO Q6H 02/08/17 Apixaban [Eliquis -] 5 mg PO Q12H 02/08/17 Arginine/Glutamine/Calcium Hmb 1 each PO BID 02/08/17 [Gordon Packet] Atorvastatin Ca [Lipitor] 20 mg PO HS 02/08/17 Baclofen 20 mg PO QID 02/08/17 Bismuth Tribromoph/Petrolatum 1 each TP Q72H 02/08/17 [Xeroform Petrolatum Dress] Calcium Carbonate/Vitamin D3 1 each PO DAILY 02/08/17 [Calcium 600-Vit D3 400 Tablet] Gabapentin [Neurontin -] 300 mg PO BID 02/08/17 Letrozole 2.5 mg PO DAILY 02/08/17 Melatonin 3 mg PO HS 02/08/17 Mirtazapine [Remeron -] 30 mg PO HS 02/08/17 Polyethylene Glycol 3350 [Miralax 17 gm PO Q12H 02/08/17 255 gm Btl -] Risperidone [Risperdal] 1 mg PO BID 02/08/17 Silv/Bandg/Lidoca/Chlorhex/Alc 1 each TP Q72H 02/08/17 [Vacustim Silver Kit] Silver Sulfadiazine 1% Top Cr 1 applic TP ASDIR 02/08/17 [Silvadene -] Benztropine Mesylate 1 mg PO AM 07/12/17 Oxycodone HCl 5 mg PO MOWEFR 07/12/17 Patient is a a 62 year old female resident of [facility] with a over 30 years history of MS and PMHx of chronic R buttock and sacral ulcer, schizophrenia, depression, hyperlipidemia. Patient's aide brought her to wound care today for evaluation of the chronic ulcers, but was referred to ED by wound care physician for further evaluation and treatment. And was noted to have Tmax 103 on admission. # Decubitus ulcer with Large tunneling ulcer on the left hip On IV antibiotic Zosyn and Vancomycin , ID consult on the case , panculture results as above. is on the case the plastic surgeon. as per Dr. major No flap closure till nutritional build up; Possible VAC on Monday and Surgical debridement on as necrotic tissue has decreased, with considerations VAC application with Silver foam on Monday . Nutrition consult requested for nutritional build up. #s/p Septic shock s/p pressors s/p 5 liters of IV bolus of NS. On IV antibiotic zosyn/vanco , ID on the case for further management. # Hx of MS on neurontin continue # HLD on lipitor continue #Schizophrenia on Risperedal continue # major depressive on remeron continue History of DVT on eliquis discontinued for now , No DVT as per Duplex result . DVT px; heparin sq Visit type - Emergency Visit Emergency Visit: Yes ED Registration Date: 07/12/17 Care time: The patient presented to the Emergency Department on the above date and was hospitalized for further evaluation of their emergent condition. - New Patient This patient is new to me today: No - Critical Care Critical Care patient: No
[2017-07-17] MEDS: MIRTAZAPINE 15 MG TABLET (FP) PO SCH (22:04)
[2017-07-18] MEDS ORDERED: PIPERACILLIN/TAZOBACTAM 3.375 GM VIAL IVPB ONE ×3 (01:32→17:10)
[2017-07-18] MEDS ORDERED: DEXTROSE 5%-WATER - 50 ML IVPB ONE ×3 (01:32→17:11)
[2017-07-18] MEDS: PIPERACILLIN/TAZOB 3.375 GM 3.375 GM in DEXTROSE 5%-WATER - 50 ML IVPB SCH ×3 (02:23→17:16)
[2017-07-18] MEDS ORDERED: PT OWN MED DRAWER 7, Y5N ONE ×5 (06:02→23:06)
[2017-07-18] MEDS: HEPARIN NA (PORCINE) 5,000 UNITS/ML 1ML VIAL SQ SCH ×3 (06:05→23:01)
[2017-07-18] MEDS: BENZTROPINE MESYLATE 1 MG TABLET (FP) PO SCH (06:05)
[2017-07-18] MEDS: FAMOTIDINE 20 MG/50 ML IVPB 50 ML IVPB SCH ×2 (09:53→23:02)
[2017-07-18] MEDS: VANCOMYCIN 1,250 MG in DEXTROSE 5%-WATER - 250 ML IVPB SCH (09:57)
[2017-07-18] MEDS ORDERED: POTASSIUM CHLORIDE TABS 20 MEQ TABLET.ER (FP) PO SCH (10:00)
[2017-07-18 10:20] LABS: MCH 24.5 pg (25.7-33.7); MCHC 31.7 g/dl (32.0-36.0); MEAN CELL VOLUME 77.2 fl (80-96); MEAN PLT VOLUME 7.2 fl (7.5-11.1); PLATELET COUNT 398 K/MM3 (134-434); RDW 17.5 % (11.6-15.6)
--- NOTE | 2017-07-18 10:44 | PN ---
Progress Note (short form) - Note Progress Note: FU patient more stable but drowsy/lethargic Vital signs have improved Microbiology 07/12/17 12:29 Urine - Urine - Catheterized Urine Culture - Final Pseudomonas Aeruginosa Citrobacter Freundii Complex 07/12/17 11:35 Hip - Left Gram Stain - Final 07/12/17 11:35 Hip - Left Wound Culture - Final Proteus Mirabilis Enterococcus Faecalis Mr S Aureus 07/12/17 11:35 Coccyx Gram Stain - Final 07/12/17 11:35 Coccyx Wound Culture - Final Pseudomonas Aeruginosa Proteus Mirabilis Mr S Aureus Enterococcus Faecalis Selected Entries 07/18/17 07/18/17 06:21 10:00 Temperature 99.2 F Pulse Rate 80 Blood Pressure 130/71 Oxygen Flow 4 Rate Laboratory Tests 07/12/17 07/16/17 07/18/17 11:35 06:40 07:00 WBC 13.3 H D 10.0 D Hgb 9.2 L D 10.0 L Hct 29.5 L D 31.6 L Sodium 146 H Potassium 3.1 L Chloride 109 H BUN 3 L D Creatinine 0.3 L Random Glucose 80 Alkaline Phosphatase 98 Total Protein 4.7 L Albumin 1.1 L Wound care on Dakins solution Plan : Will D/C Dakins solution Bactroban cream daily Repeat culture in 48 hours Flap procedure delayed till nutrition status improves I left a message with Dr Molina regarding SNF
[2017-07-18 10:53] LABS: ALBUMIN 1.4 g/dl (3.4-5.0); ANION GAP 10 (8-16); CALCIUM 9.1 mg/dL (8.5-10.1); CO2 30 mmol/L (21-32); CREATININE 0.6 mg/dL (0.55-1.02); GLUCOSE,RANDOM 80 mg/dL (74-106); MAGNESIUM 2.5 mg/dL (1.8-2.4); SGOT/AST 15 U/L (15-37); SGPT/ALT 21 U/L (12-78); TOT PROT 5.7 g/dl (6.4-8.2)
[2017-07-18 11:02] LABS: ALK PHOS 126 U/L (45-117); BILIRUBIN,TOTAL 0.3 mg/dL (0.2-1.0)
[2017-07-18] MEDS: GABAPENTIN 300 MG CAPSULE (FP) PO SCH ×2 (11:13→23:02)
[2017-07-18] MEDS: DOCUSATE SODIUM 100 MG CAPSULE (FP) PO SCH ×2 (11:14→23:01)
[2017-07-18] MEDS: FERROUS SO4 325 MG TABLET (FP) PO SCH ×2 (11:14→23:01)
[2017-07-18] MEDS: risperiDONE 1 MG TABLET (FP) PO SCH ×2 (11:15→23:02)
[2017-07-18] MEDS: LETROZOLE 2.5 MG TABLET (FP) PO SCH (11:16)
[2017-07-18] MEDS: BACLOFEN 10 MG TABLET (FP) PO SCH ×4 (11:17→23:04)
[2017-07-18] MEDS: POTASSIUM CHLORIDE TABS 20 MEQ TABLET.ER (FP) PO SCH ×2 (11:49→23:01)
[2017-07-18] MEDS: POLYETHYLENE GLYCOL 3350 255 GM BTL PO SCH ×2 (11:50→23:02)
[2017-07-18] MEDS: SODIUM HYPOCHLORITE 0.25%- 473 ML BULK BOTTLE TP SCH (11:52)
--- NOTE | 2017-07-18 12:20 | PN ---
Physical Exam: SUBJECTIVE: Patient seen and examined. Drowsy but arousable. OBJECTIVE: Selected Entries 07/18/17 07/18/17 07/18/17 10:00 10:36 14:00 Temperature 99.2 F 99.1 F Pulse Rate 80 108 H Respiratory 18 Rate Blood Pressure 130/71 108/54 O2 Sat by Pulse 91 L Oximetry (%) Oxygen Delivery Room Air Method Vital Signs Period Temp Pulse Resp BP Sys/Claudio Pulse Ox Last 24 Hr 98.5 F-100.1 F 80-102 17-20 119-138/47-71 91-92 GENERAL: The patient is drowsy, in no acute distress. LUNGS: Breath sounds equal, clear to auscultation bilaterally, no wheezes, no crackles, no accessory muscle use. HEART: Regular rate and rhythm, S1, S2 without murmur, rub or gallop. ABDOMEN: Soft, nontender, nondistended, normoactive bowel sounds, EXTREMITIES: No edema. NEUROLOGICAL: Normal speech, quadriparesis Laboratory Results - last 24 hr 07/18/17 07/18/17 07/18/17 07:00 07:00 07:00 WBC 10.0 D RBC 4.10 Hgb 10.0 L Hct 31.6 L MCV 77.2 L MCH 24.5 L MCHC 31.7 L RDW 17.5 H Plt Count 398 MPV 7.2 L Neutrophils % Y Lymphocytes % Y Sodium 145 Potassium 3.8 Chloride 105 Carbon Dioxide 30 Anion Gap 10 BUN 8 Creatinine 0.6 Creat Clearance w eGFR > 60 Random Glucose 80 Calcium 9.1 Phosphorus 4.1 D Magnesium 2.5 H D Total Bilirubin 0.3 D AST 15 ALT 21 Alkaline Phosphatase 126 H D Total Protein 5.7 L D Albumin 1.4 L D Active Medications Generic Name Dose Route Start Last Admin Trade Name Freq PRN Reason Stop Dose Admin Acetaminophen 650 mg 07/14/17 19:21 07/17/17 16:50 Tylenol - PO 650 mg Q4H PRN Administration FEVER OR PAIN Amino Acids 30 ml 07/18/17 14:00 Prosource No Carb Liquid Pkt PO TID NAYAN Baclofen 20 mg 07/14/17 22:00 07/18/17 11:17 Lioresal - PO 20 mg QID NAYAN Administration Benztropine Mesylate 1 mg 07/15/17 07:00 07/18/17 06:05 Cogentin - PO 1 mg AM NAYAN Administration Docusate Sodium 100 mg 07/16/17 22:00 07/18/17 11:14 Colace - PO 100 mg BID NAYAN Administration Ferrous Sulfate 325 mg 07/14/17 22:00 07/18/17 11:14 Feosol - PO 325 mg BID NAYAN Administration Gabapentin 300 mg 07/14/17 22:00 07/18/17 11:13 Neurontin - PO 300 mg BID NAYAN Administration Heparin Sodium (Porcine) 5,000 unit 07/14/17 22:00 07/18/17 06:05 Heparin - SQ 5,000 unit TID NAYAN Administration Famotidine/Sodium Chloride 50 mls @ 100 mls/hr 07/14/17 22:00 07/18/17 09:53 Pepcid 20 Mg Premixed Ivpb - IVPB 100 mls/hr BID NAYAN Administration Vancomycin HCl 1,250 mg/ 250 mls @ 150 mls/hr 07/14/17 22:00 07/18/17 09:57 Dextrose IVPB 150 mls/hr BID NAYAN Administration Protocol Piperacillin Sod/Tazobactam 50 mls @ 100 mls/hr 07/15/17 02:00 07/18/17 09:53 Sod 3.375 gm/ Dextrose IVPB 100 mls/hr Q8H-IV NAYAN Administration Protocol Letrozole 2.5 mg 07/15/17 10:00 07/18/17 11:16 Femara - PO 2.5 mg DAILY NAYAN Administration Mirtazapine 30 mg 07/14/17 22:00 07/17/17 22:04 Remeron - PO 30 mg HS NAYAN Administration Multivitamins/Minerals 1 each 07/18/17 12:30 Theragran-M PO DAILY NAYAN Mupirocin 1 applic 07/18/17 22:00 Bactroban 2% Cream - TP BID NAYAN Polyethylene Glycol 17 gm 07/16/17 13:30 07/18/17 11:50 Miralax (For Bowel Prep) - PO 17 grams BID NAYAN Administration Potassium Chloride 40 meq 07/18/17 10:00 07/18/17 11:49 K-Dur - PO 07/18/17 22:01 40 meq BID NAYAN Administration Risperidone 1 mg 07/14/17 22:00 07/18/17 11:15 Risperdal - PO 1 mg BID NAYAN Administration ASSESSMENT/PLAN: 62year old F, care home resident with PMHx of MS, chronic sacral ulcer, schizophrenia, depression, HL sent to the ED for fevers, admitted to ICu for sepsis secondary to wound infection and UTI. Stepped down to telemetry 4 days ago. #Septic shock: Secondary to wound infection and UTI - all cultured organisms sensitive to Zosyn -Had a temperature spike of 100.1 on 07/17/17, T today- 99.1 -continue per ID Iv zosyn -day 6, and vancomycin- day 5 - Continue Iv N/saline - Continue Input and output - Post transfusion of 1 unit PRBC- Hgb-8.2 -foleys catheter replacement as needed -Debridement not needed at this time as wound is clean-per surgeon -Discontinue Dakins, start bactroban cream daily -For flap closure when nutritionally built up *Nutritional supplements: _Prosource- 30cc tids D/c ensure- Patient does not like the one she is being given Magic cup -bid Zinc 220 PO dly Vit C 500mg Bid - - Continue-CMP, CBC, Mg, P, -For vanco trough- orders in -For culture repeat in 48 hrs #Hypokalemia Corrected with PO. potassium`Chloride 40mg bid # Microcytic Anemia: On iron supplement Hgb trending up 10.0 today continue CBC monitoring #Infected Chronic Decubitus ulcers: 07/12/17 11:35 Hip - Left Wound Culture - Preliminary Proteus Species Group D Strep Or Entero Coccus Staphylococcus Latex Coag Pos 07/12/17 11:35 Coccyx Wound Culture - Preliminary Presumptive Ps Aeruginosa Proteus Species Staphylococcus Latex Coag Pos Group D Strep Or Entero Coccus Cultures all sensitive to Zosyn (day 2 on it) - surgeon seeing -For flap closure when her nutrition is built up -CBC, PT/PTT/INR, CMP, CXR, -- Iv zosyn -Iv N/saline - Turn as needed - Wound care with bactroban stop Dakins solution #UTI -07/12/17 12:29 Urine - Urine - Catheterized Urine Culture - Preliminary Presumptive Ps Aeruginosa Lactose Fermenting Neg Bacilli- sensitive to zosyn Plan:Continue iv zosyn and vanco For vanco trough #Intermittent Tachycardia: Pulse rate has been more stable in the 80s *Intermittent tachycardia- max 80-108, *Patient is off pressors Transferred out of telemetry- to Med Surg #Hypomagnesemia Corrected with 800mg PO Magnesium Oxide x 3 doses #MS -With quadriparesis, bladder and bowel incontinence, - occasional constipation -on chronic catheter use and diaper -Lives in a care home with aides Plan: - Change catheter as needed -turn frequently -miralax -baclofen -gabapentin - #S/P R breast cancer -letrozole - Ca carbonate/Vit D3 #Obesity #Hyperlipidemia -atorvostatin #Schizophrenia _risperidone -benztropine #Depression Mirtazepine #Chronic pain -hydromorphone- discontinued #constipation - MS -chronic opiate use Plan: -Miralax as needed -frequent turning #Sleep disorder: Melatonin #FEN Fluids: Baxter oral fluids as patient tolerates Monitor I&Os Electrolytes:CMP, Mg, Phosphate, Ca Nutrition: Nutritional supplements: _Prosource- 30cc tids D/c ensure- Patient does not like the one she is being given Magic cup -bid Zinc 220 PO dly Vit C 500mg Bid #Prophylaxis DVT: SQ Heparin GI: Pepcid #Dispo Transfer to [facility]-orders in Problem List - Problems (1) Sepsis - Septicemia Code(s): A41.9 - SEPSIS, UNSPECIFIED ORGANISM (2) Infected decubitus ulcer Code(s): L89.90 - PRESSURE ULCER OF UNSPECIFIED SITE, UNSPECIFIED STAGE Qualifiers: Pressure ulcer stage: unstageable Qualified Code(s): L89.95 - Pressure ulcer of unspecified site, unstageable; L08.9 - Local infection of the skin and subcutaneous tissue, unspecified (3) Urinary tract infection Code(s): N39.0 - URINARY TRACT INFECTION, SITE NOT SPECIFIED Qualifiers: Indwelling urinary catheter type: indwelling urethral catheter Encounter type: initial encounter Visit type - Emergency Visit Emergency Visit: Yes ED Registration Date: 07/12/17 Care time: The patient presented to the Emergency Department on the above date and was hospitalized for further evaluation of their emergent condition. - New Patient This patient is new to me today: No - Critical Care Critical Care patient: No - Discharge Referral Referred to [facility] Med P.C.: No
[2017-07-18 13:14] LABS: MYELOCYTE 3 % (0-2); PLATELET ESTIMATE ADEQUATE (NORMAL); TOTAL CELLS COUNTED 100
[2017-07-18] MEDS: MULTIVITAMINS THER W-MINERALS COMBO TABLET (FP) PO SCH (13:30)
[2017-07-18] MEDS: ASCORBIC ACID 500 MG TABLET (FP) PO SCH ×2 (13:31→23:02)
--- NOTE | 2017-07-18 15:47 | PN ---
Progress Note (short form) - Note Progress Note: drowsy Vital Signs Period Temp Pulse Resp BP Sys/Claudio Pulse Ox Last 24 Hr 98.5 F-100.1 F 80-108 17-18 108-138/47-71 91-92 cor-rrr lungs decreased bs at bases abd soft,nt ext no edema buttock ulcer and sacral ulcer are clean borjas CBC, BMP 07/18/17 07:00 07/18/17 07:00 Microbiology 07/12/17 11:58 Blood - Peripheral Venous Blood Culture - Final NO GROWTH AFTER 5 DAYS INCUBATION 07/12/17 11:35 Blood - Peripheral Venous Blood Culture - Final NO GROWTH AFTER 5 DAYS INCUBATION 07/12/17 11:35 Coccyx Gram Stain - Final 07/12/17 11:35 Coccyx Wound Culture - Final Pseudomonas Aeruginosa Proteus Mirabilis Mr S Aureus Enterococcus Faecalis 07/12/17 12:29 Urine - Urine - Catheterized Urine Culture - Final Pseudomonas Aeruginosa Citrobacter Freundii Complex 07/12/17 11:35 Hip - Left Gram Stain - Final 07/12/17 11:35 Hip - Left Wound Culture - Final Proteus Mirabilis Enterococcus Faecalis Mr S Aureus a/p UTI- infected wound - improving plastic surgery consult noted continue vanco/zosyn for UTI/infected wound MS/bedbound
[2017-07-18] MEDS: ZINC SULFATE 220 MG CAPSULE (FP) PO SCH (16:30)
[2017-07-18] MEDS: AMINO ACIDS/PROTEIN HYDROLYS 30 ML LIQUID.PKT PO SCH (17:17)
--- NOTE | 2017-07-18 19:51 | PN ---
Teaching Attending Note Name of Resident: Ana Maria Machado ATTENDING PHYSICIAN STATEMENT I saw and evaluated the patient. I reviewed the resident's note and discussed the case with the resident. I agree with the resident's findings and plan as documented. SUBJECTIVE: Patient is lying in bed comfortable with no acute distress. OBJECTIVE: Vital Signs Temperature 97.2 F L 07/18/17 18:00 Pulse Rate 108 H 07/18/17 18:00 Respiratory Rate 16 07/18/17 18:00 Blood Pressure 118/59 07/18/17 18:00 O2 Sat by Pulse Oximetry (%) 91 L 07/18/17 10:36 CBCD WBC 10.0 K/mm3 (4.0-10.0) D 07/18/17 07:00 RBC 4.10 M/mm3 (3.60-5.2) 07/18/17 07:00 Hgb 10.0 GM/dL (10.7-15.3) L 07/18/17 07:00 Hct 31.6 % (32.4-45.2) L 07/18/17 07:00 MCV 77.2 fl (80-96) L 07/18/17 07:00 MCHC 31.7 g/dl (32.0-36.0) L 07/18/17 07:00 RDW 17.5 % (11.6-15.6) H 07/18/17 07:00 Plt Count 398 K/MM3 (134-434) 07/18/17 07:00 MPV 7.2 fl (7.5-11.1) L 07/18/17 07:00 CMP Sodium 145 mmol/L (136-145) 07/18/17 07:00 Potassium 3.8 mmol/L (3.5-5.1) 07/18/17 07:00 Chloride 105 mmol/L (98-107) 07/18/17 07:00 Carbon Dioxide 30 mmol/L (21-32) 07/18/17 07:00 Anion Gap 10 (8-16) 07/18/17 07:00 BUN 8 mg/dL (7-18) 07/18/17 07:00 Creatinine 0.6 mg/dL (0.55-1.02) 07/18/17 07:00 Creat Clearance w eGFR > 60 (>60) 07/18/17 07:00 Random Glucose 80 mg/dL (74-106) 07/18/17 07:00 Calcium 9.1 mg/dL (8.5-10.1) 07/18/17 07:00 Total Bilirubin 0.3 mg/dL (0.2-1.0) D 07/18/17 07:00 AST 15 U/L (15-37) 07/18/17 07:00 ALT 21 U/L (12-78) 07/18/17 07:00 Alkaline Phosphatase 126 U/L (45-117) H D 07/18/17 07:00 Total Protein 5.7 g/dl (6.4-8.2) L D 07/18/17 07:00 Albumin 1.4 g/dl (3.4-5.0) L D 07/18/17 07:00 CARDIAC ENZYMES Creatine Kinase 202 IU/L (26-192) H 07/13/17 05:20 Troponin I < 0.02 ng/ml (0.00-0.05) 07/13/17 05:20 Current Medications Generic Name Dose Route Start Last Admin Trade Name Freq PRN Reason Stop Dose Admin Acetaminophen 650 mg 07/14/17 19:21 07/17/17 16:50 Tylenol - PO 650 mg Q4H PRN Administration FEVER OR PAIN Amino Acids 30 ml 07/18/17 17:30 07/18/17 17:17 Prosource No Carb Liquid Pkt PO 30 ml TIDCM NAYAN Administration Ascorbic Acid 500 mg 07/18/17 12:30 07/18/17 13:31 Vitamin C - PO 500 mg BID NAYAN Administration Baclofen 20 mg 07/14/17 22:00 07/18/17 17:17 Lioresal - PO 20 mg QID NAYAN Administration Benztropine Mesylate 1 mg 07/15/17 07:00 07/18/17 06:05 Cogentin - PO 1 mg AM NAYAN Administration Docusate Sodium 100 mg 07/16/17 22:00 07/18/17 11:14 Colace - PO 100 mg BID NAYAN Administration Ferrous Sulfate 325 mg 07/14/17 22:00 07/18/17 11:14 Feosol - PO 325 mg BID NAYAN Administration Gabapentin 300 mg 07/14/17 22:00 07/18/17 11:13 Neurontin - PO 300 mg BID NAYAN Administration Heparin Sodium (Porcine) 5,000 unit 07/14/17 22:00 07/18/17 13:30 Heparin - SQ 5,000 unit TID NAYAN Administration Famotidine/Sodium Chloride 50 mls @ 100 mls/hr 07/14/17 22:00 07/18/17 09:53 Pepcid 20 Mg Premixed Ivpb - IVPB 100 mls/hr BID NAYAN Administration Vancomycin HCl 1,250 mg/ 250 mls @ 150 mls/hr 07/14/17 22:00 07/18/17 09:57 Dextrose IVPB 150 mls/hr BID NAYAN Administration Protocol Piperacillin Sod/Tazobactam 50 mls @ 100 mls/hr 07/15/17 02:00 07/18/17 17:16 Sod 3.375 gm/ Dextrose IVPB 100 mls/hr Q8H-IV NAYAN Administration Protocol Letrozole 2.5 mg 07/15/17 10:00 07/18/17 11:16 Femara - PO 2.5 mg DAILY NAYAN Administration Mirtazapine 30 mg 07/14/17 22:00 07/17/17 22:04 Remeron - PO 30 mg HS NAYAN Administration Multivitamins/Minerals 1 each 07/18/17 12:30 07/18/17 13:30 Theragran-M PO 1 each DAILY NAYAN Administration Mupirocin 1 applic 07/18/17 22:00 Bactroban 2% Cream - TP BID NAYAN Polyethylene Glycol 17 gm 07/16/17 13:30 07/18/17 11:50 Miralax (For Bowel Prep) - PO 17 grams BID NAYAN Administration Potassium Chloride 40 meq 07/18/17 10:00 07/18/17 11:49 K-Dur - PO 07/18/17 22:01 40 meq BID NAYAN Administration Risperidone 1 mg 07/14/17 22:00 07/18/17 11:15 Risperdal - PO 1 mg BID NAYAN Administration Zinc Sulfate 220 mg 07/18/17 12:30 07/18/17 16:30 Orazinc - PO 220 mg DAILY NAYAN Administration Home Medications Medication Instructions Recorded Acetaminophen [Tylenol] 650 mg PO Q6H 02/08/17 Apixaban [Eliquis -] 5 mg PO Q12H 02/08/17 Arginine/Glutamine/Calcium Hmb 1 each PO BID 03/29/17 [Gordon Packet] Atorvastatin Ca [Lipitor] 20 mg PO HS 02/08/17 Baclofen 20 mg PO QID 02/08/17 Bismuth Tribromoph/Petrolatum 1 each TP Q72H 02/08/17 [Xeroform Petrolatum Dress] Calcium Carbonate/Vitamin D3 1 each PO DAILY 02/08/17 [Calcium 600-Vit D3 400 Tablet] Gabapentin [Neurontin -] 300 mg PO BID 02/08/17 Letrozole 2.5 mg PO DAILY 02/08/17 Melatonin 3 mg PO HS 02/08/17 Mirtazapine [Remeron -] 30 mg PO HS 02/08/17 Polyethylene Glycol 3350 [Miralax 17 gm PO Q12H 02/08/17 255 gm Btl -] Risperidone [Risperdal] 1 mg PO BID 02/08/17 Silv/Bandg/Lidoca/Chlorhex/Alc 1 each TP Q72H 02/08/17 [Vacustim Silver Kit] Silver Sulfadiazine 1% Top Cr 1 applic TP ASDIR 02/08/17 [Silvadene -] Benztropine Mesylate 1 mg PO AM 07/12/17 Oxycodone HCl 5 mg PO MOWEFR 07/12/17 ASSESSMENT AND PLAN: Patient is a a 62 year old female resident of [facility] with a over 30 years history of MS and PMHx of chronic R buttock and sacral ulcer, schizophrenia, depression, hyperlipidemia. Patient's aide brought her to wound care today for evaluation of the chronic ulcers, but was referred to ED by wound care physician for further evaluation and treatment. And was noted to have Tmax 103 on admission. # Decubitus ulcer with Large tunneling ulcer on the left hip On IV antibiotic Zosyn and Vancomycin , ID consult on the case , panculture results as above. is on the case the plastic surgeon. as per Dr. major No flap closure till nutritional build up, patient was started on prostat protein, vitamin C and zinc supplement was started ; Possible VAC and Surgical debridement on hold as necrotic tissue has decreased, with considerations VAC application with Silver foam. Nutrition consult requested for nutritional build up. #s/p Septic shock s/p pressors s/p 5 liters of IV bolus of NS. On IV antibiotic zosyn/vanco , ID on the case for further management. # Hx of MS on neurontin continue # HLD on lipitor continue #Schizophrenia on Risperedal continue # major depressive on remeron continue History of DVT on eliquis discontinued for now , No DVT as per Duplex result . DVT px; heparin sq please check with the surgeon for further discharge plan
[2017-07-18] MEDS: MUPIROCIN CA 2% TOPICAL CREAM 15 GM TUBE TP SCH (23:00)
[2017-07-18] MEDS: MIRTAZAPINE 15 MG TABLET (FP) PO SCH (23:02)
[2017-07-19] MEDS: VANCOMYCIN 1,250 MG in DEXTROSE 5%-WATER - 250 ML IVPB SCH ×2 (00:01→11:08)
[2017-07-19] MEDS ORDERED: DEXTROSE 5%-WATER - 50 ML IVPB ONE ×3 (02:04→17:13)
[2017-07-19] MEDS ORDERED: PIPERACILLIN/TAZOBACTAM 3.375 GM VIAL IVPB ONE ×3 (02:04→17:13)
[2017-07-19] MEDS: PIPERACILLIN/TAZOB 3.375 GM 3.375 GM in DEXTROSE 5%-WATER - 50 ML IVPB SCH ×3 (02:10→17:21)
[2017-07-19] MEDS: ACETAMINOPHEN 325 MG TABLET (FP) PO PRN ×2 (02:39→18:46)
[2017-07-19] MEDS: HEPARIN NA (PORCINE) 5,000 UNITS/ML 1ML VIAL SQ SCH ×3 (06:39→23:19)
[2017-07-19] MEDS: BENZTROPINE MESYLATE 1 MG TABLET (FP) PO SCH (06:39)
[2017-07-19 07:46] LABS: ANION GAP 7 (8-16); CO2 29 mmol/L (21-32); GLUCOSE,RANDOM 88 mg/dL (74-106)
[2017-07-19 07:48] LABS: CREATININE 0.6 mg/dL (0.55-1.02)
[2017-07-19] MEDS ORDERED: PT OWN MED DRAWER 7, Y5N ONE ×5 (10:48→23:05)
[2017-07-19] MEDS: FERROUS SO4 325 MG TABLET (FP) PO SCH ×2 (10:58→23:20)
[2017-07-19] MEDS: ASCORBIC ACID 500 MG TABLET (FP) PO SCH ×2 (10:58→23:21)
[2017-07-19] MEDS: GABAPENTIN 300 MG CAPSULE (FP) PO SCH ×2 (10:58→23:20)
[2017-07-19] MEDS: DOCUSATE SODIUM 100 MG CAPSULE (FP) PO SCH ×2 (10:58→23:21)
[2017-07-19] MEDS: ZINC SULFATE 220 MG CAPSULE (FP) PO SCH (10:58)
[2017-07-19] MEDS: risperiDONE 1 MG TABLET (FP) PO SCH ×2 (10:58→23:20)
[2017-07-19] MEDS: MULTIVITAMINS THER W-MINERALS COMBO TABLET (FP) PO SCH (10:59)
[2017-07-19] MEDS: BACLOFEN 10 MG TABLET (FP) PO SCH ×4 (10:59→23:20)
[2017-07-19] MEDS: FAMOTIDINE 20 MG/50 ML IVPB 50 ML IVPB SCH ×2 (10:59→23:20)
[2017-07-19] MEDS: LETROZOLE 2.5 MG TABLET (FP) PO SCH (11:00)
[2017-07-19] MEDS: POLYETHYLENE GLYCOL 3350 255 GM BTL PO SCH ×2 (11:08→23:21)
[2017-07-19] MEDS: AMINO ACIDS/PROTEIN HYDROLYS 30 ML LIQUID.PKT PO SCH ×3 (11:37→17:22)
[2017-07-19] MEDS: MUPIROCIN CA 2% TOPICAL CREAM 15 GM TUBE TP SCH ×2 (13:21→23:21)
--- NOTE | 2017-07-19 14:03 | PN ---
Progress Note (short form) - Note Progress Note: alert ready to return to CT no complaints Vital Signs Period Temp Pulse Resp BP Sys/Claudio Pulse Ox Last 24 Hr 97.2 F-98.4 F 88-108 16-18 114-138/53-77 95 cor-rrr lungs clear abd soft,nt ext no edema borjas CBC, BMP 07/18/17 07:00 07/19/17 06:30 Microbiology 07/12/17 11:58 Blood - Peripheral Venous Blood Culture - Final NO GROWTH AFTER 5 DAYS INCUBATION 07/12/17 11:35 Blood - Peripheral Venous Blood Culture - Final NO GROWTH AFTER 5 DAYS INCUBATION 07/12/17 11:35 Coccyx Gram Stain - Final 07/12/17 11:35 Coccyx Wound Culture - Final Pseudomonas Aeruginosa Proteus Mirabilis Mr S Aureus Enterococcus Faecalis 07/12/17 12:29 Urine - Urine - Catheterized Urine Culture - Final Pseudomonas Aeruginosa Citrobacter Freundii Complex 07/12/17 11:35 Hip - Left Gram Stain - Final 07/12/17 11:35 Hip - Left Wound Culture - Final Proteus Mirabilis Enterococcus Faecalis Mr S Aureus Active Medications Acetaminophen (Tylenol -) 650 mg PO Q4H PRN PRN Reason: FEVER OR PAIN Last Admin: 07/19/17 02:39 Dose: 650 mg Amino Acids (Prosource No Carb Liquid Pkt) 30 ml PO TIDCM [facility] Last Admin: 07/19/17 13:21 Dose: 30 ml Ascorbic Acid (Vitamin C -) 500 mg PO BID [facility] Last Admin: 07/19/17 10:58 Dose: 500 mg Baclofen (Lioresal -) 20 mg PO QID [facility] Last Admin: 07/19/17 13:21 Dose: 20 mg Benztropine Mesylate (Cogentin -) 1 mg PO AM [facility] Last Admin: 07/19/17 06:39 Dose: 1 mg Docusate Sodium (Colace -) 100 mg PO BID [facility] Last Admin: 07/19/17 10:58 Dose: 100 mg Ferrous Sulfate (Feosol -) 325 mg PO BID [facility] Last Admin: 07/19/17 10:58 Dose: 325 mg Gabapentin (Neurontin -) 300 mg PO BID [facility] Last Admin: 07/19/17 10:58 Dose: 300 mg Heparin Sodium (Porcine) (Heparin -) 5,000 unit SQ TID [facility] Last Admin: 07/19/17 13:21 Dose: 5,000 unit Famotidine/Sodium Chloride (Pepcid 20 Mg Premixed Ivpb -) 50 mls @ 100 mls/hr IVPB BID [facility] Last Admin: 07/19/17 10:59 Dose: 100 mls/hr Piperacillin Sod/Tazobactam (Sod 3.375 gm/ Dextrose) 50 mls @ 100 mls/hr IVPB Q8H-IV [facility] PRN Reason: Protocol Last Admin: 07/19/17 10:59 Dose: 100 mls/hr Letrozole (Femara -) 2.5 mg PO DAILY [facility] Last Admin: 07/19/17 11:00 Dose: 2.5 mg Mirtazapine (Remeron -) 30 mg PO HS [facility] Last Admin: 07/18/17 23:02 Dose: 30 mg Multivitamins/Minerals (Theragran-M) 1 each PO DAILY [facility] Last Admin: 07/19/17 10:59 Dose: 1 each Mupirocin (Bactroban 2% Cream -) 1 applic TP BID [facility] Last Admin: 07/19/17 13:21 Dose: 1 applic Polyethylene Glycol (Miralax (For Bowel Prep) -) 17 gm PO BID [facility] Last Admin: 07/19/17 11:08 Dose: 17 grams Risperidone (Risperdal -) 1 mg PO BID [facility] Last Admin: 07/19/17 10:58 Dose: 1 mg Zinc Sulfate (Orazinc -) 220 mg PO DAILY [facility] Last Admin: 07/19/17 10:58 Dose: 220 mg a/p UTI- pseudomonas resistant to quinolones, day #6 of 7 zosyn infected wound - improving plastic surgery consult noted d/w Dr Samaniego, local care for wounds per plastics d/c vancomycin MS/bedbound
--- NOTE | 2017-07-19 20:30 | PN ---
Teaching Attending Note Name of Resident: Ana Maria Machado ATTENDING PHYSICIAN STATEMENT I saw and evaluated the patient. I reviewed the resident's note and discussed the case with the resident. I agree with the resident's findings and plan as documented. SUBJECTIVE: no pain , no fever or chills OBJECTIVE: NAD Cv : RRR Lungs : CTAB ext : no edema decub , not examined Abd :soft , NT< ND < NL BS ASSESSMENT AND PLAN: 62 year old Unfortunate female with PMH of MS , schizophrenia, depression, hyperlipidemia who was sent with fever and infected decub ulcer 1- infected saccral decub: cx noted - cont zosyn - team d/w plastics. no surgical intervention now - d/w ID , o ne more days of IV abx 2- UTI: with pseudomonas . cont zosyn 3- cont psych meds . Possible dc tomorrow
--- NOTE | 2017-07-19 20:47 | PN ---
<Agaba,Comfort I - Last Filed: 07/19/17 20:52> Physical Exam: SUBJECTIVE: Patient seen and examined Drowsy. Brother had asked about discharge. Day 6 on iv antibiotic OBJECTIVE: Vital Signs Period Temp Pulse Resp BP Sys/Claudio Pulse Ox Last 24 Hr 97.4 F-98.4 F 88-98 16-18 114-138/53-77 93-95 GENERAL: The patient is drowsy, in no acute distress. LUNGS: Breath sounds equal, clear to auscultation bilaterally, no wheezes, no crackles, no accessory muscle use. HEART: Regular rate and rhythm, S1, S2 without murmur, rub or gallop. ABDOMEN: Soft, nontender, nondistended, normoactive bowel sounds, EXTREMITIES: No edema. NEUROLOGICAL: Normal speech, quadriparesis Laboratory Results - last 24 hr 07/18/17 07/19/17 21:30 06:30 Sodium 144 Potassium 4.8 D Chloride 108 H Carbon Dioxide 29 Anion Gap 7 L BUN 15 D Creatinine 0.6 Random Glucose 88 Calcium 9.0 Vancomycin Pre-Dose 22.321 H* Active Medications Generic Name Dose Route Start Last Admin Trade Name Freq PRN Reason Stop Dose Admin Acetaminophen 650 mg 07/14/17 19:21 07/19/17 18:46 Tylenol - PO 650 mg Q4H PRN Administration FEVER OR PAIN Amino Acids 30 ml 07/18/17 17:30 07/19/17 17:22 Prosource No Carb Liquid Pkt PO 30 ml TIDCM NAYAN Administration Ascorbic Acid 500 mg 07/18/17 12:30 07/19/17 10:58 Vitamin C - PO 500 mg BID NAYAN Administration Baclofen 20 mg 07/14/17 22:00 07/19/17 17:22 Lioresal - PO 20 mg QID NAYAN Administration Benztropine Mesylate 1 mg 07/15/17 07:00 07/19/17 06:39 Cogentin - PO 1 mg AM NAYAN Administration Docusate Sodium 100 mg 07/16/17 22:00 07/19/17 10:58 Colace - PO 100 mg BID NAYAN Administration Ferrous Sulfate 325 mg 07/14/17 22:00 07/19/17 10:58 Feosol - PO 325 mg BID NAYAN Administration Gabapentin 300 mg 07/14/17 22:00 07/19/17 10:58 Neurontin - PO 300 mg BID NAYAN Administration Heparin Sodium (Porcine) 5,000 unit 07/14/17 22:00 07/19/17 13:21 Heparin - SQ 5,000 unit TID NAYAN Administration Famotidine/Sodium Chloride 50 mls @ 100 mls/hr 07/14/17 22:00 07/19/17 10:59 Pepcid 20 Mg Premixed Ivpb - IVPB 100 mls/hr BID NAYAN Administration Piperacillin Sod/Tazobactam 50 mls @ 100 mls/hr 07/15/17 02:00 07/19/17 17:21 Sod 3.375 gm/ Dextrose IVPB 100 mls/hr Q8H-IV NAYAN Administration Protocol Letrozole 2.5 mg 07/15/17 10:00 07/19/17 11:00 Femara - PO 2.5 mg DAILY NAYAN Administration Mirtazapine 30 mg 07/14/17 22:00 07/18/17 23:02 Remeron - PO 30 mg HS NAYAN Administration Multivitamins/Minerals 1 each 07/18/17 12:30 07/19/17 10:59 Theragran-M PO 1 each DAILY NAYAN Administration Mupirocin 1 applic 07/18/17 22:00 07/19/17 13:21 Bactroban 2% Cream - TP 1 applic BID NAYAN Administration Polyethylene Glycol 17 gm 07/16/17 13:30 07/19/17 11:08 Miralax (For Bowel Prep) - PO 17 grams BID NAYAN Administration Risperidone 1 mg 07/14/17 22:00 07/19/17 10:58 Risperdal - PO 1 mg BID NAYAN Administration Zinc Sulfate 220 mg 07/18/17 12:30 07/19/17 10:58 Orazinc - PO 220 mg DAILY NAYAN Administration ASSESSMENT/PLAN: 62[facility] old F, [facility] resident with PMHx of MS, chronic sacral ulcer, schizophrenia, depression, HL sent to the ED for fevers, admitted to ICu for sepsis secondary to wound infection and UTI. #Septic shock: Secondary to wound infection and UTI - all cultured organisms sensitive to Zosyn -Had a temperature spike of 100.1 on 07/17/17, T today- 99.1 -continue per ID Iv antibiotics-zosyn completion for day 7 tomorrow -D/w Dr Samaniego-Being protein built up for surgical flap probably in 3 months goal albumin should be about 3.2, currently around 1.6. -For flap closure when nutritionally built up *Nutritional supplements: _Prosource- 30cc tids D/c ensure- Patient does not like the one she is being given Magic cup -bid Zinc 220 PO dly Vit C 500mg Bid - - Continue-CMP, CBC, Mg, P, -For vanco trough- orders in -For culture repeat in 48 hrs #Hypokalemia Corrected with PO. potassium`Chloride 40mg bid # Microcytic Anemia: On iron supplement Hgb trending up 10.0 today continue CBC monitoring #Infected Chronic Decubitus ulcers: 07/12/17 11:35 Hip - Left Wound Culture - Preliminary Proteus Species Group D Strep Or Entero Coccus Staphylococcus Latex Coag Pos 07/12/17 11:35 Coccyx Wound Culture - Preliminary Presumptive Ps Aeruginosa Proteus Species Staphylococcus Latex Coag Pos Group D Strep Or Entero Coccus Cultures all sensitive to Zosyn (day 2 on it) - surgeon seeing -For flap closure when her nutrition is built up -CBC, PT/PTT/INR, CMP, CXR, -- Iv zosyn -Iv N/saline - Turn as needed - Wound care with bactroban stop Dakins solution #UTI -07/12/17 12:29 Urine - Urine - Catheterized Urine Culture - Preliminary Presumptive Ps Aeruginosa Lactose Fermenting Neg Bacilli- sensitive to zosyn Plan:Continue iv zosyn #Intermittent Tachycardia: stable vitals #Hypomagnesemia Corrected with 800mg PO Magnesium Oxide x 3 doses #MS -With quadriparesis, bladder and bowel incontinence, - occasional constipation -on chronic catheter use and diaper -Lives in a [facility] with aides Plan: - Change catheter as needed -turn frequently -miralax -baclofen -gabapentin - #S/P R breast cancer -letrozole - Ca carbonate/Vit D3 #Obesity #Hyperlipidemia -atorvostatin #Schizophrenia _risperidone -benztropine #Depression Mirtazepine #Chronic pain -hydromorphone- discontinued #constipation - MS -chronic opiate use Plan: -Miralax as needed -frequent turning #Sleep disorder: Melatonin #FEN Fluids: [place] oral fluids as patient tolerates Monitor I&Os Electrolytes:CMP, Mg, Phosphate, Ca Nutrition: Nutritional supplements: _Prosource- 30cc tids D/c ensure- Patient does not like the one she is being given Magic cup -bid Zinc 220 PO dly Vit C 500mg Bid #Prophylaxis DVT: SQ Heparin GI: Pepcid #Dispo For likely discharge tomorrow back to [facility] Problem List - Problems (1) Sepsis - Septicemia Code(s): A41.9 - SEPSIS, UNSPECIFIED ORGANISM (2) Infected decubitus ulcer Code(s): L89.90 - PRESSURE ULCER OF UNSPECIFIED SITE, UNSPECIFIED STAGE Qualifiers: Pressure ulcer stage: unstageable Qualified Code(s): L89.95 - Pressure ulcer of unspecified site, unstageable; L08.9 - Local infection of the skin and subcutaneous tissue, unspecified (3) Urinary tract infection Code(s): N39.0 - URINARY TRACT INFECTION, SITE NOT SPECIFIED Qualifiers: Indwelling urinary catheter type: indwelling urethral catheter Encounter type: initial encounter Visit type - Emergency Visit Emergency Visit: Yes ED Registration Date: 07/12/17 Care time: The patient presented to the Emergency Department on the above date and was hospitalized for further evaluation of their emergent condition. - New Patient This patient is new to me today: No - Critical Care Critical Care patient: No - Discharge Referral Referred to [facility] No <Darin Osorio - Last Filed: 07/20/17 19:23> Physical Exam: PLease refer to teaching attending note for accurate information
[2017-07-19] MEDS: MIRTAZAPINE 15 MG TABLET (FP) PO SCH (23:20)
[2017-07-20] MEDS ORDERED: PIPERACILLIN/TAZOBACTAM 3.375 GM VIAL IVPB ONE ×3 (01:15→17:05)
[2017-07-20] MEDS ORDERED: DEXTROSE 5%-WATER - 50 ML IVPB ONE ×3 (01:16→17:05)
[2017-07-20] MEDS: PIPERACILLIN/TAZOB 3.375 GM 3.375 GM in DEXTROSE 5%-WATER - 50 ML IVPB SCH ×3 (01:17→17:10)
[2017-07-20] MEDS ORDERED: PT OWN MED DRAWER 7, Y5N ONE ×5 (06:08→22:58)
[2017-07-20] MEDS: BENZTROPINE MESYLATE 1 MG TABLET (FP) PO SCH (06:23)
[2017-07-20] MEDS: HEPARIN NA (PORCINE) 5,000 UNITS/ML 1ML VIAL SQ SCH ×2 (06:23→13:12)
[2017-07-20] MEDS: AMINO ACIDS/PROTEIN HYDROLYS 30 ML LIQUID.PKT PO SCH ×3 (08:25→17:11)
[2017-07-20] MEDS: ACETAMINOPHEN 325 MG TABLET (FP) PO PRN (08:31)
[2017-07-20] MEDS: MUPIROCIN CA 2% TOPICAL CREAM 15 GM TUBE TP SCH ×2 (10:22→22:59)
[2017-07-20] MEDS: risperiDONE 1 MG TABLET (FP) PO SCH ×3 (10:23→23:28)
[2017-07-20] MEDS: ZINC SULFATE 220 MG CAPSULE (FP) PO SCH ×2 (10:23→13:13)
[2017-07-20] MEDS: FERROUS SO4 325 MG TABLET (FP) PO SCH ×3 (10:23→22:59)
[2017-07-20] MEDS: FAMOTIDINE 20 MG/50 ML IVPB 50 ML IVPB SCH ×2 (10:23→23:01)
[2017-07-20] MEDS: BACLOFEN 10 MG TABLET (FP) PO SCH ×5 (10:24→23:00)
[2017-07-20] MEDS: DOCUSATE SODIUM 100 MG CAPSULE (FP) PO SCH ×2 (10:24→22:59)
[2017-07-20] MEDS: GABAPENTIN 300 MG CAPSULE (FP) PO SCH ×3 (10:24→23:00)
[2017-07-20] MEDS: LETROZOLE 2.5 MG TABLET (FP) PO SCH ×2 (10:24→13:13)
[2017-07-20] MEDS: POLYETHYLENE GLYCOL 3350 255 GM BTL PO SCH ×2 (10:24→23:00)
[2017-07-20] MEDS: MULTIVITAMINS THER W-MINERALS COMBO TABLET (FP) PO SCH ×2 (10:25→17:11)
[2017-07-20] MEDS: ASCORBIC ACID 500 MG TABLET (FP) PO SCH ×3 (10:25→22:59)
--- NOTE | 2017-07-20 15:40 | PN ---
Progress Note, Physician History of Present Illness: No complaints Afebrile WBC WNL - Current Medication List Current Medications: Active Medications Acetaminophen (Tylenol -) 650 mg PO Q4H PRN PRN Reason: FEVER OR PAIN Last Admin: 07/20/17 08:31 Dose: 650 mg Amino Acids (Prosource No Carb Liquid Pkt) 30 ml PO TIDCM [facility] Last Admin: 07/20/17 12:19 Dose: Not Given Ascorbic Acid (Vitamin C -) 500 mg PO BID [facility] Last Admin: 07/20/17 12:34 Dose: Not Given Baclofen (Lioresal -) 20 mg PO QID [facility] Last Admin: 07/20/17 13:12 Dose: 20 mg Benztropine Mesylate (Cogentin -) 1 mg PO AM [facility] Last Admin: 07/20/17 06:23 Dose: Not Given Docusate Sodium (Colace -) 100 mg PO BID [facility] Last Admin: 07/20/17 10:24 Dose: Not Given Ferrous Sulfate (Feosol -) 325 mg PO BID [facility] Last Admin: 07/20/17 12:34 Dose: Not Given Gabapentin (Neurontin -) 300 mg PO BID [facility] Last Admin: 07/20/17 12:34 Dose: Not Given Heparin Sodium (Porcine) (Heparin -) 5,000 unit SQ TID [facility] Last Admin: 07/20/17 13:12 Dose: 5,000 unit Famotidine/Sodium Chloride (Pepcid 20 Mg Premixed Ivpb -) 50 mls @ 100 mls/hr IVPB BID [facility] Last Admin: 07/20/17 10:23 Dose: 100 mls/hr Piperacillin Sod/Tazobactam (Sod 3.375 gm/ Dextrose) 50 mls @ 100 mls/hr IVPB Q8H-IV NAYAN PRN Reason: Protocol Last Admin: 07/20/17 10:23 Dose: 100 mls/hr Sodium Chloride (Normal Saline -) 1,000 mls @ 75 mls/hr IV ASDIR [facility] Letrozole (Femara -) 2.5 mg PO DAILY [facility] Last Admin: 07/20/17 13:13 Dose: 2.5 mg Mirtazapine (Remeron -) 30 mg PO HS [facility] Last Admin: 07/19/17 23:20 Dose: 30 mg Multivitamins/Minerals (Theragran-M) 1 each PO DAILY [facility] Last Admin: 07/19/17 10:59 Dose: 1 each Mupirocin (Bactroban 2% Cream -) 1 applic TP BID [facility] Last Admin: 07/20/17 10:22 Dose: 1 applic Polyethylene Glycol (Miralax (For Bowel Prep) -) 17 gm PO BID [facility] Last Admin: 07/20/17 10:24 Dose: Not Given Risperidone (Risperdal -) 1 mg PO BID [facility] Last Admin: 07/20/17 12:34 Dose: Not Given Zinc Sulfate (Orazinc -) 220 mg PO DAILY [facility] Last Admin: 07/20/17 13:13 Dose: 220 mg - Objective Vital Signs: Vital Signs Temperature 98.1 F 07/20/17 14:57 Pulse Rate 71 07/20/17 15:16 Respiratory Rate 18 07/20/17 14:57 Blood Pressure 123/76 07/20/17 14:57 O2 Sat by Pulse Oximetry (%) 97 07/20/17 15:16 Constitutional: Yes: No Distress Eyes: Yes: Conjunctiva Clear Cardiovascular: Yes: Regular Rate and Rhythm, S1, S2 Respiratory: Yes: Diminished Gastrointestinal: Yes: Normal Bowel Sounds, Soft. No: Tenderness Edema: Yes Integumentary: Yes: Other (+ sacral decubitus with packing no drainage) Labs: CBC, BMP 07/18/17 07:00 07/19/17 06:30 INR, PTT INR 1.27 (0.82-1.09) H 07/14/17 05:20 Assessment/Plan UTI Decubitus ulcer MS Completing 7 d course of zosyn
[2017-07-20] MEDS: SODIUM CHLORIDE 1,000 ML IV SCH (17:10)
--- NOTE | 2017-07-20 19:41 | PN ---
Teaching Attending Note Name of Resident: Ana Maria Machado ATTENDING PHYSICIAN STATEMENT I saw and evaluated the patient. I reviewed the resident's note and discussed the case with the resident. I agree with the resident's findings and plan as documented. SUBJECTIVE: Evaluated at 2 pm. slightly more confused than yesterday. OBJECTIVE: lethargic, arousable. does not know her location . mumbles Cv : RRR Lungs : CTAB ext : no edema decub ulcers on coccyx, with packings in , clean granulation tissue at base Abd :soft , NT, ND , NL BS Neuro: not cooperative , no facial droop, round equal reactive pupils. tongue at mid line . strength 4/5 at R elbow and hand shoe reconditioner. 3/5 at R shoulder . 0-1 /5 at L upper and L lower ext. ASSESSMENT AND PLAN: 62 year old Unfortunate female with PMH of MS , schizophrenia, depression, hyperlipidemia who was sent with fever and infected decub ulcer 1- Infected sacral decub: - finished a course of Abx . last dose of zosyn today - no surgical intervention now 2- UTI: with pseudomonas . finished Zosyn course 3- AMS : change form yesterday. stat CT scan with no acute events. likely AMS is due to volume depletion ( BUN/Cr elevated ) give IVF monitor 4- microcytic anemia : no evidence of iron def. further w/u as out pt 5- h/o DVT: resume home eliquis Possible dc tomorrow
--- NOTE | 2017-07-20 20:15 | PN ---
Addendum entered and electronically signed by Ana Maria Machado RES 07/20/17 20: 17: Neuro exam: Patient was lethargic, difficult to arouse, speech hard to comprehend, no facial droop, Toe movement on right 1/5, movement against gravity on RUL, Baseline 0/5 UL and LL on L. Original Note: Physical Exam: SUBJECTIVE: Patient seen and examined Overnight was said not to have chatted as usual and more drowsy this morning OBJECTIVE: Vital Signs Period Temp Pulse Resp BP Sys/Claudio Pulse Ox Last 24 Hr 97.8 F-98.2 F 70-102 16-20 107-157/53-85 92-97 GENERAL: The patient is drowsy,and lethargic, in no acute respiratory distress. HEENT: Very dry mucous membranes LUNGS: Breath sounds equal, clear to auscultation bilaterally, no wheezes, no crackles, no accessory muscle use. HEART: Regular rate and rhythm, S1, S2 without murmur, rub or gallop. ABDOMEN: Soft, nontender, nondistended, normoactive bowel sounds, EXTREMITIES: No edema. NEUROLOGICAL: Normal speech, quadriparesis SKIN: Left hip ulcer clean, granulation tissue present, no pus or exudates, tunneling deep with a diameter of about 2cm Sacro-coccygeal ulcer about 4cm diameter also tunneling deep, clean, with granualtion tissue, no pus or exudates seen Active Medications Generic Name Dose Route Start Last Admin Trade Name Freq PRN Reason Stop Dose Admin Acetaminophen 650 mg 07/20/17 19:16 Tylenol - PO Q4H PRN FEVER OR PAIN Amino Acids 30 ml 07/18/17 17:30 07/20/17 17:11 Prosource No Carb Liquid Pkt PO 30 ml TIDCM NAYAN Administration Apixaban 5 mg 07/20/17 22:00 Eliquis - PO BID NAYAN Ascorbic Acid 500 mg 07/18/17 12:30 07/20/17 12:34 Vitamin C - PO Not Given BID NAYAN Baclofen 20 mg 07/20/17 22:00 Lioresal - PO QID NAYAN Benztropine Mesylate 1 mg 07/21/17 07:00 Cogentin - PO AM NAYAN Docusate Sodium 100 mg 07/20/17 22:00 Colace - PO BID NAYAN Ferrous Sulfate 325 mg 07/20/17 22:00 Feosol - PO BID NAYAN Gabapentin 300 mg 07/20/17 22:00 Neurontin - PO BID NAYAN Sodium Chloride 1,000 mls @ 75 mls/hr 07/20/17 13:00 07/20/17 17:10 Normal Saline - IV 75 mls/hr ASDIR NAYAN Administration Famotidine/Sodium Chloride 50 mls @ 100 mls/hr 07/20/17 22:00 Pepcid 20 Mg Premixed Ivpb - IVPB BID NAYAN Piperacillin Sod/Tazobactam 50 mls @ 100 mls/hr 07/21/17 02:00 Sod 3.375 gm/ Dextrose IVPB Q8H-IV NAYAN Protocol Letrozole 2.5 mg 07/21/17 10:00 Femara - PO DAILY NAYAN Mirtazapine 30 mg 07/20/17 22:00 Remeron - PO HS NAYAN Multivitamins/Minerals 1 each 07/18/17 12:30 07/20/17 17:11 Theragran-M PO Not Given DAILY NAYAN Mupirocin 1 applic 07/18/17 22:00 07/20/17 10:22 Bactroban 2% Cream - TP 1 applic BID NAYAN Administration Polyethylene Glycol 17 gm 07/20/17 22:00 Miralax (For Bowel Prep) - PO BID NAYAN Risperidone 1 mg 07/20/17 22:00 Risperdal - PO BID ANYAN Zinc Sulfate 220 mg 07/18/17 12:30 07/20/17 13:13 Orazinc - PO 220 mg DAILY NAYAN Administration ASSESSMENT/PLAN: 62year old F, [facility] resident with PMHx of MS, chronic sacral ulcer, schizophrenia, depression, HL sent to the ED for fevers, admitted to ICu for sepsis secondary to wound infection and UTI. #Lethargy - Reduced oral intake -Dry mucous membranes - Rehydrate on IV NSaline 75mls/hr -Observe overnight for likely discharge back to [facility] - CT head w/o contrast showed no evidence of any acute changes - Resume her home eliquis -Encourage oral ingestion when awake #Septic shock: Secondary to wound infection and UTI - all cultured organisms sensitive to Zosyn -Stable vitals -Completed Iv antibiotics-zosyn today - Wound care with bactroban -For follow up with Dr Samaniego- for surgical flap probably in 3 months -goal albumin should be about 3.2, currently around 1.6. *Nutritional supplements: _Prosource- 30cc tids D/c ensure- Patient does not like the one she is being given Magic cup -bid Zinc 220 PO dly Vit C 500mg Bid - - Continue-CMP, CBC, Mg, P, -For vanco trough- orders in -For culture repeat in 48 hrs #Hypokalemia Corrected with PO. potassium`Chloride 40mg bid # Microcytic Anemia: On iron supplement Hgb trending up 10.0 today continue CBC monitoring #Infected Chronic Decubitus ulcers: 07/12/17 11:35 Hip - Left Wound Culture - Preliminary Proteus Species Group D Strep Or Entero Coccus Staphylococcus Latex Coag Pos 07/12/17 11:35 Coccyx Wound Culture - Preliminary Presumptive Ps Aeruginosa Proteus Species Staphylococcus Latex Coag Pos Group D Strep Or Entero Coccus Cultures all sensitive to Zosyn (day 2 on it) - surgeon seeing -For flap closure when her nutrition is built up - Wound care with bactroban bid #UTI -07/12/17 12:29 Urine - Urine - Catheterized Urine Culture - Preliminary Presumptive Ps Aeruginosa Lactose Fermenting Neg Bacilli- sensitive to zosyn Plan:completed iv zosyn #Intermittent Tachycardia: stable vitals #Hypomagnesemia Corrected with 800mg PO Magnesium Oxide x 3 doses #MS -With quadriparesis, bladder and bowel incontinence, - occasional constipation -on chronic catheter use and diaper -Lives in a [facility] with aides Plan: - Change catheter as needed -turn frequently -miralax -baclofen -gabapentin - #S/P R breast cancer -letrozole - Ca carbonate/Vit D3 #Obesity #Hyperlipidemia -atorvostatin #Schizophrenia _risperidone -benztropine #Depression Mirtazepine #Chronic pain -hydromorphone- discontinued #constipation - MS -chronic opiate use Plan: -Miralax as needed -frequent turning #Sleep disorder: Melatonin #FEN Fluids: [place] oral fluids as patient tolerates, IVN saline 75mls/hr Monitor I&Os Electrolytes:Stable electrolytes this am Nutrition: Nutritional supplements: _Prosource- 30cc tids D/c ensure- Patient does not like the one she is being given Magic cup -bid Zinc 220 PO dly Vit C 500mg Bid #Prophylaxis DVT: SQ Heparin GI: Pepcid #Dispo For likely discharge tomorrow back to [facility] Problem List - Problems (1) Sepsis - Septicemia Code(s): A41.9 - SEPSIS, UNSPECIFIED ORGANISM (2) Infected decubitus ulcer Code(s): L89.90 - PRESSURE ULCER OF UNSPECIFIED SITE, UNSPECIFIED STAGE Qualifiers: Pressure ulcer stage: unstageable Qualified Code(s): L89.95 - Pressure ulcer of unspecified site, unstageable; L08.9 - Local infection of the skin and subcutaneous tissue, unspecified (3) Urinary tract infection Code(s): N39.0 - URINARY TRACT INFECTION, SITE NOT SPECIFIED Qualifiers: Indwelling urinary catheter type: indwelling urethral catheter Encounter type: initial encounter Visit type - Emergency Visit Emergency Visit: Yes ED Registration Date: 07/12/17 Care time: The patient presented to the Emergency Department on the above date and was hospitalized for further evaluation of their emergent condition. - New Patient This patient is new to me today: No - Critical Care Critical Care patient: No - Discharge Referral Referred to [facility] No
[2017-07-20] MEDS: MIRTAZAPINE 15 MG TABLET (FP) PO SCH (23:00)
[2017-07-20] MEDS: APIXABAN 5 MG TABLET PO SCH (23:28)
[2017-07-21] MEDS ORDERED: PIPERACILLIN/TAZOBACTAM 3.375 GM VIAL IVPB ONE ×3 (01:57→17:25)
[2017-07-21] MEDS ORDERED: DEXTROSE 5%-WATER - 50 ML IVPB ONE ×3 (01:58→17:26)
[2017-07-21] MEDS: PIPERACILLIN/TAZOB 3.375 GM 3.375 GM in DEXTROSE 5%-WATER - 50 ML IVPB SCH ×3 (02:04→18:21)
[2017-07-21] MEDS: ACETAMINOPHEN 325 MG TABLET (FP) PO PRN ×2 (02:05→09:28)
[2017-07-21] MEDS: BENZTROPINE MESYLATE 1 MG TABLET (FP) PO SCH (06:30)
[2017-07-21 07:47] LABS: ALBUMIN 1.5 g/dl (3.4-5.0); ANION GAP 9 (8-16); BASOPHIL 0.4 % (0-2.0); CALCIUM 8.6 mg/dL (8.5-10.1); CO2 27 mmol/L (21-32); GLUCOSE,RANDOM 81 mg/dL (74-106); MCH 24.6 pg (25.7-33.7); MCHC 31.4 g/dl (32.0-36.0); MEAN CELL VOLUME 78.3 fl (80-96); MEAN PLT VOLUME 7.6 fl (7.5-11.1); PLATELET COUNT 291 K/MM3 (134-434); RDW 18.2 % (11.6-15.6); WHITE BLOOD COUNT 11.9 K/mm3 (4.0-10.0)
[2017-07-21 07:51] LABS: ALK PHOS 123 U/L (45-117); BILIRUBIN,TOTAL 0.3 mg/dL (0.2-1.0); CREATININE 0.7 mg/dL (0.55-1.02); SGOT/AST 13 U/L (15-37); SGPT/ALT 17 U/L (12-78); TOT PROT 5.5 g/dl (6.4-8.2)
[2017-07-21] MEDS ORDERED: PT OWN MED DRAWER 7, Y5N ONE ×3 (09:10→22:39)
[2017-07-21 09:19] LABS: MAGNESIUM 2.3 mg/dL (1.8-2.4); PHOSPHOROUS 3.7 mg/dL (2.5-4.9)
[2017-07-21] MEDS: DOCUSATE SODIUM 100 MG CAPSULE (FP) PO SCH ×2 (09:27→22:28)
[2017-07-21] MEDS: BACLOFEN 10 MG TABLET (FP) PO SCH ×4 (09:27→22:29)
[2017-07-21] MEDS: ZINC SULFATE 220 MG CAPSULE (FP) PO SCH (09:27)
[2017-07-21] MEDS: GABAPENTIN 300 MG CAPSULE (FP) PO SCH ×2 (09:27→22:30)
[2017-07-21] MEDS: ASCORBIC ACID 500 MG TABLET (FP) PO SCH ×2 (09:27→22:29)
[2017-07-21] MEDS: FERROUS SO4 325 MG TABLET (FP) PO SCH ×2 (09:28→22:30)
[2017-07-21] MEDS: MULTIVITAMINS THER W-MINERALS COMBO TABLET (FP) PO SCH (09:28)
[2017-07-21] MEDS: AMINO ACIDS/PROTEIN HYDROLYS 30 ML LIQUID.PKT PO SCH ×3 (09:29→18:21)
[2017-07-21] MEDS: FAMOTIDINE 20 MG/50 ML IVPB 50 ML IVPB SCH ×2 (09:29→22:31)
[2017-07-21] MEDS: risperiDONE 1 MG TABLET (FP) PO SCH ×2 (09:30→22:29)
[2017-07-21] MEDS: LETROZOLE 2.5 MG TABLET (FP) PO SCH (09:32)
[2017-07-21] MEDS: POLYETHYLENE GLYCOL 3350 255 GM BTL PO SCH ×2 (09:35→23:31)
[2017-07-21] MEDS: APIXABAN 5 MG TABLET PO SCH ×2 (09:36→22:30)
[2017-07-21] MEDS: SODIUM CHLORIDE 1,000 ML IV SCH ×2 (09:53→14:31)
[2017-07-21] MEDS: MUPIROCIN CA 2% TOPICAL CREAM 15 GM TUBE TP SCH ×2 (18:22→22:28)
--- NOTE | 2017-07-21 19:33 | PN ---
Physical Exam: SUBJECTIVE: Patient seen and examined. Had a temperature spike overnight. Was said to have been awake and eaten at night. OBJECTIVE: Selected Entries 07/21/17 07/21/17 07/21/17 02:00 03:00 06:00 Temperature 102.0 F H 100.2 F H 98.3 F Vital Signs Period Temp Pulse Resp BP Sys/Claudio Pulse Ox Last 24 Hr 98.3 F-102.0 F 98-104 18-18 130-143/60-68 97 GENERAL: The patient is drowsy, in no acute respiratory distress. Central line was in place HEENT: Very dry mucous membranes LUNGS: Breath sounds equal, clear to auscultation bilaterally, no wheezes, no crackles, no accessory muscle use. HEART: Regular rate and rhythm, S1, S2 without murmur, rub or gallop. ABDOMEN: Soft, nontender, nondistended, normoactive bowel sounds, ? L flank tenderness EXTREMITIES: No edema, ? R leg tenderness NEUROLOGICAL: Drowsy, quadriparesis, no facial droop, Toe movement on right 1/5 , movement against gravity on RUL, Baseline 0/5 UL and LL on L. SKIN: Left hip ulcer clean, granulation tissue present, no pus or exudates, tunneling deep with a diameter of about 2cm Sacro-coccygeal ulcer about 4cm diameter also tunneling deep, clean, packed gauze removed : Catheter draining clear urine Laboratory Results - last 24 hr 07/21/17 07/21/17 07/21/17 06:15 06:15 06:15 WBC 11.9 H RBC 3.77 Hgb 9.3 L Hct 29.5 L MCV 78.3 L MCH 24.6 L MCHC 31.4 L RDW 18.2 H Plt Count 291 D MPV 7.6 Neutrophils % 75.0 D Lymphocytes % 19.4 D Monocytes % 4.2 Eosinophils % 1.0 Basophils % 0.4 Sodium 147 H Cancelled Potassium 3.7 D Cancelled Chloride 111 H Cancelled Carbon Dioxide 27 Cancelled Anion Gap 9 Cancelled BUN 20 H D Cancelled Creatinine 0.7 Cancelled Creat Clearance w eGFR > 60 Cancelled Random Glucose 81 Cancelled Calcium 8.6 Cancelled Phosphorus 3.7 Cancelled Magnesium 2.3 Cancelled Total Bilirubin 0.3 Cancelled AST 13 L Cancelled ALT 17 Cancelled Alkaline Phosphatase 123 H Cancelled Total Protein 5.5 L Cancelled Albumin 1.5 L Cancelled Active Medications Generic Name Dose Route Start Last Admin Trade Name Juiceq PRN Reason Stop Dose Admin Acetaminophen 650 mg 07/20/17 19:16 07/21/17 09:28 Tylenol - PO 650 mg Q4H PRN Administration FEVER OR PAIN Amino Acids 30 ml 07/18/17 17:30 07/21/17 18:21 Prosource No Carb Liquid Pkt PO 30 ml TIDCM NAYAN Administration Apixaban 5 mg 07/20/17 22:00 07/21/17 09:36 Eliquis - PO 5 mg BID NAYAN Administration Ascorbic Acid 500 mg 07/18/17 12:30 07/21/17 09:27 Vitamin C - PO 500 mg BID NAYAN Administration Baclofen 20 mg 07/20/17 22:00 07/21/17 18:21 Lioresal - PO 20 mg QID NAYAN Administration Benztropine Mesylate 1 mg 07/21/17 07:00 07/21/17 06:30 Cogentin - PO 1 mg AM NAYAN Administration Docusate Sodium 100 mg 07/20/17 22:00 07/21/17 09:27 Colace - PO 100 mg BID NAYAN Administration Ferrous Sulfate 325 mg 07/20/17 22:00 07/21/17 09:28 Feosol - PO 325 mg BID NAYAN Administration Gabapentin 300 mg 07/20/17 22:00 07/21/17 09:27 Neurontin - PO 300 mg BID NAYAN Administration Sodium Chloride 1,000 mls @ 75 mls/hr 07/20/17 13:00 07/21/17 14:31 Normal Saline - IV Not Given ASDIR NAYAN Famotidine/Sodium Chloride 50 mls @ 100 mls/hr 07/20/17 22:00 07/21/17 09:29 Pepcid 20 Mg Premixed Ivpb - IVPB 100 mls/hr BID NAYAN Administration Piperacillin Sod/Tazobactam 50 mls @ 100 mls/hr 07/21/17 02:00 07/21/17 18:21 Sod 3.375 gm/ Dextrose IVPB 100 mls/hr Q8H-IV NAYAN Administration Protocol Letrozole 2.5 mg 07/21/17 10:00 07/21/17 09:32 Femara - PO 2.5 mg DAILY NAYAN Administration Mirtazapine 30 mg 07/20/17 22:00 07/20/17 23:00 Remeron - PO 30 mg HS NAYAN Administration Multivitamins/Minerals 1 each 07/18/17 12:30 07/21/17 09:28 Theragran-M PO 1 each DAILY NAYAN Administration Mupirocin 1 applic 07/18/17 22:00 07/21/17 18:22 Bactroban 2% Cream - TP Not Given BID NAYAN Polyethylene Glycol 17 gm 07/20/17 22:00 07/21/17 09:35 Miralax (For Bowel Prep) - PO 17 gm BID NAYAN Administration Risperidone 1 mg 07/20/17 22:00 07/21/17 09:30 Risperdal - PO 1 mg BID NAYAN Administration Zinc Sulfate 220 mg 07/18/17 12:30 07/21/17 09:27 Orazinc - PO 220 mg DAILY NAYAN Administration ASSESSMENT/PLAN: 62year old F, long-term resident with PMHx of MS, chronic sacral ulcer, schizophrenia, depression, HL sent to the ED for fevers, admitted to ICu for sepsis secondary to wound infection and UTI. # Fever -Central line was replaced with peripheral line -Hydration continued - continue wound dressing -Acetaminophen PRN Monitor_- temperature trending down last reading-98.3 #R limb pain and L flank -R/O DVT -Duplex US- both lower limbs - showed no evidence of DVT #Chronic Decubitus ulcers -Continue wound dressing #UTI completed antibiotics -#Septic shock: Resolved completed antibiotics #S/P R breast cancer -letrozole - Ca carbonate/Vit D3 #Obesity #Hyperlipidemia -atorvostatin #Schizophrenia _risperidone -benztropine #Depression Mirtazepine #FEN Fluids: [place] oral fluids as patient tolerates, IVN saline 75mls/hr Electrolytes:Stable electrolytes this am Nutrition: Nutritional supplements: #Prophylaxis DVT: SQ Heparin GI: Pepcid Dispo: For likely discharge with resolution of fever Problem List - Problems (1) Sepsis - Septicemia Code(s): A41.9 - SEPSIS, UNSPECIFIED ORGANISM (2) Infected decubitus ulcer Code(s): L89.90 - PRESSURE ULCER OF UNSPECIFIED SITE, UNSPECIFIED STAGE Qualifiers: Pressure ulcer stage: unstageable Qualified Code(s): L89.95 - Pressure ulcer of unspecified site, unstageable; L08.9 - Local infection of the skin and subcutaneous tissue, unspecified (3) Urinary tract infection Code(s): N39.0 - URINARY TRACT INFECTION, SITE NOT SPECIFIED Qualifiers: Indwelling urinary catheter type: indwelling urethral catheter Encounter type: initial encounter Visit type - Emergency Visit Emergency Visit: Yes ED Registration Date: 07/12/17 Care time: The patient presented to the Emergency Department on the above date and was hospitalized for further evaluation of their emergent condition. - New Patient This patient is new to me today: No - Critical Care Critical Care patient: No - Discharge Referral Referred to [facility] Med P.C.: No
--- NOTE | 2017-07-21 19:37 | PN ---
Teaching Attending Note Name of Resident: Ana Maria Machado ATTENDING PHYSICIAN STATEMENT I saw and evaluated the patient. I reviewed the resident's note and discussed the case with the resident. I agree with the resident's findings and plan as documented. SUBJECTIVE: fever over night . no abd pain . OBJECTIVE: awake , alert and cooperative Cv : RRR Lungs : CTAB ext : no edema . TTP over R thigh decub ulcers on coccyx, packing removed , clean granulation tissue at base of saccral one , but discharge form L hip one Abd :soft , NT, ND , NL BS ASSESSMENT AND PLAN: 62 year old Unfortunate female with PMH of MS , schizophrenia, depression, hyperlipidemia who was sent with fever and infected decub ulcer 1- Infected sacral decub: - finished a course of Abx . - no surgical intervention now - fever last night with increased WBC. not sureof source. L hip ulcer withslight drainage but no change form befor e. US obtained , no DVT. if fever recur, will get cx and reconsult ID 2- UTI: with pseudomonas . finished Zosyn course 3- AMS : back to base line 4- Microcytic anemia : no evidence of iron def. further w/u as out pt 5- h/o DVT: eliquis 7- volume depletion , cont IVF today, might stop in am HLOC due to fever
[2017-07-21] MEDS: MIRTAZAPINE 15 MG TABLET (FP) PO SCH (22:30)
[2017-07-22] MEDS ORDERED: PIPERACILLIN/TAZOBACTAM 3.375 GM VIAL IVPB ONE ×2 (01:44→11:08)
[2017-07-22] MEDS ORDERED: DEXTROSE 5%-WATER - 50 ML IVPB ONE ×2 (01:44→11:08)
[2017-07-22] MEDS: PIPERACILLIN/TAZOB 3.375 GM 3.375 GM in DEXTROSE 5%-WATER - 50 ML IVPB SCH ×2 (02:06→11:19)
[2017-07-22] MEDS: SODIUM CHLORIDE 1,000 ML IV SCH ×2 (02:09→15:10)
[2017-07-22] MEDS: BENZTROPINE MESYLATE 1 MG TABLET (FP) PO SCH (06:10)
[2017-07-22 08:05] LABS: BASOPHIL 0.5 % (0-2.0); EOSINOPHIL 1.6 % (0-4.5); MCH 24.6 pg (25.7-33.7); MEAN CELL VOLUME 77.1 fl (80-96); MEAN PLT VOLUME 7.5 fl (7.5-11.1); NEUTROPHILS 72.6 % (42.8-82.8); PLATELET COUNT 255 K/MM3 (134-434); RDW 18.1 % (11.6-15.6); WHITE BLOOD COUNT 8.6 K/mm3 (4.0-10.0)
[2017-07-22] MEDS: AMINO ACIDS/PROTEIN HYDROLYS 30 ML LIQUID.PKT PO SCH ×2 (08:14→11:18)
[2017-07-22] MEDS ORDERED: PT OWN MED DRAWER 7, Y5N ONE ×2 (11:08→14:56)
[2017-07-22] MEDS: FAMOTIDINE 20 MG/50 ML IVPB 50 ML IVPB SCH (11:18)
[2017-07-22] MEDS: DOCUSATE SODIUM 100 MG CAPSULE (FP) PO SCH (11:19)
[2017-07-22] MEDS: FERROUS SO4 325 MG TABLET (FP) PO SCH (11:19)
[2017-07-22] MEDS: ASCORBIC ACID 500 MG TABLET (FP) PO SCH (11:19)
[2017-07-22] MEDS: MULTIVITAMINS THER W-MINERALS COMBO TABLET (FP) PO SCH (11:19)
[2017-07-22] MEDS: BACLOFEN 10 MG TABLET (FP) PO SCH ×2 (11:19→15:13)
[2017-07-22] MEDS: ZINC SULFATE 220 MG CAPSULE (FP) PO SCH (11:20)
[2017-07-22] MEDS: GABAPENTIN 300 MG CAPSULE (FP) PO SCH (11:20)
[2017-07-22] MEDS: POLYETHYLENE GLYCOL 3350 255 GM BTL PO SCH (11:20)
[2017-07-22] MEDS: risperiDONE 1 MG TABLET (FP) PO SCH (11:20)
[2017-07-22] MEDS: APIXABAN 5 MG TABLET PO SCH (11:21)
[2017-07-22] MEDS: LETROZOLE 2.5 MG TABLET (FP) PO SCH (11:26)
[2017-07-22] MEDS: MUPIROCIN CA 2% TOPICAL CREAM 15 GM TUBE TP SCH (11:28)
--- NOTE | 2017-07-22 12:34 | DS ---
Physical Exam: SUBJECTIVE: Patient seen and examined OBJECTIVE: Vital Signs Period Temp Pulse Resp BP Sys/Claudio Pulse Ox Last 24 Hr 98.2 F-98.9 F 82-91 18-20 110-147/53-69 93-96 PHYSICAL EXAM GENERAL: The patient is drowsy, in no acute respiratory distress. Central line was in place HEENT: Very dry mucous membranes LUNGS: Breath sounds equal, clear to auscultation bilaterally, no wheezes, no crackles, no accessory muscle use. HEART: Regular rate and rhythm, S1, S2 without murmur, rub or gallop. ABDOMEN: Soft, nontender, nondistended, normoactive bowel sounds Ext: No edema NEUROLOGICAL: Drowsy, quadriparesis, no facial droop, Toe movement on right 1/5 , movement against gravity on RUL, Baseline 0/5 UL and LL on L. SKIN: Left hip ulcer clean, granulation tissue present, no pus or exudates, tunneling deep with a diameter of about 2cm Sacro-coccygeal ulcer about 4cm diameter also tunneling deep, clean, packed gauze removed LABS Laboratory Results - last 24 hr 07/22/17 06:00 WBC 8.6 RBC 3.76 Hgb 9.3 L Hct 29.0 L MCV 77.1 L MCH 24.6 L MCHC 32.0 RDW 18.1 H Plt Count 255 MPV 7.5 Neutrophils % 72.6 Lymphocytes % 20.1 Monocytes % 5.2 Eosinophils % 1.6 Basophils % 0.5 HOSPITAL COURSE: Date of Admission:07/12/17 Date of Discharge: 07/22/17 62 female with PMH of MS , schizophrenia, depression, hyperlipidemia who was sent with fever and infected decubitus ulcer admitted for IV Abx. Septic upon presntation requiring pressors ICU and central line. Seen by ID and was stared on IV Abx. Patient completed course of Abx and also seen by plastics surgery for possible flap. Deffered until nutritonal status improved. seen by lump machine operator started on procource and vitamins and minerals. patient had one episode of AMS CT head negative. Had fever spike 2 days ago which resolved. Central lie removed. patiet also found to have pseudomonal UTI which was also treated with the same course of ABx. Stable for discharge. Minutes to complete discharge: 35 Discharge Summary Reason For Visit: INFECTIED DECUBITUS ULCER Current Active Problems Infected decubitus ulcer (Acute) Protein-calorie malnutrition, severe (Acute) Sepsis - Septicemia (Acute) Urinary tract infection (Acute) Depression (Chronic) Functional quadriplegia secondary to MS (Chronic) Hyperlipidemia (Chronic) Multiple sclerosis (Chronic) Protein calorie malnutrition (Chronic) Schizophrenia (Chronic) Condition: Improved - Instructions Diet, Activity, Other Instructions: you were admitted to due to sepsis from infected ulcers if you have fevers chills or pus draining then go to nearest ED continue home medications you need to increase your nutritional status before Dr. Samaniego does any procedures to improve chances of healing cotninue vitamins and prosource follow up with Dr. Samaniego in 2 weeks follow up with primary care doctor in 1 week Referrals: Efren Samaniego MD [Staff Physician] - 2 Weeks Disposition: RESIDENTIAL FACILITY - Home Medications Comprehensive Discharge Medication List: Ambulatory Orders Acetaminophen [Tylenol] 650 mg PO Q6H 02/08/17 Apixaban [Eliquis -] 5 mg PO Q12H 02/08/17 Arginine/Glutamine/Calcium Hmb [Gordon Packet] 1 each PO BID 02/08/17 Atorvastatin Ca [Lipitor] 20 mg PO HS 02/08/17 Baclofen 20 mg PO QID 02/08/17 Calcium Carbonate/Vitamin D3 [Calcium 600-Vit D3 400 Tablet] 1 each PO DAILY Gabapentin [Neurontin -] 300 mg PO BID 02/08/17 Letrozole 2.5 mg PO DAILY 02/08/17 Melatonin 3 mg PO HS 02/08/17 Mirtazapine [Remeron -] 30 mg PO HS 02/08/17 Polyethylene Glycol 3350 [Miralax 255 gm Btl -] 17 gm PO Q12H 02/08/17 Risperidone [Risperdal] 1 mg PO BID 02/08/17 Silv/Bandg/Lidoca/Chlorhex/Alc [Vacustim Silver Kit] 1 each TP Q72H 02/08/17 Benztropine Mesylate 1 mg PO AM 07/12/17 Oxycodone HCl 5 mg PO MOWEFR 07/12/17 Amino Acids/Protein Hydrolys [Prosource No Carb Liquid Pkt] 30 ml PO TIDCM packet 07/21/17 Ascorbic Acid [Vitamin C -] 500 mg PO BID tablet 07/21/17 Ferrous Sulfate [Feosol] 325 mg PO BID #60 cap 07/21/17 Mupirocin Cream [Bactroban 2% Cream -] 1 applic TP BID tube 07/21/17 Zinc Sulfate [Orazinc -] 220 mg PO DAILY #30 cap 07/21/17 This patient is new to me today: Yes Date on this admission: 07/22/17 Emergency Visit: Yes ED Registration Date: 07/12/17 Care time: The patient presented to the Emergency Department on the above date and was hospitalized for further evaluation of their emergent condition. Critical Care patient: No - Discharge Referral Referred to [facility] Med P.C.: No
--- NOTE | 2017-07-22 13:20 | PN ---
Teaching Attending Note Name of Resident: Clyde Woods ATTENDING PHYSICIAN STATEMENT I saw and evaluated the patient. I reviewed the resident's note and discussed the case with the resident. I agree with the resident's findings and plan as documented. SUBJECTIVE: no fever or chills OBJECTIVE: awake , alert and cooperative Cv : RRR Lungs : CTAB ext : no edema . TTP over R thigh decub ulcers on coccyx, packing removed , clean granulation tissue at base of saccral one , but discharge form L hip one Abd :soft , NT, ND , NL BS ASSESSMENT AND PLAN: 62 year old Unfortunate female with PMH of MS , schizophrenia, depression, hyperlipidemia who was sent with fever and infected decub ulcer 1- Infected sacral decub: - finished a course of Abx . no recurrent fever - no surgical intervention now 2- UTI: with pseudomonas . finished Zosyn course 3- AMS : back to base line 4- Microcytic anemia : no evidence of iron def. further w/u as out pt 5- h/o DVT: eliquis stop IVF . oral hydration dc to NH today if bed is available
[2017-07-22 20:21] VITALS: BP 121/68; PULSE 89; TEMP 99.1
== END 2017-07-22 15:35 | DRG 871 ==
LOC: JER 10:36 → JERBED 14:51 → JICU 18:53 → J4S 07-14 18:50 → J5S 07-20 18:37
PROVIDERS: ADMIT Internal Medicine; ATTEND Internal Medicine
PROC: 30233N1 Transfusion of Nonautologous Red Blood Cells into Peripheral Vein, Percutaneous Approach (ICD-10-PCS; principal; 2017-07-13)
DX: A41.01 Sepsis due to Methicillin susceptible Staphylococcus aureus (principal); R65.21 Severe sepsis with septic shock; G82.50 Quadriplegia, unspecified; F20.89 Other schizophrenia; M46.28 Osteomyelitis of vertebra, sacral and sacrococcygeal region; E46 Unspecified protein-calorie malnutrition; E78.5 Hyperlipidemia, unspecified; G35 Multiple sclerosis; F41.8 Other specified anxiety disorders; D64.9 Anemia, unspecified; R15.9 Full incontinence of feces; N39.498 Other specified urinary incontinence; G47.8 Other sleep disorders; G89.29 Other chronic pain; K59.09 Other constipation; L89.150 Pressure ulcer of sacral region, unstageable; L89.220 Pressure ulcer of left hip, unstageable; L08.9 Local infection of the skin and subcutaneous tissue, unspecified; E87.6 Hypokalemia; E66.8 Other obesity; Z68.28 Body mass index [BMI] 28.0-28.9, adult; E83.42 Hypomagnesemia; R00.0 Tachycardia, unspecified; B96.5 Pseudomonas (aeruginosa) (mallei) (pseudomallei) as the cause of diseases classified elsewhere; R41.82 Altered mental status, unspecified; Z87.891 Personal history of nicotine dependence; Z85.3 Personal history of malignant neoplasm of breast; Z86.718 Personal history of other venous thrombosis and embolism
CPT/HCPCS: 36415; 36430; 36600; 70450-TC; 71010-TC; 80048; 80053; 81003; 81015; 82553; 82728; 82803; 83036; 83540; 83550; 83605; 83735; 84100; 84484; 85025; 85610; 85651; 85730; 86850; 86900; 86901; 86922; 87040; 87070; 87086; 87186; 87205; 93005; 93010; 93970-TC; 99285-25; G0463-25; G0480; J0475; J1644; J2794; P9058

== ENCOUNTER 2017-08-23 09:12 | Emergency (ER) | payer OTHER ==
--- NOTE | 2017-08-23 09:44 | PDOC ---
History of Present Illness - General History Source: Patient, Prison Records Exam Limitations: Dementia - History of Present Illness Initial Comments: 08/23/17 09:53 The patient is a 62 year old female resident of [facility] with a significant past medical history of chronic buttock ulcer, schizophrenia , depression, dementia, hyperlipidemia, and multiple sclerosis who presents to the emergency department for evaluation of R buttock ulcer. Patient is a poor historian however denies any pain. Allergies: Aripiprazole Past Surgical History: Right buttock debridement followed by wound vac(02/08/17) Social History: Nonsmoker or ETOH use. Surgeon: Dr. Samaniego <Alessandra Li - Last Filed: 08/23/17 11:09> <Janice Pang - Last Filed: 08/23/17 12:09> - General Chief Complaint: Wound Stated Complaint: Wound Infection Time Seen by Provider: 08/23/17 09:23 Past History <Alessandra Li - Last Filed: 08/23/17 11:09> - Past Medical History Cancer: Yes (Breast) Hypercholesterolemia: Yes Psychiatric Problems: Yes (schizophernia,depression,anxeity) - Suicide/Smoking/Psychosocial Hx Smoking History: Former smoker Have you smoked in the past 12 months: No Hx Alcohol Use: No Drug/Substance Use Hx: No Substance Use Type: None <Janice Pang - Last Filed: 08/23/17 12:09> - Past Medical History Allergies/Adverse Reactions: Allergies Allergy/AdvReac Type Severity Reaction Status Date / Time aripiprazole [From Abilify] AdvReac Severe Verified 07/12/17 10:51 Home Medications: Ambulatory Orders Acetaminophen [Tylenol] 650 mg PO Q6H 02/08/17 Apixaban [Eliquis -] 5 mg PO Q12H 02/08/17 Arginine/Glutamine/Calcium Hmb [Gordon Packet] 1 each PO BID 02/08/17 Atorvastatin Ca [Lipitor] 20 mg PO HS 02/08/17 Baclofen 20 mg PO QID 02/08/17 Calcium Carbonate/Vitamin D3 [Calcium 600-Vit D3 400 Tablet] 1 each PO DAILY Gabapentin [Neurontin -] 300 mg PO BID 02/08/17 Melatonin 3 mg PO HS 02/08/17 Mirtazapine [Remeron -] 30 mg PO HS 02/08/17 Polyethylene Glycol 3350 [Miralax 255 gm Btl -] 17 gm PO Q12H 02/08/17 Risperidone [Risperdal] 1 mg PO BID 02/08/17 Benztropine Mesylate 1 mg PO AM 07/12/17 Oxycodone HCl 5 mg PO ASDIR 07/12/17 Amino Acids/Protein Hydrolys [Prosource No Carb Liquid Pkt] 30 ml PO TIDCM packet 07/21/17 Ferrous Sulfate [Feosol] 325 mg PO BID #60 cap 07/21/17 Zinc Sulfate [Orazinc -] 220 mg PO DAILY #30 cap 07/21/17 Ascorbic Acid [Vitamin C -] 500 mg PO DAILY 08/23/17 Review of Systems - Review of Systems Able to Perform ROS?: No Comments:: 08/23/17 09:53 Unable to obtain ROS due to patients clinical condition. <Alessandra Li - Last Filed: 08/23/17 11:09> *Physical Exam - Physical Exam Comments: GENERAL: Awake, alert, in no acute distress HEAD: No signs of trauma EYES: PERRLA, EOMI, sclera anicteric, conjunctiva clear ENT: Auricles normal inspection, hearing grossly normal, nares patent, oropharynx clear without exudates. Moist mucosa NECK: Normal ROM, supple, no lymphadenopathy, JVD, or masses LUNGS: Breath sounds equal, clear to auscultation bilaterally. No wheezes, and no crackles HEART: Regular rate and rhythm, normal S1 and S2, no murmurs, rubs or gallops ABDOMEN: Soft, nontender, normoactive bowel sounds. No guarding, no rebound. No masses EXTREMITIES: Normal range of motion, no edema. No clubbing or cyanosis. No cords, erythema, or tenderness NEUROLOGICAL: Cranial nerves II through XII grossly intact. Normal speech, normal gait SKIN: Warm, Dry, normal turgor, no rashes. +Large decub to sacrum, stage IV. Also with small L hip decub. +Foul odor. <Janice Pang - Last Filed: 08/23/17 12:09> ED Treatment Course - LABORATORY CBC & Chemistry Diagram: 08/23/17 09:50 08/23/17 09:50 <Alessandra Li - Last Filed: 08/23/17 11:09> - LABORATORY CBC & Chemistry Diagram: 08/23/17 09:50 08/23/17 09:50 <Janice Pang - Last Filed: 08/23/17 12:09> Medical Decision Making - Medical Decision Making 08/23/17 11:[address] Nilesh Rothman Discussed case with Dr. Archer. <Alessandra Li - Last Filed: 08/23/17 11:09> - Medical Decision Making 08/23/17 11:15 Pt has history of sacral decub, was treated with wound VAC. She was reportedly complaining of pain around the site, VAC was removed. Wound was found to have foul odor and drainage. Sent for wound care. Case d/w Dr. Cisneros, will admit- will not treat empirically for abx, will defer to ID. Will also place consult for Dr. Samaniego, who has seen the patient in wound care previously. <Janice Pang - Last Filed: 08/23/17 12:09> *DC/Admit/Observation/Transfer - Attestations Scribe Attestion: 08/23/17 09:53 Documentation prepared by Alessandra Li, acting as medical sales for Janice Pang MD <Alessandra Li - Last Filed: 08/23/17 11:09> - Discharge Dispostion Admit: Yes <Janice Pang - Last Filed: 08/23/17 12:09> Diagnosis at time of Disposition: Infected decubitus ulcer Qualifiers: Pressure ulcer stage: stage 4 Qualified Code(s): L89.94 - Pressure ulcer of unspecified site, stage 4 - Discharge Dispostion Condition at time of disposition: Stable - Referrals
[2017-08-23 09:58] VITALS: BMI 29.4
[2017-08-23 10:08] LABS: BASOPHIL 0.7 % (0-2.0); EOSINOPHIL 2.4 % (0-4.5); MCH 25.1 pg (25.7-33.7); MCHC 31.3 g/dl (32.0-36.0); MEAN CELL VOLUME 80.1 fl (80-96); MEAN PLT VOLUME 7.2 fl (7.5-11.1); NEUTROPHILS 60.3 % (42.8-82.8); PLATELET COUNT 410 K/MM3 (134-434); RDW 21.5 % (11.6-15.6); WHITE BLOOD COUNT 8.7 K/mm3 (4.0-10.0)
[2017-08-23 10:31] LABS: INR 1.7 (0.82-1.09); PROTHROMBIN TIME (PATIENT) 18.7 SEC (9.98-11.88)
[2017-08-23 10:35] LABS: ALBUMIN 1.2 g/dl (3.4-5.0); ALK PHOS 215 U/L (45-117); ANION GAP 10 (8-16); BILIRUBIN,TOTAL 0.3 mg/dL (0.2-1.0); CALCIUM 8.3 mg/dL (8.5-10.1); CO2 28 mmol/L (21-32); CREATININE 0.4 mg/dL (0.55-1.02); GLUCOSE,RANDOM 86 mg/dL (74-106); SGOT/AST 14 U/L (15-37); SGPT/ALT 10 U/L (12-78); TOT PROT 5.5 g/dl (6.4-8.2)
--- NOTE | 2017-08-23 14:04 | PDOC ---
*Physical Exam - Vital Signs Last Vital Signs Temp Pulse Resp BP Pulse Ox 97.7 F 88 20 147/69 100 08/23/17 09:22 08/23/17 09:22 08/23/17 09:22 08/23/17 09:22 08/23/17 09:22 ED Treatment Course - LABORATORY CBC & Chemistry Diagram: 08/23/17 09:50 08/23/17 09:50 - ADDITIONAL ORDERS Additional order review: Laboratory Results 08/23/17 08/23/17 09:50 09:50 PT with INR 18.70 H INR 1.70 H D Sodium 139 Potassium 3.5 Chloride 101 Carbon Dioxide 28 Anion Gap 10 BUN 10 D Creatinine 0.4 L D Creat Clearance w eGFR > 60 Random Glucose 86 Calcium 8.3 L Total Bilirubin 0.3 AST 14 L ALT 10 L D Alkaline Phosphatase 215 H D Total Protein 5.5 L Albumin 1.2 L 08/23/17 09:50 RBC 3.83 MCV 80.1 MCHC 31.3 L RDW 21.5 H D MPV 7.2 L Neutrophils % 60.3 Lymphocytes % 25.2 D Monocytes % 11.4 H D Eosinophils % 2.4 Basophils % 0.7 - RADIOLOGY Radiology Studies Ordered: Category Date Time Status CHEST X-RAY PORTABLE* [RAD] Stat Radiology 08/23/17 09:42 Completed Medical Decision Making - Medical Decision Making 08/23/17 14:[address] Samaniego, recommended dakin's solution, local wound care. No indication for admission at present. I will d/w Dr. Cisneros. 08/23/17 14:32 D/w Dr. Cisneros, I will DC back to [place]. *DC/Admit/Observation/Transfer Diagnosis at time of Disposition: Infected decubitus ulcer Qualifiers: Pressure ulcer stage: stage 4 Qualified Code(s): L89.94 - Pressure ulcer of unspecified site, stage 4 Protein calorie malnutrition Qualifiers: Protein-calorie malnutrition severity: severe Qualified Code(s): E43 - Unspecified severe protein-calorie malnutrition - Discharge Dispostion Disposition: HOME Condition at time of disposition: Stable Admit: No
--- NOTE | 2017-08-23 14:16 | CONSULT ---
Consult Consult Specialty:: Plastic Surgery Referred by:: Dr Bird BRENNAN Reason for Consultation:: Grade IV sacral decubitus with odor - History of Present Illness Chief Complaint: Grade IV chronic Sacral decubitus History of Present Illness: 62 year female with Multiple Sclerosis for 2 decades, has a chronic grade IV Sacral decubitus, patient is regularly followed in Wound clinic and is awaiting flap closure . - Past Medical History Psych: Yes: Schizophrenia - Alcohol/Substance Use Hx Alcohol Use: No - Smoking History Smoking history: Former smoker Have you smoked in the past 12 months: No Home Medications - Allergies Allergies/Adverse Reactions: Allergies Allergy/AdvReac Type Severity Reaction Status Date / Time aripiprazole [From Abilify] AdvReac Severe Verified 07/12/17 10:51 - Home Medications Home Medications: Ambulatory Orders Acetaminophen [Tylenol] 650 mg PO Q6H 02/08/17 Apixaban [Eliquis -] 5 mg PO Q12H 02/08/17 Arginine/Glutamine/Calcium Hmb [Gordon Packet] 1 each PO BID 02/08/17 Atorvastatin Ca [Lipitor] 20 mg PO HS 02/08/17 Baclofen 20 mg PO QID 02/08/17 Calcium Carbonate/Vitamin D3 [Calcium 600-Vit D3 400 Tablet] 1 each PO DAILY Gabapentin [Neurontin -] 300 mg PO BID 02/08/17 Melatonin 3 mg PO HS 02/08/17 Mirtazapine [Remeron -] 30 mg PO HS 02/08/17 Polyethylene Glycol 3350 [Miralax 255 gm Btl -] 17 gm PO Q12H 02/08/17 Risperidone [Risperdal] 1 mg PO BID 02/08/17 Benztropine Mesylate 1 mg PO AM 07/12/17 Oxycodone HCl 5 mg PO ASDIR 07/12/17 Amino Acids/Protein Hydrolys [Prosource No Carb Liquid Pkt] 30 ml PO TIDCM packet 07/21/17 Ferrous Sulfate [Feosol] 325 mg PO BID #60 cap 07/21/17 Zinc Sulfate [Orazinc -] 220 mg PO DAILY #30 cap 07/21/17 Ascorbic Acid [Vitamin C -] 500 mg PO DAILY 08/23/17 Physical Exam Vital Signs: Vital Signs Temperature 97.7 F 08/23/17 09:22 Pulse Rate 88 08/23/17 09:22 Respiratory Rate 20 08/23/17 09:22 Blood Pressure 147/69 08/23/17 09:22 O2 Sat by Pulse Oximetry (%) 100 08/23/17 09:22 Assessment/Plan Patient seen in ER on Request from Dr Pang..patient send in from halfway and Primary MD regarding foul odor from the VAC Patient has a Grade IV decubitus, also has low protein and low Albumin, unable to surgically close till her medical status and nutrition improves Patient recently discharged from [place] treated for infected wound and sepsis Examination : Awake alert not in distress, answering questions coherently Wound VAC removed Afebrile, not warm Labs Laboratory Tests 08/23/17 08/23/17 09:50 09:50 Hgb 9.6 L Hct 30.7 L MCH 25.1 L MCHC 31.3 L RDW 21.5 H D MPV 7.2 L Neutrophils % 60.3 Lymphocytes % 25.2 D Monocytes % 11.4 H D Sodium 139 Potassium 3.5 Chloride 101 Carbon Dioxide 28 Anion Gap 10 Creatinine 0.4 L D Random Glucose 86 Calcium 8.3 L AST 14 L ALT 10 L D Alkaline Phosphatase 215 H D Total Protein 5.5 L Albumin 1.2 L Plan : 1. D/C VAC therapy 2. Wound care with Dakins solution 1/4 percent BID for 1 week 3. Pressure relief, Low mattress for grade III and IV 4. Continue nutritional support, till Albumin is above 2.5 , improvement in Pre- albumin 5. Follow up in wound clinic
[2017-08-23] MEDS ORDERED: ACETAMINOPHEN 325 MG TABLET (FP) PO ONE (17:34)
[2017-08-23] MEDS ORDERED: ACETAMINOPHEN 325 MG TABLET (FP) ONE (17:35)
[2017-08-23 17:43] VITALS: BP 134/79; PULSE 100; TEMP 99.1
--- NOTE | 2017-08-24 11:59 | EKG ---
Test Reason : Blood Pressure : / mmHG Vent. Rate : 091 BPM Atrial Rate : 091 BPM P-R Int : 128 ms QRS Dur : 110 ms QT Int : 386 ms P-R-T Axes : 013 -46 054 degrees QTc Int : 474 ms NORMAL SINUS RHYTHM INCOMPLETE RIGHT BUNDLE BRANCH BLOCK LEFT ANTERIOR FASCICULAR BLOCK ABNORMAL ECG WHEN COMPARED WITH ECG OF 13-JUL-2017 08:42, NO SIGNIFICANT CHANGE WAS FOUND Confirmed by KAITLIN STEELE, CAMMIE ([id number]) on 08/24/2017 11:59:19 AM Referred By: Confirmed By:CAMMIE MADRIGAL MD
--- NOTE | 2017-08-25 13:09 | PDOC ---
Patient Follow-up (Call Back) - Post ED Follow - Up Chief Complaint: Pain Condition at time of discharge: Stable Disposition at time of original discharge: HOME Reason for Call Back: Abnwl. Microbiology (faxed reports to the group [facility]. Pt is on strict contact precautions at the facility.)
== END 2017-08-23 17:48 | DRG 592 ==
LOC: JER 09:12 → UNDOADMIN 11:16 → JERBED 11:16 → UNDODISIN 17:48 → JER 17:48
DX: L89.154 Pressure ulcer of sacral region, stage 4 (principal); G35 Multiple sclerosis; R77.0 Abnormality of albumin; E43 Unspecified severe protein-calorie malnutrition; F20.0 Paranoid schizophrenia; F32.9 Major depressive disorder, single episode, unspecified; F03.90 Unspecified dementia, unspecified severity, without behavioral disturbance, psychotic disturbance, mood disturbance, and anxiety; E78.5 Hyperlipidemia, unspecified; Z85.3 Personal history of malignant neoplasm of breast; Z87.891 Personal history of nicotine dependence; Z88.8 Allergy status to other drugs, medicaments and biological substances
CPT/HCPCS: 36415; 71010-TC; 80053; 85025; 85610; 87040; 87070; 87186; 87205; 93005; 93010; 99284-25